=== PATIENT | male | born 1985 | race African-American/Black ===

== ENCOUNTER 2016-12-23 13:58 | Inpatient (IN) | payer MEDICAID, OTHER ==
[~2016-12-23] VITALS: Ht 177.8 cm; Wt 72.6 kg
[2016-12-23 14:52] LABS: ALANINE AMINOTRANSFERASE 28 U/L (3-41); ALBUMIN/GLOBULIN RATIO 0.9 (1.0-2.7); ALCOHOL < 10 mg/dL; ANION GAP 28 (5-15); ASPARTATE AMINO TRANSFERASE 35 U/L (5-40); CALCIUM 8.4 mg/dL (8.6-10.2); CARBON DIOXIDE 24 mEQ/L (20-30); CHLORIDE 70 mEQ/L (98-107); CREATININE 3.3 mg/dL (0.7-1.2); GLOMERULAR FILTRATION RATE 26.8 mL/min (>60); POTASSIUM 2.9 mEQ/L (3.4-4.9); SODIUM 122 mEQ/L (135-145); TOTAL PROTEIN 7.5 g/dL (6.6-8.7)
[2016-12-23 14:53] LABS: MEAN CORPUSCULAR HEMOGLOBIN 28.1 PG (27.0-31.0); MEAN CORPUSCULAR HGB CONC 32.4 G/DL (32.0-36.0); MEAN CORPUSCULAR VOLUME 87 FL (80-99); MEAN PLATELET VOLUME 6.9 FL (6.5-10.1); PLATELET COUNT 268 K/UL (150-450); RED BLOOD COUNT 4.11 M/UL (4.70-6.10); RED CELL DISTRIBUTION WIDTH 18.1 % (11.6-14.8)
[2016-12-23 14:55] LABS: WHITE BLOOD COUNT 24.3 K/UL (4.8-10.8)
[2016-12-23 15:04] LABS: BILIRUBIN,DIRECT 0.4 mg/dL (0.1-0.3); HEMOLYSIS 41
[2016-12-23 15:30] LABS: AMYLASE 297 U/L (10-110)
[2016-12-23 15:43] LABS: LIPASE 441 U/L (< 60)
--- NOTE | 2016-12-23 16:01 | Diagnostic Imaging Report ---
Indications: Abdominal pain, anuria, leukocytosis Technique: Continuous helical CT imaging of the abdomen and pelvis was performed with automatic exposure control on a Siemens sensation [address] scanner. Axial, coronal, sagittal images reconstructed at 3 mm slice thickness. No IV contrast was administered due to elevated BUN and creatinine levels. Oral contrast was administered per requesting physician's order, despite no contraindications listed. CTDI volume(s): 9 mGy Total DLP: 477 mGy-cm Findings: Comparison: None Lack of oral and IV contrast limits evaluation. Mild gaseous distention of colon from cecum through the splenic flexure. Remainder of tract nondilated throughout. No obvious mural thickening, adjacent stranding, associated extraluminal gas or fluid collections identified. Pancreas is enlarged with surrounding stranding and haziness. No obvious associated loculated fluid or gas collection. Liver parenchyma diffusely decreased attenuation. Multiple small calcified stones layer dependently in the gallbladder lumen. Bilateral kidneys normal in size. Bilateral renal collecting systems and ureters nondilated. Urinary bladder distended without obvious mural thickening. Remainder visualized abdominopelvic anatomy demonstrates no other obvious acute abnormality. Hazy opacity dependent portion right lung base. Left lung base clear. No focal skeletal abnormality identified. IMPRESSION: Pancreatic findings suggest acute pancreatitis. Further characterization not possible due to lack of IV contrast. Moderate gaseous distention of right and transverse colon, duct obstruction, may represent reactive colonic ileus Urinary bladder distention, nonspecific. No hydronephrosis. Hepatic steatosis Cholelithiasis Nonspecific hazy opacity right lung base, may be atelectatic or inflammatory
[2016-12-23] MEDS ORDERED: Ampicillin/Sulbactam Sod 3 GM in NS 110 ML IVPB ONE (16:15)
[2016-12-23 16:20] LABS: ANISOCYTOSIS 1+; BAND NEUTROPHILS % (MANUAL) 2 % (0-8); LYMPHOCYTES % (MANUAL) 6 % (20-45); NEUTROPHILS % (MANUAL) 87 % (45-75); TOTAL CELLS COUNTED 100
[2016-12-23 16:21] LABS: HYPOCHROMASIA 2+
[2016-12-23 16:22] LABS: BASOPHILS % (MANUAL) 0 % (0-2); EOSINOPHILS % (MANUAL) 0 % (0-3); PLATELET ESTIMATE ADEQUATE; PLATELET MORPHOLOGY NORMAL
[2016-12-23] MEDS ORDERED: Unasyn 3gm Inj ONE (16:22)
[2016-12-23] MEDS ORDERED: Metoclopramide 10mg/2ml Inj IVP ONE (16:30)
[2016-12-23] MEDS ORDERED: Morphine Sulfate 4mg/ml Inj IVP ONE (16:30)
[2016-12-23 16:51] VITALS: BP 101/66
[2016-12-23] MEDS ORDERED: NKM (16:51)
[2016-12-23 17:20] LABS: APPEARANCE,URINE CLEAR; KETONES,URINE 2+ (NEGATIVE); LEUKOCYTE ESTERASE ,URINE 1+ (NEGATIVE); NITRITE,URINE NEGATIVE (NEGATIVE); PH,URINE 5 (4.5-8.0); PROTEIN,URINE 3+ (NEGATIVE); UROBILINOGEN,URINE 1 MG/DL (0.0-1.0)
[2016-12-23 17:28] LABS: AMORPHOUS SEDIMENT,UR MODERATE /LPF; BACTERIA,URINE FEW /HPF; ICTOTEST NEGATIVE
[2016-12-23 18:47] VITALS: BP 102/60
[2016-12-23] MEDS ORDERED: Morphine Sulfate 2mg/ml Inj IVP PRN (19:00)
[2016-12-23] MEDS ORDERED: LORazepam Inj 2mg/ml 1ml IV PRN (19:00)
--- NOTE | 2016-12-23 19:04 | Consultation ---
Consult Note Consult Note presents with ALOC Has high lipase . Assessment/Plan Renal failure , Acute vs Chronic h/o Sz Acute Encephalopathy Low K Low Na Elevated Lipase , acute pancreatitis Plan; npo excepts meds- NS Monitor lytes- monitor renal parameters Neuro eval check dilantin level VELASQUEZ DASILVA Dec 23, 2016 19:04
[2016-12-23] MEDS ORDERED: LORazepam 1mg tab ORAL PRN (19:45)
[2016-12-23 20:00] VITALS: BP 97/50
--- NOTE | 2016-12-23 22:23 | Emergency Room Report ---
History of Present Illness General Chief Complaint: Alcohol Intoxication Source: EMS Present Illness HPI The patient is a 31-year-old male with a history of seizure disorder brought in by ambulance presumably for intoxication. The patient does admit to drinking a 40 ounce of beer today but denies using any drugs recently. He states that he does not know which medications he used to take for seizure but has not been taking any medications at all. He denies any pain. He does admit to nausea and feeling drowsy. He also admits to abdominal pain described as a 10 out of 10 dull ache to the mid upper abdomen. No known provoking relieving factors. He denies other symptoms including fever, chills, shortness of breath, chest pain, cough, headache, rash, diarrhea, constipation Allergies: Coded Allergies: ACETAMINOPHEN (Verified Allergy, Unknown, 06/11/15) IBUPROFEN (Verified Allergy, Unknown, 06/11/15) Patient History Past Medical History: see triage record Pertinent Family History: none Social History: Reports: alcohol use Reviewed Nursing Documentation: PMH: Agreed, PSxH: Agreed Nursing Documentation-PMH Past Medical History: No History, Except For Hx Cardiac Problems: No Hx Cancer: No Hx Gastrointestinal Problems: Yes - ETOH ABUSE Hx Seizures: Yes Review of Systems All Other Systems: negative except mentioned in HPI Physical Exam Vital Signs Date Time Temp Pulse Resp B/P Pulse Ox O2 Delivery O2 Flow Rate FiO2 12/23/16 13:55 116 20 96/63 99 Room Air 12/23/16 16:51 98.1 Sp02 EP Interpretation: reviewed, normal General Appearance: no apparent distress, GCS 15, non-toxic, lethargic Head: normocephalic, atraumatic Eyes: bilateral eye PERRL, bilateral eye normal inspection ENT: hearing grossly normal, normal pharynx, no angioedema, normal voice Respiratory: chest non-tender, lungs clear, normal breath sounds, no accessory muscle use, speaking full sentences Cardiovascular #1: no edema, no murmur, no rub Gastrointestinal: normal bowel sounds, soft, non-distended, no guarding, no rebound, tenderness - diffuse, primarily epigastric Genitourinary: normal inspection, no CVA tenderness Musculoskeletal: back normal, gait/station normal, normal range of motion, non- tender Neurologic: alert, responsive, sensory intact Psychiatric: no suicidal/homicidal ideation, depressed affect Skin: normal color, no rash, warm/dry, well hydrated Lymphatic: no adenopathy Medical Decision Making PA Attestation Dr. Zheng is my supervising physician. Patient management was discussed with my supervising physician Diagnostic Impression: Primary Impression: Pancreatitis Qualified Codes: K85.90 - Acute pancreatitis without necrosis or infection, unspecified Additional Impression: Altered mental status Qualified Codes: R41.82 - Altered mental status, unspecified ER Course The patient is a 31-year-old male in by ambulance for altered mental status presumably due to alcohol Differential diagnoses considered but not limited to: Alcohol intoxication, drug abuse, dehydration, hyperglycemia, hypoglycemia, pancreatitis, among others Physical exam: Afebrile. Patient is tachycardic. No apparent distress. He appears lethargic and is slow to respond. HEENT exam unremarkable. Tachycardia. No MRG. Lungs are CTAB There is diffuse abdominal tenderness with the greatest tenderness noted over the epigastric region. Skin is warm and dry. No rash CBC significant for leukocytosis which is markedly elevated. Left shift is noted. CMP has multiple abnormalities including hypokalemia, hyponatremia, elevated BUN and creatinine, hyperglycemia, and elevated bilirubin. Lipase and amylase elevated Urinalysis has 3+ occult blood. Negative nitrites. There are granular casts seen CT shows signs of acute pancreatitis as well as cholelithiasis The patient is given IV fluids, morphine, and Zofran. He feels better The patient will be admitted in serious but stable condition. The case is discussed with admitting doctor and Dr. Zheng. The patient agrees with this plan Laboratory Tests Test 12/23/16 14:20 12/23/16 16:25 White Blood Count 24.3 K/UL (4.8-10.8) *H Red Blood Count 4.11 M/UL (4.70-6.10) L Hemoglobin 11.6 G/DL (14.2-18.0) L Hematocrit 35.7 % (42.0-52.0) L Mean Corpuscular Volume 87 FL (80-99) Mean Corpuscular Hemoglobin 28.1 PG (27.0-31.0) Mean Corpuscular Hemoglobin Concent 32.4 G/DL (32.0-36.0) Red Cell Distribution Width 18.1 % (11.6-14.8) H Platelet Count 268 K/UL (150-450) Mean Platelet Volume 6.9 FL (6.5-10.1) Neutrophils (%) (Auto) % (45.0-75.0) Lymphocytes (%) (Auto) % (20.0-45.0) Monocytes (%) (Auto) % (1.0-10.0) Eosinophils (%) (Auto) % (0.0-3.0) Basophils (%) (Auto) % (0.0-2.0) Differential Total Cells Counted 100 Neutrophils % (Manual) 87 % (45-75) H Lymphocytes % (Manual) 6 % (20-45) L Monocytes % (Manual) 5 % (1-10) Eosinophils % (Manual) 0 % (0-3) Basophils % (Manual) 0 % (0-2) Band Neutrophils 2 % (0-8) Platelet Estimate Adequate Platelet Morphology Normal Hypochromasia 2+ Anisocytosis 1+ Sodium Level 122 mEQ/L (135-145) L Potassium Level 2.9 mEQ/L (3.4-4.9) L Chloride Level 70 mEQ/L (98-107) L Carbon Dioxide Level 24 mEQ/L (20-30) Anion Gap 28 (5-15) H Blood Urea Nitrogen 33 mg/dL (7-23) H Creatinine 3.3 mg/dL (0.7-1.2) H Estimate Glomerular Filtration Rate 26.8 mL/min (>60) Glucose Level 245 mg/dL (74-106) H Plasma/Serum Osmolality Pending Calcium Level 8.4 mg/dL (8.6-10.2) L Total Bilirubin 1.4 mg/dL (0.0-1.2) H Direct Bilirubin 0.4 mg/dL (0.1-0.3) H Aspartate Amino Transferase (AST) 35 U/L (5-40) Alanine Aminotransferase (ALT) 28 U/L (3-41) Alkaline Phosphatase 102 U/L (40-129) Total Protein 7.5 g/dL (6.6-8.7) Albumin 3.6 g/dL (3.5-5.2) Globulin 3.9 g/dL Albumin/Globulin Ratio 0.9 (1.0-2.7) L Amylase Level 297 U/L (10-110) H Lipase 441 U/L (< 60) H Serum Alcohol < 10 mg/dL Urine Color Brown Urine Appearance Clear Urine pH 5 (4.5-8.0) Urine Specific [place] 1.025 (1.005-1.035) Urine Protein 3+ (NEGATIVE) H Urine Glucose (UA) 3+ (NEGATIVE) H Urine Ketones 2+ (NEGATIVE) H Urine Occult Blood 3+ (NEGATIVE) H Urine Nitrite Negative (NEGATIVE) Urine Bilirubin 2+ (NEGATIVE) H Urine Ictotest Negative Urine Urobilinogen 1 MG/DL (0.0-1.0) H Urine Leukocyte Esterase 1+ (NEGATIVE) H Urine RBC 5-10 /HPF (0 - 0) H Urine WBC 2-4 /HPF (0 - 0) Urine Squamous Epithelial Cells None /LPF (NONE/OCC) Urine Amorphous Sediment Moderate /LPF (NONE) H Urine Bacteria Few /HPF (NONE) Urine Fine Granular Casts 2-4 /LPF (NONE) H Urine Opiates Screen Negative (NEGATIVE) Urine Barbiturates Screen Negative (NEGATIVE) Phencyclidine (PCP) Screen Negative (NEGATIVE) Urine Amphetamines Screen Negative (NEGATIVE) Urine Benzodiazepines Screen Negative (NEGATIVE) Urine Cocaine Screen Negative (NEGATIVE) Urine Marijuana (THC) Screen Negative (NEGATIVE) Lab Results Impression CBC significant for leukocytosis which is markedly elevated. Left shift is noted. CMP has multiple abnormalities including hypokalemia, hyponatremia, elevated BUN and creatinine, hyperglycemia, and elevated bilirubin. Lipase and amylase elevated Urinalysis has 3+ occult blood. Negative nitrites. There are granular casts seen Urine drug screen and serum alcohol are both essentially negative CT/MRI/US Diagnostic Results CT/MRI/US Diagnostic Results : Imaging Test Ordered: CT abd pelvis Impression There findings consistent with acute pancreatitis and cholelithiasis Last Vital Signs Date Time Temp Pulse Resp B/P Pulse Ox O2 Delivery O2 Flow Rate FiO2 12/23/16 20:00 100.6 116 20 97/50 100 Room Air Status: improved Disposition: ADMITTED INPATIENT Condition: Serious Referrals: NOT CHOSEN ALEX/,REFERRING (PCP) DARCI ESQUIVEL Dec 23, 2016 22:23
[2016-12-24] VITALS: BP 95/38
[2016-12-24 04:14] VITALS: BP 96/50
[2016-12-24 07:37] LABS: MEAN CORPUSCULAR HEMOGLOBIN 28.9 PG (27.0-31.0); MEAN CORPUSCULAR HGB CONC 32.2 G/DL (32.0-36.0); MEAN CORPUSCULAR VOLUME 90 FL (80-99); MEAN PLATELET VOLUME 7.3 FL (6.5-10.1); PLATELET COUNT 203 K/UL (150-450); RED BLOOD COUNT 3.23 M/UL (4.70-6.10); RED CELL DISTRIBUTION WIDTH 18.8 % (11.6-14.8); WHITE BLOOD COUNT 16.2 K/UL (4.8-10.8)
[2016-12-24 07:46] LABS: AMMONIA 40 umol/L (16-60)
--- NOTE | 2016-12-24 08:11 | Infectious Diseases Prog Note ---
Assessment/Plan Problems: (1) Sepsis Assessment & Plan: with leukocytosis, will send blood culture and start unasyn empirically (2) Acute alcoholic intoxication Assessment & Plan: continue neuro check and benzodiazepine , watch for alcohol withdrawal , recommend alcohol rehab and counseling (3) Pancreatitis Assessment & Plan: due to [place] drink of alcohol , continue hydration with supportive care, monitor lipase, consult GI (4) Altered mental status Assessment & Plan: due to the above, improving, recommend neurology consult Subjective Allergies: Coded Allergies: ACETAMINOPHEN (Verified Allergy, Unknown, 06/11/15) IBUPROFEN (Verified Allergy, Unknown, 06/11/15) Objective Vital Signs Last 24 Hour Vital Signs Date Time Temp Pulse Resp B/P Pulse Ox O2 Delivery O2 Flow Rate FiO2 12/24/16 04:14 99.5 106 19 96/50 100 Room Air 12/24/16 00:00 99.8 117 18 95/38 97 Room Air 12/23/16 20:00 100.6 116 20 97/50 100 Room Air 12/23/16 18:47 98.4 113 19 102/60 100 Room Air 12/23/16 18:25 98.1 118 20 101/66 99 Room Air 12/23/16 18:16 98.1 12/23/16 16:51 98.1 118 20 101/66 99 Room Air 12/23/16 13:55 116 20 96/63 99 Room Air Height (Feet): 5 Height (Inches): 10.00 Weight (Pounds): 160 Laboratory Tests Test 12/23/16 14:20 12/23/16 16:25 12/24/16 06:00 White Blood Count 24.3 K/UL (4.8-10.8) *H 16.2 K/UL (4.8-10.8) H Red Blood Count 4.11 M/UL (4.70-6.10) L 3.23 M/UL (4.70-6.10) L Hemoglobin 11.6 G/DL (14.2-18.0) L 9.3 G/DL (14.2-18.0) L Hematocrit 35.7 % (42.0-52.0) L 29.0 % (42.0-52.0) L Mean Corpuscular Volume 87 FL (80-99) 90 FL (80-99) Mean Corpuscular Hemoglobin 28.1 PG (27.0-31.0) 28.9 PG (27.0-31.0) Mean Corpuscular Hemoglobin Concent 32.4 G/DL (32.0-36.0) 32.2 G/DL (32.0-36.0) Red Cell Distribution Width 18.1 % (11.6-14.8) H 18.8 % (11.6-14.8) H Platelet Count 268 K/UL (150-450) 203 K/UL (150-450) Mean Platelet Volume 6.9 FL (6.5-10.1) 7.3 FL (6.5-10.1) Neutrophils (%) (Auto) % (45.0-75.0) % (45.0-75.0) Lymphocytes (%) (Auto) % (20.0-45.0) % (20.0-45.0) Monocytes (%) (Auto) % (1.0-10.0) % (1.0-10.0) Eosinophils (%) (Auto) % (0.0-3.0) % (0.0-3.0) Basophils (%) (Auto) % (0.0-2.0) % (0.0-2.0) Differential Total Cells Counted 100 Neutrophils % (Manual) 87 % (45-75) H Pending Lymphocytes % (Manual) 6 % (20-45) L Pending Monocytes % (Manual) 5 % (1-10) Eosinophils % (Manual) 0 % (0-3) Basophils % (Manual) 0 % (0-2) Band Neutrophils 2 % (0-8) Platelet Estimate Adequate Pending Platelet Morphology Normal Pending Hypochromasia 2+ Anisocytosis 1+ Sodium Level 122 mEQ/L (135-145) L Pending Potassium Level 2.9 mEQ/L (3.4-4.9) L Pending Chloride Level 70 mEQ/L (98-107) L Pending Carbon Dioxide Level 24 mEQ/L (20-30) Pending Anion Gap 28 (5-15) H Blood Urea Nitrogen 33 mg/dL (7-23) H Pending Creatinine 3.3 mg/dL (0.7-1.2) H Pending Estimat Glomerular Filtration Rate 26.8 mL/min (>60) Pending Glucose Level 245 mg/dL (74-106) H Pending Plasma/Serum Osmolality Pending Calcium Level 8.4 mg/dL (8.6-10.2) L Pending Total Bilirubin 1.4 mg/dL (0.0-1.2) H Pending Direct Bilirubin 0.4 mg/dL (0.1-0.3) H Aspartate Amino Transf (AST/SGOT) 35 U/L (5-40) Pending Alanine Aminotransferase (ALT/SGPT) 28 U/L (3-41) Pending Alkaline Phosphatase 102 U/L (40-129) Pending Total Protein 7.5 g/dL (6.6-8.7) Pending Albumin 3.6 g/dL (3.5-5.2) Pending Globulin 3.9 g/dL Pending Albumin/Globulin Ratio 0.9 (1.0-2.7) L Amylase Level 297 U/L (10-110) H Lipase 441 U/L (< 60) H Pending Serum Alcohol < 10 mg/dL Urine Color Brown Urine Appearance Clear Urine pH 5 (4.5-8.0) Urine Specific [place] 1.025 (1.005-1.035) Urine Protein 3+ (NEGATIVE) H Urine Glucose (UA) 3+ (NEGATIVE) H Urine Ketones 2+ (NEGATIVE) H Urine Occult Blood 3+ (NEGATIVE) H Urine Nitrite Negative (NEGATIVE) Urine Bilirubin 2+ (NEGATIVE) H Urine Ictotest Negative Urine Urobilinogen 1 MG/DL (0.0-1.0) H Urine Leukocyte Esterase 1+ (NEGATIVE) H Urine RBC 5-10 /HPF (0 - 0) H Urine WBC 2-4 /HPF (0 - 0) Urine Squamous Epithelial Cells None /LPF (NONE/OCC) Urine Amorphous Sediment Moderate /LPF (NONE) H Urine Bacteria Few /HPF (NONE) Urine Fine Granular Casts 2-4 /LPF (NONE) H Urine Opiates Screen Negative (NEGATIVE) Urine Barbiturates Screen Negative (NEGATIVE) Phencyclidine (PCP) Screen Negative (NEGATIVE) Urine Amphetamines Screen Negative (NEGATIVE) Urine Benzodiazepines Screen Negative (NEGATIVE) Urine Cocaine Screen Negative (NEGATIVE) Urine Marijuana (THC) Screen Negative (NEGATIVE) Urine Eosinophils Pending Urine Random Sodium Pending Hemoglobin A1c Pending Uric Acid Pending Phosphorus Level Pending Magnesium Level Pending Iron Level Pending Unsaturated Iron Binding Pending Ferritin Pending Gamma Glutamyl Transpeptidase Pending Ammonia 40 umol/L (16-60) Total Creatine Kinase Pending C-Reactive Protein, Quantitative Pending Pro-B-Type Natriuretic Peptide Pending Triglycerides Level Pending Cholesterol Level Pending LDL Cholesterol Pending HDL Cholesterol Pending Cholesterol/HDL Ratio Pending Vitamin B12 Level Pending Folate Pending Thyroid Stimulating Hormone (TSH) Pending Phenytoin (Dilantin) Level Pending Current Medications Medications (Trade) Dose Ordered Sig/Juliana Route PRN Reason Start Time Stop Time Status Last Admin Dose Admin Lorazepam (Ativan 2mg/ml 1ml) 0.5 mg Q4H PRN IV SEIZURE OR WITHDRAWAL 12/23/16 19:00 12/30/16 18:59 Lorazepam (Ativan) 1 mg Q6H PRN ORAL For Anxiety 12/23/16 19:45 12/30/16 19:44 Morphine Sulfate (Morphine Sulfate) 2 mg Q4H PRN IVP Severe Pain (Pain Scale 7-10) 12/23/16 19:00 12/30/16 18:59 Ondansetron HCl (Zofran) 4 mg Q6H PRN IVP Nausea & Vomiting 12/23/16 19:45 01/22/17 19:44 Pantoprazole (Protonix) 40 mg EVERY 12 HOURS ORAL 12/23/16 21:00 01/22/17 20:59 12/23/16 20:37 Sodium Chloride (Sodium Chloride 1000ml bag) 1,000 ml @ 100 mls/hr Q10H IV 12/23/16 19:45 01/22/17 19:44 12/24/16 05:22 Imelda Chen M.D. Dec 24, 2016 08:11
[2016-12-24 08:15] VITALS: BP 89/47
[2016-12-24 08:16] LABS: ALANINE AMINOTRANSFERASE 20 U/L (3-41); ALBUMIN/GLOBULIN RATIO 0.8 (1.0-2.7); ANION GAP 21 (5-15); ASPARTATE AMINO TRANSFERASE 29 U/L (5-40); CALCIUM 7.7 mg/dL (8.6-10.2); CARBON DIOXIDE 27 mEQ/L (20-30); CHLORIDE 84 mEQ/L (98-107); CHOLESTEROL 60 mg/dL (< 200); CHOLESTEROL/HDL RATIO 4.6 (3.3-4.4); CREATININE 1.9 mg/dL (0.7-1.2); CRP QUANT 15.6 mg/dL (< 0.5); GLOMERULAR FILTRATION RATE 50.7 mL/min (>60); LDL CHOLESTEROL (CALC.) 30 mg/dL (60-99); LIPASE 154 U/L (< 60); MAGNESIUM 2.2 mg/dL (1.7-2.5); PHOSPHORUS 3.3 mg/dL (2.5-4.8); POTASSIUM 2.8 mEQ/L (3.4-4.9); SODIUM 132 mEQ/L (135-145); TOTAL PROTEIN 6.7 g/dL (6.6-8.7); URIC ACID 12.4 mg/dL (3.0-7.5)
[2016-12-24 08:18] LABS: FERRITIN 1159 ng/mL (10-230)
[2016-12-24 08:26] LABS: HEMOLYSIS 82; IRON 88 ug/dL (59-158); TOTAL IRON BINDING CAPACITY 249 ug/dL (250-400)
[2016-12-24 08:33] LABS: HEMOGLOBIN A1C 6.3 % (< 6.0)
[2016-12-24 08:40] LABS: BILIRUBIN,DIRECT 0.4 mg/dL (0.1-0.3)
--- NOTE | 2016-12-24 08:42 | Consultation ---
History of Present Illness General Date patient seen: Dec 24, 2016 Time patient seen: 07:00 - am Chief Complaint: Alcohol Intoxication Referring physician: veena Reason for Consultation: Pain management Present Illness HPI The patient is a 31-year-old male with a history of seizure disorder admitted for intoxication. The patient does admit to drinking a 40 ounce of beer and is c/o abdominal pain nausea and feeling drowsy. Given Morphine which has allowed him to tolerate his pain. Allergies: Coded Allergies: ACETAMINOPHEN (Verified Allergy, Unknown, 06/11/15) IBUPROFEN (Verified Allergy, Unknown, 06/11/15) Medication History Scheduled No Known Medications* (NKM - No Known Medications*), 0 ., (Reported) Patient History Healthcare decision maker N Resuscitation status Full Code Advanced Directive on File Past Medical/Surgical History Past Medical/Surgical History: (1) Seizure (2) Status epilepticus (3) Acute alcoholic intoxication (4) Altered mental status (5) Pancreatitis (6) Sepsis (7) Anemia Review of Systems Constitutional: Reports: weakness Eye: Reports: no symptoms ENT: Reports: no symptoms Respiratory: Reports: no symptoms Cardiovascular: Reports: no symptoms Gastrointestinal: Reports: abdominal pain, nausea Genitourinary: Reports: no symptoms Musculoskeletal: Reports: no symptoms Skin: Reports: no symptoms Psychiatric: Reports: anxiety, depressed feelings Neurological: Reports: numbness Endocrine: Reports: no symptoms Hematologic/Lymphatic: Reports: anemia Physical Exam General Appearance: no apparent distress, alert HEENT: PERRL Neck: non-tender, supple Respiratory/Chest: lungs clear, normal breath sounds Cardiovascular/Chest: normal rate, regular rhythm Abdomen: tender Extremities: non-tender Skin Exam: warm/dry Neurologic: alert, oriented x 3 Last 24 Hour Vital Signs Date Time Temp Pulse Resp B/P Pulse Ox O2 Delivery O2 Flow Rate FiO2 12/24/16 08:15 99.1 101 20 89/47 99 Room Air 12/24/16 04:14 99.5 106 19 96/50 100 Room Air 12/24/16 00:00 99.8 117 18 95/38 97 Room Air 12/23/16 20:00 100.6 116 20 97/50 100 Room Air 12/23/16 18:47 98.4 113 19 102/60 100 Room Air 12/23/16 18:25 98.1 118 20 101/66 99 Room Air 12/23/16 18:16 98.1 12/23/16 16:51 98.1 118 20 101/66 99 Room Air 12/23/16 13:55 116 20 96/63 99 Room Air Intake and Output 12/23/16 12/24/16 19:00 07:00 Intake Total 900 ml Output Total 250 ml Balance 650 ml Intake IV Total 900 ml Output Urine Total 250 ml # Voids 1 1 Laboratory Tests Test 12/23/16 14:20 12/23/16 16:25 12/24/16 06:00 White Blood Count 24.3 K/UL (4.8-10.8) *H 16.2 K/UL (4.8-10.8) H Red Blood Count 4.11 M/UL (4.70-6.10) L 3.23 M/UL (4.70-6.10) L Hemoglobin 11.6 G/DL (14.2-18.0) L 9.3 G/DL (14.2-18.0) L Hematocrit 35.7 % (42.0-52.0) L 29.0 % (42.0-52.0) L Mean Corpuscular Volume 87 FL (80-99) 90 FL (80-99) Mean Corpuscular Hemoglobin 28.1 PG (27.0-31.0) 28.9 PG (27.0-31.0) Mean Corpuscular Hemoglobin Concent 32.4 G/DL (32.0-36.0) 32.2 G/DL (32.0-36.0) Red Cell Distribution Width 18.1 % (11.6-14.8) H 18.8 % (11.6-14.8) H Platelet Count 268 K/UL (150-450) 203 K/UL (150-450) Mean Platelet Volume 6.9 FL (6.5-10.1) 7.3 FL (6.5-10.1) Neutrophils (%) (Auto) % (45.0-75.0) % (45.0-75.0) Lymphocytes (%) (Auto) % (20.0-45.0) % (20.0-45.0) Monocytes (%) (Auto) % (1.0-10.0) % (1.0-10.0) Eosinophils (%) (Auto) % (0.0-3.0) % (0.0-3.0) Basophils (%) (Auto) % (0.0-2.0) % (0.0-2.0) Differential Total Cells Counted 100 Neutrophils % (Manual) 87 % (45-75) H Pending Lymphocytes % (Manual) 6 % (20-45) L Pending Monocytes % (Manual) 5 % (1-10) Eosinophils % (Manual) 0 % (0-3) Basophils % (Manual) 0 % (0-2) Band Neutrophils 2 % (0-8) Platelet Estimate Adequate Pending Platelet Morphology Normal Pending Hypochromasia 2+ Anisocytosis 1+ Sodium Level 122 mEQ/L (135-145) L 132 mEQ/L (135-145) #L Potassium Level 2.9 mEQ/L (3.4-4.9) L 2.8 mEQ/L (3.4-4.9) L Chloride Level 70 mEQ/L (98-107) L 84 mEQ/L (98-107) L Carbon Dioxide Level 24 mEQ/L (20-30) 27 mEQ/L (20-30) Anion Gap 28 (5-15) H 21 (5-15) H Blood Urea Nitrogen 33 mg/dL (7-23) H 44 mg/dL (7-23) H Creatinine 3.3 mg/dL (0.7-1.2) H 1.9 mg/dL (0.7-1.2) H Estimat Glomerular Filtration Rate 26.8 mL/min (>60) 50.7 mL/min (>60) Glucose Level 245 mg/dL (74-106) H 144 mg/dL (74-106) #H Plasma/Serum Osmolality Pending Calcium Level 8.4 mg/dL (8.6-10.2) L 7.7 mg/dL (8.6-10.2) L Total Bilirubin 1.4 mg/dL (0.0-1.2) H 1.2 mg/dL (0.0-1.2) Direct Bilirubin 0.4 mg/dL (0.1-0.3) H 0.4 mg/dL (0.1-0.3) H Aspartate Amino Transf (AST/SGOT) 35 U/L (5-40) 29 U/L (5-40) Alanine Aminotransferase (ALT/SGPT) 28 U/L (3-41) 20 U/L (3-41) Alkaline Phosphatase 102 U/L (40-129) 87 U/L (40-129) Total Protein 7.5 g/dL (6.6-8.7) 6.7 g/dL (6.6-8.7) Albumin 3.6 g/dL (3.5-5.2) 3.1 g/dL (3.5-5.2) L Globulin 3.9 g/dL 3.6 g/dL Albumin/Globulin Ratio 0.9 (1.0-2.7) L 0.8 (1.0-2.7) L Amylase Level 297 U/L (10-110) H Lipase 441 U/L (< 60) H 154 U/L (< 60) H Serum Alcohol < 10 mg/dL Urine Color Brown Urine Appearance Clear Urine pH 5 (4.5-8.0) Urine Specific [place] 1.025 (1.005-1.035) Urine Protein 3+ (NEGATIVE) H Urine Glucose (UA) 3+ (NEGATIVE) H Urine Ketones 2+ (NEGATIVE) H Urine Occult Blood 3+ (NEGATIVE) H Urine Nitrite Negative (NEGATIVE) Urine Bilirubin 2+ (NEGATIVE) H Urine Ictotest Negative Urine Urobilinogen 1 MG/DL (0.0-1.0) H Urine Leukocyte Esterase 1+ (NEGATIVE) H Urine RBC 5-10 /HPF (0 - 0) H Urine WBC 2-4 /HPF (0 - 0) Urine Squamous Epithelial Cells None /LPF (NONE/OCC) Urine Amorphous Sediment Moderate /LPF (NONE) H Urine Bacteria Few /HPF (NONE) Urine Fine Granular Casts 2-4 /LPF (NONE) H Urine Opiates Screen Negative (NEGATIVE) Urine Barbiturates Screen Negative (NEGATIVE) Phencyclidine (PCP) Screen Negative (NEGATIVE) Urine Amphetamines Screen Negative (NEGATIVE) Urine Benzodiazepines Screen Negative (NEGATIVE) Urine Cocaine Screen Negative (NEGATIVE) Urine Marijuana (THC) Screen Negative (NEGATIVE) Urine Eosinophils Pending Urine Random Sodium < 10 mmol/L Hemoglobin A1c 6.3 % (< 6.0) H Uric Acid 12.4 mg/dL (3.0-7.5) H Phosphorus Level 3.3 mg/dL (2.5-4.8) Magnesium Level 2.2 mg/dL (1.7-2.5) Iron Level 88 ug/dL (59-158) Total Iron Binding Capacity 249 ug/dL (250-400) L Percent Iron Saturation 35 % (15-50) Unsaturated Iron Binding 161 ug/dL (112-346) Ferritin 1159 ng/mL (10-230) H Gamma Glutamyl Transpeptidase 84 U/L (8-61) H Ammonia 40 umol/L (16-60) Total Creatine Kinase 89 U/L (38-174) C-Reactive Protein, Quantitative 15.6 mg/dL (< 0.5) H Pro-B-Type Natriuretic Peptide 184 pg/mL (0-125) H Triglycerides Level 84 mg/dL (< 150) Cholesterol Level 60 mg/dL (< 200) LDL Cholesterol 30 mg/dL (60-99) L HDL Cholesterol 13 mg/dL (> 60) Cholesterol/HDL Ratio 4.6 (3.3-4.4) H Vitamin B12 Level 285 pg/mL (211-946) Folate Pending Thyroid Stimulating Hormone (TSH) 2.200 uIU/mL (0.300-4.500) Phenytoin (Dilantin) Level Pending Height (Feet): 5 Height (Inches): 10.00 Weight (Pounds): 160 Medications Current Medications Medications (Trade) Dose Ordered Sig/Juliana Route PRN Reason Start Time Stop Time Status Last Admin Dose Admin Ampicillin Sodium/ Sulbactam Sodium/ Sodium Chloride (Unasyn/Sodium Chloride) 110 ml @ 220 mls/hr Q6HR IVPB 12/24/16 10:00 12/31/16 09:59 Lorazepam (Ativan 2mg/ml 1ml) 0.5 mg Q4H PRN IV SEIZURE OR WITHDRAWAL 12/23/16 19:00 12/30/16 18:59 Lorazepam (Ativan) 1 mg Q6H PRN ORAL For Anxiety 12/23/16 19:45 12/30/16 19:44 Morphine Sulfate 2 mg 2 mg Q4H PRN IVP Severe Pain (Pain Scale 7-10) 12/23/16 19:00 12/30/16 18:59 Ondansetron HCl (Zofran) 4 mg Q6H PRN IVP Nausea & Vomiting 12/23/16 19:45 01/22/17 19:44 Pantoprazole (Protonix) 40 mg EVERY 12 HOURS ORAL 12/23/16 21:00 01/22/17 20:59 12/23/16 20:37 Sodium Chloride (Sodium Chloride 1000ml bag) 1,000 ml @ 100 mls/hr Q10H IV 12/23/16 19:45 01/22/17 19:44 12/24/16 05:22 Assessment/Plan Assessment/Plan (1) Alerted mental status (2) Alcohol abuse (3) Intractable abdominal pain (4) Pancreatitis Pt will be continued on Morphine 2mg IV Q4H PRN pain Pt was d/w Dr. Vasquez and he concurred. Thank you for the courtesy of this consultation. SADIQ HERNANDEZ Dec 24, 2016 08:42
[2016-12-24 09:39] LABS: ANISOCYTOSIS 1+; BAND NEUTROPHILS % (MANUAL) 0 % (0-8); BASOPHILS % (MANUAL) 0 % (0-2); EOSINOPHILS % (MANUAL) 0 % (0-3); HYPOCHROMASIA 1+; LYMPHOCYTES % (MANUAL) 10 % (20-45); NEUTROPHILS % (MANUAL) 88 % (45-75); PLATELET ESTIMATE ADEQUATE; PLATELET MORPHOLOGY NORMAL; TOTAL CELLS COUNTED 100
[2016-12-24] MEDS: Vitamin B12 1000mcg/ml Inj IM SCH (09:40)
[2016-12-24] MEDS ORDERED: Vitamin D 50,000 units cap ORAL SCH (10:00)
[2016-12-24] MEDS: Ampicillin/Sulbactam Sod 3 GM in NS 110 ML IVPB SCH ×2 (10:13→20:48)
--- NOTE | 2016-12-24 11:09 | Diagnostic Imaging Report ---
Indication: Acute renal failure Technique: Grayscale and duplex images of the kidneys, retroperitoneum, and bladder were obtained. Comparison:None Findings: Right kidney measures 10.8 cm in length. Left kidney measures 11 cm in length. Both kidneys demonstrate normal echogenicity. No hydronephrosis. No focal abnormality. Normal inferior vena cava. Bladder is somewhat distended, volume 297 mL. Impression: Full bladder, also described on CT scan of earlier the same day Otherwise negative. No evidence of hydronephrosis.
--- NOTE | 2016-12-24 11:29 | General Progress Note ---
Assessment/Plan Status: stable Status Narrative electrolyte imbalance improved Assessment/Plan status: Renal failure , Acute vs Chronic improving h/o Sz Acute Encephalopathy Low K Low Na Elevated Lipase , acute pancreatitis Plan; npo excepts meds- ST PT OT eval NS Monitor lytes- monitor renal parameters Neuro eval check dilantin level EEG Subjective ROS Limited/Unobtainable: No Allergies: Coded Allergies: ACETAMINOPHEN (Verified Allergy, Unknown, 06/11/15) IBUPROFEN (Verified Allergy, Unknown, 06/11/15) Objective Last 24 Hour Vital Signs Date Time Temp Pulse Resp B/P Pulse Ox O2 Delivery O2 Flow Rate FiO2 12/24/16 08:15 99.1 101 20 89/47 99 Room Air 12/24/16 04:14 99.5 106 19 96/50 100 Room Air 12/24/16 00:00 99.8 117 18 95/38 97 Room Air 12/23/16 20:00 100.6 116 20 97/50 100 Room Air 12/23/16 18:47 98.4 113 19 102/60 100 Room Air 12/23/16 18:25 98.1 118 20 101/66 99 Room Air 12/23/16 18:16 98.1 12/23/16 16:51 98.1 118 20 101/66 99 Room Air 12/23/16 13:55 116 20 96/63 99 Room Air Intake and Output 12/23/16 12/24/16 19:00 07:00 Intake Total 900 ml Output Total 250 ml Balance 650 ml Intake IV Total 900 ml Output Urine Total 250 ml # Voids 1 1 Laboratory Tests 12/23/16 14:20: White Blood Count 24.3*H, Red Blood Count 4.11L, Hemoglobin 11.6L, Hematocrit 35.7L, Mean Corpuscular Volume 87, Mean Corpuscular Hemoglobin 28.1, Mean Corpuscular Hemoglobin Concent 32.4, Red Cell Distribution Width 18.1H, Platelet Count 268, Mean Platelet Volume 6.9, Neutrophils (%) (Auto) , Lymphocytes (%) (Auto) , Monocytes (%) (Auto) , Eosinophils (%) (Auto) , Basophils (%) (Auto) , Differential Total Cells Counted 100, Neutrophils % ( Manual) 87H, Lymphocytes % (Manual) 6L, Monocytes % (Manual) 5, Eosinophils % ( Manual) 0, Basophils % (Manual) 0, Band Neutrophils 2, Platelet Estimate Adequate, Platelet Morphology Normal, Hypochromasia 2+, Anisocytosis 1+, Sodium Level 122L, Potassium Level 2.9L, Chloride Level 70L, Carbon Dioxide Level 24, Anion Gap 28H, Blood Urea Nitrogen 33H, Creatinine 3.3H, Estimat Glomerular Filtration Rate 26.8, Glucose Level 245H, Plasma/Serum Osmolality [Pending], Calcium Level 8.4L, Total Bilirubin 1.4H, Direct Bilirubin 0.4H, Aspartate Amino Transf (AST/SGOT) 35, Alanine Aminotransferase (ALT/SGPT) 28, Alkaline Phosphatase 102, Total Protein 7.5, Albumin 3.6, Globulin 3.9, Albumin/Globulin Ratio 0.9L, Amylase Level 297H, Lipase 441H, Serum Alcohol < 10 12/23/16 16:25: Urine Color Brown, Urine Appearance Clear, Urine pH 5, Urine Specific [place] 1.025, Urine Protein 3+H, Urine Glucose (UA) 3+H, Urine Ketones 2+H, Urine Occult Blood 3+H, Urine Nitrite Negative, Urine Bilirubin 2+H, Urine Ictotest Negative, Urine Urobilinogen 1H, Urine Leukocyte Esterase 1+H, Urine RBC 5-10H, Urine WBC 2-4, Urine Squamous Epithelial Cells None, Urine Amorphous Sediment ModerateH, Urine Bacteria Few, Urine Fine Granular Casts 2-4H, Urine Opiates Screen Negative, Urine Barbiturates Screen Negative, Phencyclidine (PCP) Screen Negative, Urine Amphetamines Screen Negative, Urine Benzodiazepines Screen Negative, Urine Cocaine Screen Negative, Urine Marijuana (THC) Screen Negative 12/24/16 06:00: White Blood Count 16.2H, Red Blood Count 3.23L, Hemoglobin 9.3L, Hematocrit 29.0L, Mean Corpuscular Volume 90, Mean Corpuscular Hemoglobin 28.9, Mean Corpuscular Hemoglobin Concent 32.2, Red Cell Distribution Width 18.8H, Platelet Count 203, Mean Platelet Volume 7.3, Neutrophils (%) (Auto) , Lymphocytes (%) (Auto) , Monocytes (%) (Auto) , Eosinophils (%) (Auto) , Basophils (%) (Auto) , Differential Total Cells Counted 100, Neutrophils % ( Manual) 88H, Lymphocytes % (Manual) 10L, Monocytes % (Manual) 2, Eosinophils % ( Manual) 0, Basophils % (Manual) 0, Band Neutrophils 0, Platelet Estimate Adequate, Platelet Morphology Normal, Hypochromasia 1+, Anisocytosis 1+, Sodium Level 132#L, Potassium Level 2.8L, Chloride Level 84L, Carbon Dioxide Level 27, Anion Gap 21H, Blood Urea Nitrogen 44H, Creatinine 1.9H, Estimat Glomerular Filtration Rate 50.7, Glucose Level 144#H, Calcium Level 7.7L, Total Bilirubin 1.2, Direct Bilirubin 0.4H, Aspartate Amino Transf (AST/SGOT) 29, Alanine Aminotransferase (ALT/SGPT) 20, Alkaline Phosphatase 87, Total Protein 6.7, Albumin 3.1L, Globulin 3.6, Albumin/Globulin Ratio 0.8L, Lipase 154H, Urine Eosinophils None seen, Urine Random Sodium < 10, Hemoglobin A1c 6.3H, Uric Acid 12.4H, Phosphorus Level 3.3, Magnesium Level 2.2, Iron Level 88, Total Iron Binding Capacity 249L, Percent Iron Saturation 35, Unsaturated Iron Binding 161 , Ferritin 1159H, Gamma Glutamyl Transpeptidase 84H, Ammonia 40, Total Creatine Kinase 89, C-Reactive Protein, Quantitative 15.6H, Pro-B-Type Natriuretic Peptide 184H, Triglycerides Level 84, Cholesterol Level 60, LDL Cholesterol 30L , HDL Cholesterol 13, Cholesterol/HDL Ratio 4.6H, Vitamin B12 Level 285, Folate [Pending], Thyroid Stimulating Hormone (TSH) 2.200, Phenytoin (Dilantin) Level < 0.8L Height (Feet): 5 Height (Inches): 10.00 Weight (Pounds): 160 General Appearance: no apparent distress, confused Objective other PE not changed VELASQUEZ DASILVA Dec 24, 2016 11:29
[2016-12-24 11:52] VITALS: BP 96/50
--- NOTE | 2016-12-24 13:53 | GI Initial Consult Note ---
History of Present Illness General Date patient seen: Dec 24, 2016 Time patient seen: 13:50 Reason for Hospitalization: Alcohol Intoxication Referring physician: LUIGI RODRIGUEZ Reason for Consultation: PANCREATITITS Present Illness HPI The patient is a 31-year-old male with a history of seizure disorder brought in by ambulance presumably for intoxication. The patient does admit to drinking a 40 ounce of beer today but denies using any drugs recently. He states that he does not know which medications he used to take for seizure but has not been taking any medications at all. He denies any pain. He does admit to nausea and feeling drowsy. He also admits to abdominal pain described as a 10 out of 10 dull ache to the mid upper abdomen. No known provoking relieving factors. He denies other symptoms including fever, chills, shortness of breath, chest pain, cough, headache, rash, diarrhea, constipation GI Consult. HPI as noted above. GI consulted for pancreatitis. Pt seen on floor, awake A&O NAD slow to respond with slurred speech, but coherent. C/o of abdominal pain tender to touch in all quadrants. Presents today with pancreatitis, leukocytosis, and anemia. No history of endoscopic procedures. Home Meds Reported Medications No Known Medications* (NKM - No Known Medications*) ., 0 ., 0 Refills 12/23/16 Med list reviewed/reconciled: Yes Allergies: Coded Allergies: ACETAMINOPHEN (Verified Allergy, Unknown, 06/11/15) IBUPROFEN (Verified Allergy, Unknown, 06/11/15) Patient History Limited by: medical condition History Provided By: Patient, Medical Record PM Narrative Past Medical History: No History, Except For Hx Cardiac Problems: No Hx Cancer: No Hx Gastrointestinal Problems: Yes - ETOH ABUSE Hx Seizures: Yes Social History: Reports: alcohol use, smoking Review of Systems All Other Systems: negative except mentioned in HPI Physical Exam Vital Signs Date Time Temp Pulse Resp B/P Pulse Ox O2 Delivery O2 Flow Rate FiO2 12/23/16 13:55 116 20 96/63 99 Room Air 12/23/16 16:51 98.1 Sp02 EP Interpretation: reviewed Labs Laboratory Tests Test 12/23/16 14:20 12/23/16 16:25 12/24/16 06:00 White Blood Count 24.3 K/UL (4.8-10.8) *H 16.2 K/UL (4.8-10.8) H Red Blood Count 4.11 M/UL (4.70-6.10) L 3.23 M/UL (4.70-6.10) L Hemoglobin 11.6 G/DL (14.2-18.0) L 9.3 G/DL (14.2-18.0) L Hematocrit 35.7 % (42.0-52.0) L 29.0 % (42.0-52.0) L Mean Corpuscular Volume 87 FL (80-99) 90 FL (80-99) Mean Corpuscular Hemoglobin 28.1 PG (27.0-31.0) 28.9 PG (27.0-31.0) Mean Corpuscular Hemoglobin Concent 32.4 G/DL (32.0-36.0) 32.2 G/DL (32.0-36.0) Red Cell Distribution Width 18.1 % (11.6-14.8) H 18.8 % (11.6-14.8) H Platelet Count 268 K/UL (150-450) 203 K/UL (150-450) Mean Platelet Volume 6.9 FL (6.5-10.1) 7.3 FL (6.5-10.1) Neutrophils (%) (Auto) % (45.0-75.0) % (45.0-75.0) Lymphocytes (%) (Auto) % (20.0-45.0) % (20.0-45.0) Monocytes (%) (Auto) % (1.0-10.0) % (1.0-10.0) Eosinophils (%) (Auto) % (0.0-3.0) % (0.0-3.0) Basophils (%) (Auto) % (0.0-2.0) % (0.0-2.0) Differential Total Cells Counted 100 100 Neutrophils % (Manual) 87 % (45-75) H 88 % (45-75) H Lymphocytes % (Manual) 6 % (20-45) L 10 % (20-45) L Monocytes % (Manual) 5 % (1-10) 2 % (1-10) Eosinophils % (Manual) 0 % (0-3) 0 % (0-3) Basophils % (Manual) 0 % (0-2) 0 % (0-2) Band Neutrophils 2 % (0-8) 0 % (0-8) Platelet Estimate Adequate Adequate Platelet Morphology Normal Normal Hypochromasia 2+ 1+ Anisocytosis 1+ 1+ Sodium Level 122 mEQ/L (135-145) L 132 mEQ/L (135-145) #L Potassium Level 2.9 mEQ/L (3.4-4.9) L 2.8 mEQ/L (3.4-4.9) L Chloride Level 70 mEQ/L (98-107) L 84 mEQ/L (98-107) L Carbon Dioxide Level 24 mEQ/L (20-30) 27 mEQ/L (20-30) Anion Gap 28 (5-15) H 21 (5-15) H Blood Urea Nitrogen 33 mg/dL (7-23) H 44 mg/dL (7-23) H Creatinine 3.3 mg/dL (0.7-1.2) H 1.9 mg/dL (0.7-1.2) H Estimat Glomerular Filtration Rate 26.8 mL/min (>60) 50.7 mL/min (>60) Glucose Level 245 mg/dL (74-106) H 144 mg/dL (74-106) #H Plasma/Serum Osmolality Pending Calcium Level 8.4 mg/dL (8.6-10.2) L 7.7 mg/dL (8.6-10.2) L Total Bilirubin 1.4 mg/dL (0.0-1.2) H 1.2 mg/dL (0.0-1.2) Direct Bilirubin 0.4 mg/dL (0.1-0.3) H 0.4 mg/dL (0.1-0.3) H Aspartate Amino Transf (AST/SGOT) 35 U/L (5-40) 29 U/L (5-40) Alanine Aminotransferase (ALT/SGPT) 28 U/L (3-41) 20 U/L (3-41) Alkaline Phosphatase 102 U/L (40-129) 87 U/L (40-129) Total Protein 7.5 g/dL (6.6-8.7) 6.7 g/dL (6.6-8.7) Albumin 3.6 g/dL (3.5-5.2) 3.1 g/dL (3.5-5.2) L Globulin 3.9 g/dL 3.6 g/dL Albumin/Globulin Ratio 0.9 (1.0-2.7) L 0.8 (1.0-2.7) L Amylase Level 297 U/L (10-110) H Lipase 441 U/L (< 60) H 154 U/L (< 60) H Serum Alcohol < 10 mg/dL Urine Color Brown Urine Appearance Clear Urine pH 5 (4.5-8.0) Urine Specific [place] 1.025 (1.005-1.035) Urine Protein 3+ (NEGATIVE) H Urine Glucose (UA) 3+ (NEGATIVE) H Urine Ketones 2+ (NEGATIVE) H Urine Occult Blood 3+ (NEGATIVE) H Urine Nitrite Negative (NEGATIVE) Urine Bilirubin 2+ (NEGATIVE) H Urine Ictotest Negative Urine Urobilinogen 1 MG/DL (0.0-1.0) H Urine Leukocyte Esterase 1+ (NEGATIVE) H Urine RBC 5-10 /HPF (0 - 0) H Urine WBC 2-4 /HPF (0 - 0) Urine Squamous Epithelial Cells None /LPF (NONE/OCC) Urine Amorphous Sediment Moderate /LPF (NONE) H Urine Bacteria Few /HPF (NONE) Urine Fine Granular Casts 2-4 /LPF (NONE) H Urine Opiates Screen Negative (NEGATIVE) Urine Barbiturates Screen Negative (NEGATIVE) Phencyclidine (PCP) Screen Negative (NEGATIVE) Urine Amphetamines Screen Negative (NEGATIVE) Urine Benzodiazepines Screen Negative (NEGATIVE) Urine Cocaine Screen Negative (NEGATIVE) Urine Marijuana (THC) Screen Negative (NEGATIVE) Urine Eosinophils None seen Urine Random Sodium < 10 mmol/L Hemoglobin A1c 6.3 % (< 6.0) H Uric Acid 12.4 mg/dL (3.0-7.5) H Phosphorus Level 3.3 mg/dL (2.5-4.8) Magnesium Level 2.2 mg/dL (1.7-2.5) Iron Level 88 ug/dL (59-158) Total Iron Binding Capacity 249 ug/dL (250-400) L Percent Iron Saturation 35 % (15-50) Unsaturated Iron Binding 161 ug/dL (112-346) Ferritin 1159 ng/mL (10-230) H Gamma Glutamyl Transpeptidase 84 U/L (8-61) H Ammonia 40 umol/L (16-60) Total Creatine Kinase 89 U/L (38-174) C-Reactive Protein, Quantitative 15.6 mg/dL (< 0.5) H Pro-B-Type Natriuretic Peptide 184 pg/mL (0-125) H Triglycerides Level 84 mg/dL (< 150) Cholesterol Level 60 mg/dL (< 200) LDL Cholesterol 30 mg/dL (60-99) L HDL Cholesterol 13 mg/dL (> 60) Cholesterol/HDL Ratio 4.6 (3.3-4.4) H Vitamin B12 Level 285 pg/mL (211-946) Folate Pending Thyroid Stimulating Hormone (TSH) 2.200 uIU/mL (0.300-4.500) Phenytoin (Dilantin) Level < 0.8 ug/mL (10-20) L General Appearance: no apparent distress, alert Head: normocephalic EENT: PERRL/EOMI, normal ENT inspection Neck: supple Respiratory: normal breath sounds, no respiratory distress Cardiovascular: normal rate Gastrointestinal: normal inspection, normal bowel sounds Rectal: deferred Musculoskeletal: back normal Neurologic: alert, oriented x3, responsive Psychiatric: normal inspection, judgement/insight normal, memory normal Skin: normal inspection, normal color, no rash, warm/dry, palpation normal Lymphatic: normal inspection, no adenopathy Current Medications Current Medications Medications (Trade) Dose Ordered Sig/Juliana Route PRN Reason Start Time Stop Time Status Last Admin Dose Admin Acetaminophen (Tylenol) 325 mg Q6H PRN ORAL Mild Pain/Temp > 100.5 12/24/16 12:15 01/23/17 12:14 UNV Albumin Human (Albuminar-5) 250 ml ONCE ONCE IV 12/24/16 14:30 12/24/16 14:31 Ampicillin Sodium/ Sulbactam Sodium/ Sodium Chloride (Unasyn/Sodium Chloride) 110 ml @ 220 mls/hr Q6HR IVPB 12/24/16 10:00 12/31/16 09:59 12/24/16 10:13 Cyanocobalamin (Vitamin B12) 1,000 mcg DAILY IM 12/24/16 10:00 12/26/16 09:01 12/24/16 09:40 Diazepam (Valium) 10 mg EVERY 4 HOURS PRN ORAL anxiety 12/24/16 13:00 12/31/16 12:59 Ergocalciferol (Drisdol) 50,000 intlu We@0900 ORAL 12/24/16 10:00 01/23/17 09:59 12/24/16 11:19 Folic Acid (Folate) 2 mg DAILY ORAL 12/24/16 10:00 01/23/17 09:59 12/24/16 10:00 Morphine Sulfate 2 mg 2 mg Q4H PRN IVP Severe Pain (Pain Scale 7-10) 12/23/16 19:00 12/30/16 18:59 Ondansetron HCl (Zofran) 4 mg Q6H PRN IVP Nausea & Vomiting 12/23/16 19:45 01/22/17 19:44 Pantoprazole (Protonix) 40 mg EVERY 12 HOURS ORAL 12/23/16 21:00 01/22/17 20:59 12/24/16 09:32 Potassium Chloride (K-Dur) 40 meq Q4H ORAL 12/24/16 10:00 12/24/16 14:01 12/24/16 10:00 Sodium Chloride (Sodium Chloride 1000ml bag) 1,000 ml @ 100 mls/hr Q10H IV 12/23/16 19:45 01/22/17 19:44 12/24/16 05:22 Thiamine HCl (Vitamin B1) 100 mg DAILY ORAL 12/24/16 14:30 01/23/17 14:29 GI: Plan Problems: (1) Anemia (2) Pancreatitis (3) Altered mental status (4) Acute alcoholic intoxication Plan APCT reviewed >> Pancreatic findings suggest acute pancreatitis. Right/ transverse colonic ileus. Hepatic steatosis. Cholelithiasis. CLD, adv as tolerated pain mgmt IV hydration + electrolyte replacement anemia work up OB stool r/o GI bleed H2B abx monitor lipase fu labs Discussed with Dr. Friend. Thank you for referring this patient, we will follow. Rosa Mancia N.P. Dec 24, 2016 13:53
--- NOTE | 2016-12-24 14:06 | Cardiology Report ---
APPROVED REPORT EXAM: Two-dimensional and M-mode echocardiogram with Doppler and color Doppler. INDICATION Congestive Heart Failure M-Mode DIMENSIONS IVSd0.7 (0.7-1.1cm)Left Atrium (MM)3.5 (1.6-4.0cm) LVDd3.2 (3.5-5.6cm)Aortic Root3.4 (2.0-3.7cm) PWd1.1 (0.7-1.1cm)Aortic Cusp Exc.2.0 (1.5-2.0cm) LVDs2.0 (2.5-4.0cm) PWs1.8 cm Normal left ventricular chamber size, systolic function and wall motion. Left ventricular ejection fraction estimated to be 55 %. No evidence of left ventricular hypertrophy. No evidence of pericardial effusion. All other cardiac chamber sizes are within normal limits. Normal appearing aortic, mitral, puImonic and tricuspid valves. Mild mitral annulus and aortic root calcification. IVC at normal size with physiologic collapse. A color flow and spectral Doppler study was performed and revealed: Trace mitral regurgitation. Mitral inflow indicates normal left ventricular diastolic function. Trace tricuspid regurgitation. Tricuspid systolic velocities suggests peak right ventricular systolic pressure of 25 mmHg. Trace pulmonic regurgitation present.
[2016-12-24] MEDS ORDERED: Albumin Human 5% 250ml IV ONE (14:30)
[2016-12-24 15:48] VITALS: BP 97/69
[2016-12-24] MEDS: Thiamine 100mg tab ORAL SCH (15:54)
--- NOTE | 2016-12-24 16:26 | Consultation ---
Consult Note Consult Note NEUROLOGY CONSULTATION: Full note dictated #[id number] 31 y/o, RH, BM with PH of possible psychiatric illness, questionable seizures and homelessness, who was brought to the [facility] ER on 12/23/16 with an AMS. ON EXAM: Poorly cooperative and not very verbal. Oriented to self only. Responding to internal stimuli. No definite focal findings Globally diminished reflexes. IMPRESSION: AMS due to multiple toxic/metabolic insults. ? seizure disorder REC: Try to obtain more data. CT of brain EEG Keppra 750 mg q 12 hours Psychiatric eval and Rx. Raul Ricks M.D., M.S.P.[place]. RAUL RICKS Dec 24, 2016 16:26
--- NOTE | 2016-12-24 17:15 | Consultation ---
DATE OF CONSULTATION: INFECTIOUS DISEASE CONSULTATION CONSULTING PHYSICIAN: Imelda Chen M.D. REQUESTING PHYSICIAN: Robbi Vega M.D. REASON FOR CONSULTATION: Sepsis, leukocytosis, and fever with acute pancreatitis. Recommendation for antibiotics treatment. HISTORY OF PRESENT ILLNESS: The patient is a 31-year-old male with seizure disorder and alcohol abuse, who was brought in to [facility] emergency room for alcohol intoxication via ambulance. The patient on average drinks 40 ounce of beer per day. He stopped taking his seizure medication completely and he was found to be intoxicated and drowsy. The patient was complaining of severe abdominal pain, 10/10, localized in the mid-upper abdomen. Upon evaluation in the emergency room, his temperature was 98.1 degrees, but later he spiked fever. His white count was elevated at 24,000. The patient received intravenous antibiotics in the emergency room and I was consulted by the primary provider for antibiotics treatment for possible sepsis and fever. As of note, the patient is a poor historian and cannot provide any history. History was mainly obtained from the medical record. PAST MEDICAL HISTORY: Significant for alcohol abuse and seizure disorder. PAST SURGICAL HISTORY: Negative. MEDICATIONS: The patient received Unasyn in the emergency room. For the rest of his medications, please refer to [facility]. ALLERGIES: He is allergic to acetaminophen and ibuprofen. SOCIAL HISTORY: Unclear where he lives or with whom he lives, but he drinks alcohol on a daily basis. FAMILY HISTORY: Unknown. REVIEW OF SYSTEMS: Unable to obtain at this point. The patient is a poor historian and withdrawing from alcohol. PHYSICAL EXAMINATION: VITAL SIGNS: Temperature 100.4 degrees, pulse 105, respirations 22, blood pressure 96/50, and pulse oximetry 96% on room air. GENERAL: A young male, lying in bed, awake, alert, comfortable, and not in distress. HEENT: Normocephalic and atraumatic. Pupils reactive to light. Pale sclera. No jaundice. Dry oral mucosa. No exudate. NECK: Supple. No lymphadenopathy. CARDIOVASCULAR: Regular rate and rhythm. No murmur or gallop. LUNGS: Clear bilaterally. Diminished breathing sounds at the bases. ABDOMEN: Soft, mildly distended, and tender in the epigastric area. No rebound. No organomegaly. EXTREMITIES: No edema or cyanosis. SKIN: No rash or hives. LABORATORY DATA: Labs showed white count of 24.3, hemoglobin of 11.6, hematocrit of 35.7, and platelet count of 268,000. BUN of 44 and creatinine of 1.9. AST of 29 and ALT of 20. C-reactive protein of 15.6. Lipase of 441. Urinalysis showed +1 leukocyte esterase, 2 to 4 WBC, and few bacteria in the urine. IMAGING: CT scan of the abdomen and pelvis showed pancreatic findings suggesting acute pancreatitis, moderate gaseous distention of the right and transverse colon, but obstruction may present reactive colonic ileus. Renal ultrasound showed full bladder, otherwise negative. ASSESSMENT AND RECOMMENDATIONS: 1. Sepsis with leukocytosis. We will send blood culture and start Unasyn empiric treatment for now pending culture results. 2. Acute pancreatitis due to alcohol use. Continue supportive care with hydration, pain management, and lipase level monitor. Consult Gastrointestinal. 3. Acute alcohol intoxication. Continue benzo and supportive care with vitamins. Watch for alcohol withdrawal. 4. Altered mental status due to the above, improved. Continue neuro check. Consult Neurology if needed. 5. Acute renal failure due to dehydration and poor oral intake. Continue intravenous fluid for hydration. Consult Renal. Imelda Chen M.D. DR: DANNY JOB#: [id number] CC:
--- NOTE | 2016-12-24 17:45 | Consultation ---
DATE OF CONSULTATION: HISTORY OF PRESENT ILLNESS: This is a 31-year-old male, with a history of alcohol dependence as well as crystal meth use. He has been admitted to the hospital with a chief complaint of alcohol intoxication. The patient also has a history of seizure. Currently, being covered with thiamine, folate, as well as Ativan for alcohol withdrawal. During the evaluation, he was a poor historian. He has impairment in cognition. He is unable to provide a history. He has been using crystal meth over the course of past three months. He has injected it, as well as snorting it, and smoking it. The patient currently is now withdrawing from alcohol. He does not have any symptoms that are consistent with withdrawal. He is not endorsing any psychotic symptoms or it was not elicited during my evaluation, however, he has impairment of memory, concentration, attention, and he is tangential. PAST PSYCHIATRIC HISTORY: Unknown. I was unable to gather any information in regards to his medical or psychiatric history. ALLERGIES: Includes acetaminophen and ibuprofen. SUBSTANCE USE HISTORY: Please see history of present illness. MENTAL STATUS EXAMINATION: The patient was alert and oriented times self and place. Mood was neutral. Affect was constricted. Congruent with mood. Thought process, tangential. Thought content, no suicidal or homicidal ideation. Cognition is impaired. ASSESSMENT: [place] I Alcohol dependence and crystal meth dependence. [place] II Deferred. [place] III As above. [place] IV Unknown. [place] V Global assessment of functioning is 20. PLAN: 1. The patient will be started on Valium 10 mg every 4 hours p.r.n. for anxiety, agitation, and alcohol withdrawal. 2. Continue one-to-one. 3. Discontinue the Ativan. Mary Beth Ramos M.D. DR: DENILSON JOB#: [id number] CC:
[2016-12-24 20:00] VITALS: BP 99/71
--- NOTE | 2016-12-24 20:29 | Cardiac Electrophysiology PN ---
Subjective Subjective [id number] Objective Last 24 Hour Vital Signs Date Time Temp Pulse Resp B/P Pulse Ox O2 Delivery O2 Flow Rate FiO2 12/24/16 20:00 97.7 69 18 99/71 98 Room Air 12/24/16 15:48 100.7 78 21 97/69 95 Room Air 12/24/16 11:52 100.4 105 22 96/50 96 Room Air 12/24/16 08:15 99.1 101 20 89/47 99 Room Air 12/24/16 04:14 99.5 106 19 96/50 100 Room Air 12/24/16 00:00 99.8 117 18 95/38 97 Room Air Intake and Output 12/23/16 12/24/16 19:00 07:00 Intake Total 900 ml Output Total 250 ml Balance 650 ml IV Total 900 ml Output Urine Total 250 ml # Voids 1 1 Laboratory Tests Test 12/24/16 06:00 White Blood Count 16.2 K/UL (4.8-10.8) H Red Blood Count 3.23 M/UL (4.70-6.10) L Hemoglobin 9.3 G/DL (14.2-18.0) L Hematocrit 29.0 % (42.0-52.0) L Mean Corpuscular Volume 90 FL (80-99) Mean Corpuscular Hemoglobin 28.9 PG (27.0-31.0) Mean Corpuscular Hemoglobin Concent 32.2 G/DL (32.0-36.0) Red Cell Distribution Width 18.8 % (11.6-14.8) H Platelet Count 203 K/UL (150-450) Mean Platelet Volume 7.3 FL (6.5-10.1) Neutrophils (%) (Auto) % (45.0-75.0) Lymphocytes (%) (Auto) % (20.0-45.0) Monocytes (%) (Auto) % (1.0-10.0) Eosinophils (%) (Auto) % (0.0-3.0) Basophils (%) (Auto) % (0.0-2.0) Differential Total Cells Counted 100 Neutrophils % (Manual) 88 % (45-75) H Lymphocytes % (Manual) 10 % (20-45) L Monocytes % (Manual) 2 % (1-10) Eosinophils % (Manual) 0 % (0-3) Basophils % (Manual) 0 % (0-2) Band Neutrophils 0 % (0-8) Platelet Estimate Adequate Platelet Morphology Normal Hypochromasia 1+ Anisocytosis 1+ Urine Eosinophils None seen Urine Random Sodium < 10 mmol/L Sodium Level 132 mEQ/L (135-145) #L Potassium Level 2.8 mEQ/L (3.4-4.9) L Chloride Level 84 mEQ/L (98-107) L Carbon Dioxide Level 27 mEQ/L (20-30) Anion Gap 21 (5-15) H Blood Urea Nitrogen 44 mg/dL (7-23) H Creatinine 1.9 mg/dL (0.7-1.2) H Estimat Glomerular Filtration Rate 50.7 mL/min (>60) Glucose Level 144 mg/dL (74-106) #H Hemoglobin A1c 6.3 % (< 6.0) H Uric Acid 12.4 mg/dL (3.0-7.5) H Calcium Level 7.7 mg/dL (8.6-10.2) L Phosphorus Level 3.3 mg/dL (2.5-4.8) Magnesium Level 2.2 mg/dL (1.7-2.5) Iron Level 88 ug/dL (59-158) Total Iron Binding Capacity 249 ug/dL (250-400) L Percent Iron Saturation 35 % (15-50) Unsaturated Iron Binding 161 ug/dL (112-346) Ferritin 1159 ng/mL (10-230) H Total Bilirubin 1.2 mg/dL (0.0-1.2) Direct Bilirubin 0.4 mg/dL (0.1-0.3) H Gamma Glutamyl Transpeptidase 84 U/L (8-61) H Aspartate Amino Transf (AST/SGOT) 29 U/L (5-40) Alanine Aminotransferase (ALT/SGPT) 20 U/L (3-41) Alkaline Phosphatase 87 U/L (40-129) Ammonia 40 umol/L (16-60) Total Creatine Kinase 89 U/L (38-174) C-Reactive Protein, Quantitative 15.6 mg/dL (< 0.5) H Pro-B-Type Natriuretic Peptide 184 pg/mL (0-125) H Total Protein 6.7 g/dL (6.6-8.7) Albumin 3.1 g/dL (3.5-5.2) L Globulin 3.6 g/dL Albumin/Globulin Ratio 0.8 (1.0-2.7) L Triglycerides Level 84 mg/dL (< 150) Cholesterol Level 60 mg/dL (< 200) LDL Cholesterol 30 mg/dL (60-99) L HDL Cholesterol 13 mg/dL (> 60) Cholesterol/HDL Ratio 4.6 (3.3-4.4) H Lipase 154 U/L (< 60) H Vitamin B12 Level 285 pg/mL (211-946) Folate Pending Thyroid Stimulating Hormone (TSH) 2.200 uIU/mL (0.300-4.500) Phenytoin (Dilantin) Level < 0.8 ug/mL (10-20) L ROGERS DEAN Dec 24, 2016 20:29
--- NOTE | 2016-12-24 21:15 | Consultation ---
DATE OF CONSULTATION: 12/24/2016 NEUROLOGY CONSULTATION CONSULTING PHYSICIAN: Samuel Ricks M.D. REQUESTING PHYSICIAN: Robbi Vega M.D. HISTORY: Mr. Jam Jain is a 31-year-old, right-handed, black gentleman, who most probably has an underlying psychiatric illness, questionable seizures, and has been homeless. He was brought into the [facility] [place] on 12/23/2016 with an altered mental state. He was evaluated in the emergency room and a diagnosis of altered mental state and pancreatitis was made. He has since been admitted to the hospital. This consultation was requested to evaluate the patient from a neurological point of view for his altered mental state. The patient himself was unable to give me any history. He denied any prior history of seizures and he was not very forthright with his history and from time to time would respond to internal stimuli making history taking quite unreliable. PAST MEDICAL HISTORY: Significant for questionable psychiatric illness, questionable seizures, and homelessness. FAMILY HISTORY: Unavailable. PERSONAL HISTORY: Home: He lives on the streets. Work: He does not work. Habits: He denies use of tobacco or illicit drugs, but there is a history of alcohol use. PRESENT MEDICATIONS: Include thiamine, albumin, diazepam, Tylenol, ampicillin, potassium chloride, vitamin B12 1000 mcg IM daily, Ergocalciferol, folic acid, Protonix, lorazepam p.r.n., Zofran p.r.n., morphine, p.r.n., and Reglan. PHYSICAL EXAMINATION: GENERAL: He is a well-developed, relatively well-nourished, black gentleman, lying in bed, in no acute distress. VITAL SIGNS: Pulse 78 per minute, blood pressure 97/69 mmHg, respirations 21 per minute, and temperature 100.7 degrees Fahrenheit. HEAD: Normocephalic and atraumatic. EENT: Examination benign. NECK: No neck rigidity was observed. NEUROLOGIC EXAMINATION: MENTAL STATUS EXAMINATION: He was awake, but not completely alert. He was not very verbal and not very cooperative. He was oriented to self only. From time to time, he was responding to internal stimuli and would start smiling and laughing. He, however, did not want to share what was happening. He was unable to cooperate for further mental status testing. SPEECH: He said a few words and was demonstrating no dysarthria. LANGUAGE: He was able to comprehend and express himself minimally, but could not cooperate for a formal language examination. CRANIAL NERVE EXAMINATION: II: The visual reilly were intact on confrontation testing. III, IV & : The external ocular movements were full and pupils 3 mm in diameter, equal, round, regular, and reactive to light. V: He had normal facial sensations and the temporales, masseters, and pterygoids functioned normally. VII: He had normal facial expressions and no facial asymmetry. VIII: He was able to hear well bilaterally and had no nystagmus. IX: The palate moved symmetrically on phonation. X: He had no hoarseness of voice. XI: The sternocleidomastoids and trapezii functioned normally. XII: The tongue was in midline without any fasciculations or atrophy. MOTOR SYSTEM: The tone was normal in all four extremities. Examination of muscle mass revealed no focal wasting. Examination of power was exceedingly difficult to perform because of his inability to cooperate, however, he had approximately G 5/5 power in all muscle groups tested. SENSORY EXAMINATION: He responded appropriately to deep pain. He was unable to cooperate for the sensory modalities. REFLEXES: 1+ and bilaterally symmetrical at the biceps, triceps, brachioradialis and knees. Trace+ at both ankles. The plantar responses were flexor bilaterally. STANCE & GAIT: Could not be tested. DIAGNOSTIC IMPRESSION: 1. Mr. Jam Jain is a 31-year-old, right-handed, black gentleman, who does have a past history of a possible psychiatric illness, questionable seizures, and homelessness who was brought to the [facility] [place] emergency room on 12/23/2016 with an altered mental state. He was found to have a pancreatitis. There is also a question as to whether he was withdrawing from alcohol. 2. On neurological examination, at this time, he is poorly cooperative, not very verbal, oriented to self only, and responding to internal stimuli. He, however, does not demonstrate any focal or lateralizing findings. His deep tendon reflexes are globally diminished. 3. Laboratory data on admission revealed that his WBC count was elevated to 24,300. He was anemic with a hemoglobin of 11.6. His chemistry panel revealed a sodium of 122, potassium of 2.9, chloride of 70, BUN elevated 33, with a creatinine of 3.3, glucose elevated 245, low calcium at 8.4. His total bilirubin was at 1.4. His lipase was elevated to 441, his amylase was elevated to 297. His B12 was low at 283. His TSH was normal at 2.2. His urine toxicology screen was benign and his serum alcohol level was less than 10. His urinalysis revealed 1+ leukocyte esterase, 5 to 10 red blood cells, 2 to 4 white blood cells per high-power field, and a few bacteria. 4. The patient's history and neurological examination are most compatible with multiple toxic metabolic insults causing a toxic metabolic encephalopathy of a moderate degree. There is also a question of psychiatric illness with the patient responding to internal stimuli. It is unclear as to what exactly the patient's seizure disorder is and it is also quite unclear if the patient has had a recent seizure or not. RECOMMENDATIONS: 1. Agree with management thus far including giving B12 parenterally. 2. Would try to obtain more data about the patient's past medical history. 3. A CT scan of the brain without contrast will be ordered to evaluate the patient for intracranial pathology. 4. An EEG will be ordered to evaluate the patient for ongoing ictal or interictal phenomena. 5. The patient will be started on Keppra 750 mg q.12 hours. 6. A Psychiatric evaluation should be obtained to determine if the patient does have a psychiatric illness and if he does what treatment is needed. Thank you for entrusting me with the care of Mr. Jain. I shall follow him with you. Samuel Ricks M.D., M.S.P.H. DR: EDGAR JOB#: [id number] JOSR
--- NOTE | 2016-12-24 22:30 | Consultation ---
DATE OF CONSULTATION: 12/24/2016 CONSULTING PHYSICIAN: Justus Garay M.D. REFERRING PHYSICIAN: Robbi Vega M.D. REASON FOR CONSULTATION: Altered mental status and hypotension. HISTORY OF PRESENT ILLNESS: The patient is a 31-year-old gentleman with history of seizure disorder, brought in by ambulance for intoxication as the patient admitted to drinking 40 ounces of beer. The patient denies using any drugs recently. The patient did not know what medication he was taking for his seizures, but has been taking all medications. The patient also with abdominal pain, 04/07. He was also found to have acute pancreatitis. The patient's blood pressure in the ER was 96/63 with a pulse of 116. REVIEW OF SYSTEMS: Cannot be obtained as the patient is very confused. PAST MEDICAL HISTORY: Seizure disorder. SOCIAL HISTORY: Admits to drinking alcohol. ALLERGIES: He is allergic to acetaminophen and ibuprofen. PHYSICAL EXAMINATION: VITAL SIGNS: Blood pressure is 99/71, pulse 69, respirations 18, temperature 97.7, and maximum temperature is 100.7. NECK: No JVD. LUNGS: Clear. CARDIOVASCULAR: Regular S1 and S2 with no gallop or murmur. ABDOMEN: Soft. EXTREMITIES: No pitting edema. LABORATORY DATA: White count of initially 24,000, went down to 16.2; hemoglobin 9.2; hematocrit of 29; and platelet count is 203,000. Sodium 132, initially was 122; BUN of 44; creatinine of 1.9, initial creatinine was 3.3; and glucose of 144. His TSH is 2.2. His serum alcohol level was less than 10. ASSESSMENT AND PLAN: 1. Hypotension. Etiology is not clear at this time. He underwent an echocardiography with ejection fraction 55% to 60%. The patient was evaluated by Dr. Ricks. EEG is pending as well as CT of the brain. 2. The patient with possible psychiatric illness and seizure disorder. 3. Homelessness. 4. Severe hyponatremia and renal failure, improving under management of Dr. Rosario. Thank you very much, Dr. Vega, for allowing me to participate in the care of this patient. Please do not hesitate to contact me for any questions regarding my evaluation. Justus Garay M.D. DR: RUBI JOB#: [id number] CC:
--- NOTE | 2016-12-24 23:15 | History and Physical Report ---
DATE OF ADMISSION: 12/23/2016 HISTORY OF PRESENT ILLNESS: The patient is here for altered mental status, very confused. Apparently, the patient also is a drug abuser as well as alcohol. The patient is alcoholic and was also noted to have pancreatitis and acute renal failure. The patient is extremely confused in his order, cannot obtain any reliable history from the patient. Cannot obtain any history from the patient, very confused. PAST MEDICAL HISTORY: Significant drug and alcohol abuse. MEDICATIONS: Unable to verify. ALLERGIES: Unable to verify. SOCIAL HISTORY: As mentioned, apparently had history of pancreatitis from alcohol abuse in the past. FAMILY HISTORY: Unable to obtain. REVIEW OF SYSTEMS: Unable to obtain. PHYSICAL EXAMINATION: VITAL SIGNS: Temperature is 100.6 degrees, pulse 116, and blood pressure 97/50. HEENT: PERRLA. NECK: Supple. CHEST: Clear to auscultation. CARDIOVASCULAR: Tachycardic. GASTROINTESTINAL: Soft, nontender, and nondistended. No organomegaly. EXTREMITIES: No edema. Reflexes are equal on both sides. Moves all four extremities. NEUROLOGIC: Oriented x0. Hallucinating, very confused when I performed neurological exam. He is ambulatory and confused. LABORATORY DATA: WBC of 24.3, hemoglobin 11.6, and platelets 368,000. Sodium is 122, potassium 3.9, BUN of 33, creatinine 3.3, glucose 245, 1.4. AST of 35 and ALT of 28. ASSESSMENT AND PLAN: 1. Altered mental status. 2. Hyponatremia. 3. Hypokalemia. 4. Acute renal failure. 5. Elevated blood sugar. 6. Severe leukocytosis. 7. Elevated lipase. I have consulted Dr. Ricks, Dr. rFiend, Dr. Chen, Dr. Rosario, Dr. Vasquez. To find out why the patient is confused and is febrile, we will obtain consult with the neurologist as well as Infectious Disease, the final decision will be decided by the Infectious Disease for [facility]. The patient is confused. The patient also had methamphetamine apparently and cocaine apparently in the past. Robbi Vega M.D. DR: MIRACLE/KRYSTAL JOB#: [id number] CC:
[2016-12-25] VITALS: BP_SYST 103; BP_SYST 85; BP_DIAS 69; BP_DIAS 81
[2016-12-25] MEDS: Ampicillin/Sulbactam Sod 3 GM in NS 110 ML IVPB SCH ×4 (00:32→18:00)
[2016-12-25 04:00] VITALS: BP_SYST 136; BP_SYST 144; BP_DIAS 71; BP_DIAS 84
[2016-12-25 08:10] LABS: MEAN CORPUSCULAR HEMOGLOBIN 29.4 PG (27.0-31.0); MEAN CORPUSCULAR HGB CONC 32.2 G/DL (32.0-36.0); MEAN CORPUSCULAR VOLUME 91 FL (80-99); PLATELET COUNT 136 K/UL (150-450); RED BLOOD COUNT 2.65 M/UL (4.70-6.10); RED CELL DISTRIBUTION WIDTH 20.5 % (11.6-14.8); WHITE BLOOD COUNT 11.8 K/UL (4.8-10.8)
[2016-12-25 08:15] VITALS: BP 91/58
[2016-12-25 08:29] LABS: ALANINE AMINOTRANSFERASE 17 U/L (3-41); ALBUMIN/GLOBULIN RATIO 0.8 (1.0-2.7); AMYLASE 136 U/L (10-110); ANION GAP 13 (5-15); ASPARTATE AMINO TRANSFERASE 39 U/L (5-40); CALCIUM 8.2 mg/dL (8.6-10.2); CARBON DIOXIDE 28 mEQ/L (20-30); CHLORIDE 103 mEQ/L (98-107); CHOLESTEROL 58 mg/dL (< 200); CHOLESTEROL/HDL RATIO 3.9 (3.3-4.4); CREATININE 1.1 mg/dL (0.7-1.2); GLOMERULAR FILTRATION RATE > 60 mL/min (>60); HEMOLYSIS 3; LDL CHOLESTEROL (CALC.) 31 mg/dL (60-99); LIPASE 95 U/L (< 60); POTASSIUM 3.7 mEQ/L (3.4-4.9); SODIUM 144 mEQ/L (135-145); TOTAL PROTEIN 6.3 g/dL (6.6-8.7)
[2016-12-25 08:36] LABS: ANISOCYTOSIS 2+; BAND NEUTROPHILS % (MANUAL) 0 % (0-8); BASOPHILS % (MANUAL) 1 % (0-2); EOSINOPHILS % (MANUAL) 0 % (0-3); HYPOCHROMASIA 3+; LYMPHOCYTES % (MANUAL) 15 % (20-45); NEUTROPHILS % (MANUAL) 82 % (45-75); PLATELET ESTIMATE DECREASED; PLATELET MORPHOLOGY NORMAL; TOTAL CELLS COUNTED 100
[2016-12-25 08:41] LABS: CRP QUANT 13.1 mg/dL (< 0.5); MAGNESIUM 2.5 mg/dL (1.7-2.5); URIC ACID 5.9 mg/dL (3.0-7.5)
[2016-12-25] MEDS: Vitamin B12 1000mcg/ml Inj IM SCH (09:10)
[2016-12-25] MEDS: Thiamine 100mg tab ORAL SCH (09:10)
--- NOTE | 2016-12-25 09:44 | General Progress Note ---
Assessment/Plan Status: unchanged Status Narrative blood chemistry and lytes are all improving Assessment/Plan status: Renal failure , Acute vs Chronic improving h/o Sz Acute Encephalopathy Low K Low Na Low B12 and folate Elevated Lipase , acute pancreatitis Plan; high dose PO folate ST PT OT eval NS Monitor lytes- monitor renal parameters Neuro eval check dilantin level EEG Subjective ROS Limited/Unobtainable: No Allergies: Coded Allergies: ACETAMINOPHEN (Verified Allergy, Unknown, 06/11/15) IBUPROFEN (Verified Allergy, Unknown, 06/11/15) Objective Last 24 Hour Vital Signs Date Time Temp Pulse Resp B/P Pulse Ox O2 Delivery O2 Flow Rate FiO2 12/25/16 08:15 98.1 88 18 91/58 99 Room Air 12/25/16 04:00 97.3 90 18 136/71 97 Room Air 12/25/16 00:00 98.0 71 18 103/69 96 Room Air 12/24/16 20:00 97.7 69 18 99/71 98 Room Air 12/24/16 15:48 100.7 78 21 97/69 95 Room Air 12/24/16 11:52 100.4 105 22 96/50 96 Room Air Intake and Output 12/24/16 12/25/16 19:00 07:00 Intake Total 240 ml 1270 ml Balance 240 ml 1270 ml Intake Oral 240 ml 240 ml IV Total 1030 ml # Voids 4 Laboratory Tests 12/25/16 06:40: White Blood Count 11.8H, Red Blood Count 2.65L, Hemoglobin 7.8L, Hematocrit 24.1L, Mean Corpuscular Volume 91, Mean Corpuscular Hemoglobin 29.4, Mean Corpuscular Hemoglobin Concent 32.2, Red Cell Distribution Width 20.5H, Platelet Count 136L, Mean Platelet Volume 8.0, Neutrophils (%) (Auto) , Lymphocytes (%) (Auto) , Monocytes (%) (Auto) , Eosinophils (%) (Auto) , Basophils (%) (Auto) , Differential Total Cells Counted 100, Neutrophils % ( Manual) 82H, Lymphocytes % (Manual) 15L, Monocytes % (Manual) 2, Eosinophils % ( Manual) 0, Basophils % (Manual) 1, Band Neutrophils 0, Platelet Estimate DecreasedL, Platelet Morphology Normal, Hypochromasia 3+, Anisocytosis 2+, Sodium Level 144, Potassium Level 3.7, Chloride Level 103, Carbon Dioxide Level 28, Anion Gap 13, Blood Urea Nitrogen 30H, Creatinine 1.1, Estimat Glomerular Filtration Rate > 60, Glucose Level 101, Uric Acid 5.9, Calcium Level 8.2L, Phosphorus Level 2.0L, Magnesium Level 2.5, Total Bilirubin 0.9, Aspartate Amino Transf (AST/SGOT) 39, Alanine Aminotransferase (ALT/SGPT) 17, Alkaline Phosphatase 92, C-Reactive Protein, Quantitative 13.1H, Pro-B-Type Natriuretic Peptide 1111H, Total Protein 6.3L, Albumin 2.9L, Globulin 3.4, Albumin/Globulin Ratio 0.8L, Triglycerides Level 58, Cholesterol Level 58, LDL Cholesterol 31L, HDL Cholesterol 15, Cholesterol/HDL Ratio 3.9, Amylase Level 136H, Lipase 95H Height (Feet): 5 Height (Inches): 10.00 Weight (Pounds): 160 Objective other PE not changed VELASQUEZ DASILVA Dec 25, 2016 09:44
--- NOTE | 2016-12-25 10:39 | General Progress Note ---
Assessment/Plan Problem List: (1) Altered mental status ICD Codes: R41.82 - Altered mental status, unspecified SNOMED: 052912288 Qualifiers: Qualified Codes: R41.82 - Altered mental status, unspecified (2) Pancreatitis ICD Codes: K85.90 - Acute pancreatitis without necrosis or infection, unspecified SNOMED: 11865123 Qualifiers: Qualified Codes: K85.90 - Acute pancreatitis without necrosis or infection, unspecified (3) Sepsis ICD Codes: A41.9 - Sepsis, unspecified organism SNOMED: 05902548 (4) Anemia ICD Codes: D64.9 - Anemia, unspecified SNOMED: 698871697 Status: progressing Assessment/Plan arf improving hyponatremia is improving etoh and drug abuse afebrile ams is improving needs sitter Subjective ROS Limited/Unobtainable: Yes Allergies: Coded Allergies: ACETAMINOPHEN (Verified Allergy, Unknown, 06/11/15) IBUPROFEN (Verified Allergy, Unknown, 06/11/15) Objective Last 24 Hour Vital Signs Date Time Temp Pulse Resp B/P Pulse Ox O2 Delivery O2 Flow Rate FiO2 12/25/16 08:15 98.1 88 18 91/58 99 Room Air 12/25/16 04:00 97.3 90 18 136/71 97 Room Air 12/25/16 00:00 98.0 71 18 103/69 96 Room Air 12/24/16 20:00 97.7 69 18 99/71 98 Room Air 12/24/16 15:48 100.7 78 21 97/69 95 Room Air 12/24/16 11:52 100.4 105 22 96/50 96 Room Air Intake and Output 12/24/16 12/25/16 19:00 07:00 Intake Total 240 ml 1270 ml Balance 240 ml 1270 ml Intake Oral 240 ml 240 ml IV Total 1030 ml # Voids 4 Laboratory Tests 12/25/16 06:40: White Blood Count 11.8H, Red Blood Count 2.65L, Hemoglobin 7.8L, Hematocrit 24.1L, Mean Corpuscular Volume 91, Mean Corpuscular Hemoglobin 29.4, Mean Corpuscular Hemoglobin Concent 32.2, Red Cell Distribution Width 20.5H, Platelet Count 136L, Mean Platelet Volume 8.0, Neutrophils (%) (Auto) , Lymphocytes (%) (Auto) , Monocytes (%) (Auto) , Eosinophils (%) (Auto) , Basophils (%) (Auto) , Differential Total Cells Counted 100, Neutrophils % ( Manual) 82H, Lymphocytes % (Manual) 15L, Monocytes % (Manual) 2, Eosinophils % ( Manual) 0, Basophils % (Manual) 1, Band Neutrophils 0, Platelet Estimate DecreasedL, Platelet Morphology Normal, Hypochromasia 3+, Anisocytosis 2+, Sodium Level 144, Potassium Level 3.7, Chloride Level 103, Carbon Dioxide Level 28, Anion Gap 13, Blood Urea Nitrogen 30H, Creatinine 1.1, Estimat Glomerular Filtration Rate > 60, Glucose Level 101, Uric Acid 5.9, Calcium Level 8.2L, Phosphorus Level 2.0L, Magnesium Level 2.5, Total Bilirubin 0.9, Aspartate Amino Transf (AST/SGOT) 39, Alanine Aminotransferase (ALT/SGPT) 17, Alkaline Phosphatase 92, C-Reactive Protein, Quantitative 13.1H, Pro-B-Type Natriuretic Peptide 1111H, Total Protein 6.3L, Albumin 2.9L, Globulin 3.4, Albumin/Globulin Ratio 0.8L, Triglycerides Level 58, Cholesterol Level 58, LDL Cholesterol 31L, HDL Cholesterol 15, Cholesterol/HDL Ratio 3.9, Amylase Level 136H, Lipase 95H Height (Feet): 5 Height (Inches): 10.00 Weight (Pounds): 160 General Appearance: confused Neck: supple Cardiovascular: normal rate Respiratory/Chest: lungs clear Abdomen: soft Robbi Vega MD Dec 25, 2016 10:39
--- NOTE | 2016-12-25 11:28 | Diagnostic Imaging Report ---
Indications: Altered mental status Technique: Spiral acquisitions obtained through the brain. Angled axial and coronal 5 x 5 mm slices were reconstructed. Total dose length product 1414 mGycm. CTDI vol(s) 70 mGy. Dose reduction achieved using automated exposure control Comparison: No Findings: There is enlargement of ventricles and extra axial CSF spaces which is out of proportion to patient's age. No acute hemorrhage or edema. No mass effect or midline shift. Normal umana-white differentiation. Visualized orbits and sinuses are unremarkable. The calvarium is intact. The mastoids are clear. Impression: Cerebral volume loss, out of proportion to patient's age. Correlate with clinical history Negative for acute intrarenal bleed or mass effect This agrees with the preliminary interpretation provided overnight by Dr. Urena The CT scanner at [facility] is accredited by the [employer] [place] [employer] and the scans are performed using protocols designed to limit radiation exposure to as low as reasonably achievable to attain images of sufficient resolution adequate for diagnostic evaluation.
[2016-12-25 11:49] VITALS: BP 89/57
[2016-12-25] MEDS ORDERED: Potassium Phosphate 30 MM in NS 275 ML IV ONE (12:00)
[2016-12-25] MEDS: Vitamin D 1000 IU Tab ORAL SCH (12:34)
--- NOTE | 2016-12-25 12:44 | Neurology Progress Note ---
Interim History Interim History Interim History Mr. Jain feels better today. He is more alert and responsive. He is not responding to internal stimuli. He continues to be cognitively impoverished. He denies any new neurologic symptoms. Review of Systems Neuro Review of Systems Benign. Objective Physical Exam Last Vital Signs Date Time Temp Pulse Resp B/P Pulse Ox O2 Delivery O2 Flow Rate FiO2 12/25/16 11:49 98.2 86 18 89/57 98 Room Air Laboratory Tests Test 12/25/16 06:40 White Blood Count 11.8 K/UL (4.8-10.8) H Red Blood Count 2.65 M/UL (4.70-6.10) L Hemoglobin 7.8 G/DL (14.2-18.0) L Hematocrit 24.1 % (42.0-52.0) L Mean Corpuscular Volume 91 FL (80-99) Mean Corpuscular Hemoglobin 29.4 PG (27.0-31.0) Mean Corpuscular Hemoglobin Concent 32.2 G/DL (32.0-36.0) Red Cell Distribution Width 20.5 % (11.6-14.8) H Platelet Count 136 K/UL (150-450) L Mean Platelet Volume 8.0 FL (6.5-10.1) Neutrophils (%) (Auto) % (45.0-75.0) Lymphocytes (%) (Auto) % (20.0-45.0) Monocytes (%) (Auto) % (1.0-10.0) Eosinophils (%) (Auto) % (0.0-3.0) Basophils (%) (Auto) % (0.0-2.0) Differential Total Cells Counted 100 Neutrophils % (Manual) 82 % (45-75) H Lymphocytes % (Manual) 15 % (20-45) L Monocytes % (Manual) 2 % (1-10) Eosinophils % (Manual) 0 % (0-3) Basophils % (Manual) 1 % (0-2) Band Neutrophils 0 % (0-8) Platelet Estimate Decreased L Platelet Morphology Normal Hypochromasia 3+ Anisocytosis 2+ Sodium Level 144 mEQ/L (135-145) Potassium Level 3.7 mEQ/L (3.4-4.9) Chloride Level 103 mEQ/L (98-107) Carbon Dioxide Level 28 mEQ/L (20-30) Anion Gap 13 (5-15) Blood Urea Nitrogen 30 mg/dL (7-23) H Creatinine 1.1 mg/dL (0.7-1.2) Estimat Glomerular Filtration Rate > 60 mL/min (>60) Glucose Level 101 mg/dL (74-106) Uric Acid 5.9 mg/dL (3.0-7.5) Calcium Level 8.2 mg/dL (8.6-10.2) L Phosphorus Level 2.0 mg/dL (2.5-4.8) L Magnesium Level 2.5 mg/dL (1.7-2.5) Total Bilirubin 0.9 mg/dL (0.0-1.2) Aspartate Amino Transf (AST/SGOT) 39 U/L (5-40) Alanine Aminotransferase (ALT/SGPT) 17 U/L (3-41) Alkaline Phosphatase 92 U/L (40-129) C-Reactive Protein, Quantitative 13.1 mg/dL (< 0.5) H Pro-B-Type Natriuretic Peptide 1111 pg/mL (0-125) H Total Protein 6.3 g/dL (6.6-8.7) L Albumin 2.9 g/dL (3.5-5.2) L Globulin 3.4 g/dL Albumin/Globulin Ratio 0.8 (1.0-2.7) L Triglycerides Level 58 mg/dL (< 150) Cholesterol Level 58 mg/dL (< 200) LDL Cholesterol 31 mg/dL (60-99) L HDL Cholesterol 15 mg/dL (> 60) Cholesterol/HDL Ratio 3.9 (3.3-4.4) Amylase Level 136 U/L (10-110) H Lipase 95 U/L (< 60) H Neurologic Exam Objective PHYSICAL EXAMINATION: GENERAL: He is a well-developed, relatively well-nourished, black gentleman, lying in bed, in no acute distress. HEAD: Normocephalic and atraumatic. EENT: Examination benign. NECK: No neck rigidity was observed. NEUROLOGIC EXAMINATION: MENTAL STATUS EXAMINATION: He was awake and more alert. He was oriented to self, hospital and Jen only. He did not know wheo the present and prior presidents were. He was unable to cooperate for further mental status testing. SPEECH: He said a few words and was demonstrating no dysarthria. LANGUAGE: He was able to comprehend and express himself better. CRANIAL NERVE EXAMINATION: II: The visual reilly were intact on confrontation testing. III, IV & : The external ocular movements were full and pupils 3 mm in diameter, equal, round, regular, and reactive to light. V: He had normal facial sensations and the temporales, masseters, and pterygoids functioned normally. VII: He had normal facial expressions and no facial asymmetry. VIII: He was able to hear well bilaterally and had no nystagmus. IX: The palate moved symmetrically on phonation. X: He had no hoarseness of voice. XI: The sternocleidomastoids and trapezii functioned normally. XII: The tongue was in midline without any fasciculations or atrophy. MOTOR SYSTEM: The tone was normal in all four extremities. Examination of muscle mass revealed no focal wasting. Examination of power was inaccurate because of his inability to cooperate fully, however, he had approximately G 5/ 5 power in all muscle groups tested. SENSORY EXAMINATION: He responded appropriately to light touch. REFLEXES: 1+ and bilaterally symmetrical at the biceps, triceps, brachioradialis and knees. Trace+ at both ankles. The plantar responses were flexor bilaterally. STANCE & GAIT: Could not be tested. Impression/Recommendations Diagnostic Impression 1. Mr. Jam Jain is a 31-year-old, right-handed, black gentleman, who does have a past history of a possible psychiatric illness, questionable seizures, and homelessness who was brought to the [facility] emergency room on 12/23/2016 with an altered mental state. He was found to have a pancreatitis. There is also a question as to whether he was withdrawing from alcohol. 2. He feels better today but is still cognitively impoverished and generally weak. 3. On neurological examination, at this time, he is not very verbal. He is oriented to self, hospital and Jen only. He, however, does not demonstrate any focal or lateralizing findings. His deep tendon reflexes are globally diminished. He is scare to get up and try to walk. 4. Laboratory data on admission revealed that his WBC count was elevated to 24, 300. He was anemic with a hemoglobin of 11.6. His chemistry panel revealed a sodium of 122, potassium of 2.9, chloride of 70, BUN elevated 33, with a creatinine of 3.3, glucose elevated 245, low calcium at 8.4. His total bilirubin was at 1.4. His lipase was elevated to 441, his amylase was elevated to 297. His B12 was low at 283. His TSH was normal at 2.2. His urine toxicology screen was benign and his serum alcohol level was less than 10. His urinalysis revealed 1+ leukocyte esterase, 5 to 10 red blood cells, 2 to 4 white blood cells per high-power field, and a few bacteria. 5. Further laboratory tests have revealed a low folate <2.1. 6. The CT of the brain done on 12/24/16 reveals generalized cerebral atrophy. 7. The patient's history and neurological examination are most compatible with multiple toxic metabolic insults causing a toxic metabolic encephalopathy of a moderate degree. There is also a question of psychiatric illness with the patient responding to internal stimuli. It is unclear as to what exactly the patient's seizure disorder is and it is also quite unclear if the patient has had a recent seizure or not. Recommendations 1. Continue present management. 2. Vitamin B12 parenterally and Folic acid supplement. 3. Would try to obtain more data about the patient's past medical history. 4. Await EEG to evaluate the patient for ongoing ictal or interictal phenomena. 5. Continue Keppra 750 mg q.12 hours. 6. A Psychiatric evaluation should be obtained to determine if the patient does have a psychiatric illness and if he does what treatment is needed. Samuel Ricks M.D., M.S.P.SAMUEL ENGLE Dec 25, 2016 12:44
--- NOTE | 2016-12-25 13:44 | Cardiac Electrophysiology PN ---
Assessment/Plan Assessment/Plan 1. Hypotension. Echocardiography showed ejection fraction 55% to 60%. EEG is pending. CT of the brain done on 12/24/16 reveals generalized cerebral atrophy. 2. The patient with possible psychiatric illness and seizure disorder. 3. Homelessness. 4. Severe hyponatremia and renal failure, improving under management of Dr. Rosario. 5.Vit B12 deficiency 6.Toxic metabolic encephalopathy DW RN Subjective Subjective Now off tele. Alert and oriented to time ad person. Sitter at bedside. Objective Last 24 Hour Vital Signs Date Time Temp Pulse Resp B/P Pulse Ox O2 Delivery O2 Flow Rate FiO2 12/25/16 11:49 98.2 86 18 89/57 98 Room Air 12/25/16 08:15 98.1 88 18 91/58 99 Room Air 12/25/16 04:00 97.3 90 18 136/71 97 Room Air 12/25/16 00:00 98.0 71 18 103/69 96 Room Air 12/24/16 20:00 97.7 69 18 99/71 98 Room Air 12/24/16 15:48 100.7 78 21 97/69 95 Room Air Intake and Output 12/24/16 12/25/16 19:00 07:00 Intake Total 240 ml 1270 ml Balance 240 ml 1270 ml Intake Oral 240 ml 240 ml IV Total 1030 ml # Voids 4 Laboratory Tests Test 12/25/16 06:40 White Blood Count 11.8 K/UL (4.8-10.8) H Red Blood Count 2.65 M/UL (4.70-6.10) L Hemoglobin 7.8 G/DL (14.2-18.0) L Hematocrit 24.1 % (42.0-52.0) L Mean Corpuscular Volume 91 FL (80-99) Mean Corpuscular Hemoglobin 29.4 PG (27.0-31.0) Mean Corpuscular Hemoglobin Concent 32.2 G/DL (32.0-36.0) Red Cell Distribution Width 20.5 % (11.6-14.8) H Platelet Count 136 K/UL (150-450) L Mean Platelet Volume 8.0 FL (6.5-10.1) Neutrophils (%) (Auto) % (45.0-75.0) Lymphocytes (%) (Auto) % (20.0-45.0) Monocytes (%) (Auto) % (1.0-10.0) Eosinophils (%) (Auto) % (0.0-3.0) Basophils (%) (Auto) % (0.0-2.0) Differential Total Cells Counted 100 Neutrophils % (Manual) 82 % (45-75) H Lymphocytes % (Manual) 15 % (20-45) L Monocytes % (Manual) 2 % (1-10) Eosinophils % (Manual) 0 % (0-3) Basophils % (Manual) 1 % (0-2) Band Neutrophils 0 % (0-8) Platelet Estimate Decreased L Platelet Morphology Normal Hypochromasia 3+ Anisocytosis 2+ Sodium Level 144 mEQ/L (135-145) Potassium Level 3.7 mEQ/L (3.4-4.9) Chloride Level 103 mEQ/L (98-107) Carbon Dioxide Level 28 mEQ/L (20-30) Anion Gap 13 (5-15) Blood Urea Nitrogen 30 mg/dL (7-23) H Creatinine 1.1 mg/dL (0.7-1.2) Estimat Glomerular Filtration Rate > 60 mL/min (>60) Glucose Level 101 mg/dL (74-106) Uric Acid 5.9 mg/dL (3.0-7.5) Calcium Level 8.2 mg/dL (8.6-10.2) L Phosphorus Level 2.0 mg/dL (2.5-4.8) L Magnesium Level 2.5 mg/dL (1.7-2.5) Total Bilirubin 0.9 mg/dL (0.0-1.2) Aspartate Amino Transf (AST/SGOT) 39 U/L (5-40) Alanine Aminotransferase (ALT/SGPT) 17 U/L (3-41) Alkaline Phosphatase 92 U/L (40-129) C-Reactive Protein, Quantitative 13.1 mg/dL (< 0.5) H Pro-B-Type Natriuretic Peptide 1111 pg/mL (0-125) H Total Protein 6.3 g/dL (6.6-8.7) L Albumin 2.9 g/dL (3.5-5.2) L Globulin 3.4 g/dL Albumin/Globulin Ratio 0.8 (1.0-2.7) L Triglycerides Level 58 mg/dL (< 150) Cholesterol Level 58 mg/dL (< 200) LDL Cholesterol 31 mg/dL (60-99) L HDL Cholesterol 15 mg/dL (> 60) Cholesterol/HDL Ratio 3.9 (3.3-4.4) Amylase Level 136 U/L (10-110) H Lipase 95 U/L (< 60) H Objective NECK: No JVD. LUNGS: Clear. CARDIOVASCULAR: Regular S1 and S2 with no gallop or murmur. ABDOMEN: Soft. EXTREMITIES: No pitting edema. ROGERS DEAN Dec 25, 2016 13:44
[2016-12-25 13:47] LABS: PATH BLOOD SMEAR/OMC SENT TO PATHOLOGIST
--- NOTE | 2016-12-25 13:55 | GI Progress Note ---
Assessment/Plan Problems: (1) Pancreatitis ICD Codes: K85.90 - Acute pancreatitis without necrosis or infection, unspecified SNOMED: 22506304 Qualifiers: Qualified Codes: K85.90 - Acute pancreatitis without necrosis or infection, unspecified (2) Altered mental status ICD Codes: R41.82 - Altered mental status, unspecified SNOMED: 365142977 Qualifiers: Qualified Codes: R41.82 - Altered mental status, unspecified (3) Acute alcoholic intoxication ICD Codes: F10.929 - Alcohol use, unspecified with intoxication, unspecified SNOMED: 35830086 (4) Anemia ICD Codes: D64.9 - Anemia, unspecified SNOMED: 983010080 Status: progressing Status Narrative Discussed with Dr. Keith. Assessment/Plan APCT reviewed >> Pancreatic findings suggest acute pancreatitis. Right/ transverse colonic ileus. Hepatic steatosis. Cholelithiasis. ammonia WNL low fat diet pain mgmt IV hydration + electrolyte replacement OB stool r/o GI bleed H2B abx monitor lipase >> downtrending fu labs Subjective Gastrointestinal/Abdominal: Reports: no symptoms Subjective limited Objective Last 24 Hour Vital Signs Date Time Temp Pulse Resp B/P Pulse Ox O2 Delivery O2 Flow Rate FiO2 12/25/16 11:49 98.2 86 18 89/57 98 Room Air 12/25/16 08:15 98.1 88 18 91/58 99 Room Air 12/25/16 04:00 97.3 90 18 136/71 97 Room Air 12/25/16 00:00 98.0 71 18 103/69 96 Room Air 12/24/16 20:00 97.7 69 18 99/71 98 Room Air 12/24/16 15:48 100.7 78 21 97/69 95 Room Air Intake and Output 12/24/16 12/25/16 19:00 07:00 Intake Total 240 ml 1270 ml Balance 240 ml 1270 ml Intake Oral 240 ml 240 ml IV Total 1030 ml # Voids 4 Laboratory Tests Test 12/25/16 06:40 White Blood Count 11.8 K/UL (4.8-10.8) H Red Blood Count 2.65 M/UL (4.70-6.10) L Hemoglobin 7.8 G/DL (14.2-18.0) L Hematocrit 24.1 % (42.0-52.0) L Mean Corpuscular Volume 91 FL (80-99) Mean Corpuscular Hemoglobin 29.4 PG (27.0-31.0) Mean Corpuscular Hemoglobin Concent 32.2 G/DL (32.0-36.0) Red Cell Distribution Width 20.5 % (11.6-14.8) H Platelet Count 136 K/UL (150-450) L Mean Platelet Volume 8.0 FL (6.5-10.1) Neutrophils (%) (Auto) % (45.0-75.0) Lymphocytes (%) (Auto) % (20.0-45.0) Monocytes (%) (Auto) % (1.0-10.0) Eosinophils (%) (Auto) % (0.0-3.0) Basophils (%) (Auto) % (0.0-2.0) Differential Total Cells Counted 100 Neutrophils % (Manual) 82 % (45-75) H Lymphocytes % (Manual) 15 % (20-45) L Monocytes % (Manual) 2 % (1-10) Eosinophils % (Manual) 0 % (0-3) Basophils % (Manual) 1 % (0-2) Band Neutrophils 0 % (0-8) Platelet Estimate Decreased L Platelet Morphology Normal Hypochromasia 3+ Anisocytosis 2+ Sodium Level 144 mEQ/L (135-145) Potassium Level 3.7 mEQ/L (3.4-4.9) Chloride Level 103 mEQ/L (98-107) Carbon Dioxide Level 28 mEQ/L (20-30) Anion Gap 13 (5-15) Blood Urea Nitrogen 30 mg/dL (7-23) H Creatinine 1.1 mg/dL (0.7-1.2) Estimat Glomerular Filtration Rate > 60 mL/min (>60) Glucose Level 101 mg/dL (74-106) Uric Acid 5.9 mg/dL (3.0-7.5) Calcium Level 8.2 mg/dL (8.6-10.2) L Phosphorus Level 2.0 mg/dL (2.5-4.8) L Magnesium Level 2.5 mg/dL (1.7-2.5) Total Bilirubin 0.9 mg/dL (0.0-1.2) Aspartate Amino Transf (AST/SGOT) 39 U/L (5-40) Alanine Aminotransferase (ALT/SGPT) 17 U/L (3-41) Alkaline Phosphatase 92 U/L (40-129) C-Reactive Protein, Quantitative 13.1 mg/dL (< 0.5) H Pro-B-Type Natriuretic Peptide 1111 pg/mL (0-125) H Total Protein 6.3 g/dL (6.6-8.7) L Albumin 2.9 g/dL (3.5-5.2) L Globulin 3.4 g/dL Albumin/Globulin Ratio 0.8 (1.0-2.7) L Triglycerides Level 58 mg/dL (< 150) Cholesterol Level 58 mg/dL (< 200) LDL Cholesterol 31 mg/dL (60-99) L HDL Cholesterol 15 mg/dL (> 60) Cholesterol/HDL Ratio 3.9 (3.3-4.4) Amylase Level 136 U/L (10-110) H Lipase 95 U/L (< 60) H Height (Feet): 5 Height (Inches): 10.00 Weight (Pounds): 160 General Appearance: no apparent distress, alert Cardiovascular: normal rate Respiratory/Chest: normal breath sounds, no respiratory distress Abdominal Exam: normal bowel sounds, non tender, soft Extremities: normal range of motion Rosa Mancia N.P. Dec 25, 2016 13:55
--- NOTE | 2016-12-25 16:08 | Infectious Diseases Prog Note ---
Assessment/Plan Problems: (1) Sepsis Assessment & Plan: with leukocytosis, improving on unasyn . await blood culture (2) Acute alcoholic intoxication Assessment & Plan: continue neuro check and benzodiazepine , watch for alcohol withdrawal , recommend alcohol rehab and counseling (3) Pancreatitis Assessment & Plan: due to tawanda drink of alcohol , continue hydration with supportive care, monitor lipase, consult GI (4) Altered mental status Assessment & Plan: multifactorial, with folate deficiency , improving, started on folate replacement , neurology is following Subjective Constitutional: Reports: no symptoms HEENT: Reports: no symptoms Respiratory: Reports: no symptoms Cardiovascular: Reports: no symptoms Gastrointestinal/Abdominal: Reports: no symptoms Genitourinary: Reports: no symptoms Neurologic: Reports: confusion Psychiatric: Reports: anxiety Skin: Reports: no symptoms Endocrine: Reports: no symptoms Hematologic: Reports: no symptoms Allergies: Coded Allergies: ACETAMINOPHEN (Verified Allergy, Unknown, 06/11/15) IBUPROFEN (Verified Allergy, Unknown, 06/11/15) Objective Vital Signs Last 24 Hour Vital Signs Date Time Temp Pulse Resp B/P Pulse Ox O2 Delivery O2 Flow Rate FiO2 12/25/16 11:49 98.2 86 18 89/57 98 Room Air 12/25/16 08:15 98.1 88 18 91/58 99 Room Air 12/25/16 04:00 97.3 90 18 136/71 97 Room Air 12/25/16 00:00 98.0 71 18 103/69 96 Room Air 12/24/16 20:00 97.7 69 18 99/71 98 Room Air Height (Feet): 5 Height (Inches): 10.00 Weight (Pounds): 160 General Appearance: WD/WN, no acute distress HEENT: normocephalic, atraumatic, anicteric, pharynx normal, supple, no JVD Respiratory/Chest: chest wall non-tender, lungs clear, normal breath sounds, no respiratory distress, no accessory muscle use Cardiovascular: normal peripheral pulses, normal rate, regular rhythm, no gallop/murmur Abdomen: normal bowel sounds, no organomegaly, non distended, no mass, no scars , tender Extremities: no cyanosis, no clubbing Skin: no rash, no lesions Laboratory Tests Test 12/25/16 06:40 White Blood Count 11.8 K/UL (4.8-10.8) H Red Blood Count 2.65 M/UL (4.70-6.10) L Hemoglobin 7.8 G/DL (14.2-18.0) L Hematocrit 24.1 % (42.0-52.0) L Mean Corpuscular Volume 91 FL (80-99) Mean Corpuscular Hemoglobin 29.4 PG (27.0-31.0) Mean Corpuscular Hemoglobin Concent 32.2 G/DL (32.0-36.0) Red Cell Distribution Width 20.5 % (11.6-14.8) H Platelet Count 136 K/UL (150-450) L Mean Platelet Volume 8.0 FL (6.5-10.1) Neutrophils (%) (Auto) % (45.0-75.0) Lymphocytes (%) (Auto) % (20.0-45.0) Monocytes (%) (Auto) % (1.0-10.0) Eosinophils (%) (Auto) % (0.0-3.0) Basophils (%) (Auto) % (0.0-2.0) Differential Total Cells Counted 100 Neutrophils % (Manual) 82 % (45-75) H Lymphocytes % (Manual) 15 % (20-45) L Monocytes % (Manual) 2 % (1-10) Eosinophils % (Manual) 0 % (0-3) Basophils % (Manual) 1 % (0-2) Band Neutrophils 0 % (0-8) Platelet Estimate Decreased L Platelet Morphology Normal Hypochromasia 3+ Anisocytosis 2+ Sodium Level 144 mEQ/L (135-145) Potassium Level 3.7 mEQ/L (3.4-4.9) Chloride Level 103 mEQ/L (98-107) Carbon Dioxide Level 28 mEQ/L (20-30) Anion Gap 13 (5-15) Blood Urea Nitrogen 30 mg/dL (7-23) H Creatinine 1.1 mg/dL (0.7-1.2) Estimat Glomerular Filtration Rate > 60 mL/min (>60) Glucose Level 101 mg/dL (74-106) Uric Acid 5.9 mg/dL (3.0-7.5) Calcium Level 8.2 mg/dL (8.6-10.2) L Phosphorus Level 2.0 mg/dL (2.5-4.8) L Magnesium Level 2.5 mg/dL (1.7-2.5) Total Bilirubin 0.9 mg/dL (0.0-1.2) Aspartate Amino Transf (AST/SGOT) 39 U/L (5-40) Alanine Aminotransferase (ALT/SGPT) 17 U/L (3-41) Alkaline Phosphatase 92 U/L (40-129) C-Reactive Protein, Quantitative 13.1 mg/dL (< 0.5) H Pro-B-Type Natriuretic Peptide 1111 pg/mL (0-125) H Total Protein 6.3 g/dL (6.6-8.7) L Albumin 2.9 g/dL (3.5-5.2) L Globulin 3.4 g/dL Albumin/Globulin Ratio 0.8 (1.0-2.7) L Triglycerides Level 58 mg/dL (< 150) Cholesterol Level 58 mg/dL (< 200) LDL Cholesterol 31 mg/dL (60-99) L HDL Cholesterol 15 mg/dL (> 60) Cholesterol/HDL Ratio 3.9 (3.3-4.4) Amylase Level 136 U/L (10-110) H Lipase 95 U/L (< 60) H Current Medications Medications (Trade) Dose Ordered Sig/Juliana Route PRN Reason Start Time Stop Time Status Last Admin Dose Admin Acetaminophen (Tylenol) 650 mg Q4H PRN ORAL Mild Pain/Temp > 100.5 12/25/16 10:30 01/24/17 10:29 Ampicillin Sodium/ Sulbactam Sodium/ Sodium Chloride (Unasyn/Sodium Chloride) 110 ml @ 220 mls/hr Q6HR IVPB 12/24/16 10:00 12/31/16 09:59 12/25/16 12:39 Cyanocobalamin (Vitamin B12) 1,000 mcg DAILY IM 12/24/16 10:00 12/26/16 09:01 12/25/16 09:10 Diazepam (Valium) 10 mg EVERY 4 HOURS PRN ORAL anxiety 12/24/16 13:00 12/31/16 12:59 Folic Acid 10 mg 10 mg DAILY ORAL 12/26/16 09:00 01/25/17 08:59 Levetiracetam 750 mg 750 mg Q12HR@0500,1700 ORAL 12/24/16 17:00 01/23/17 16:59 12/25/16 05:33 Ondansetron HCl 4 mg 4 mg Q6H PRN IVP Nausea & Vomiting 12/23/16 19:45 01/22/17 19:44 12/25/16 02:27 Pantoprazole (Protonix) 40 mg EVERY 12 HOURS ORAL 12/23/16 21:00 01/22/17 20:59 12/25/16 09:10 Potassium Phosphate/Sodium Chloride (Potassium Phosphate/Sodium Chloride) 285 ml @ 47.5 mls/hr ONCE ONCE IV 12/25/16 12:00 12/25/16 17:59 12/25/16 12:40 Sodium Chloride (Sodium Chloride 1000ml bag) 1,000 ml @ 50 mls/hr Q20H IV 12/25/16 11:00 01/24/17 10:59 12/25/16 11:07 Thiamine HCl (Vitamin B1) 100 mg DAILY ORAL 12/24/16 14:30 01/23/17 14:29 12/25/16 09:10 Vitamin D (Vitamin D) 2,000 intlu DAILY ORAL 12/25/16 10:30 01/24/17 10:29 12/25/16 12:34 Imelda Chen M.D. Dec 25, 2016 16:08
[2016-12-25 16:11] VITALS: BP 84/53
[2016-12-25 20:00] VITALS: BP 81/49
[2016-12-26] VITALS: BP 85/51
--- NOTE | 2016-12-26 00:14 | General Progress Note ---
Assessment/Plan Status: stable Assessment/Plan Substance abuse cont current meds Subjective Date patient seen: Dec 25, 2016 Allergies: Coded Allergies: ACETAMINOPHEN (Verified Allergy, Unknown, 06/11/15) IBUPROFEN (Verified Allergy, Unknown, 06/11/15) Subjective patient was alert and oriented times self and place. Mood was neutral. Affect was constricted. Congruent with mood. Thought process, tangential. Thought content, no suicidal or homicidal ideation. Cognition is impaired. He was eating during the eval. Objective Last 24 Hour Vital Signs Date Time Temp Pulse Resp B/P Pulse Ox O2 Delivery O2 Flow Rate FiO2 12/25/16 20:00 99.1 95 18 81/49 99 Room Air 12/25/16 16:11 98.0 100 18 84/53 97 Room Air 12/25/16 11:49 98.2 86 18 89/57 98 Room Air 12/25/16 08:15 98.1 88 18 91/58 99 Room Air 12/25/16 04:00 97.3 90 18 136/71 97 Room Air Intake and Output 12/25/16 12/26/16 19:00 07:00 Intake Total 480 ml Balance 480 ml Intake Oral 480 ml # Voids 2 # Bowel Movements 1 Laboratory Tests 12/25/16 06:40: White Blood Count 11.8H, Red Blood Count 2.65L, Hemoglobin 7.8L, Hematocrit 24.1L, Mean Corpuscular Volume 91, Mean Corpuscular Hemoglobin 29.4, Mean Corpuscular Hemoglobin Concent 32.2, Red Cell Distribution Width 20.5H, Platelet Count 136L, Mean Platelet Volume 8.0, Neutrophils (%) (Auto) , Lymphocytes (%) (Auto) , Monocytes (%) (Auto) , Eosinophils (%) (Auto) , Basophils (%) (Auto) , Differential Total Cells Counted 100, Neutrophils % ( Manual) 82H, Lymphocytes % (Manual) 15L, Monocytes % (Manual) 2, Eosinophils % ( Manual) 0, Basophils % (Manual) 1, Band Neutrophils 0, Platelet Estimate DecreasedL, Platelet Morphology Normal, Hypochromasia 3+, Anisocytosis 2+, Sodium Level 144, Potassium Level 3.7, Chloride Level 103, Carbon Dioxide Level 28, Anion Gap 13, Blood Urea Nitrogen 30H, Creatinine 1.1, Estimat Glomerular Filtration Rate > 60, Glucose Level 101, Uric Acid 5.9, Calcium Level 8.2L, Phosphorus Level 2.0L, Magnesium Level 2.5, Total Bilirubin 0.9, Aspartate Amino Transf (AST/SGOT) 39, Alanine Aminotransferase (ALT/SGPT) 17, Alkaline Phosphatase 92, C-Reactive Protein, Quantitative 13.1H, Pro-B-Type Natriuretic Peptide 1111H, Total Protein 6.3L, Albumin 2.9L, Globulin 3.4, Albumin/Globulin Ratio 0.8L, Triglycerides Level 58, Cholesterol Level 58, LDL Cholesterol 31L, HDL Cholesterol 15, Cholesterol/HDL Ratio 3.9, Amylase Level 136H, Lipase 95H Height (Feet): 5 Height (Inches): 10.00 Weight (Pounds): 160 General Appearance: no apparent distress, alert, thin Neurologic: alert, oriented x 3, responsive, depressed affect Mary Beth Ramos M.D. Dec 26, 2016 00:14
[2016-12-26] MEDS: Ampicillin/Sulbactam Sod 3 GM in NS 110 ML IVPB SCH ×2 (00:18→05:27)
--- NOTE | 2016-12-26 02:46 | Consultation ---
DATE OF CONSULTATION: 12/25/2016 NOTE: "POOR AUDIO QUALITY" HEMATOLOGY/ONCOLOGY CONSULTATION CONSULTING PHYSICIAN: Kapil Haney M.D. REQUESTING PHYSICIAN: Robbi Vega M.D. REASON FOR CONSULTATION: Evaluation of anemia as well as thrombocytopenia. IDENTIFICATION DATA: Dear Dr. Robbi Vega, The patient is a pleasant 31-year-old male with a past medical history, which is significant for questionable seizures, homelessness, psychiatric illness, and history of altered mental status, brought in by ambulance, had been drinking cans of 40 ounce of beer. Denies any other recent drug use, however, noted to be hypotensive, was given fluids. Currently, blood pressure improved. Hematology service was consulted given worsening thrombocytopenia and anemia. PAST MEDICAL HISTORY: Seizure disorder, admits drinking alcohol. MEDICATIONS: Reviewed. ALLERGIES: Unable to verify. SOCIAL HISTORY: Alcohol abuse, history of pancreatitis in the past. FAMILY HISTORY: Difficult to obtain. REVIEW OF SYSTEMS: Unable to obtain. PHYSICAL EXAMINATION: GENERAL: No acute distress. VITAL SIGNS: Temperature 100.6 degrees Fahrenheit, pulse of 116, and blood pressure 97/50. PULMONARY: Decreased breath sounds. CARDIOVASCULAR: Regular rate. No S3 or S4. ABDOMEN: Soft, nontender, and nondistended. NEUROLOGIC: Alert and oriented x0, hallucinating, very confused. LABORATORY DATA: WBC 24,000, hemoglobin initially 11.6, currently in the 7 range, and platelet count of 136,000, decreased from 270,000. ASSESSMENT AND PLAN: 1. Leukocytosis secondary to underlying inflammatory reaction versus infection. 2. Lactic acidosis with decreased blood pressure. 3. Anemia secondary to severe folic acid deficiency, currently less than 2.1. I have ordered for oral folic acid getting 10 mg daily. This was ordered by Dr. Rosairo. 4. Anemia secondary to hemodilution. 5. Anemia of chronic disease. 6. Thrombocytopenia, likely secondary to hemodilution versus infection. 7. Hypokalemia. 8. . 9. Anemia secondary to B12 deficiency, which is at 283. Recommend B12 intramuscular subcutaneous injection. 10. . 11. History of seizures, on Dilantin. . 12. History of alcohol intoxication pancreatitis. 13. Altered mental status. He will be seen by Neurology again. 14. . 15. . Thank you, Dr. Robbi Vega, for this kind referral. Please do not hesitate to contact me with any further questions. Kapil Haney M.D. DR: LAMBERTO JOB#: [id number] CC:
[2016-12-26 04:00] VITALS: BP 91/56
[2016-12-26 08:13] VITALS: BP 99/61
--- NOTE | 2016-12-26 09:57 | General Progress Note ---
Assessment/Plan Status: stable Assessment/Plan status: Renal failure , Acute vs Chronic improving h/o Sz Acute Encephalopathy Low K Low Na Low B12 and folate Elevated Lipase , acute pancreatitis Plan; DC Unasyn start PO Levaquin high dose PO folate ST PT OT eval DC NS Monitor lytes- monitor renal parameters Neuro eval check dilantin level EEG Subjective ROS Limited/Unobtainable: No Constitutional: Reports: malaise Allergies: Coded Allergies: ACETAMINOPHEN (Verified Allergy, Unknown, 06/11/15) IBUPROFEN (Verified Allergy, Unknown, 06/11/15) Objective Last 24 Hour Vital Signs Date Time Temp Pulse Resp B/P Pulse Ox O2 Delivery O2 Flow Rate FiO2 12/26/16 08:13 98.2 102 20 99/61 98 Room Air 12/26/16 04:00 98.6 95 20 91/56 96 Room Air 12/26/16 00:30 98.2 12/26/16 00:00 101.7 95 18 85/51 97 Room Air 12/25/16 20:00 99.1 95 18 81/49 99 Room Air 12/25/16 16:11 98.0 100 18 84/53 97 Room Air 12/25/16 11:49 98.2 86 18 89/57 98 Room Air Intake and Output 12/25/16 12/26/16 19:00 07:00 Intake Total 480 ml 930 ml Balance 480 ml 930 ml Intake Oral 480 ml 360 ml IV Total 570 ml # Voids 2 3 # Bowel Movements 1 Laboratory Tests 12/26/16 05:00: Urine Eosinophils None seen 12/26/16 06:15: Lipase 133H Height (Feet): 5 Height (Inches): 10.00 Weight (Pounds): 160 General Appearance: no apparent distress Cardiovascular: normal rate Respiratory/Chest: lungs clear Abdomen: soft Objective other PE not changed VELASQUEZ DASILVA Dec 26, 2016 09:57
[2016-12-26] MEDS ORDERED: Vitamin B12 1000mcg/ml Inj IM ONE (10:00)
--- NOTE | 2016-12-26 10:17 | General Progress Note ---
Assessment/Plan Problem List: (1) Altered mental status ICD Codes: R41.82 - Altered mental status, unspecified SNOMED: 107909936 Qualifiers: Qualified Codes: R41.82 - Altered mental status, unspecified (2) Pancreatitis ICD Codes: K85.90 - Acute pancreatitis without necrosis or infection, unspecified SNOMED: 02594591 Qualifiers: Qualified Codes: K85.90 - Acute pancreatitis without necrosis or infection, unspecified (3) Sepsis ICD Codes: A41.9 - Sepsis, unspecified organism SNOMED: 07243891 (4) Anemia ICD Codes: D64.9 - Anemia, unspecified SNOMED: 851405098 Status: progressing Assessment/Plan arf improving hyponatremia is improving etoh and drug abuse afebrile ams is improving await cx results hd stable clinically improving Subjective ROS Limited/Unobtainable: Yes Constitutional: Reports: no symptoms Allergies: Coded Allergies: ACETAMINOPHEN (Verified Allergy, Unknown, 06/11/15) IBUPROFEN (Verified Allergy, Unknown, 06/11/15) Objective Last 24 Hour Vital Signs Date Time Temp Pulse Resp B/P Pulse Ox O2 Delivery O2 Flow Rate FiO2 12/26/16 08:13 98.2 102 20 99/61 98 Room Air 12/26/16 04:00 98.6 95 20 91/56 96 Room Air 12/26/16 00:30 98.2 12/26/16 00:00 101.7 95 18 85/51 97 Room Air 12/25/16 20:00 99.1 95 18 81/49 99 Room Air 12/25/16 16:11 98.0 100 18 84/53 97 Room Air 12/25/16 11:49 98.2 86 18 89/57 98 Room Air Intake and Output 12/25/16 12/26/16 19:00 07:00 Intake Total 480 ml 930 ml Balance 480 ml 930 ml Intake Oral 480 ml 360 ml IV Total 570 ml # Voids 2 3 # Bowel Movements 1 Laboratory Tests 12/26/16 05:00: Urine Eosinophils None seen 12/26/16 06:15: Lipase 133H Height (Feet): 5 Height (Inches): 10.00 Weight (Pounds): 160 General Appearance: confused Neck: supple Cardiovascular: normal rate Respiratory/Chest: lungs clear Robbi Vega MD Dec 26, 2016 10:17
[2016-12-26] MEDS: Thiamine 100mg tab ORAL SCH (10:58)
[2016-12-26] MEDS: Vitamin D 1000 IU Tab ORAL SCH (10:58)
[2016-12-26] MEDS: Vitamin B12 1000mcg/ml Inj IM SCH (10:58)
[2016-12-26 11:48] VITALS: BP 106/67
--- NOTE | 2016-12-26 12:46 | Diagnostic Imaging Report ---
APPROVED REPORT CPT Code: 35900 Present Symptoms Lower Extremity Pain: BILATERAL: Imaging reveals a patent deep venous system bilaterally. There is no evidence of thrombus within the femoral, popliteal or tibial segments. The greater saphenous veins are also within normal limits. Doppler indicates normal spontaneous flow within these segments.
--- NOTE | 2016-12-26 13:33 | General Progress Note ---
Assessment/Plan Assessment/Plan # Leukocytosis secondary to underlying inflammatory reaction versus infection-- > better # Lactic acidosis with decreased blood pressure. # Anemia secondary to severe folic acid deficiency, currently less than 2, have ordered for oral folic acid getting 10 mg daily. # Anemia secondary to hemodilution. # Anemia of chronic disease. # Thrombocytopenia, likely secondary to hemodilution versus infection. # Hypokalemia. # Anemia secondary to B12 deficiency, which is at 283. Recommend B12 intramuscular injection. # History of seizures, on Dilantin. # History of alcohol intoxication leading to pancreatitis. # Altered mental status. He will be seen by Neurology again. Subjective Constitutional: Reports: no symptoms HEENT: Reports: no symptoms Cardiovascular: Reports: no symptoms Respiratory: Reports: no symptoms Gastrointestinal/Abdominal: Reports: no symptoms Genitourinary: Reports: no symptoms Neurologic/Psychiatric: Reports: no symptoms Endocrine: Reports: no symptoms Hematologic/Lymphatic: Reports: anemia Allergies: Coded Allergies: ACETAMINOPHEN (Verified Allergy, Unknown, 06/11/15) IBUPROFEN (Verified Allergy, Unknown, 06/11/15) Subjective NAD, able to eat Objective Last 24 Hour Vital Signs Date Time Temp Pulse Resp B/P Pulse Ox O2 Delivery O2 Flow Rate FiO2 12/26/16 11:48 99.1 88 21 106/67 99 Room Air 12/26/16 08:13 98.2 102 20 99/61 98 Room Air 12/26/16 04:00 98.6 95 20 91/56 96 Room Air 12/26/16 00:30 98.2 12/26/16 00:00 101.7 95 18 85/51 97 Room Air 12/25/16 20:00 99.1 95 18 81/49 99 Room Air 12/25/16 16:11 98.0 100 18 84/53 97 Room Air Intake and Output 12/25/16 12/26/16 19:00 07:00 Intake Total 480 ml 930 ml Balance 480 ml 930 ml Intake Oral 480 ml 360 ml IV Total 570 ml # Voids 2 3 # Bowel Movements 1 Laboratory Tests 12/26/16 05:00: Urine Eosinophils None seen 12/26/16 06:15: Lipase 133H Height (Feet): 5 Height (Inches): 10.00 Weight (Pounds): 160 General Appearance: WD/WN EENT: PERRL/EOMI Neck: non-tender Cardiovascular: normal rate Respiratory/Chest: chest wall non-tender Abdomen: normal bowel sounds, non tender Extremities: normal range of motion Edema: no edema noted Pedal (L), no edema noted Pedal (R) 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
--- NOTE | 2016-12-26 13:46 | GI Progress Note ---
Assessment/Plan Problems: (1) Pancreatitis ICD Codes: K85.90 - Acute pancreatitis without necrosis or infection, unspecified SNOMED: 90563708 Qualifiers: Qualified Codes: K85.90 - Acute pancreatitis without necrosis or infection, unspecified (2) Altered mental status ICD Codes: R41.82 - Altered mental status, unspecified SNOMED: 322373695 Qualifiers: Qualified Codes: R41.82 - Altered mental status, unspecified (3) Acute alcoholic intoxication ICD Codes: F10.929 - Alcohol use, unspecified with intoxication, unspecified SNOMED: 33413279 (4) Anemia ICD Codes: D64.9 - Anemia, unspecified SNOMED: 353320156 Status: stable Status Narrative Discussed with Dr. Friend. Assessment/Plan APCT reviewed >> Pancreatic findings suggest acute pancreatitis. Right/ transverse colonic ileus. Hepatic steatosis. Cholelithiasis. ammonia WNL low fat diet pain mgmt IV hydration + electrolyte replacement OB stool r/o GI bleed H2B abx monitor lipase >> downtrending fu labs Subjective Subjective limited Objective Last 24 Hour Vital Signs Date Time Temp Pulse Resp B/P Pulse Ox O2 Delivery O2 Flow Rate FiO2 12/26/16 11:48 99.1 88 21 106/67 99 Room Air 12/26/16 08:13 98.2 102 20 99/61 98 Room Air 12/26/16 04:00 98.6 95 20 91/56 96 Room Air 12/26/16 00:30 98.2 12/26/16 00:00 101.7 95 18 85/51 97 Room Air 12/25/16 20:00 99.1 95 18 81/49 99 Room Air 12/25/16 16:11 98.0 100 18 84/53 97 Room Air Intake and Output 12/25/16 12/26/16 19:00 07:00 Intake Total 480 ml 930 ml Balance 480 ml 930 ml Intake Oral 480 ml 360 ml IV Total 570 ml # Voids 2 3 # Bowel Movements 1 Laboratory Tests Test 12/26/16 05:00 12/26/16 06:15 Urine Eosinophils None seen Lipase 133 U/L (< 60) H Height (Feet): 5 Height (Inches): 10.00 Weight (Pounds): 160 General Appearance: no apparent distress, alert Cardiovascular: normal rate Respiratory/Chest: normal breath sounds, no respiratory distress Abdominal Exam: normal bowel sounds, non tender, soft Extremities: normal range of motion Rosa Mancia N.P. Dec 26, 2016 13:46
--- NOTE | 2016-12-26 13:54 | Infectious Diseases Prog Note ---
Assessment/Plan Problems: (1) Sepsis Assessment & Plan: with leukocytosis, improving, unclear whether due to pancreatitis or not . blood culture was not collected on addmision . was switched to levaquin by vinyl hanger , but still spiking fever and had nausea with vomiting (2) Acute alcoholic intoxication Assessment & Plan: continue neuro check and benzodiazepine , watch for alcohol withdrawal , recommend alcohol rehab and counseling (3) Pancreatitis Assessment & Plan: due to [place] drink of alcohol , continue hydration with supportive care, monitor lipase, consult GI (4) Altered mental status Assessment & Plan: multifactorial, with folate deficiency , improving, started on folate replacement , neurology is following (5) Nausea & vomiting Assessment & Plan: due to pancreatitis, continue supportive care , hold food Subjective Constitutional: Reports: no symptoms HEENT: Reports: no symptoms Respiratory: Reports: no symptoms Cardiovascular: Reports: no symptoms Gastrointestinal/Abdominal: Reports: nausea, vomiting Genitourinary: Reports: no symptoms Neurologic: Reports: no symptoms Psychiatric: Reports: no symptoms Skin: Reports: no symptoms Endocrine: Reports: no symptoms Hematologic: Reports: no symptoms Musculoskeletal: Reports: no symptoms Allergies: Coded Allergies: ACETAMINOPHEN (Verified Allergy, Unknown, 06/11/15) IBUPROFEN (Verified Allergy, Unknown, 06/11/15) Objective Vital Signs Last 24 Hour Vital Signs Date Time Temp Pulse Resp B/P Pulse Ox O2 Delivery O2 Flow Rate FiO2 12/26/16 11:48 99.1 88 21 106/67 99 Room Air 12/26/16 08:13 98.2 102 20 99/61 98 Room Air 12/26/16 04:00 98.6 95 20 91/56 96 Room Air 12/26/16 00:30 98.2 12/26/16 00:00 101.7 95 18 85/51 97 Room Air 12/25/16 20:00 99.1 95 18 81/49 99 Room Air 12/25/16 16:11 98.0 100 18 84/53 97 Room Air Height (Feet): 5 Height (Inches): 10.00 Weight (Pounds): 160 General Appearance: WD/WN, no acute distress HEENT: normocephalic, atraumatic, anicteric, mucous membranes moist Respiratory/Chest: chest wall non-tender, lungs clear, normal breath sounds, no respiratory distress, no accessory muscle use Cardiovascular: normal peripheral pulses, normal rate, regular rhythm, no gallop/murmur, no JVD Abdomen: normal bowel sounds, soft, non tender, no organomegaly, non distended , no mass Extremities: no cyanosis, no clubbing Skin: no rash, no lesions Lymphatic: no neck adenopathy, no groin adenopathy Laboratory Tests Test 12/26/16 05:00 12/26/16 06:15 Urine Eosinophils None seen Lipase 133 U/L (< 60) H Current Medications Medications (Trade) Dose Ordered Sig/Juliana Route PRN Reason Start Time Stop Time Status Last Admin Dose Admin Acetaminophen (Tylenol) 650 mg Q4H PRN ORAL Mild Pain/Temp > 100.5 12/25/16 10:30 01/24/17 10:29 Diazepam (Valium) 10 mg EVERY 4 HOURS PRN ORAL anxiety 12/24/16 13:00 12/31/16 12:59 Folic Acid (Folate) 10 mg DAILY ORAL 12/26/16 09:00 01/25/17 08:59 12/26/16 11:00 Levetiracetam (Keppra) 750 mg Q12HR@0500,1700 ORAL 12/24/16 17:00 01/23/17 16:59 12/26/16 05:27 Levofloxacin (Levaquin) 250 mg DAILY ORAL 12/26/16 10:00 01/02/17 09:59 12/26/16 11:05 Ondansetron HCl (Zofran) 4 mg Q6H PRN IVP Nausea & Vomiting 12/23/16 19:45 01/22/17 19:44 12/26/16 11:04 Pantoprazole (Protonix) 40 mg EVERY 12 HOURS ORAL 12/23/16 21:00 01/22/17 20:59 12/26/16 10:59 Thiamine HCl (Vitamin B1) 100 mg DAILY ORAL 12/24/16 14:30 01/23/17 14:29 12/26/16 10:58 Vitamin D (Vitamin D) 2,000 intlu DAILY ORAL 12/25/16 10:30 01/24/17 10:29 12/26/16 10:58 Imelda Chen M.D. Dec 26, 2016 13:54
--- NOTE | 2016-12-26 15:49 | Neurology Progress Note ---
Interim History Interim History Interim History Mr. Jain feels much better today. He is more alert and responsive. His cognitive function has improved markedly. 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 He denies any new neurologic symptoms. Review of Systems Neuro Review of Systems Benign. Objective Physical Exam Last Vital Signs Date Time Temp Pulse Resp B/P Pulse Ox O2 Delivery O2 Flow Rate FiO2 12/26/16 11:48 99.1 88 21 106/67 99 Room Air Laboratory Tests Test 12/26/16 05:00 12/26/16 06:15 Urine Eosinophils None seen Lipase 133 U/L (< 60) H Neurologic Exam Objective PHYSICAL EXAMINATION: GENERAL: He is a well-developed, relatively well-nourished, black gentleman, lying in bed, in no acute distress. HEAD: Normocephalic and atraumatic. EENT: Examination benign. NECK: No neck rigidity was observed. NEUROLOGIC EXAMINATION: MENTAL STATUS EXAMINATION: He was awake and alert. He was oriented to self, Xfluential and December 26, 2016. He was able to remember 3/3 words immediately and could remember them in 1 and 3 minutes. He was able to remember presidents Trump and Obama only. SPEECH: He had no dysarthria. LANGUAGE: He was able to comprehend and express himself well. CRANIAL NERVE EXAMINATION: II: The visual reilly were intact on confrontation testing. III, IV & : The external ocular movements were full and pupils 3 mm in diameter, equal, round, regular, and reactive to light. V: He had normal facial sensations and the temporales, masseters, and pterygoids functioned normally. VII: He had normal facial expressions and no facial asymmetry. VIII: He was able to hear well bilaterally and had no nystagmus. IX: The palate moved symmetrically on phonation. X: He had no hoarseness of voice. XI: The sternocleidomastoids and trapezii functioned normally. XII: The tongue was in midline without any fasciculations or atrophy. MOTOR SYSTEM: The tone was normal in all four extremities. Examination of muscle mass revealed no focal wasting. Examination of power was inaccurate because of his inability to cooperate fully, however, he had approximately G 5/ 5 power in all muscle groups tested. SENSORY EXAMINATION: He responded appropriately to light touch. REFLEXES: 1+ and bilaterally symmetrical at the biceps, triceps, brachioradialis and knees. Trace+ at both ankles. The plantar responses were flexor bilaterally. STANCE: He stood up with support. GAIT: He walked well with contact guard. Impression/Recommendations Diagnostic Impression 1. Mr. Jam Jain is a 31-year-old, right-handed, black gentleman, who does have a past history of a possible psychiatric illness, questionable seizures, and homelessness who was brought to the [facility] emergency room on 12/23/2016 with an altered mental state. He was found to have a pancreatitis. There is also a question as to whether he was withdrawing from alcohol. 2. He feels better today but is still cognitively impoverished and generally weak. 3. On neurological examination, at this time, he is fully oriented. His memory has improved significantly. He does not demonstrate any focal or lateralizing findings. His deep tendon reflexes are globally diminished. He is able to get up and walk. 4. Laboratory data on admission revealed that his WBC count was elevated to 24, 300. He was anemic with a hemoglobin of 11.6. His chemistry panel revealed a sodium of 122, potassium of 2.9, chloride of 70, BUN elevated 33, with a creatinine of 3.3, glucose elevated 245, low calcium at 8.4. His total bilirubin was at 1.4. His lipase was elevated to 441, his amylase was elevated to 297. His B12 was low at 283. His TSH was normal at 2.2. His urine toxicology screen was benign and his serum alcohol level was less than 10. His urinalysis revealed 1+ leukocyte esterase, 5 to 10 red blood cells, 2 to 4 white blood cells per high-power field, and a few bacteria. 5. Further laboratory tests have revealed a low folate <2.1. 6. The CT of the brain done on 12/24/16 reveals generalized cerebral atrophy. 7. The patient's history and neurological examination are most compatible with multiple toxic metabolic insults causing a toxic metabolic encephalopathy. His encephalopathy has improved significantly. 8. It is unclear as to what exactly the patient's seizure disorder is and it is also quite unclear if the patient has had a recent seizure or not. Recommendations 1. Continue present management. 2. Vitamin B12 parenterally and Folic acid supplement. 3. Would try to obtain more data about the patient's past medical history. 4. Await EEG to evaluate the patient for ongoing ictal or interictal phenomena. 5. Continue Keppra 750 mg q.12 hours. Raul Ricks M.D., MDericSMichi. RAUL RICKS Dec 26, 2016 15:49
[2016-12-26 16:00] VITALS: BP 109/68
--- NOTE | 2016-12-26 16:31 | Progress Note ---
DATE: 12/26/2016 SUBJECTIVE: The patient is doing well, was in bed, resting, interactive, and is able to answer minimal questions. There is no behavior issues. The patient is more alert and engaged. MENTAL STATUS EXAMINATION: The patient is alert and oriented to self, place, and situation he is in. His mood is neutral. Affect is full range. Congruent with mood. Thought process is concrete. Thought content, no suicidal or homicidal ideations. Cognition is impaired. ASSESSMENT: 1. Delirium is improving. 2. Acute pancreatitis. 3. Alcohol dependence. 4. Crystal meth use. PLAN: 1. The patient will be continued on thiamine. 2. Folic acid. 3. He is on diazepam 10 mg 4 hours p.r.n., which he is not taking currently as anxiety is managed. 4. We will start the patient on fluoxetine 20 mg in the morning. Mary Beth Ramos M.D. DR: DENILSON JOB#: [id number] CC:
[2016-12-26 20:00] VITALS: BP 105/66
[2016-12-27] VITALS: BP 101/68
[2016-12-27 04:00] VITALS: BP 114/55
[2016-12-27 07:59] VITALS: BP 103/66
[2016-12-27] MEDS: Thiamine 100mg tab ORAL SCH ×2 (09:20→09:22)
[2016-12-27] MEDS: Vitamin D 1000 IU Tab ORAL SCH (09:22)
[2016-12-27 10:01] LABS: MEAN CORPUSCULAR HEMOGLOBIN 29.1 PG (27.0-31.0); MEAN CORPUSCULAR HGB CONC 31.6 G/DL (32.0-36.0); MEAN CORPUSCULAR VOLUME 92 FL (80-99); MEAN PLATELET VOLUME 9.8 FL (6.5-10.1); PLATELET COUNT 95 K/UL (150-450); RED BLOOD COUNT 2.64 M/UL (4.70-6.10); RED CELL DISTRIBUTION WIDTH 20.5 % (11.6-14.8); WHITE BLOOD COUNT 10.3 K/UL (4.8-10.8)
[2016-12-27 10:19] LABS: ALANINE AMINOTRANSFERASE 31 U/L (3-41); ALBUMIN/GLOBULIN RATIO 0.8 (1.0-2.7); ANION GAP 10 (5-15); ASPARTATE AMINO TRANSFERASE 79 U/L (5-40); CALCIUM 8.1 mg/dL (8.6-10.2); CARBON DIOXIDE 31 mEQ/L (20-30); CHLORIDE 103 mEQ/L (98-107); CREATININE 0.8 mg/dL (0.7-1.2); GLOMERULAR FILTRATION RATE > 60 mL/min (>60); HEMOLYSIS 1; LIPASE 134 U/L (< 60); POTASSIUM 3.1 mEQ/L (3.4-4.9); SODIUM 144 mEQ/L (135-145); TOTAL PROTEIN 6.1 g/dL (6.6-8.7)
[2016-12-27 10:24] LABS: CRP QUANT 4.3 mg/dL (< 0.5); MAGNESIUM 1.4 mg/dL (1.7-2.5); PHOSPHORUS 2.8 mg/dL (2.5-4.8); URIC ACID 2.4 mg/dL (3.0-7.5)
[2016-12-27 10:54] LABS: ANISOCYTOSIS 1+; BAND NEUTROPHILS % (MANUAL) 3 % (0-8); BASOPHILS % (MANUAL) 0 % (0-2); EOSINOPHILS % (MANUAL) 0 % (0-3); HYPOCHROMASIA 1+; LYMPHOCYTES % (MANUAL) 16 % (20-45); NEUTROPHILS % (MANUAL) 80 % (45-75); PLATELET ESTIMATE DECREASED; PLATELET MORPHOLOGY NORMAL; POIKILOCYTOSIS 1+; TOTAL CELLS COUNTED 100
--- NOTE | 2016-12-27 11:06 | General Progress Note ---
Assessment/Plan Status: stable Assessment/Plan status: Renal failure , Acute vs Chronic improving h/o Sz Acute Encephalopathy Low K Low Na Low B12 and folate Elevated Lipase , acute pancreatitis Plan; K and Phos supplement DC Unasyn start PO Levaquin high dose PO folate ST PT OT eval DC NS Monitor lytes- monitor renal parameters Neuro eval check dilantin level EEG Subjective ROS Limited/Unobtainable: No Constitutional: Reports: malaise Allergies: Coded Allergies: ACETAMINOPHEN (Verified Allergy, Unknown, 06/11/15) IBUPROFEN (Verified Allergy, Unknown, 06/11/15) Objective Last 24 Hour Vital Signs Date Time Temp Pulse Resp B/P Pulse Ox O2 Delivery O2 Flow Rate FiO2 12/27/16 07:59 99.3 98 20 103/66 97 Room Air 12/27/16 04:00 99.7 85 20 114/55 97 Room Air 12/27/16 00:00 99.9 94 20 101/68 96 Room Air 12/26/16 20:00 98.0 86 20 105/66 97 Room Air 12/26/16 16:00 98.7 96 22 109/68 95 Room Air 12/26/16 11:48 99.1 88 21 106/67 99 Room Air Intake and Output 12/26/16 12/27/16 19:00 07:00 Intake Total 480 ml Balance 480 ml Intake Oral 480 ml # Voids 2 2 # Bowel Movements 1 Laboratory Tests 12/27/16 04:50: Urine Eosinophils None seen 12/27/16 09:15: White Blood Count 10.3, Red Blood Count 2.64L, Hemoglobin 7.7L, Hematocrit 24.3L , Mean Corpuscular Volume 92, Mean Corpuscular Hemoglobin 29.1, Mean Corpuscular Hemoglobin Concent 31.6L, Red Cell Distribution Width 20.5H, Platelet Count 95L, Mean Platelet Volume 9.8, Neutrophils (%) (Auto) , Lymphocytes (%) (Auto) , Monocytes (%) (Auto) , Eosinophils (%) (Auto) , Basophils (%) (Auto) , Differential Total Cells Counted 100, Neutrophils % ( Manual) 80H, Lymphocytes % (Manual) 16L, Monocytes % (Manual) 1, Eosinophils % ( Manual) 0, Basophils % (Manual) 0, Band Neutrophils 3, Platelet Estimate DecreasedL, Platelet Morphology Normal, Red Blood Cell Morphology , Hypochromasia 1+, Poikilocytosis 1+, Anisocytosis 1+, Sodium Level 144, Potassium Level 3.1L, Chloride Level 103, Carbon Dioxide Level 31H, Anion Gap 10 , Blood Urea Nitrogen 9, Creatinine 0.8, Estimat Glomerular Filtration Rate > 60 , Glucose Level 167H, Uric Acid 2.4L, Calcium Level 8.1L, Phosphorus Level 2.8, Magnesium Level 1.4L, Total Bilirubin 0.6, Aspartate Amino Transf (AST/SGOT) 79H , Alanine Aminotransferase (ALT/SGPT) 31, Alkaline Phosphatase 95, C-Reactive Protein, Quantitative 4.3H, Total Protein 6.1L, Albumin 2.8L, Globulin 3.3, Albumin/Globulin Ratio 0.8L, Lipase 134H Height (Feet): 5 Height (Inches): 10.00 Weight (Pounds): 160 General Appearance: no apparent distress Objective other PE not changed VELASQUEZ DASILVA Dec 27, 2016 11:06
[2016-12-27 11:27] VITALS: BP 106/67
[2016-12-27] MEDS ORDERED: NS 275ml ONE (11:35)
[2016-12-27] MEDS: Magnesium Oxide 400mg tab ORAL SCH ×2 (13:00→18:04)
--- NOTE | 2016-12-27 13:44 | Neurology Progress Note ---
Interim History Interim History ROS Limited/Unobtainable: No Interim History Mr. Jain feels much better today. He is more alert and responsive. His cognitive function has improved markedly. He denies any new neurologic symptoms. He has been very nauseous and has been vomiting frequently. Review of Systems Neuro Review of Systems Benign. Objective Physical Exam Last Vital Signs Date Time Temp Pulse Resp B/P Pulse Ox O2 Delivery O2 Flow Rate FiO2 12/27/16 11:27 99.0 87 20 106/67 96 Room Air Laboratory Tests Test 12/27/16 04:50 12/27/16 09:15 Urine Eosinophils None seen White Blood Count 10.3 K/UL (4.8-10.8) Red Blood Count 2.64 M/UL (4.70-6.10) L Hemoglobin 7.7 G/DL (14.2-18.0) L Hematocrit 24.3 % (42.0-52.0) L Mean Corpuscular Volume 92 FL (80-99) Mean Corpuscular Hemoglobin 29.1 PG (27.0-31.0) Mean Corpuscular Hemoglobin Concent 31.6 G/DL (32.0-36.0) L Red Cell Distribution Width 20.5 % (11.6-14.8) H Platelet Count 95 K/UL (150-450) L Mean Platelet Volume 9.8 FL (6.5-10.1) Neutrophils (%) (Auto) % (45.0-75.0) Lymphocytes (%) (Auto) % (20.0-45.0) Monocytes (%) (Auto) % (1.0-10.0) Eosinophils (%) (Auto) % (0.0-3.0) Basophils (%) (Auto) % (0.0-2.0) Differential Total Cells Counted 100 Neutrophils % (Manual) 80 % (45-75) H Lymphocytes % (Manual) 16 % (20-45) L Monocytes % (Manual) 1 % (1-10) Eosinophils % (Manual) 0 % (0-3) Basophils % (Manual) 0 % (0-2) Band Neutrophils 3 % (0-8) Platelet Estimate Decreased L Platelet Morphology Normal Red Blood Cell Morphology Hypochromasia 1+ Poikilocytosis 1+ Anisocytosis 1+ Sodium Level 144 mEQ/L (135-145) Potassium Level 3.1 mEQ/L (3.4-4.9) L Chloride Level 103 mEQ/L (98-107) Carbon Dioxide Level 31 mEQ/L (20-30) H Anion Gap 10 (5-15) Blood Urea Nitrogen 9 mg/dL (7-23) Creatinine 0.8 mg/dL (0.7-1.2) Estimat Glomerular Filtration Rate > 60 mL/min (>60) Glucose Level 167 mg/dL (74-106) H Uric Acid 2.4 mg/dL (3.0-7.5) L Calcium Level 8.1 mg/dL (8.6-10.2) L Phosphorus Level 2.8 mg/dL (2.5-4.8) Magnesium Level 1.4 mg/dL (1.7-2.5) L Total Bilirubin 0.6 mg/dL (0.0-1.2) Aspartate Amino Transf (AST/SGOT) 79 U/L (5-40) H Alanine Aminotransferase (ALT/SGPT) 31 U/L (3-41) Alkaline Phosphatase 95 U/L (40-129) C-Reactive Protein, Quantitative 4.3 mg/dL (< 0.5) H Total Protein 6.1 g/dL (6.6-8.7) L Albumin 2.8 g/dL (3.5-5.2) L Globulin 3.3 g/dL Albumin/Globulin Ratio 0.8 (1.0-2.7) L Lipase 134 U/L (< 60) H Neurologic Exam Objective PHYSICAL EXAMINATION: GENERAL: He is a well-developed, relatively well-nourished, black gentleman, lying in bed, in no acute distress. HEAD: Normocephalic and atraumatic. EENT: Examination benign. NECK: No neck rigidity was observed. NEUROLOGIC EXAMINATION: MENTAL STATUS EXAMINATION: He was awake and alert. He was oriented to person, place and time. He was able to remember 3/3 words immediately and could remember them in 1 and 3 minutes. He was able to remember presidents Trump and Obama only. SPEECH: He had no dysarthria. LANGUAGE: He was able to comprehend and express himself well. CRANIAL NERVE EXAMINATION: II: The visual reilly were intact on confrontation testing. III, IV & : The external ocular movements were full and pupils 3 mm in diameter, equal, round, regular, and reactive to light. V: He had normal facial sensations and the temporales, masseters, and pterygoids functioned normally. VII: He had normal facial expressions and no facial asymmetry. VIII: He was able to hear well bilaterally and had no nystagmus. IX: The palate moved symmetrically on phonation. X: He had no hoarseness of voice. XI: The sternocleidomastoids and trapezii functioned normally. XII: The tongue was in midline without any fasciculations or atrophy. MOTOR SYSTEM: The tone was normal in all four extremities. Examination of muscle mass revealed no focal wasting. Examination of power was inaccurate because of his inability to cooperate fully, however, he had approximately G 5/ 5 power in all muscle groups tested. SENSORY EXAMINATION: He responded appropriately to light touch. REFLEXES: 1+ and bilaterally symmetrical at the biceps, triceps, brachioradialis and knees. Trace+ at both ankles. The plantar responses were flexor bilaterally. STANCE: He stood up with support. GAIT: He walked well with contact guard. Impression/Recommendations Diagnostic Impression 1. Mr. Jam Jain is a 31-year-old, right-handed, black gentleman, who does have a past history of a possible psychiatric illness, questionable seizures, and homelessness who was brought to the [facility] emergency room on 12/23/2016 with an altered mental state. He was found to have a pancreatitis. There is also a question as to whether he was withdrawing from alcohol. 2. He feels better generally but still has a lot of nausea and vomiting. He is also still cognitively impaired and generally weak. 3. On neurological examination, at this time, he is fully oriented. His memory has improved significantly. He does not demonstrate any focal or lateralizing findings. His deep tendon reflexes are globally diminished. He is able to get up and walk. 4. Laboratory data on admission revealed that his WBC count was elevated to 24, 300. He was anemic with a hemoglobin of 11.6. His chemistry panel revealed a sodium of 122, potassium of 2.9, chloride of 70, BUN elevated 33, with a creatinine of 3.3, glucose elevated 245, low calcium at 8.4. His total bilirubin was at 1.4. His lipase was elevated to 441, his amylase was elevated to 297. His B12 was low at 283. His TSH was normal at 2.2. His urine toxicology screen was benign and his serum alcohol level was less than 10. His urinalysis revealed 1+ leukocyte esterase, 5 to 10 red blood cells, 2 to 4 white blood cells per high-power field, and a few bacteria. 5. Further laboratory tests have revealed a low folate <2.1. 6. The CT of the brain done on 12/24/16 reveals generalized cerebral atrophy. 7. The patient's history and neurological examination are most compatible with multiple toxic metabolic insults causing a toxic metabolic encephalopathy. His encephalopathy has improved significantly. 8. It is unclear as to what exactly the patient's seizure disorder is and it is also quite unclear if the patient has had a recent seizure or not. Recommendations 1. Continue present management. 2. Vitamin B12 parenterally and Folic acid supplement. 3. Would try to obtain more data about the patient's past medical history. 4. Await EEG to evaluate the patient for ongoing ictal or interictal phenomena. 5. Continue Keppra 750 mg q.12 hours. Raul Ricks M.D., M.S.P.[place]. RAUL RICKS Dec 27, 2016 13:44
--- NOTE | 2016-12-27 14:33 | Infectious Diseases Prog Note ---
Assessment/Plan Problems: (1) Sepsis Assessment & Plan: and leukocytosis, improving, suspect due to pancreatitis . blood culture was not collected on addmision . was switched to Levaquin by director script , will stop antibiotics and monitor clinically (2) Acute alcoholic intoxication Assessment & Plan: improved, continue neuro check , watch for alcohol withdrawal , recommend alcohol rehab and counseling , neurology is following (3) Pancreatitis Assessment & Plan: due to tawanda drink of alcohol , continue hydration with supportive care, had recurrent vomiting today nonbloody , recommend npo and monitor lipase level , GI is following (4) Altered mental status Assessment & Plan: multifactorial, with folate deficiency , improving, started on folate replacement , neurology is following (5) Nausea & vomiting Assessment & Plan: due to pancreatitis, continue supportive care , hold food Subjective Constitutional: Reports: no symptoms HEENT: Reports: no symptoms Respiratory: Reports: no symptoms Breasts: Reports: no symptoms Cardiovascular: Reports: no symptoms Gastrointestinal/Abdominal: Reports: bloating, nausea, vomiting Genitourinary: Reports: no symptoms Neurologic: Reports: no symptoms, weakness Psychiatric: Reports: depression Skin: Reports: no symptoms Endocrine: Reports: no symptoms Hematologic: Reports: no symptoms Allergies: Coded Allergies: ACETAMINOPHEN (Verified Allergy, Unknown, 06/11/15) IBUPROFEN (Verified Allergy, Unknown, 06/11/15) Objective Vital Signs Last 24 Hour Vital Signs Date Time Temp Pulse Resp B/P Pulse Ox O2 Delivery O2 Flow Rate FiO2 12/27/16 11:27 99.0 87 20 106/67 96 Room Air 12/27/16 07:59 99.3 98 20 103/66 97 Room Air 12/27/16 04:00 99.7 85 20 114/55 97 Room Air 12/27/16 00:00 99.9 94 20 101/68 96 Room Air 12/26/16 20:00 98.0 86 20 105/66 97 Room Air 12/26/16 16:00 98.7 96 22 109/68 95 Room Air Height (Feet): 5 Height (Inches): 10.00 Weight (Pounds): 160 General Appearance: WD/WN, no acute distress HEENT: normocephalic, atraumatic, anicteric, mucous membranes moist, PERRL, EOMI, pharynx normal Respiratory/Chest: chest wall non-tender, lungs clear, normal breath sounds, no respiratory distress, no accessory muscle use Cardiovascular: normal peripheral pulses, normal rate, regular rhythm, no gallop/murmur, no JVD Abdomen: normal bowel sounds, no organomegaly, non distended, no mass, no scars , hypoactive bowel sounds, tender Extremities: no cyanosis, no clubbing Skin: no rash, no lesions Neurologic/Psychiatric: alert, responsive Lymphatic: no neck adenopathy, no groin adenopathy Laboratory Tests Test 12/27/16 04:50 12/27/16 09:15 Urine Eosinophils None seen White Blood Count 10.3 K/UL (4.8-10.8) Red Blood Count 2.64 M/UL (4.70-6.10) L Hemoglobin 7.7 G/DL (14.2-18.0) L Hematocrit 24.3 % (42.0-52.0) L Mean Corpuscular Volume 92 FL (80-99) Mean Corpuscular Hemoglobin 29.1 PG (27.0-31.0) Mean Corpuscular Hemoglobin Concent 31.6 G/DL (32.0-36.0) L Red Cell Distribution Width 20.5 % (11.6-14.8) H Platelet Count 95 K/UL (150-450) L Mean Platelet Volume 9.8 FL (6.5-10.1) Neutrophils (%) (Auto) % (45.0-75.0) Lymphocytes (%) (Auto) % (20.0-45.0) Monocytes (%) (Auto) % (1.0-10.0) Eosinophils (%) (Auto) % (0.0-3.0) Basophils (%) (Auto) % (0.0-2.0) Differential Total Cells Counted 100 Neutrophils % (Manual) 80 % (45-75) H Lymphocytes % (Manual) 16 % (20-45) L Monocytes % (Manual) 1 % (1-10) Eosinophils % (Manual) 0 % (0-3) Basophils % (Manual) 0 % (0-2) Band Neutrophils 3 % (0-8) Platelet Estimate Decreased L Platelet Morphology Normal Red Blood Cell Morphology Hypochromasia 1+ Poikilocytosis 1+ Anisocytosis 1+ Sodium Level 144 mEQ/L (135-145) Potassium Level 3.1 mEQ/L (3.4-4.9) L Chloride Level 103 mEQ/L (98-107) Carbon Dioxide Level 31 mEQ/L (20-30) H Anion Gap 10 (5-15) Blood Urea Nitrogen 9 mg/dL (7-23) Creatinine 0.8 mg/dL (0.7-1.2) Estimat Glomerular Filtration Rate > 60 mL/min (>60) Glucose Level 167 mg/dL (74-106) H Uric Acid 2.4 mg/dL (3.0-7.5) L Calcium Level 8.1 mg/dL (8.6-10.2) L Phosphorus Level 2.8 mg/dL (2.5-4.8) Magnesium Level 1.4 mg/dL (1.7-2.5) L Total Bilirubin 0.6 mg/dL (0.0-1.2) Aspartate Amino Transf (AST/SGOT) 79 U/L (5-40) H Alanine Aminotransferase (ALT/SGPT) 31 U/L (3-41) Alkaline Phosphatase 95 U/L (40-129) C-Reactive Protein, Quantitative 4.3 mg/dL (< 0.5) H Total Protein 6.1 g/dL (6.6-8.7) L Albumin 2.8 g/dL (3.5-5.2) L Globulin 3.3 g/dL Albumin/Globulin Ratio 0.8 (1.0-2.7) L Lipase 134 U/L (< 60) H Current Medications Medications (Trade) Dose Ordered Sig/Juliana Route PRN Reason Start Time Stop Time Status Last Admin Dose Admin Acetaminophen (Tylenol) 650 mg Q4H PRN ORAL Mild Pain/Temp > 100.5 12/25/16 10:30 01/24/17 10:29 Diazepam (Valium) 10 mg EVERY 4 HOURS PRN ORAL anxiety 12/24/16 13:00 12/31/16 12:59 Fluoxetine HCl (PROzac) 20 mg DAILY ORAL 12/27/16 09:00 01/26/17 08:59 12/27/16 09:30 Folic Acid (Folate) 10 mg DAILY ORAL 12/26/16 09:00 01/25/17 08:59 12/26/16 11:00 Levetiracetam (Keppra) 750 mg Q12HR@0500,1700 ORAL 12/24/16 17:00 01/23/17 16:59 12/27/16 05:14 Levofloxacin (Levaquin) 250 mg DAILY ORAL 12/26/16 10:00 01/02/17 09:59 12/27/16 09:22 Magnesium Oxide (Mag-Ox 400mg) 400 mg THREE TIMES A DAY ORAL 12/27/16 13:00 01/26/17 12:59 Ondansetron HCl (Zofran) 4 mg Q6H PRN IVP Nausea & Vomiting 12/23/16 19:45 01/22/17 19:44 12/26/16 17:44 Pantoprazole (Protonix) 40 mg EVERY 12 HOURS ORAL 12/23/16 21:00 01/22/17 20:59 12/27/16 09:22 Potassium Chloride (K-Dur) 40 meq TWICE A DAY ORAL 12/27/16 11:30 01/26/17 11:29 Thiamine HCl (Vitamin B1) 100 mg DAILY ORAL 12/24/16 14:30 01/23/17 14:29 12/27/16 09:22 Vitamin D (Vitamin D) 2,000 intlu DAILY ORAL 12/25/16 10:30 01/24/17 10:29 12/27/16 09:22 Imelda Chen M.D. Dec 27, 2016 14:33
[2016-12-27 16:00] VITALS: BP 106/70
[2016-12-27 20:00] VITALS: BP 107/70
--- NOTE | 2016-12-27 20:57 | General Progress Note ---
Assessment/Plan Problem List: (1) Altered mental status ICD Codes: R41.82 - Altered mental status, unspecified SNOMED: 273903527 Qualifiers: Qualified Codes: R41.82 - Altered mental status, unspecified (2) Pancreatitis ICD Codes: K85.90 - Acute pancreatitis without necrosis or infection, unspecified SNOMED: 08079507 Qualifiers: Qualified Codes: K85.90 - Acute pancreatitis without necrosis or infection, unspecified (3) Sepsis ICD Codes: A41.9 - Sepsis, unspecified organism SNOMED: 26822477 (4) Anemia ICD Codes: D64.9 - Anemia, unspecified SNOMED: 318229303 Status: progressing Assessment/Plan arf improving hyponatremia is improving etoh and drug abuse less confused reviewed chart and labs r/o sepsis abx per id Subjective ROS Limited/Unobtainable: Yes Allergies: Coded Allergies: ACETAMINOPHEN (Verified Allergy, Unknown, 06/11/15) IBUPROFEN (Verified Allergy, Unknown, 06/11/15) Objective Last 24 Hour Vital Signs Date Time Temp Pulse Resp B/P Pulse Ox O2 Delivery O2 Flow Rate FiO2 12/27/16 20:00 99.5 82 18 107/70 99 Room Air 12/27/16 16:00 99.2 84 19 106/70 97 Room Air 12/27/16 11:27 99.0 87 20 106/67 96 Room Air 12/27/16 07:59 99.3 98 20 103/66 97 Room Air 12/27/16 04:00 99.7 85 20 114/55 97 Room Air 12/27/16 00:00 99.9 94 20 101/68 96 Room Air Intake and Output 12/26/16 12/27/16 19:00 07:00 Intake Total 480 ml Balance 480 ml Intake Oral 480 ml # Voids 2 2 # Bowel Movements 1 Laboratory Tests 12/27/16 04:50: Urine Eosinophils None seen 12/27/16 09:15: White Blood Count 10.3, Red Blood Count 2.64L, Hemoglobin 7.7L, Hematocrit 24.3L , Mean Corpuscular Volume 92, Mean Corpuscular Hemoglobin 29.1, Mean Corpuscular Hemoglobin Concent 31.6L, Red Cell Distribution Width 20.5H, Platelet Count 95L, Mean Platelet Volume 9.8, Neutrophils (%) (Auto) , Lymphocytes (%) (Auto) , Monocytes (%) (Auto) , Eosinophils (%) (Auto) , Basophils (%) (Auto) , Differential Total Cells Counted 100, Neutrophils % ( Manual) 80H, Lymphocytes % (Manual) 16L, Monocytes % (Manual) 1, Eosinophils % ( Manual) 0, Basophils % (Manual) 0, Band Neutrophils 3, Platelet Estimate DecreasedL, Platelet Morphology Normal, Red Blood Cell Morphology , Hypochromasia 1+, Poikilocytosis 1+, Anisocytosis 1+, Sodium Level 144, Potassium Level 3.1L, Chloride Level 103, Carbon Dioxide Level 31H, Anion Gap 10 , Blood Urea Nitrogen 9, Creatinine 0.8, Estimat Glomerular Filtration Rate > 60 , Glucose Level 167H, Uric Acid 2.4L, Calcium Level 8.1L, Phosphorus Level 2.8, Magnesium Level 1.4L, Total Bilirubin 0.6, Aspartate Amino Transf (AST/SGOT) 79H , Alanine Aminotransferase (ALT/SGPT) 31, Alkaline Phosphatase 95, C-Reactive Protein, Quantitative 4.3H, Total Protein 6.1L, Albumin 2.8L, Globulin 3.3, Albumin/Globulin Ratio 0.8L, Lipase 134H Height (Feet): 5 Height (Inches): 10.00 Weight (Pounds): 160 General Appearance: confused Cardiovascular: normal rate Respiratory/Chest: lungs clear Abdomen: non tender Robbi Vega MD Dec 27, 2016 20:57
--- NOTE | 2016-12-27 22:05 | General Progress Note ---
Assessment/Plan Assessment/Plan # Leukocytosis secondary to underlying inflammatory reaction versus infection-- > better # Pancreatitis # Lactic acidosis with decreased blood pressure. # Anemia secondary to severe folic acid deficiency, currently less than 2, have ordered for oral folic acid getting 10 mg daily. # Anemia secondary to hemodilution. # Anemia of chronic disease. ---> hgb goal >7 # Thrombocytopenia, likely secondary to hemodilution versus infection. # Hypokalemia. # Anemia secondary to B12 deficiency, which is at 283. Recommend B12 intramuscular injection. # History of seizures, on Dilantin. # History of alcohol intoxication leading to pancreatitis. # Altered mental status. He will be seen by Neurology again. Subjective Constitutional: Reports: no symptoms HEENT: Reports: no symptoms Cardiovascular: Reports: no symptoms Respiratory: Reports: no symptoms Gastrointestinal/Abdominal: Reports: no symptoms Genitourinary: Reports: no symptoms Neurologic/Psychiatric: Reports: no symptoms Endocrine: Reports: no symptoms Hematologic/Lymphatic: Reports: no symptoms Allergies: Coded Allergies: ACETAMINOPHEN (Verified Allergy, Unknown, 06/11/15) IBUPROFEN (Verified Allergy, Unknown, 06/11/15) Subjective nauseated today, no fevers Objective Last 24 Hour Vital Signs Date Time Temp Pulse Resp B/P Pulse Ox O2 Delivery O2 Flow Rate FiO2 12/27/16 20:00 99.5 82 18 107/70 99 Room Air 12/27/16 16:00 99.2 84 19 106/70 97 Room Air 12/27/16 11:27 99.0 87 20 106/67 96 Room Air 12/27/16 07:59 99.3 98 20 103/66 97 Room Air 12/27/16 04:00 99.7 85 20 114/55 97 Room Air 12/27/16 00:00 99.9 94 20 101/68 96 Room Air Intake and Output 12/26/16 12/27/16 19:00 07:00 Intake Total 480 ml Balance 480 ml Intake Oral 480 ml # Voids 2 2 # Bowel Movements 1 Laboratory Tests 12/27/16 04:50: Urine Eosinophils None seen 12/27/16 09:15: White Blood Count 10.3, Red Blood Count 2.64L, Hemoglobin 7.7L, Hematocrit 24.3L , Mean Corpuscular Volume 92, Mean Corpuscular Hemoglobin 29.1, Mean Corpuscular Hemoglobin Concent 31.6L, Red Cell Distribution Width 20.5H, Platelet Count 95L, Mean Platelet Volume 9.8, Neutrophils (%) (Auto) , Lymphocytes (%) (Auto) , Monocytes (%) (Auto) , Eosinophils (%) (Auto) , Basophils (%) (Auto) , Differential Total Cells Counted 100, Neutrophils % ( Manual) 80H, Lymphocytes % (Manual) 16L, Monocytes % (Manual) 1, Eosinophils % ( Manual) 0, Basophils % (Manual) 0, Band Neutrophils 3, Platelet Estimate DecreasedL, Platelet Morphology Normal, Red Blood Cell Morphology , Hypochromasia 1+, Poikilocytosis 1+, Anisocytosis 1+, Sodium Level 144, Potassium Level 3.1L, Chloride Level 103, Carbon Dioxide Level 31H, Anion Gap 10 , Blood Urea Nitrogen 9, Creatinine 0.8, Estimat Glomerular Filtration Rate > 60 , Glucose Level 167H, Uric Acid 2.4L, Calcium Level 8.1L, Phosphorus Level 2.8, Magnesium Level 1.4L, Total Bilirubin 0.6, Aspartate Amino Transf (AST/SGOT) 79H , Alanine Aminotransferase (ALT/SGPT) 31, Alkaline Phosphatase 95, C-Reactive Protein, Quantitative 4.3H, Total Protein 6.1L, Albumin 2.8L, Globulin 3.3, Albumin/Globulin Ratio 0.8L, Lipase 134H Height (Feet): 5 Height (Inches): 10.00 Weight (Pounds): 160 General Appearance: no apparent distress EENT: PERRL/EOMI Neck: non-tender Cardiovascular: normal peripheral pulses Respiratory/Chest: chest wall non-tender Extremities: non-tender Edema: no edema noted Pedal (L), no edema noted Pedal (R) Edema: trace edema Neurologic: busher helper II-XII grossly normal Skin: warm/dry Kapil Haney Dec 27, 2016 22:05
[2016-12-28] VITALS: BP 101/66
[2016-12-28 04:00] VITALS: BP 98/64
[2016-12-28 08:00] VITALS: BP 98/67
[2016-12-28] MEDS: Vitamin D 1000 IU Tab ORAL SCH (09:00)
[2016-12-28] MEDS: Magnesium Oxide 400mg tab ORAL SCH ×3 (10:04→17:16)
[2016-12-28] MEDS: Thiamine 100mg tab ORAL SCH (10:05)
--- NOTE | 2016-12-28 10:07 | General Progress Note ---
Assessment/Plan Problem List: (1) Altered mental status ICD Codes: R41.82 - Altered mental status, unspecified SNOMED: 695557852 Qualifiers: Qualified Codes: R41.82 - Altered mental status, unspecified (2) Pancreatitis ICD Codes: K85.90 - Acute pancreatitis without necrosis or infection, unspecified SNOMED: 19113257 Qualifiers: Qualified Codes: K85.90 - Acute pancreatitis without necrosis or infection, unspecified (3) Sepsis ICD Codes: A41.9 - Sepsis, unspecified organism SNOMED: 85012576 (4) Anemia ICD Codes: D64.9 - Anemia, unspecified SNOMED: 008820834 Status: progressing Assessment/Plan arf improving hyponatremia is improving etoh and drug abuse reviewed chart check bmp and cbc clinically improving Subjective Constitutional: Reports: no symptoms Allergies: Coded Allergies: ACETAMINOPHEN (Verified Allergy, Unknown, 06/11/15) IBUPROFEN (Verified Allergy, Unknown, 06/11/15) Objective Last 24 Hour Vital Signs Date Time Temp Pulse Resp B/P Pulse Ox O2 Delivery O2 Flow Rate FiO2 12/28/16 04:00 100.0 69 18 98/64 98 Room Air 12/28/16 00:00 99.9 78 18 101/66 99 Room Air 12/27/16 20:00 99.5 82 18 107/70 99 Room Air 12/27/16 16:00 99.2 84 19 106/70 97 Room Air 12/27/16 11:27 99.0 87 20 106/67 96 Room Air Intake and Output 12/27/16 12/28/16 19:00 07:00 Intake Total 620 ml Output Total 670 ml 250 ml Balance -50 ml -250 ml Intake Oral 620 ml Output Urine Total 320 ml 250 ml Emesis 350 ml # Bowel Movements 1 Height (Feet): 5 Height (Inches): 10.00 Weight (Pounds): 160 General Appearance: confused Cardiovascular: normal rate Respiratory/Chest: lungs clear Robbi Vega MD Dec 28, 2016 10:06
--- NOTE | 2016-12-28 10:44 | General Progress Note ---
Assessment/Plan Status: stable Status Narrative refusing labs- refusing to take his pills Assessment/Plan status: Renal failure , Acute vs Chronic improving h/o Sz Acute Encephalopathy Low K Low Na Low B12 and folate Elevated Lipase , acute pancreatitis Plan; K and Phos supplement high dose PO folate ST PT OT eval Monitor lytes- monitor renal parameters Neuro eval needs psych eval Subjective ROS Limited/Unobtainable: No Constitutional: Reports: malaise Allergies: Coded Allergies: ACETAMINOPHEN (Verified Allergy, Unknown, 06/11/15) IBUPROFEN (Verified Allergy, Unknown, 06/11/15) Objective Last 24 Hour Vital Signs Date Time Temp Pulse Resp B/P Pulse Ox O2 Delivery O2 Flow Rate FiO2 12/28/16 04:00 100.0 69 18 98/64 98 Room Air 12/28/16 00:00 99.9 78 18 101/66 99 Room Air 12/27/16 20:00 99.5 82 18 107/70 99 Room Air 12/27/16 16:00 99.2 84 19 106/70 97 Room Air 12/27/16 11:27 99.0 87 20 106/67 96 Room Air Intake and Output 12/27/16 12/28/16 19:00 07:00 Intake Total 620 ml Output Total 670 ml 250 ml Balance -50 ml -250 ml Intake Oral 620 ml Output Urine Total 320 ml 250 ml Emesis 350 ml # Bowel Movements 1 Height (Feet): 5 Height (Inches): 10.00 Weight (Pounds): 160 General Appearance: no apparent distress Objective other PE not changed VELASQUEZ DASILVA Dec 28, 2016 10:44
[2016-12-28] MEDS ORDERED: metroNIDAZOLE 500mg tab ORAL SCH (11:30)
--- NOTE | 2016-12-28 11:48 | Diagnostic Imaging Report ---
Indication: Dyspnea Comparison: None A single view chest radiograph was obtained. Findings: Lungs are low. There is a parenchymal disease obscuring the diaphragm bilaterally. Heart is borderline enlarged. Bones are unremarkable. Impression: Basilar atelectasis. Pneumonia not excluded. Please correlate clinically
[2016-12-28 12:00] VITALS: BP 97/64
[2016-12-28] MEDS ORDERED: cefTRIAXone 2 GM in D5W 110 ML IVPB SCH (12:00)
--- NOTE | 2016-12-28 13:46 | General Progress Note ---
Assessment/Plan Status: stable Assessment/Plan # Leukocytosis secondary to underlying inflammatory reaction versus infection-- > better # Pancreatitis # Lactic acidosis with decreased blood pressure. # Anemia secondary to severe folic acid deficiency, currently less than 2, have ordered for oral folic acid getting 10 mg daily. # Anemia secondary to hemodilution. # Anemia of chronic disease. ---> hgb goal >7 # Thrombocytopenia, likely secondary to hemodilution versus infection. # Hypokalemia. # Anemia secondary to B12 deficiency, has been given B12 injections. # History of seizures, on Dilantin. # History of alcohol intoxication leading to pancreatitis. # Altered mental status. He will be seen by Neurology again. Subjective Constitutional: Reports: no symptoms HEENT: Reports: no symptoms Cardiovascular: Reports: no symptoms Respiratory: Reports: no symptoms Gastrointestinal/Abdominal: Reports: no symptoms Genitourinary: Reports: no symptoms Neurologic/Psychiatric: Reports: emotional problems Endocrine: Reports: no symptoms Hematologic/Lymphatic: Reports: anemia Allergies: Coded Allergies: ACETAMINOPHEN (Verified Allergy, Unknown, 06/11/15) IBUPROFEN (Verified Allergy, Unknown, 06/11/15) Subjective pt is refusing labs and cooling measures for high temp Objective Last 24 Hour Vital Signs Date Time Temp Pulse Resp B/P Pulse Ox O2 Delivery O2 Flow Rate FiO2 12/28/16 12:00 97.2 100 20 97/64 98 Room Air 12/28/16 08:00 97.2 99 20 98/67 98 Room Air 12/28/16 04:00 100.0 69 18 98/64 98 Room Air 12/28/16 00:00 99.9 78 18 101/66 99 Room Air 12/27/16 20:00 99.5 82 18 107/70 99 Room Air 12/27/16 16:00 99.2 84 19 106/70 97 Room Air Intake and Output 12/27/16 12/28/16 19:00 07:00 Intake Total 620 ml Output Total 670 ml 250 ml Balance -50 ml -250 ml Intake Oral 620 ml Output Urine Total 320 ml 250 ml Emesis 350 ml # Bowel Movements 1 Height (Feet): 5 Height (Inches): 10.00 Weight (Pounds): 160 General Appearance: no apparent distress EENT: PERRL/EOMI Neck: normal alignment Cardiovascular: normal peripheral pulses Respiratory/Chest: lungs clear Abdomen: non tender Edema: no edema noted Pedal (L), no edema noted Pedal (R) 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
--- NOTE | 2016-12-28 15:13 | Neurology Progress Note ---
Interim History Interim History Interim History Mr. Jain continues to feel much better. The nausea and vomiting are better. He is much more alert and responsive. His cognitive function has improved markedly. He denies any new neurologic symptoms. He was up in the chair a few times and walked a little. Review of Systems Neuro Review of Systems Benign. Objective Physical Exam Last Vital Signs Date Time Temp Pulse Resp B/P Pulse Ox O2 Delivery O2 Flow Rate FiO2 12/28/16 12:00 97.2 100 20 97/64 98 Room Air Neurologic Exam Objective PHYSICAL EXAMINATION: GENERAL: He is a well-developed, relatively well-nourished, black gentleman, lying in bed, in no acute distress. HEAD: Normocephalic and atraumatic. EENT: Examination benign. NECK: No neck rigidity was observed. NEUROLOGIC EXAMINATION: MENTAL STATUS EXAMINATION: He was awake and alert. He was oriented to person, place and time except for the name of the hospital. He was able to remember 3/3 words immediately and could remember them in 1 and 3 minutes. He was able to remember presidents Trump and Obama only. His mathematical skills were impaired and so was his visuospatial function. SPEECH: He had no dysarthria. LANGUAGE: He was able to comprehend and express himself well. CRANIAL NERVE EXAMINATION: II: The visual reilly were intact on confrontation testing. III, IV & : The external ocular movements were full and pupils 3 mm in diameter, equal, round, regular, and reactive to light. V: He had normal facial sensations and the temporales, masseters, and pterygoids functioned normally. VII: He had normal facial expressions and no facial asymmetry. VIII: He was able to hear well bilaterally and had no nystagmus. IX: The palate moved symmetrically on phonation. X: He had no hoarseness of voice. XI: The sternocleidomastoids and trapezii functioned normally. XII: The tongue was in midline without any fasciculations or atrophy. MOTOR SYSTEM: The tone was normal in all four extremities. Examination of muscle mass revealed no focal wasting. Examination of power was inaccurate because of his inability to cooperate fully, however, he had approximately G 5/ 5 power in all muscle groups tested. SENSORY EXAMINATION: He responded appropriately to light touch. REFLEXES: 1+ and bilaterally symmetrical at the biceps, triceps, brachioradialis and knees. Trace+ at both ankles. The plantar responses were flexor bilaterally. STANCE: He stood up with support. GAIT: He walked well with contact guard. Impression/Recommendations Diagnostic Impression 1. Mr. Jam Jain is a 31-year-old, right-handed, black gentleman, who does have a past history of a possible psychiatric illness, questionable seizures, and homelessness who was brought to the [facility] emergency room on 12/23/2016 with an altered mental state. He was found to have a pancreatitis. There is also a question as to whether he was withdrawing from alcohol. 2. He feels better generally and the nausea and vomiting has improved. He is also still cognitively impaired and generally weak. 3. On neurological examination, at this time, he is disoriented to the name of the hospital. His memory has improved significantly. He does not demonstrate any focal or lateralizing findings. His deep tendon reflexes are globally diminished. He is able to get up and walk. 4. Laboratory data on admission revealed that his WBC count was elevated to 24, 300. He was anemic with a hemoglobin of 11.6. His chemistry panel revealed a sodium of 122, potassium of 2.9, chloride of 70, BUN elevated 33, with a creatinine of 3.3, glucose elevated 245, low calcium at 8.4. His total bilirubin was at 1.4. His lipase was elevated to 441, his amylase was elevated to 297. His B12 was low at 283. His TSH was normal at 2.2. His urine toxicology screen was benign and his serum alcohol level was less than 10. His urinalysis revealed 1+ leukocyte esterase, 5 to 10 red blood cells, 2 to 4 white blood cells per high-power field, and a few bacteria. 5. Further laboratory tests have revealed a low folate <2.1. 6. The CT of the brain done on 12/24/16 reveals generalized cerebral atrophy. 7. The patient's history and neurological examination are most compatible with multiple toxic metabolic insults causing a toxic metabolic encephalopathy. His encephalopathy has improved significantly. 8. It is unclear as to what exactly the patient's seizure disorder is and it is also quite unclear if the patient has had a recent seizure or not. Recommendations 1. Continue present management. 2. Vitamin B12 parenterally and Folic acid supplement. 3. Would try to obtain more data about the patient's past medical history. 4. Await EEG to evaluate the patient for ongoing ictal or interictal phenomena. 5. Continue Keppra 750 mg q.12 hours. Raul Ricks M.D., MDericS.Mary. RAUL RICKS Dec 28, 2016 15:13
[2016-12-28 16:00] VITALS: BP 99/63
[2016-12-28 18:44] LABS: BASOPHILS % (AUTO) 1.6 % (0.0-2.0); EOSINOPHILS % (AUTO) 0.9 % (0.0-3.0); MEAN CORPUSCULAR HEMOGLOBIN 29.4 PG (27.0-31.0); MEAN CORPUSCULAR HGB CONC 32.3 G/DL (32.0-36.0); MEAN CORPUSCULAR VOLUME 91 FL (80-99); MEAN PLATELET VOLUME 10.5 FL (6.5-10.1); MONOCYTES % (AUTO) 15.4 % (1.0-10.0); PLATELET COUNT 122 K/UL (150-450); RED BLOOD COUNT 2.55 M/UL (4.70-6.10); RED CELL DISTRIBUTION WIDTH 21.1 % (11.6-14.8)
[2016-12-28 18:48] LABS: ALANINE AMINOTRANSFERASE 27 U/L (3-41); ALBUMIN/GLOBULIN RATIO 0.6 (1.0-2.7); ANION GAP 14 (5-15); ASPARTATE AMINO TRANSFERASE 51 U/L (5-40); CALCIUM 8.2 mg/dL (8.6-10.2); CARBON DIOXIDE 27 mEQ/L (20-30); CHLORIDE 101 mEQ/L (98-107); CREATININE 0.7 mg/dL (0.7-1.2); GLOMERULAR FILTRATION RATE > 60 mL/min (>60); HEMOLYSIS 1; LIPASE 83 U/L (< 60); POTASSIUM 3.9 mEQ/L (3.4-4.9); SODIUM 142 mEQ/L (135-145); TOTAL PROTEIN 6.6 g/dL (6.6-8.7)
[2016-12-28 20:00] VITALS: BP 103/62
[2016-12-28] MEDS: Piperacillin/Tazobactam 3.375 GM in D5W 110 ML IVPB SCH (20:38)
[2016-12-29] VITALS: BP 104/67
[2016-12-29 04:00] VITALS: BP 109/69
[2016-12-29] MEDS: Piperacillin/Tazobactam 3.375 GM in D5W 110 ML IVPB SCH ×2 (05:44→16:24)
[2016-12-29 08:00] VITALS: BP 95/57
[2016-12-29] MEDS: Magnesium Oxide 400mg tab ORAL SCH ×3 (08:13→17:30)
[2016-12-29] MEDS: Vitamin D 1000 IU Tab ORAL SCH (08:13)
[2016-12-29 11:07] LABS: MEAN CORPUSCULAR HEMOGLOBIN 29.6 PG (27.0-31.0); MEAN CORPUSCULAR VOLUME 93 FL (80-99); MEAN PLATELET VOLUME 9.5 FL (6.5-10.1); PLATELET COUNT 171 K/UL (150-450); RED BLOOD COUNT 2.67 M/UL (4.70-6.10); RED CELL DISTRIBUTION WIDTH 20.4 % (11.6-14.8); WHITE BLOOD COUNT 14.6 K/UL (4.8-10.8)
--- NOTE | 2016-12-29 11:10 | Neurology Progress Note ---
Interim History Interim History Interim History Mr. Jain feels much better. The nausea and vomiting are better. He is much more alert and responsive. His cognitive function has improved markedly. He denies any new neurologic symptoms. He was up in the chair a few times and walked a little. He has had no seizures or seizure-like phenomena. Review of Systems Neuro Review of Systems Benign. Objective Physical Exam Last Vital Signs Date Time Temp Pulse Resp B/P Pulse Ox O2 Delivery O2 Flow Rate FiO2 12/29/16 09:13 99.5 12/29/16 08:00 95 18 95/57 Room Air 12/29/16 04:00 99 Laboratory Tests Test 12/28/16 18:10 12/29/16 10:45 White Blood Count 13.0 K/UL (4.8-10.8) H Pending Red Blood Count 2.55 M/UL (4.70-6.10) L Pending Hemoglobin 7.5 G/DL (14.2-18.0) L Pending Hematocrit 23.2 % (42.0-52.0) L Pending Mean Corpuscular Volume 91 FL (80-99) Pending Mean Corpuscular Hemoglobin 29.4 PG (27.0-31.0) Pending Mean Corpuscular Hemoglobin Concent 32.3 G/DL (32.0-36.0) Pending Red Cell Distribution Width 21.1 % (11.6-14.8) H Pending Platelet Count 122 K/UL (150-450) L Pending Mean Platelet Volume 10.5 FL (6.5-10.1) H Pending Neutrophils (%) (Auto) 68.0 % (45.0-75.0) Pending Lymphocytes (%) (Auto) 14.0 % (20.0-45.0) L Pending Monocytes (%) (Auto) 15.4 % (1.0-10.0) H Pending Eosinophils (%) (Auto) 0.9 % (0.0-3.0) Pending Basophils (%) (Auto) 1.6 % (0.0-2.0) Pending Sodium Level 142 mEQ/L (135-145) Pending Potassium Level 3.9 mEQ/L (3.4-4.9) Pending Chloride Level 101 mEQ/L (98-107) Pending Carbon Dioxide Level 27 mEQ/L (20-30) Pending Anion Gap 14 (5-15) Blood Urea Nitrogen 7 mg/dL (7-23) Pending Creatinine 0.7 mg/dL (0.7-1.2) Pending Estimat Glomerular Filtration Rate > 60 mL/min (>60) Pending Glucose Level 156 mg/dL (74-106) H Pending Calcium Level 8.2 mg/dL (8.6-10.2) L Pending Total Bilirubin 0.5 mg/dL (0.0-1.2) Aspartate Amino Transf (AST/SGOT) 51 U/L (5-40) H Alanine Aminotransferase (ALT/SGPT) 27 U/L (3-41) Alkaline Phosphatase 98 U/L (40-129) Total Protein 6.6 g/dL (6.6-8.7) Albumin 2.5 g/dL (3.5-5.2) L Globulin 4.1 g/dL Albumin/Globulin Ratio 0.6 (1.0-2.7) L Lipase 83 U/L (< 60) H Pending Magnesium Level Pending Neurologic Exam Objective PHYSICAL EXAMINATION: GENERAL: He is a well-developed, relatively well-nourished, black gentleman, lying in bed, in no acute distress. HEAD: Normocephalic and atraumatic. EENT: Examination benign. NECK: No neck rigidity was observed. NEUROLOGIC EXAMINATION: MENTAL STATUS EXAMINATION: He was awake and alert. He was oriented to person, place and time except for the name of the hospital. He was able to remember 3/3 words immediately and could remember them in 1 and 3 minutes. He was able to remember presidents Trump and Obama only. His mathematical skills were impaired and so was his visuospatial function. SPEECH: He had no dysarthria. LANGUAGE: He was able to comprehend and express himself well. CRANIAL NERVE EXAMINATION: II: The visual reilly were intact on confrontation testing. III, IV & : The external ocular movements were full and pupils 3 mm in diameter, equal, round, regular, and reactive to light. V: He had normal facial sensations and the temporales, masseters, and pterygoids functioned normally. VII: He had normal facial expressions and no facial asymmetry. VIII: He was able to hear well bilaterally and had no nystagmus. IX: The palate moved symmetrically on phonation. X: He had no hoarseness of voice. XI: The sternocleidomastoids and trapezii functioned normally. XII: The tongue was in midline without any fasciculations or atrophy. MOTOR SYSTEM: The tone was normal in all four extremities. Examination of muscle mass revealed no focal wasting. Examination of power was inaccurate because of his inability to cooperate fully, however, he had approximately G 5/ 5 power in all muscle groups tested. SENSORY EXAMINATION: He responded appropriately to light touch. REFLEXES: 1+ and bilaterally symmetrical at the biceps, triceps, brachioradialis and knees. Trace+ at both ankles. The plantar responses were flexor bilaterally. STANCE: He stood up with support. GAIT: He walked well with contact guard. Impression/Recommendations Diagnostic Impression 1. Mr. Jam Jain is a 31-year-old, right-handed, black gentleman, who does have a past history of a possible psychiatric illness, questionable seizures, and homelessness who was brought to the [facility] emergency room on 12/23/2016 with an altered mental state. He was found to have a pancreatitis. There is also a question as to whether he was withdrawing from alcohol. 2. He feels better generally and the nausea and vomiting has improved. He is also still cognitively impaired and generally weak. 3. On neurological examination, at this time, he is disoriented to the name of the hospital. His memory has improved significantly. He does not demonstrate any focal or lateralizing findings. His deep tendon reflexes are globally diminished. He is able to get up and walk. 4. Laboratory data on admission revealed that his WBC count was elevated to 24, 300. He was anemic with a hemoglobin of 11.6. His chemistry panel revealed a sodium of 122, potassium of 2.9, chloride of 70, BUN elevated 33, with a creatinine of 3.3, glucose elevated 245, low calcium at 8.4. His total bilirubin was at 1.4. His lipase was elevated to 441, his amylase was elevated to 297. His B12 was low at 283. His TSH was normal at 2.2. His urine toxicology screen was benign and his serum alcohol level was less than 10. His urinalysis revealed 1+ leukocyte esterase, 5 to 10 red blood cells, 2 to 4 white blood cells per high-power field, and a few bacteria. 5. Further laboratory tests have revealed a low folate <2.1. 6. The CT of the brain done on 12/24/16 reveals generalized cerebral atrophy. 7. The patient's history and neurological examination are most compatible with multiple toxic metabolic insults causing a toxic metabolic encephalopathy. His encephalopathy has improved significantly. 8. It is unclear as to what exactly the patient's seizure disorder is and it is also quite unclear if the patient has had a recent seizure or not. Recommendations 1. Continue present management. 2. Vitamin B12 parenterally and Folic acid supplement. 3. Would try to obtain more data about the patient's past medical history. 4. Await EEG to evaluate the patient for ongoing ictal or interictal phenomena. 5. Continue Keppra 750 mg q.12 hours. Raul Ricks M.D., M.S.P.H. RAUL RICKS Dec 29, 2016 11:10
[2016-12-29 11:31] LABS: ANION GAP 11 (5-15); CALCIUM 8.3 mg/dL (8.6-10.2); CARBON DIOXIDE 25 mEQ/L (20-30); CHLORIDE 102 mEQ/L (98-107); CREATININE 0.7 mg/dL (0.7-1.2); GLOMERULAR FILTRATION RATE > 60 mL/min (>60); HEMOLYSIS 5; LIPASE 58 U/L (< 60); MAGNESIUM 1.4 mg/dL (1.7-2.5); POTASSIUM 3.8 mEQ/L (3.4-4.9); SODIUM 138 mEQ/L (135-145)
--- NOTE | 2016-12-29 11:35 | General Progress Note ---
Assessment/Plan Status: unchanged Assessment/Plan status: Renal failure , Acute vs Chronic improving h/o Sz Acute Encephalopathy Low K Low Na Low B12 and folate Elevated Lipase , acute pancreatitis Plan; K and Phos supplement as needed- Back on Zosyn- high dose PO folate ST PT OT eval Monitor lytes- monitor renal parameters Neuro eval needs psych fu Subjective ROS Limited/Unobtainable: No Constitutional: Reports: malaise, weakness Allergies: Coded Allergies: ACETAMINOPHEN (Verified Allergy, Unknown, 06/11/15) IBUPROFEN (Verified Allergy, Unknown, 06/11/15) Objective Last 24 Hour Vital Signs Date Time Temp Pulse Resp B/P Pulse Ox O2 Delivery O2 Flow Rate FiO2 12/29/16 09:13 99.5 12/29/16 08:00 99.9 95 18 95/57 Room Air 12/29/16 04:00 99.9 83 22 109/69 99 Room Air 12/29/16 00:00 98.8 78 20 104/67 98 Room Air 12/28/16 20:00 100.6 86 22 103/62 98 Room Air 12/28/16 18:30 100.4 12/28/16 16:00 102.2 102 20 99/63 100 Room Air 12/28/16 12:00 97.2 100 20 97/64 98 Room Air Intake and Output 12/28/16 12/29/16 19:00 07:00 Intake Total 420 ml 137.5 ml Output Total 200 ml Balance 220 ml 137.5 ml Intake Oral 420 ml IV Total 137.5 ml Emesis 200 ml # Voids 4 1 Laboratory Tests 12/28/16 18:10: White Blood Count 13.0H, Red Blood Count 2.55L, Hemoglobin 7.5L, Hematocrit 23.2L, Mean Corpuscular Volume 91, Mean Corpuscular Hemoglobin 29.4, Mean Corpuscular Hemoglobin Concent 32.3, Red Cell Distribution Width 21.1H, Platelet Count 122L, Mean Platelet Volume 10.5H, Neutrophils (%) (Auto) 68.0, Lymphocytes (%) (Auto) 14.0L, Monocytes (%) (Auto) 15.4H, Eosinophils (%) (Auto ) 0.9, Basophils (%) (Auto) 1.6, Sodium Level 142, Potassium Level 3.9, Chloride Level 101, Carbon Dioxide Level 27, Anion Gap 14, Blood Urea Nitrogen 7 , Creatinine 0.7, Estimat Glomerular Filtration Rate > 60, Glucose Level 156H, Calcium Level 8.2L, Total Bilirubin 0.5, Aspartate Amino Transf (AST/SGOT) 51H, Alanine Aminotransferase (ALT/SGPT) 27, Alkaline Phosphatase 98, Total Protein 6.6, Albumin 2.5L, Globulin 4.1, Albumin/Globulin Ratio 0.6L, Lipase 83H 12/29/16 10:45: White Blood Count 14.6H, Red Blood Count 2.67L, Hemoglobin 7.9L, Hematocrit 24.7L, Mean Corpuscular Volume 93, Mean Corpuscular Hemoglobin 29.6, Mean Corpuscular Hemoglobin Concent 32.0, Red Cell Distribution Width 20.4H, Platelet Count 171, Mean Platelet Volume 9.5, Neutrophils (%) (Auto) , Lymphocytes (%) (Auto) , Monocytes (%) (Auto) , Eosinophils (%) (Auto) , Basophils (%) (Auto) , Sodium Level 138, Potassium Level 3.8, Chloride Level 102 , Carbon Dioxide Level 25, Anion Gap 11, Blood Urea Nitrogen 7, Creatinine 0.7, Estimat Glomerular Filtration Rate > 60, Glucose Level 101, Calcium Level 8.3L, Lipase 58, Neutrophils % (Manual) [Pending], Lymphocytes % (Manual) [Pending], Platelet Estimate [Pending], Platelet Morphology [Pending], Magnesium Level 1.4L Height (Feet): 5 Height (Inches): 10.00 Weight (Pounds): 160 General Appearance: no apparent distress Objective other PE not changed VELASQUEZ DASILVA Dec 29, 2016 11:35
[2016-12-29 12:00] VITALS: BP 92/61
[2016-12-29] MEDS ORDERED: Vancomycin 1.5 GM in D5W 325 ML IVPB ONE (12:00)
[2016-12-29 12:43] LABS: ANISOCYTOSIS 2+; BAND NEUTROPHILS % (MANUAL) 0 % (0-8); BASOPHILS % (MANUAL) 0 % (0-2); EOSINOPHILS % (MANUAL) 0 % (0-3); HYPOCHROMASIA 1+; LYMPHOCYTES % (MANUAL) 15 % (20-45); NEUTROPHILS % (MANUAL) 72 % (45-75); PLATELET ESTIMATE ADEQUATE; PLATELET MORPHOLOGY NORMAL; TOTAL CELLS COUNTED 100
--- NOTE | 2016-12-29 14:10 | GI Progress Note ---
Assessment/Plan Problems: (1) Pancreatitis ICD Codes: K85.90 - Acute pancreatitis without necrosis or infection, unspecified SNOMED: 34636834 Qualifiers: Qualified Codes: K85.90 - Acute pancreatitis without necrosis or infection, unspecified (2) Altered mental status ICD Codes: R41.82 - Altered mental status, unspecified SNOMED: 251396100 Qualifiers: Qualified Codes: R41.82 - Altered mental status, unspecified (3) Acute alcoholic intoxication ICD Codes: F10.929 - Alcohol use, unspecified with intoxication, unspecified SNOMED: 51715095 (4) Anemia ICD Codes: D64.9 - Anemia, unspecified SNOMED: 073866193 Status: stable, progressing Status Narrative Discussed with Dr. Friend. Assessment/Plan APCT reviewed >> Pancreatic findings suggest acute pancreatitis. Right/ transverse colonic ileus. Hepatic steatosis. Cholelithiasis. ammonia WNL low fat diet pain mgmt IV hydration + electrolyte replacement OB stool r/o GI bleed H2B abx monitor lipase >> downtrending fu labs Subjective Subjective doing well no general complaints Objective Last 24 Hour Vital Signs Date Time Temp Pulse Resp B/P Pulse Ox O2 Delivery O2 Flow Rate FiO2 12/29/16 12:00 98.2 89 18 92/61 99 Room Air 12/29/16 09:13 99.5 12/29/16 08:00 99.9 95 18 95/57 Room Air 12/29/16 04:00 99.9 83 22 109/69 99 Room Air 12/29/16 00:00 98.8 78 20 104/67 98 Room Air 12/28/16 20:00 100.6 86 22 103/62 98 Room Air 12/28/16 18:30 100.4 12/28/16 16:00 102.2 102 20 99/63 100 Room Air Intake and Output 12/28/16 12/29/16 19:00 07:00 Intake Total 420 ml 137.5 ml Output Total 200 ml Balance 220 ml 137.5 ml Intake Oral 420 ml IV Total 137.5 ml Emesis 200 ml # Voids 4 1 Laboratory Tests Test 12/28/16 18:10 12/29/16 10:45 White Blood Count 13.0 K/UL (4.8-10.8) H 14.6 K/UL (4.8-10.8) H Red Blood Count 2.55 M/UL (4.70-6.10) L 2.67 M/UL (4.70-6.10) L Hemoglobin 7.5 G/DL (14.2-18.0) L 7.9 G/DL (14.2-18.0) L Hematocrit 23.2 % (42.0-52.0) L 24.7 % (42.0-52.0) L Mean Corpuscular Volume 91 FL (80-99) 93 FL (80-99) Mean Corpuscular Hemoglobin 29.4 PG (27.0-31.0) 29.6 PG (27.0-31.0) Mean Corpuscular Hemoglobin Concent 32.3 G/DL (32.0-36.0) 32.0 G/DL (32.0-36.0) Red Cell Distribution Width 21.1 % (11.6-14.8) H 20.4 % (11.6-14.8) H Platelet Count 122 K/UL (150-450) L 171 K/UL (150-450) Mean Platelet Volume 10.5 FL (6.5-10.1) H 9.5 FL (6.5-10.1) Neutrophils (%) (Auto) 68.0 % (45.0-75.0) % (45.0-75.0) Lymphocytes (%) (Auto) 14.0 % (20.0-45.0) L % (20.0-45.0) Monocytes (%) (Auto) 15.4 % (1.0-10.0) H % (1.0-10.0) Eosinophils (%) (Auto) 0.9 % (0.0-3.0) % (0.0-3.0) Basophils (%) (Auto) 1.6 % (0.0-2.0) % (0.0-2.0) Sodium Level 142 mEQ/L (135-145) 138 mEQ/L (135-145) Potassium Level 3.9 mEQ/L (3.4-4.9) 3.8 mEQ/L (3.4-4.9) Chloride Level 101 mEQ/L (98-107) 102 mEQ/L (98-107) Carbon Dioxide Level 27 mEQ/L (20-30) 25 mEQ/L (20-30) Anion Gap 14 (5-15) 11 (5-15) Blood Urea Nitrogen 7 mg/dL (7-23) 7 mg/dL (7-23) Creatinine 0.7 mg/dL (0.7-1.2) 0.7 mg/dL (0.7-1.2) Estimat Glomerular Filtration Rate > 60 mL/min (>60) > 60 mL/min (>60) Glucose Level 156 mg/dL (74-106) H 101 mg/dL (74-106) Calcium Level 8.2 mg/dL (8.6-10.2) L 8.3 mg/dL (8.6-10.2) L Total Bilirubin 0.5 mg/dL (0.0-1.2) Aspartate Amino Transf (AST/SGOT) 51 U/L (5-40) H Alanine Aminotransferase (ALT/SGPT) 27 U/L (3-41) Alkaline Phosphatase 98 U/L (40-129) Total Protein 6.6 g/dL (6.6-8.7) Albumin 2.5 g/dL (3.5-5.2) L Globulin 4.1 g/dL Albumin/Globulin Ratio 0.6 (1.0-2.7) L Lipase 83 U/L (< 60) H 58 U/L (< 60) Differential Total Cells Counted 100 Neutrophils % (Manual) 72 % (45-75) Lymphocytes % (Manual) 15 % (20-45) L Monocytes % (Manual) 13 % (1-10) H Eosinophils % (Manual) 0 % (0-3) Basophils % (Manual) 0 % (0-2) Band Neutrophils 0 % (0-8) Platelet Estimate Adequate Platelet Morphology Normal Hypochromasia 1+ Anisocytosis 2+ Phosphorus Level 1.8 mg/dL (2.5-4.8) L Magnesium Level 1.4 mg/dL (1.7-2.5) L Height (Feet): 5 Height (Inches): 10.00 Weight (Pounds): 160 General Appearance: no apparent distress, alert Cardiovascular: normal rate Respiratory/Chest: normal breath sounds, no respiratory distress Abdominal Exam: normal bowel sounds, non tender, soft Extremities: normal range of motion Mancia,Rosa Salazar N.P. Dec 29, 2016 14:10
--- NOTE | 2016-12-29 15:00 | Infectious Diseases Prog Note ---
Assessment/Plan Problems: (1) Aspiration pneumonia Assessment & Plan: will start zosyn and vancomycin empirically and send sputum culture, recommend video swallow eval to rule out silent aspiration (2) Sepsis Assessment & Plan: due to the above with leukocytosis, will send blood culture , and monitor CBC (3) Acute alcoholic intoxication Assessment & Plan: improved, watch for alcohol withdrawal , recommend alcohol rehab and counseling , neurology is following (4) Pancreatitis Assessment & Plan: due to tawanda drink of alcohol , continue hydration with supportive care, monitor lipase level , GI is following (5) Altered mental status Assessment & Plan: multifactorial, with folate deficiency , improving, started on folate replacement , neurology is following (6) Nausea & vomiting Assessment & Plan: improved, suspect due to pancreatitis, continue supportive care , hold food Subjective Constitutional: Reports: fatigue, fever HEENT: Reports: no symptoms Respiratory: Reports: dry cough Breasts: Reports: no symptoms Cardiovascular: Reports: no symptoms Gastrointestinal/Abdominal: Reports: no symptoms Genitourinary: Reports: no symptoms Neurologic: Reports: no symptoms Psychiatric: Reports: depression Skin: Reports: no symptoms Endocrine: Reports: no symptoms Hematologic: Reports: no symptoms Musculoskeletal: Reports: no symptoms Allergies: Coded Allergies: ACETAMINOPHEN (Verified Allergy, Unknown, 06/11/15) IBUPROFEN (Verified Allergy, Unknown, 06/11/15) Objective Vital Signs Last 24 Hour Vital Signs Date Time Temp Pulse Resp B/P Pulse Ox O2 Delivery O2 Flow Rate FiO2 12/29/16 12:00 98.2 89 18 92/61 99 Room Air 12/29/16 09:13 99.5 12/29/16 08:00 99.9 95 18 95/57 Room Air 12/29/16 04:00 99.9 83 22 109/69 99 Room Air 12/29/16 00:00 98.8 78 20 104/67 98 Room Air 12/28/16 20:00 100.6 86 22 103/62 98 Room Air 12/28/16 18:30 100.4 12/28/16 16:00 102.2 102 20 99/63 100 Room Air Height (Feet): 5 Height (Inches): 10.00 Weight (Pounds): 160 General Appearance: WD/WN, no acute distress HEENT: normocephalic, atraumatic, anicteric, mucous membranes moist Respiratory/Chest: chest wall non-tender, normal breath sounds, no respiratory distress, no accessory muscle use, decreased breath sounds, crackles/rales Cardiovascular: normal peripheral pulses, normal rate, regular rhythm, no gallop/murmur, no JVD Abdomen: normal bowel sounds, soft, non tender, no organomegaly, non distended , no mass Extremities: no cyanosis, no clubbing Skin: no rash, no lesions, no ulcers Microbiology Date/Time Source Procedure Growth Status 12/27/16 09:30 Blood Blood Culture - Preliminary NO GROWTH AFTER 24 HOURS Resulted 12/27/16 09:30 Blood Blood Culture - Preliminary NO GROWTH AFTER 24 HOURS Resulted Laboratory Tests Test 12/28/16 18:10 12/29/16 10:45 White Blood Count 13.0 K/UL (4.8-10.8) H 14.6 K/UL (4.8-10.8) H Red Blood Count 2.55 M/UL (4.70-6.10) L 2.67 M/UL (4.70-6.10) L Hemoglobin 7.5 G/DL (14.2-18.0) L 7.9 G/DL (14.2-18.0) L Hematocrit 23.2 % (42.0-52.0) L 24.7 % (42.0-52.0) L Mean Corpuscular Volume 91 FL (80-99) 93 FL (80-99) Mean Corpuscular Hemoglobin 29.4 PG (27.0-31.0) 29.6 PG (27.0-31.0) Mean Corpuscular Hemoglobin Concent 32.3 G/DL (32.0-36.0) 32.0 G/DL (32.0-36.0) Red Cell Distribution Width 21.1 % (11.6-14.8) H 20.4 % (11.6-14.8) H Platelet Count 122 K/UL (150-450) L 171 K/UL (150-450) Mean Platelet Volume 10.5 FL (6.5-10.1) H 9.5 FL (6.5-10.1) Neutrophils (%) (Auto) 68.0 % (45.0-75.0) % (45.0-75.0) Lymphocytes (%) (Auto) 14.0 % (20.0-45.0) L % (20.0-45.0) Monocytes (%) (Auto) 15.4 % (1.0-10.0) H % (1.0-10.0) Eosinophils (%) (Auto) 0.9 % (0.0-3.0) % (0.0-3.0) Basophils (%) (Auto) 1.6 % (0.0-2.0) % (0.0-2.0) Sodium Level 142 mEQ/L (135-145) 138 mEQ/L (135-145) Potassium Level 3.9 mEQ/L (3.4-4.9) 3.8 mEQ/L (3.4-4.9) Chloride Level 101 mEQ/L (98-107) 102 mEQ/L (98-107) Carbon Dioxide Level 27 mEQ/L (20-30) 25 mEQ/L (20-30) Anion Gap 14 (5-15) 11 (5-15) Blood Urea Nitrogen 7 mg/dL (7-23) 7 mg/dL (7-23) Creatinine 0.7 mg/dL (0.7-1.2) 0.7 mg/dL (0.7-1.2) Estimat Glomerular Filtration Rate > 60 mL/min (>60) > 60 mL/min (>60) Glucose Level 156 mg/dL (74-106) H 101 mg/dL (74-106) Calcium Level 8.2 mg/dL (8.6-10.2) L 8.3 mg/dL (8.6-10.2) L Total Bilirubin 0.5 mg/dL (0.0-1.2) Aspartate Amino Transf (AST/SGOT) 51 U/L (5-40) H Alanine Aminotransferase (ALT/SGPT) 27 U/L (3-41) Alkaline Phosphatase 98 U/L (40-129) Total Protein 6.6 g/dL (6.6-8.7) Albumin 2.5 g/dL (3.5-5.2) L Globulin 4.1 g/dL Albumin/Globulin Ratio 0.6 (1.0-2.7) L Lipase 83 U/L (< 60) H 58 U/L (< 60) Differential Total Cells Counted 100 Neutrophils % (Manual) 72 % (45-75) Lymphocytes % (Manual) 15 % (20-45) L Monocytes % (Manual) 13 % (1-10) H Eosinophils % (Manual) 0 % (0-3) Basophils % (Manual) 0 % (0-2) Band Neutrophils 0 % (0-8) Platelet Estimate Adequate Platelet Morphology Normal Hypochromasia 1+ Anisocytosis 2+ Phosphorus Level 1.8 mg/dL (2.5-4.8) L Magnesium Level 1.4 mg/dL (1.7-2.5) L Current Medications Medications (Trade) Dose Ordered Sig/Juliana Route PRN Reason Start Time Stop Time Status Last Admin Dose Admin Acetaminophen (Tylenol) 650 mg Q4H PRN ORAL Mild Pain/Temp > 100.5 12/25/16 10:30 01/24/17 10:29 12/29/16 08:14 Diazepam (Valium) 10 mg EVERY 4 HOURS PRN ORAL anxiety 12/24/16 13:00 12/31/16 12:59 Fluoxetine HCl (PROzac) 20 mg DAILY ORAL 12/27/16 09:00 01/26/17 08:59 12/29/16 08:14 Folic Acid (Folate) 10 mg DAILY ORAL 12/26/16 09:00 01/25/17 08:59 12/29/16 08:12 Levetiracetam (Keppra) 750 mg Q12HR@0500,1700 ORAL 12/24/16 17:00 01/23/17 16:59 12/29/16 05:10 Magnesium Oxide 400 mg 400 mg THREE TIMES A DAY ORAL 12/27/16 13:00 01/26/17 12:59 12/29/16 13:06 Magnesium Sulfate 100 ml @ 100 mls/hr Q1H IVPB 12/29/16 15:00 12/29/16 16:59 12/29/16 14:49 Ondansetron HCl (Zofran) 4 mg Q6H PRN IVP Nausea & Vomiting 12/23/16 19:45 01/22/17 19:44 12/29/16 13:47 Pantoprazole (Protonix) 40 mg EVERY 12 HOURS ORAL 12/23/16 21:00 01/22/17 20:59 12/29/16 08:11 Piperacillin Sod/ Tazobactam Sod/ Dextrose (Zosyn/D5W) 110 ml @ 27.5 mls/hr Q8HR IVPB 12/28/16 20:00 01/04/17 19:59 12/29/16 05:44 Potassium Chloride (K-Dur) 40 meq TWICE A DAY ORAL 12/27/16 11:30 01/26/17 11:29 12/29/16 08:13 Sodium Phosphate/ Sodium Chloride (NaPO4/Sodium Chloride) 285 ml @ 47.5 mls/hr ONCE ONCE IVPB 12/29/16 17:00 12/29/16 22:59 Thiamine HCl (Vitamin B1) 100 mg DAILY ORAL 12/24/16 14:30 01/23/17 14:29 12/28/16 10:05 Vancomycin HCl 1.25 gm/Dextrose 275 ml @ 183.333 mls/hr Q8HR@0400,1200,2000 IVPB 12/29/16 20:00 01/03/17 19:59 Vancomycin HCl 1 ea 1 ea DAILY PRN MISC Per rx protocol 12/29/16 07:00 01/28/17 06:59 Vitamin D (Vitamin D) 2,000 intlu DAILY ORAL 12/25/16 10:30 01/24/17 10:29 12/29/16 08:13 Imelda Chen M.D. Dec 29, 2016 15:00
--- NOTE | 2016-12-29 15:00 | Electroencephalogram ---
DATE OF PROCEDURE: 12/27/2016 REQUESTING PHYSICIAN: Robbi Vega M.D. READING PHYSICIAN: Samuel Ricks M.D. PROCEDURE PERFORMED: Electroencephalogram. HISTORY: This EEG was performed on 31-year-old gentleman with history of altered mental state associated with nutritional problems and questionable seizures and questionable psychiatric illness. The purpose of this EEG was to evaluate the patient for the degree and type of cerebral dysfunction and to exclude ongoing ictal or interictal phenomena. TECHNICAL NOTE: This EEG was performed on a [employer] with electrodes placed on the scalp according to the International 10-20 system. [id number] and [id number] montages were used. The EEG was technically satisfactory and was performed in the awake and drowsy states, with brief periods of stage II sleep. OBSERVATION: During the reportedly awake state, the background activity consisted of 8-8.5 Hz alpha activity with some intermixed theta frequencies. Drowsiness was characterized by slowing of the background in the 6-7 hertz theta range. Brief periods of stage II sleep were characterized by a background in the delta and theta range, the presence of vertex waves and fragmentary 14-16 Hz sleep spindles. No definite focal abnormalities or epileptiform discharges were seen. IMPRESSION: This is an abnormal EEG characterized by an unusually large amount of intermixed theta activity seen during the reportedly awake state. COMMENT: This study is consistent with an encephalopathy of a mild degree. Please note that no interictal discharges were seen during this EEG. Samuel Ricks M.D., M.S.P.H. DR: LITO JOB#: [id number] MTDD
[2016-12-29 16:00] VITALS: BP 99/69
[2016-12-29] MEDS ORDERED: Sodium Phosphate 30 MM in NS 275 ML IVPB ONE (17:00)
--- NOTE | 2016-12-29 17:19 | General Progress Note ---
Assessment/Plan Assessment/Plan # Leukocytosis secondary to underlying inflammatory reaction versus infection # Pancreatitis ---> being followed by gi and id # Lactic acidosis with decreased blood pressure. # Anemia secondary to severe folic acid deficiency, currently less than 2, have ordered for oral folic acid getting 10 mg daily. # Anemia secondary to hemodilution. # Anemia of chronic disease. ---> hgb goal >7 # Thrombocytopenia, likely secondary to hemodilution versus infection. # Hypokalemia. # Anemia secondary to B12 deficiency, has been given B12 injections. # History of seizures, on Dilantin. # History of alcohol intoxication leading to pancreatitis. # Altered mental status. He will be seen by Neurology again. Subjective Constitutional: Reports: no symptoms HEENT: Reports: no symptoms Cardiovascular: Reports: no symptoms Respiratory: Reports: no symptoms Gastrointestinal/Abdominal: Reports: no symptoms Genitourinary: Reports: no symptoms Neurologic/Psychiatric: Reports: no symptoms Endocrine: Reports: no symptoms Hematologic/Lymphatic: Reports: anemia Allergies: Coded Allergies: ACETAMINOPHEN (Verified Allergy, Unknown, 06/11/15) IBUPROFEN (Verified Allergy, Unknown, 06/11/15) Subjective pt is febrile, mild pain, n/v Objective Last 24 Hour Vital Signs Date Time Temp Pulse Resp B/P Pulse Ox O2 Delivery O2 Flow Rate FiO2 12/29/16 16:00 98.2 95 18 99/69 100 Room Air 12/29/16 12:00 98.2 89 18 92/61 99 Room Air 12/29/16 09:13 99.5 12/29/16 08:00 99.9 95 18 95/57 Room Air 12/29/16 04:00 99.9 83 22 109/69 99 Room Air 12/29/16 00:00 98.8 78 20 104/67 98 Room Air 12/28/16 20:00 100.6 86 22 103/62 98 Room Air 12/28/16 18:30 100.4 Intake and Output 12/28/16 12/29/16 19:00 07:00 Intake Total 420 ml 137.5 ml Output Total 200 ml Balance 220 ml 137.5 ml Intake Oral 420 ml IV Total 137.5 ml Emesis 200 ml # Voids 4 1 Laboratory Tests 12/28/16 18:10: White Blood Count 13.0H, Red Blood Count 2.55L, Hemoglobin 7.5L, Hematocrit 23.2L, Mean Corpuscular Volume 91, Mean Corpuscular Hemoglobin 29.4, Mean Corpuscular Hemoglobin Concent 32.3, Red Cell Distribution Width 21.1H, Platelet Count 122L, Mean Platelet Volume 10.5H, Neutrophils (%) (Auto) 68.0, Lymphocytes (%) (Auto) 14.0L, Monocytes (%) (Auto) 15.4H, Eosinophils (%) (Auto ) 0.9, Basophils (%) (Auto) 1.6, Sodium Level 142, Potassium Level 3.9, Chloride Level 101, Carbon Dioxide Level 27, Anion Gap 14, Blood Urea Nitrogen 7 , Creatinine 0.7, Estimat Glomerular Filtration Rate > 60, Glucose Level 156H, Calcium Level 8.2L, Total Bilirubin 0.5, Aspartate Amino Transf (AST/SGOT) 51H, Alanine Aminotransferase (ALT/SGPT) 27, Alkaline Phosphatase 98, Total Protein 6.6, Albumin 2.5L, Globulin 4.1, Albumin/Globulin Ratio 0.6L, Lipase 83H 12/29/16 10:45: White Blood Count 14.6H, Red Blood Count 2.67L, Hemoglobin 7.9L, Hematocrit 24.7L, Mean Corpuscular Volume 93, Mean Corpuscular Hemoglobin 29.6, Mean Corpuscular Hemoglobin Concent 32.0, Red Cell Distribution Width 20.4H, Platelet Count 171, Mean Platelet Volume 9.5, Neutrophils (%) (Auto) , Lymphocytes (%) (Auto) , Monocytes (%) (Auto) , Eosinophils (%) (Auto) , Basophils (%) (Auto) , Sodium Level 138, Potassium Level 3.8, Chloride Level 102 , Carbon Dioxide Level 25, Anion Gap 11, Blood Urea Nitrogen 7, Creatinine 0.7, Estimat Glomerular Filtration Rate > 60, Glucose Level 101, Calcium Level 8.3L, Lipase 58, Differential Total Cells Counted 100, Neutrophils % (Manual) 72, Lymphocytes % (Manual) 15L, Monocytes % (Manual) 13H, Eosinophils % (Manual) 0, Basophils % (Manual) 0, Band Neutrophils 0, Platelet Estimate Adequate, Platelet Morphology Normal, Hypochromasia 1+, Anisocytosis 2+, Phosphorus Level 1.8L, Magnesium Level 1.4L Height (Feet): 5 Height (Inches): 10.00 Weight (Pounds): 160 General Appearance: no apparent distress EENT: normal ENT inspection Neck: normal alignment Cardiovascular: normal peripheral pulses Respiratory/Chest: chest wall non-tender Abdomen: normal bowel sounds Extremities: non-tender Edema: no edema noted Pedal (L), no edema noted Pedal (R) Skin: warm/dry Kapil Haney Dec 29, 2016 17:19
[2016-12-29 20:00] VITALS: BP 101/72
--- NOTE | 2016-12-29 21:36 | General Progress Note ---
Assessment/Plan Problem List: (1) Altered mental status ICD Codes: R41.82 - Altered mental status, unspecified SNOMED: 661213361 Qualifiers: Qualified Codes: R41.82 - Altered mental status, unspecified (2) Pancreatitis ICD Codes: K85.90 - Acute pancreatitis without necrosis or infection, unspecified SNOMED: 85249737 Qualifiers: Qualified Codes: K85.90 - Acute pancreatitis without necrosis or infection, unspecified (3) Sepsis ICD Codes: A41.9 - Sepsis, unspecified organism SNOMED: 49233025 (4) Anemia ICD Codes: D64.9 - Anemia, unspecified SNOMED: 059571795 Status: progressing Assessment/Plan arf hypnoatremia improving ams more alert substance abuse afebrile no acute events Subjective ROS Limited/Unobtainable: Yes Allergies: Coded Allergies: ACETAMINOPHEN (Verified Allergy, Unknown, 06/11/15) IBUPROFEN (Verified Allergy, Unknown, 06/11/15) Objective Last 24 Hour Vital Signs Date Time Temp Pulse Resp B/P Pulse Ox O2 Delivery O2 Flow Rate FiO2 12/29/16 20:00 99.4 98 20 101/72 98 Room Air 12/29/16 16:00 98.2 95 18 99/69 100 Room Air 12/29/16 12:00 98.2 89 18 92/61 99 Room Air 12/29/16 09:13 99.5 12/29/16 08:00 99.9 95 18 95/57 Room Air 12/29/16 04:00 99.9 83 22 109/69 99 Room Air 12/29/16 00:00 98.8 78 20 104/67 98 Room Air Intake and Output 12/28/16 12/29/16 19:00 07:00 Intake Total 420 ml 137.5 ml Output Total 200 ml Balance 220 ml 137.5 ml Intake Oral 420 ml IV Total 137.5 ml Emesis 200 ml # Voids 4 1 Laboratory Tests 12/29/16 10:45: White Blood Count 14.6H, Red Blood Count 2.67L, Hemoglobin 7.9L, Hematocrit 24.7L, Mean Corpuscular Volume 93, Mean Corpuscular Hemoglobin 29.6, Mean Corpuscular Hemoglobin Concent 32.0, Red Cell Distribution Width 20.4H, Platelet Count 171, Mean Platelet Volume 9.5, Neutrophils (%) (Auto) , Lymphocytes (%) (Auto) , Monocytes (%) (Auto) , Eosinophils (%) (Auto) , Basophils (%) (Auto) , Differential Total Cells Counted 100, Neutrophils % ( Manual) 72, Lymphocytes % (Manual) 15L, Monocytes % (Manual) 13H, Eosinophils % (Manual) 0, Basophils % (Manual) 0, Band Neutrophils 0, Platelet Estimate Adequate, Platelet Morphology Normal, Hypochromasia 1+, Anisocytosis 2+, Sodium Level 138, Potassium Level 3.8, Chloride Level 102, Carbon Dioxide Level 25, Anion Gap 11, Blood Urea Nitrogen 7, Creatinine 0.7, Estimat Glomerular Filtration Rate > 60, Glucose Level 101, Calcium Level 8.3L, Phosphorus Level 1.8L, Magnesium Level 1.4L, Lipase 58 Height (Feet): 5 Height (Inches): 10.00 Weight (Pounds): 160 General Appearance: confused Cardiovascular: normal rate Robbi Vega MD Dec 29, 2016 21:36
[2016-12-29] MEDS: Vancomycin 1250mg/D5W 275ml IVPB SCH ×2 (21:54)
[2016-12-30] VITALS: BP 111/73
[2016-12-30] MEDS: Piperacillin/Tazobactam 3.375 GM in D5W 110 ML IVPB SCH ×4 (00:10→21:21)
[2016-12-30 04:00] VITALS: BP 103/68
[2016-12-30] MEDS: Vancomycin 1250mg/D5W 275ml IVPB SCH ×2 (04:29)
--- NOTE | 2016-12-30 05:24 | General Progress Note ---
Assessment/Plan Problem List: (1) Pancreatitis ICD Codes: K85.90 - Acute pancreatitis without necrosis or infection, unspecified SNOMED: 17757452 Qualifiers: Qualified Codes: K85.90 - Acute pancreatitis without necrosis or infection, unspecified (2) Anemia ICD Codes: D64.9 - Anemia, unspecified SNOMED: 039528481 (3) Seizure ICD Codes: R56.9 - Unspecified convulsions SNOMED: 12431062 (4) Acute alcoholic intoxication ICD Codes: F10.929 - Alcohol use, unspecified with intoxication, unspecified SNOMED: 19100566 (5) Nausea & vomiting ICD Codes: R11.2 - Nausea with vomiting, unspecified SNOMED: 22920587 Assessment/Plan on low fat diet fu labs zofran prn bowel regimen Subjective ROS Limited/Unobtainable: Yes Allergies: Coded Allergies: ACETAMINOPHEN (Verified Allergy, Unknown, 06/11/15) IBUPROFEN (Verified Allergy, Unknown, 06/11/15) Subjective c/o nausea Objective Last 24 Hour Vital Signs Date Time Temp Pulse Resp B/P Pulse Ox O2 Delivery O2 Flow Rate FiO2 12/30/16 00:00 98.2 95 20 111/73 97 Room Air 12/29/16 20:00 99.4 98 20 101/72 98 Room Air 12/29/16 16:00 98.2 95 18 99/69 100 Room Air 12/29/16 12:00 98.2 89 18 92/61 99 Room Air 12/29/16 09:13 99.5 12/29/16 08:00 99.9 95 18 95/57 Room Air Intake and Output 12/29/16 12/30/16 19:00 07:00 Intake Total 722.5 ml 385.000 ml Balance 722.5 ml 385.000 ml Intake Oral 640 ml IV Total 82.5 ml 385.000 ml # Voids 4 Laboratory Tests 12/29/16 10:45: White Blood Count 14.6H, Red Blood Count 2.67L, Hemoglobin 7.9L, Hematocrit 24.7L, Mean Corpuscular Volume 93, Mean Corpuscular Hemoglobin 29.6, Mean Corpuscular Hemoglobin Concent 32.0, Red Cell Distribution Width 20.4H, Platelet Count 171, Mean Platelet Volume 9.5, Neutrophils (%) (Auto) , Lymphocytes (%) (Auto) , Monocytes (%) (Auto) , Eosinophils (%) (Auto) , Basophils (%) (Auto) , Differential Total Cells Counted 100, Neutrophils % ( Manual) 72, Lymphocytes % (Manual) 15L, Monocytes % (Manual) 13H, Eosinophils % (Manual) 0, Basophils % (Manual) 0, Band Neutrophils 0, Platelet Estimate Adequate, Platelet Morphology Normal, Hypochromasia 1+, Anisocytosis 2+, Sodium Level 138, Potassium Level 3.8, Chloride Level 102, Carbon Dioxide Level 25, Anion Gap 11, Blood Urea Nitrogen 7, Creatinine 0.7, Estimat Glomerular Filtration Rate > 60, Glucose Level 101, Calcium Level 8.3L, Phosphorus Level 1.8L, Magnesium Level 1.4L, Lipase 58 Height (Feet): 5 Height (Inches): 10.00 Weight (Pounds): 160 General Appearance: no apparent distress EENT: normal ENT inspection Neck: supple Cardiovascular: normal rate Respiratory/Chest: decreased breath sounds Abdomen: normal bowel sounds, non tender, soft Extremities: non-tender PHILIPPE WILLIAM Dec 30, 2016 05:24
[2016-12-30 06:30] LABS: MEAN CORPUSCULAR HEMOGLOBIN 29.5 PG (27.0-31.0); MEAN CORPUSCULAR HGB CONC 32.2 G/DL (32.0-36.0); MEAN CORPUSCULAR VOLUME 92 FL (80-99); MEAN PLATELET VOLUME 9.9 FL (6.5-10.1); PLATELET COUNT 212 K/UL (150-450); RED CELL DISTRIBUTION WIDTH 19.8 % (11.6-14.8); WHITE BLOOD COUNT 15.9 K/UL (4.8-10.8)
[2016-12-30 06:59] LABS: ANION GAP 11 (5-15); CALCIUM 7.9 mg/dL (8.6-10.2); CARBON DIOXIDE 25 mEQ/L (20-30); CHLORIDE 100 mEQ/L (98-107); GLOMERULAR FILTRATION RATE > 60 mL/min (>60); HEMOLYSIS 1; MAGNESIUM 1.6 mg/dL (1.7-2.5); PHOSPHORUS 4.5 mg/dL (2.5-4.8); POTASSIUM 3.8 mEQ/L (3.4-4.9); SODIUM 136 mEQ/L (135-145)
[2016-12-30 08:00] VITALS: BP 100/71
[2016-12-30] MEDS: Thiamine 100mg tab ORAL SCH (08:18)
[2016-12-30] MEDS: Vitamin D 1000 IU Tab ORAL SCH (08:18)
[2016-12-30] MEDS: Magnesium Oxide 400mg tab ORAL SCH ×3 (08:19→17:21)
[2016-12-30] MEDS: Lactulose 10gm/15ml UDC ORAL SCH ×3 (08:19→21:21)
[2016-12-30] MEDS: Docusate 100mg cap ORAL SCH ×2 (08:19→17:13)
[2016-12-30 12:00] VITALS: BP 91/67
--- NOTE | 2016-12-30 12:51 | General Progress Note ---
Assessment/Plan Status: stable Assessment/Plan status: Renal failure , Acute vs Chronic improving h/o Sz Acute Encephalopathy Low K Low Na Low B12 and folate Elevated Lipase , acute pancreatitis Plan; K and Phos supplement as needed- Back on Zosyn- high dose PO folate ST PT OT eval Monitor lytes- monitor renal parameters Neuro eval needs psych fu Subjective ROS Limited/Unobtainable: No Constitutional: Reports: malaise Allergies: Coded Allergies: ACETAMINOPHEN (Verified Allergy, Unknown, 06/11/15) IBUPROFEN (Verified Allergy, Unknown, 06/11/15) Objective Last 24 Hour Vital Signs Date Time Temp Pulse Resp B/P Pulse Ox O2 Delivery O2 Flow Rate FiO2 12/30/16 12:00 97.7 110 16 91/67 99 Room Air 12/30/16 08:00 98.4 104 18 100/71 99 Room Air 12/30/16 04:00 99.1 80 20 103/68 98 Room Air 12/30/16 00:00 98.2 95 20 111/73 97 Room Air 12/29/16 20:00 99.4 98 20 101/72 98 Room Air 12/29/16 16:00 98.2 95 18 99/69 100 Room Air Intake and Output 12/29/16 12/30/16 19:00 07:00 Intake Total 722.5 ml 385.000 ml Output Total 950 ml Balance 722.5 ml -565.000 ml Intake Oral 640 ml IV Total 82.5 ml 385.000 ml Output Urine Total 950 ml # Voids 4 # Bowel Movements 2 Laboratory Tests 12/30/16 05:50: White Blood Count 15.9H, Red Blood Count 2.60L, Hemoglobin 7.7L, Hematocrit 23.8L, Mean Corpuscular Volume 92, Mean Corpuscular Hemoglobin 29.5, Mean Corpuscular Hemoglobin Concent 32.2, Red Cell Distribution Width 19.8H, Platelet Count 212, Mean Platelet Volume 9.9, Neutrophils (%) (Auto) , Lymphocytes (%) (Auto) , Monocytes (%) (Auto) , Eosinophils (%) (Auto) , Basophils (%) (Auto) , Sodium Level 136, Potassium Level 3.8, Chloride Level 100 , Carbon Dioxide Level 25, Anion Gap 11, Blood Urea Nitrogen 4L, Creatinine 1.0 , Estimat Glomerular Filtration Rate > 60, Glucose Level 124H, Calcium Level 7.9L, Phosphorus Level 4.5, Magnesium Level 1.6L 12/30/16 11:00: Vancomycin Level Trough 34.6H Height (Feet): 5 Height (Inches): 10.00 Weight (Pounds): 160 General Appearance: no apparent distress Objective other PE not changed VELASQUEZ DASILVA Dec 30, 2016 12:51
[2016-12-30] MEDS: Metoclopramide 10mg/2ml Inj IVP PRN (13:24)
--- NOTE | 2016-12-30 14:11 | Neurology Progress Note ---
Interim History Interim History Interim History Mr. Jain continues to feel much better. The nausea and vomiting are better. He was able to keep all his food down today. He is much more alert and responsive. His cognitive function has improved markedly. He denies any new neurologic symptoms. He has not been out of bed or walked today. He has had no seizures or seizure-like phenomena. He also denies having ever had a seizure. Review of Systems Neuro Review of Systems Benign. Objective Physical Exam Last Vital Signs Date Time Temp Pulse Resp B/P Pulse Ox O2 Delivery O2 Flow Rate FiO2 12/30/16 12:00 97.7 110 16 91/67 99 Room Air Laboratory Tests Test 12/30/16 05:50 12/30/16 11:00 12/30/16 12:15 White Blood Count 15.9 K/UL (4.8-10.8) H Red Blood Count 2.60 M/UL (4.70-6.10) L Hemoglobin 7.7 G/DL (14.2-18.0) L Hematocrit 23.8 % (42.0-52.0) L Mean Corpuscular Volume 92 FL (80-99) Mean Corpuscular Hemoglobin 29.5 PG (27.0-31.0) Mean Corpuscular Hemoglobin Concent 32.2 G/DL (32.0-36.0) Red Cell Distribution Width 19.8 % (11.6-14.8) H Platelet Count 212 K/UL (150-450) Mean Platelet Volume 9.9 FL (6.5-10.1) Neutrophils (%) (Auto) % (45.0-75.0) Lymphocytes (%) (Auto) % (20.0-45.0) Monocytes (%) (Auto) % (1.0-10.0) Eosinophils (%) (Auto) % (0.0-3.0) Basophils (%) (Auto) % (0.0-2.0) Sodium Level 136 mEQ/L (135-145) Potassium Level 3.8 mEQ/L (3.4-4.9) Chloride Level 100 mEQ/L (98-107) Carbon Dioxide Level 25 mEQ/L (20-30) Anion Gap 11 (5-15) Blood Urea Nitrogen 4 mg/dL (7-23) L Creatinine 1.0 mg/dL (0.7-1.2) Estimat Glomerular Filtration Rate > 60 mL/min (>60) Glucose Level 124 mg/dL (74-106) H Calcium Level 7.9 mg/dL (8.6-10.2) L Phosphorus Level 4.5 mg/dL (2.5-4.8) Magnesium Level 1.6 mg/dL (1.7-2.5) L Vancomycin Level Trough 34.6 ug/mL (5.0-12.0) H Stool Occult Blood Pending Neurologic Exam Objective PHYSICAL EXAMINATION: GENERAL: He is a well-developed, relatively well-nourished, black gentleman, lying in bed, in no acute distress. HEAD: Normocephalic and atraumatic. EENT: Examination benign. NECK: No neck rigidity was observed. NEUROLOGIC EXAMINATION: MENTAL STATUS EXAMINATION: He was awake and alert. He was oriented to person, place and time. He was able to remember 3/3 words immediately and could remember them in 1 and 3 minutes. He was able to remember presidents Trump through Andrew. His mathematical skills were impaired and so was his visuospatial function. SPEECH: He had no dysarthria. LANGUAGE: He was able to comprehend and express himself well. CRANIAL NERVE EXAMINATION: II: The visual reilly were intact on confrontation testing. III, IV & : The external ocular movements were full and pupils 3 mm in diameter, equal, round, regular, and reactive to light. V: He had normal facial sensations and the temporales, masseters, and pterygoids functioned normally. VII: He had normal facial expressions and no facial asymmetry. VIII: He was able to hear well bilaterally and had no nystagmus. IX: The palate moved symmetrically on phonation. X: He had no hoarseness of voice. XI: The sternocleidomastoids and trapezii functioned normally. XII: The tongue was in midline without any fasciculations or atrophy. MOTOR SYSTEM: The tone was normal in all four extremities. Examination of muscle mass revealed no focal wasting. Examination of power was inaccurate because of his inability to cooperate fully, however, he had approximately G 5/ 5 power in all muscle groups tested. SENSORY EXAMINATION: He responded appropriately to light touch. REFLEXES: 1+ and bilaterally symmetrical at the biceps, triceps, brachioradialis and knees. Trace+ at both ankles. The plantar responses were flexor bilaterally. STANCE: He stood up with support. GAIT: He walked well with contact guard. Impression/Recommendations Diagnostic Impression 1. Mr. Jam Jain is a 31-year-old, right-handed, black gentleman, who does have a past history of a possible psychiatric illness, questionable seizures, and homelessness who was brought to the [facility] emergency room on 12/23/2016 with an altered mental state. He was found to have a pancreatitis. There is also a question as to whether he was withdrawing from alcohol. 2. He feels better generally and the nausea and vomiting has improved. He is also still cognitively impaired and generally weak - though better. 3. On neurological examination, at this time, he is fully oriented. His memory has also improved significantly. He does not demonstrate any focal or lateralizing findings. His deep tendon reflexes are globally diminished. He is able to get up and walk. 4. Laboratory data on admission revealed that his WBC count was elevated to 24, 300. He was anemic with a hemoglobin of 11.6. His chemistry panel revealed a sodium of 122, potassium of 2.9, chloride of 70, BUN elevated 33, with a creatinine of 3.3, glucose elevated 245, low calcium at 8.4. His total bilirubin was at 1.4. His lipase was elevated to 441, his amylase was elevated to 297. His B12 was low at 283. His TSH was normal at 2.2. His urine toxicology screen was benign and his serum alcohol level was less than 10. His urinalysis revealed 1+ leukocyte esterase, 5 to 10 red blood cells, 2 to 4 white blood cells per high-power field, and a few bacteria. 5. Further laboratory tests have revealed a low folate <2.1. 6. The CT of the brain done on 12/24/16 reveals generalized cerebral atrophy. 7. The EEG done on 12/27/16 revealed a mild encephalopathy but no inter-ictal phenomena. 8. The patient's history and neurological examination are most compatible with multiple toxic metabolic insults causing a toxic metabolic encephalopathy. His encephalopathy has improved significantly. 9. It is unclear as to what exactly the patient's seizure disorder is and it is also quite unclear if the patient has had a seizure or not. He denies ever having had a seizure. Recommendations 1. Continue present management. 2. Vitamin B12 parenterally and Folic acid supplement. 3. Would try to obtain more data about the patient's past medical history. 4. Continue Keppra 750 mg q.12 hours for now. If seizure-free for > 6 months can stop. Samuel Ricks M.D., M.S.P.H. SAMUEL RICKS Dec 30, 2016 14:11
--- NOTE | 2016-12-30 14:24 | Infectious Diseases Prog Note ---
Assessment/Plan Problems: (1) Aspiration pneumonia Assessment & Plan: on zosyn and vancomycin empirically , will send sputum culture if he produces any , recommend video swallow eval to rule out silent aspiration (2) Sepsis Assessment & Plan: due to the above with leukocytosis, will send blood culture , and monitor CBC (3) Acute alcoholic intoxication Assessment & Plan: improved, watch for alcohol withdrawal , recommend alcohol rehab and counseling , neurology is following (4) Pancreatitis Assessment & Plan: due to tawanda drink of alcohol , continue hydration with supportive care, monitor lipase level , GI is following (5) Altered mental status Assessment & Plan: multifactorial, with folate deficiency , improving, started on folate replacement , neurology is following (6) Nausea & vomiting Assessment & Plan: recurrent , etiology ? may need EGD , continue supportive care , GI id following Subjective Constitutional: Reports: no symptoms HEENT: Reports: no symptoms Respiratory: Reports: dry cough Breasts: Reports: no symptoms Cardiovascular: Reports: no symptoms Gastrointestinal/Abdominal: Reports: no symptoms Genitourinary: Reports: no symptoms Neurologic: Reports: no symptoms Psychiatric: Reports: no symptoms Skin: Reports: no symptoms Endocrine: Reports: no symptoms Allergies: Coded Allergies: ACETAMINOPHEN (Verified Allergy, Unknown, 06/11/15) IBUPROFEN (Verified Allergy, Unknown, 06/11/15) Objective Vital Signs Last 24 Hour Vital Signs Date Time Temp Pulse Resp B/P Pulse Ox O2 Delivery O2 Flow Rate FiO2 12/30/16 12:00 97.7 110 16 91/67 99 Room Air 12/30/16 08:00 98.4 104 18 100/71 99 Room Air 12/30/16 04:00 99.1 80 20 103/68 98 Room Air 12/30/16 00:00 98.2 95 20 111/73 97 Room Air 12/29/16 20:00 99.4 98 20 101/72 98 Room Air 12/29/16 16:00 98.2 95 18 99/69 100 Room Air Height (Feet): 5 Height (Inches): 10.00 Weight (Pounds): 160 General Appearance: WD/WN, no acute distress HEENT: normocephalic, atraumatic, anicteric, EOMI, supple, no JVD Respiratory/Chest: chest wall non-tender, lungs clear, no respiratory distress , no accessory muscle use, decreased breath sounds Cardiovascular: normal peripheral pulses, normal rate, regular rhythm, regularly irregular, no JVD Abdomen: normal bowel sounds, soft, non tender, no organomegaly, non distended , no mass, no scars Extremities: no cyanosis, no clubbing Skin: no rash, no lesions, no ulcers 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, alert, oriented x 3 Microbiology Date/Time Source Procedure Growth Status 12/28/16 18:20 Blood Blood Culture - Preliminary NO GROWTH AFTER 24 HOURS Resulted 12/28/16 18:10 Blood Blood Culture - Preliminary NO GROWTH AFTER 24 HOURS Resulted Laboratory Tests Test 12/30/16 05:50 12/30/16 11:00 12/30/16 12:15 White Blood Count 15.9 K/UL (4.8-10.8) H Red Blood Count 2.60 M/UL (4.70-6.10) L Hemoglobin 7.7 G/DL (14.2-18.0) L Hematocrit 23.8 % (42.0-52.0) L Mean Corpuscular Volume 92 FL (80-99) Mean Corpuscular Hemoglobin 29.5 PG (27.0-31.0) Mean Corpuscular Hemoglobin Concent 32.2 G/DL (32.0-36.0) Red Cell Distribution Width 19.8 % (11.6-14.8) H Platelet Count 212 K/UL (150-450) Mean Platelet Volume 9.9 FL (6.5-10.1) Neutrophils (%) (Auto) % (45.0-75.0) Lymphocytes (%) (Auto) % (20.0-45.0) Monocytes (%) (Auto) % (1.0-10.0) Eosinophils (%) (Auto) % (0.0-3.0) Basophils (%) (Auto) % (0.0-2.0) Sodium Level 136 mEQ/L (135-145) Potassium Level 3.8 mEQ/L (3.4-4.9) Chloride Level 100 mEQ/L (98-107) Carbon Dioxide Level 25 mEQ/L (20-30) Anion Gap 11 (5-15) Blood Urea Nitrogen 4 mg/dL (7-23) L Creatinine 1.0 mg/dL (0.7-1.2) Estimat Glomerular Filtration Rate > 60 mL/min (>60) Glucose Level 124 mg/dL (74-106) H Calcium Level 7.9 mg/dL (8.6-10.2) L Phosphorus Level 4.5 mg/dL (2.5-4.8) Magnesium Level 1.6 mg/dL (1.7-2.5) L Vancomycin Level Trough 34.6 ug/mL (5.0-12.0) H Stool Occult Blood Pending Current Medications Medications (Trade) Dose Ordered Sig/Juliana Route PRN Reason Start Time Stop Time Status Last Admin Dose Admin Acetaminophen (Tylenol) 650 mg Q4H PRN ORAL Mild Pain/Temp > 100.5 12/25/16 10:30 01/24/17 10:29 12/29/16 08:14 Diazepam (Valium) 10 mg EVERY 4 HOURS PRN ORAL anxiety 12/24/16 13:00 12/31/16 12:59 Docusate Sodium (Colace) 100 mg TWICE A DAY ORAL 12/30/16 09:00 01/29/17 08:59 12/30/16 08:19 Fluoxetine HCl (PROzac) 20 mg DAILY ORAL 12/27/16 09:00 01/26/17 08:59 12/30/16 08:18 Folic Acid (Folate) 10 mg DAILY ORAL 12/26/16 09:00 01/25/17 08:59 12/30/16 08:19 Lactulose (Cephulac) 10 gm TID@0900,1500,2100 ORAL 12/30/16 09:00 01/29/17 08:59 12/30/16 08:19 Levetiracetam (Keppra) 750 mg Q12HR ORAL 12/30/16 21:00 01/29/17 20:59 Magnesium Oxide 400 mg 400 mg THREE TIMES A DAY ORAL 12/27/16 13:00 01/26/17 12:59 12/30/16 13:24 Metoclopramide HCl 10 mg 10 mg Q6H PRN IVP Nausea & Vomiting 12/30/16 12:30 01/29/17 12:29 12/30/16 13:24 Ondansetron HCl (Zofran) 4 mg Q6H PRN IVP Nausea & Vomiting 12/23/16 19:45 01/22/17 19:44 12/30/16 08:16 Pantoprazole (Protonix) 40 mg EVERY 12 HOURS ORAL 12/23/16 21:00 01/22/17 20:59 12/30/16 08:18 Piperacillin Sod/ Tazobactam Sod/ Dextrose (Zosyn/D5W) 110 ml @ 27.5 mls/hr Q8HR IVPB 12/28/16 20:00 01/04/17 19:59 12/30/16 05:46 Polyethylene Glycol (Miralax) 17 gm BEDTIME ORAL 12/30/16 21:00 01/29/17 20:59 Potassium Chloride (K-Dur) 40 meq TWICE A DAY ORAL 12/27/16 11:30 01/26/17 11:29 12/30/16 08:19 Sodium Chloride (Sodium Chloride 1000ml bag) 1,000 ml @ 70 mls/hr [id number] IV 12/30/16 14:15 01/29/17 14:14 Thiamine HCl (Vitamin B1) 100 mg DAILY ORAL 12/24/16 14:30 01/23/17 14:29 12/30/16 08:18 Vancomycin HCl (Vanco rx to dose) 1 ea DAILY PRN MISC Per rx protocol 12/29/16 07:00 01/28/17 06:59 Vitamin D (Vitamin D) 2,000 intlu DAILY ORAL 12/25/16 10:30 01/24/17 10:29 12/30/16 08:18 Imelda Chen M.D. Dec 30, 2016 14:24
[2016-12-30 15:55] VITALS: BP 102/66
[2016-12-30 20:00] VITALS: BP 108/71
--- NOTE | 2016-12-30 20:33 | General Progress Note ---
Assessment/Plan Assessment/Plan # Leukocytosis secondary to underlying inflammatory reaction versus infection # Pancreatitis ---> being followed by gi and id ---> continues to have n/v # Lactic acidosis with decreased blood pressure. # Anemia secondary to severe folic acid deficiency, currently less than 2, have ordered for oral folic acid getting 10 mg daily. # Anemia secondary to hemodilution. # Anemia of chronic disease. ---> hgb goal >7 # Thrombocytopenia, likely secondary to hemodilution versus infection. # Hypokalemia. # Anemia secondary to B12 deficiency, has been given B12 injections. # History of seizures, on Dilantin. # History of alcohol intoxication leading to pancreatitis. # Altered mental status. He will be seen by Neurology again. Subjective Constitutional: Reports: no symptoms HEENT: Reports: no symptoms Cardiovascular: Reports: no symptoms Respiratory: Reports: no symptoms Gastrointestinal/Abdominal: Reports: no symptoms Genitourinary: Reports: no symptoms Neurologic/Psychiatric: Reports: no symptoms Endocrine: Reports: no symptoms Hematologic/Lymphatic: Reports: anemia Allergies: Coded Allergies: ACETAMINOPHEN (Verified Allergy, Unknown, 06/11/15) IBUPROFEN (Verified Allergy, Unknown, 06/11/15) Subjective having n/v, tachy Objective Last 24 Hour Vital Signs Date Time Temp Pulse Resp B/P Pulse Ox O2 Delivery O2 Flow Rate FiO2 12/30/16 15:55 99.7 99 18 102/66 100 Room Air 12/30/16 12:00 97.7 110 16 91/67 99 Room Air 12/30/16 08:00 98.4 104 18 100/71 99 Room Air 12/30/16 04:00 99.1 80 20 103/68 98 Room Air 12/30/16 00:00 98.2 95 20 111/73 97 Room Air Intake and Output 12/29/16 12/30/16 19:00 07:00 Intake Total 722.5 ml 385.000 ml Output Total 950 ml Balance 722.5 ml -565.000 ml Intake Oral 640 ml IV Total 82.5 ml 385.000 ml Output Urine Total 950 ml # Voids 4 # Bowel Movements 2 Laboratory Tests 12/30/16 05:50: White Blood Count 15.9H, Red Blood Count 2.60L, Hemoglobin 7.7L, Hematocrit 23.8L, Mean Corpuscular Volume 92, Mean Corpuscular Hemoglobin 29.5, Mean Corpuscular Hemoglobin Concent 32.2, Red Cell Distribution Width 19.8H, Platelet Count 212, Mean Platelet Volume 9.9, Neutrophils (%) (Auto) , Lymphocytes (%) (Auto) , Monocytes (%) (Auto) , Eosinophils (%) (Auto) , Basophils (%) (Auto) , Sodium Level 136, Potassium Level 3.8, Chloride Level 100 , Carbon Dioxide Level 25, Anion Gap 11, Blood Urea Nitrogen 4L, Creatinine 1.0 , Estimat Glomerular Filtration Rate > 60, Glucose Level 124H, Calcium Level 7.9L, Phosphorus Level 4.5, Magnesium Level 1.6L 12/30/16 11:00: Vancomycin Level Trough 34.6H 12/30/16 12:15: Stool Occult Blood [Pending] Height (Feet): 5 Height (Inches): 10.00 Weight (Pounds): 160 General Appearance: mild distress EENT: PERRL/EOMI Neck: supple Cardiovascular: tachycardia Respiratory/Chest: chest wall non-tender Abdomen: non tender Edema: no edema noted Pedal (L), no edema noted Pedal (R) 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
[2016-12-30] MEDS: Miralax 17gm pkt ORAL SCH (21:21)
--- NOTE | 2016-12-30 23:54 | General Progress Note ---
Assessment/Plan Problem List: (1) Altered mental status ICD Codes: R41.82 - Altered mental status, unspecified SNOMED: 581072352 Qualifiers: Qualified Codes: R41.82 - Altered mental status, unspecified (2) Pancreatitis ICD Codes: K85.90 - Acute pancreatitis without necrosis or infection, unspecified SNOMED: 73211647 Qualifiers: Qualified Codes: K85.90 - Acute pancreatitis without necrosis or infection, unspecified (3) Sepsis ICD Codes: A41.9 - Sepsis, unspecified organism SNOMED: 26918684 (4) Anemia ICD Codes: D64.9 - Anemia, unspecified SNOMED: 430556405 Status: progressing Assessment/Plan hyponatremia is improving ams improving afebrile reviewed chart and labs substance abuse still confused r/o sepsis Subjective ROS Limited/Unobtainable: Yes Allergies: Coded Allergies: ACETAMINOPHEN (Verified Allergy, Unknown, 06/11/15) IBUPROFEN (Verified Allergy, Unknown, 06/11/15) Objective Last 24 Hour Vital Signs Date Time Temp Pulse Resp B/P Pulse Ox O2 Delivery O2 Flow Rate FiO2 12/30/16 20:00 100.4 97 18 108/71 99 Room Air 12/30/16 15:55 99.7 99 18 102/66 100 Room Air 12/30/16 12:00 97.7 110 16 91/67 99 Room Air 12/30/16 08:00 98.4 104 18 100/71 99 Room Air 12/30/16 04:00 99.1 80 20 103/68 98 Room Air 12/30/16 00:00 98.2 95 20 111/73 97 Room Air Intake and Output 12/29/16 12/30/16 19:00 07:00 Intake Total 722.5 ml 385.000 ml Output Total 950 ml Balance 722.5 ml -565.000 ml Intake Oral 640 ml IV Total 82.5 ml 385.000 ml Output Urine Total 950 ml # Voids 4 # Bowel Movements 2 Laboratory Tests 12/30/16 05:50: White Blood Count 15.9H, Red Blood Count 2.60L, Hemoglobin 7.7L, Hematocrit 23.8L, Mean Corpuscular Volume 92, Mean Corpuscular Hemoglobin 29.5, Mean Corpuscular Hemoglobin Concent 32.2, Red Cell Distribution Width 19.8H, Platelet Count 212, Mean Platelet Volume 9.9, Neutrophils (%) (Auto) , Lymphocytes (%) (Auto) , Monocytes (%) (Auto) , Eosinophils (%) (Auto) , Basophils (%) (Auto) , Sodium Level 136, Potassium Level 3.8, Chloride Level 100 , Carbon Dioxide Level 25, Anion Gap 11, Blood Urea Nitrogen 4L, Creatinine 1.0 , Estimat Glomerular Filtration Rate > 60, Glucose Level 124H, Calcium Level 7.9L, Phosphorus Level 4.5, Magnesium Level 1.6L 12/30/16 11:00: Vancomycin Level Trough 34.6H 12/30/16 12:15: Stool Occult Blood [Pending] 12/30/16 22:50: Random Vancomycin Level 50.9 Height (Feet): 5 Height (Inches): 10.00 Weight (Pounds): 160 General Appearance: confused Cardiovascular: normal rate Respiratory/Chest: lungs clear Robbi Vega MD Dec 30, 2016 23:54
[2016-12-31] VITALS: BP 105/70
[2016-12-31 04:00] VITALS: BP 106/68
[2016-12-31] MEDS: Piperacillin/Tazobactam 3.375 GM in D5W 110 ML IVPB SCH (06:21)
[2016-12-31 07:24] LABS: MEAN CORPUSCULAR HEMOGLOBIN 28.8 PG (27.0-31.0); MEAN CORPUSCULAR HGB CONC 30.7 G/DL (32.0-36.0); MEAN CORPUSCULAR VOLUME 94 FL (80-99); MEAN PLATELET VOLUME 9.3 FL (6.5-10.1); PLATELET COUNT 272 K/UL (150-450); RED BLOOD COUNT 2.85 M/UL (4.70-6.10); RED CELL DISTRIBUTION WIDTH 21.3 % (11.6-14.8); WHITE BLOOD COUNT 18.2 K/UL (4.8-10.8)
[2016-12-31 08:00] VITALS: BP 113/74
[2016-12-31] MEDS: Lactulose 10gm/15ml UDC ORAL SCH ×3 (08:38→21:52)
[2016-12-31] MEDS: Docusate 100mg cap ORAL SCH ×2 (08:38→17:14)
[2016-12-31] MEDS: Magnesium Oxide 400mg tab ORAL SCH (08:39)
[2016-12-31] MEDS: Vitamin D 1000 IU Tab ORAL SCH (08:39)
[2016-12-31] MEDS: Thiamine 100mg tab ORAL SCH (08:39)
[2016-12-31 08:40] LABS: PHOSPHORUS 3.9 mg/dL (2.5-4.8); URIC ACID 3.1 mg/dL (3.0-7.5)
[2016-12-31 08:53] LABS: BASOPHILS % (MANUAL) 1 % (0-2); EOSINOPHILS % (MANUAL) 1 % (0-3); LYMPHOCYTES % (MANUAL) 13 % (20-45); NEUTROPHILS % (MANUAL) 72 % (45-75); TOTAL CELLS COUNTED 100
[2016-12-31 08:55] LABS: BAND NEUTROPHILS % (MANUAL) 0 % (0-8); PLATELET ESTIMATE ADEQUATE; PLATELET MORPHOLOGY NORMAL
[2016-12-31 08:56] LABS: ANISOCYTOSIS 3+; HYPOCHROMASIA 3+
[2016-12-31] MEDS: Metoclopramide 10mg/2ml Inj IVP PRN (08:59)
[2016-12-31 09:07] LABS: ALBUMIN/GLOBULIN RATIO 0.8 (1.0-2.7); CALCIUM 7.9 mg/dL (8.6-10.2); CREATININE 2.3 mg/dL (0.7-1.2); GLOMERULAR FILTRATION RATE 40.7 mL/min (>60); POTASSIUM 4.9 mEQ/L (3.4-4.9)
[2016-12-31 09:18] LABS: THYROID STIMULATING HORMONE 3.93 uIU/mL (0.300-4.500)
--- NOTE | 2016-12-31 10:46 | General Progress Note ---
Assessment/Plan Status: deteriorating - renal function Assessment/Plan status: Today : Cr 2.3 Acute renal failure due to Vanco??? On Admission: Renal failure , Acute vs Chronic improving h/o Sz Acute Encephalopathy Low K Low Na Low B12 and folate Elevated Lipase , acute pancreatitis Plan; Hydrate- Stop KCL Stop Vanco Monitor levels Back on Zosyn- high dose PO folate ST PT OT eval Monitor lytes- monitor renal parameters Neuro eval needs psych fu Subjective ROS Limited/Unobtainable: No Constitutional: Reports: malaise, weakness Allergies: Coded Allergies: ACETAMINOPHEN (Verified Allergy, Unknown, 06/11/15) IBUPROFEN (Verified Allergy, Unknown, 06/11/15) Objective Last 24 Hour Vital Signs Date Time Temp Pulse Resp B/P Pulse Ox O2 Delivery O2 Flow Rate FiO2 12/31/16 08:00 98.8 96 20 113/74 100 Room Air 12/31/16 04:00 98.2 77 18 106/68 98 Room Air 12/31/16 00:00 98.6 92 18 105/70 98 Room Air 12/30/16 20:00 100.4 97 18 108/71 99 Room Air 12/30/16 15:55 99.7 99 18 102/66 100 Room Air 12/30/16 12:00 97.7 110 16 91/67 99 Room Air Intake and Output 12/30/16 12/31/16 19:00 07:00 Intake Total 1602.5 ml 925.0 ml Output Total 350 ml 3 ml Balance 1252.5 ml 922.0 ml Intake Oral 1200 ml 675 ml IV Total 402.5 ml 250.0 ml Output Urine Total 3 ml Emesis 350 ml # Voids 5 # Bowel Movements 1 3 Laboratory Tests 12/30/16 11:00: Vancomycin Level Trough 34.6H 12/30/16 12:15: Stool Occult Blood [Pending] 12/30/16 22:50: Random Vancomycin Level 50.9 12/31/16 06:00: White Blood Count 18.2H, Red Blood Count 2.85L, Hemoglobin 8.2L, Hematocrit 26.7L, Mean Corpuscular Volume 94, Mean Corpuscular Hemoglobin 28.8, Mean Corpuscular Hemoglobin Concent 30.7L, Red Cell Distribution Width 21.3H, Platelet Count 272, Mean Platelet Volume 9.3, Neutrophils (%) (Auto) , Lymphocytes (%) (Auto) , Monocytes (%) (Auto) , Eosinophils (%) (Auto) , Basophils (%) (Auto) , Differential Total Cells Counted 100, Neutrophils % ( Manual) 72, Lymphocytes % (Manual) 13L, Monocytes % (Manual) 13H, Eosinophils % (Manual) 1, Basophils % (Manual) 1, Band Neutrophils 0, Platelet Estimate Adequate, Platelet Morphology Normal, Hypochromasia 3+, Anisocytosis 3+, Folate [Pending] 12/31/16 06:05: Sodium Level 139, Potassium Level 4.9, Chloride Level 104, Carbon Dioxide Level 23, Anion Gap 12, Blood Urea Nitrogen 10, Creatinine 2.3#H, Estimat Glomerular Filtration Rate 40.7, Glucose Level 92, Uric Acid 3.1, Calcium Level 7.9L, Phosphorus Level 3.9, Magnesium Level 2.0, Iron Level 22L, Total Iron Binding Capacity 180L, Percent Iron Saturation 12L, Unsaturated Iron Binding 158, Ferritin 894H, Total Bilirubin 0.4, Aspartate Amino Transf (AST/SGOT) 29, Alanine Aminotransferase (ALT/SGPT) 19, Alkaline Phosphatase 88, Pro-B-Type Natriuretic Peptide 809H, Total Protein 6.0L, Albumin 2.8L, Globulin 3.2, Albumin/Globulin Ratio 0.8L, Amylase Level 102, Lipase 79H, Vitamin B12 Level 1029H, Thyroid Stimulating Hormone (TSH) 3.930 Height (Feet): 5 Height (Inches): 10.00 Weight (Pounds): 160 General Appearance: no apparent distress Respiratory/Chest: decreased breath sounds Objective other PE not changed VELASQUEZ DASILVA Dec 31, 2016 10:46
[2016-12-31 12:00] VITALS: BP 109/77
--- NOTE | 2016-12-31 13:02 | Consultation ---
History of Present Illness General Chief Complaint: Alcohol Intoxication Referring physician: veena Reason for Consultation: Pain management Present Illness HPI 31-year-old gentleman with history of seizure disorder, brought in by ambulance for intoxication as the patient admitted to drinking 40 ounces of beer. Allergies: Coded Allergies: ACETAMINOPHEN (Verified Allergy, Unknown, 06/11/15) IBUPROFEN (Verified Allergy, Unknown, 06/11/15) Medication History Scheduled No Known Medications* (NKM - No Known Medications*), 0 ., (Reported) Patient History Healthcare decision maker N Resuscitation status Full Code Advanced Directive on File Physical Exam Last 24 Hour Vital Signs Date Time Temp Pulse Resp B/P Pulse Ox O2 Delivery O2 Flow Rate FiO2 12/31/16 12:00 97.3 81 20 109/77 100 Room Air 12/31/16 08:00 98.8 96 20 113/74 100 Room Air 12/31/16 04:00 98.2 77 18 106/68 98 Room Air 12/31/16 00:00 98.6 92 18 105/70 98 Room Air 12/30/16 20:00 100.4 97 18 108/71 99 Room Air 12/30/16 15:55 99.7 99 18 102/66 100 Room Air Intake and Output 12/30/16 12/31/16 19:00 07:00 Intake Total 1602.5 ml 925.0 ml Output Total 350 ml 3 ml Balance 1252.5 ml 922.0 ml Intake Oral 1200 ml 675 ml IV Total 402.5 ml 250.0 ml Output Urine Total 3 ml Emesis 350 ml # Voids 5 # Bowel Movements 1 3 Laboratory Tests Test 12/30/16 22:50 12/31/16 06:00 12/31/16 06:05 Random Vancomycin Level 50.9 ug/mL 14.3 ug/mL White Blood Count 18.2 K/UL (4.8-10.8) H Red Blood Count 2.85 M/UL (4.70-6.10) L Hemoglobin 8.2 G/DL (14.2-18.0) L Hematocrit 26.7 % (42.0-52.0) L Mean Corpuscular Volume 94 FL (80-99) Mean Corpuscular Hemoglobin 28.8 PG (27.0-31.0) Mean Corpuscular Hemoglobin Concent 30.7 G/DL (32.0-36.0) L Red Cell Distribution Width 21.3 % (11.6-14.8) H Platelet Count 272 K/UL (150-450) Mean Platelet Volume 9.3 FL (6.5-10.1) Neutrophils (%) (Auto) % (45.0-75.0) Lymphocytes (%) (Auto) % (20.0-45.0) Monocytes (%) (Auto) % (1.0-10.0) Eosinophils (%) (Auto) % (0.0-3.0) Basophils (%) (Auto) % (0.0-2.0) Differential Total Cells Counted 100 Neutrophils % (Manual) 72 % (45-75) Lymphocytes % (Manual) 13 % (20-45) L Monocytes % (Manual) 13 % (1-10) H Eosinophils % (Manual) 1 % (0-3) Basophils % (Manual) 1 % (0-2) Band Neutrophils 0 % (0-8) Platelet Estimate Adequate Platelet Morphology Normal Hypochromasia 3+ Anisocytosis 3+ Folate Pending Sodium Level 139 mEQ/L (135-145) Potassium Level 4.9 mEQ/L (3.4-4.9) Chloride Level 104 mEQ/L (98-107) Carbon Dioxide Level 23 mEQ/L (20-30) Anion Gap 12 (5-15) Blood Urea Nitrogen 10 mg/dL (7-23) Creatinine 2.3 mg/dL (0.7-1.2) #H Estimat Glomerular Filtration Rate 40.7 mL/min (>60) Glucose Level 92 mg/dL (74-106) Uric Acid 3.1 mg/dL (3.0-7.5) Calcium Level 7.9 mg/dL (8.6-10.2) L Phosphorus Level 3.9 mg/dL (2.5-4.8) Magnesium Level 2.0 mg/dL (1.7-2.5) Iron Level 22 ug/dL (59-158) L Total Iron Binding Capacity 180 ug/dL (250-400) L Percent Iron Saturation 12 % (15-50) L Unsaturated Iron Binding 158 ug/dL (112-346) Ferritin 894 ng/mL (10-230) H Total Bilirubin 0.4 mg/dL (0.0-1.2) Aspartate Amino Transf (AST/SGOT) 29 U/L (5-40) Alanine Aminotransferase (ALT/SGPT) 19 U/L (3-41) Alkaline Phosphatase 88 U/L (40-129) Pro-B-Type Natriuretic Peptide 809 pg/mL (0-125) H Total Protein 6.0 g/dL (6.6-8.7) L Albumin 2.8 g/dL (3.5-5.2) L Globulin 3.2 g/dL Albumin/Globulin Ratio 0.8 (1.0-2.7) L Amylase Level 102 U/L (10-110) Lipase 79 U/L (< 60) H Vitamin B12 Level 1029 pg/mL (211-946) H Thyroid Stimulating Hormone (TSH) 3.930 uIU/mL (0.300-4.500) Height (Feet): 5 Height (Inches): 10.00 Weight (Pounds): 160 Medications Current Medications Medications (Trade) Dose Ordered Sig/Juliana Route PRN Reason Start Time Stop Time Status Last Admin Dose Admin Acetaminophen (Tylenol) 650 mg Q4H PRN ORAL Mild Pain/Temp > 100.5 12/25/16 10:30 01/24/17 10:29 12/29/16 08:14 Docusate Sodium (Colace) 100 mg TWICE A DAY ORAL 12/30/16 09:00 01/29/17 08:59 12/30/16 08:19 Epoetin Alex (Procrit (for non ESRD use)) 10,000 units THU-THU-THU SUBQ 12/31/16 21:00 01/30/17 20:59 Famotidine (Pepcid I.v.) 20 mg QHS IVP 12/31/16 21:00 01/30/17 20:59 Fluoxetine HCl (PROzac) 20 mg DAILY ORAL 12/27/16 09:00 01/26/17 08:59 12/31/16 08:44 Folic Acid (Folate) 10 mg DAILY ORAL 12/26/16 09:00 01/25/17 08:59 12/31/16 08:40 Lactulose (Cephulac) 10 gm TID@0900,1500,2100 ORAL 12/30/16 09:00 01/29/17 08:59 12/30/16 21:21 Levetiracetam (Keppra) 750 mg Q12HR ORAL 12/30/16 21:00 01/29/17 20:59 12/31/16 08:39 Metoclopramide HCl 10 mg 10 mg Q6H PRN IVP Nausea & Vomiting 12/30/16 12:30 01/29/17 12:29 12/31/16 08:59 Ondansetron HCl (Zofran) 4 mg Q6H PRN IVP Nausea & Vomiting 12/23/16 19:45 01/22/17 19:44 12/31/16 12:42 Pantoprazole (Protonix) 40 mg EVERY 12 HOURS ORAL 12/23/16 21:00 01/22/17 20:59 12/31/16 08:39 Piperacillin Sod/ Tazobactam Sod 3.375 gm/Dextrose 110 ml @ 27.5 mls/hr Q8HR IVPB 12/31/16 14:00 01/07/17 13:59 Polyethylene Glycol (Miralax) 17 gm BEDTIME ORAL 12/30/16 21:00 01/29/17 20:59 12/30/16 21:21 Sodium Chloride (Sodium Chloride 1000ml bag) 1,000 ml @ 100 mls/hr Q10H IV 12/31/16 11:45 01/30/17 11:44 12/31/16 12:42 Thiamine HCl (Vitamin B1) 100 mg DAILY ORAL 12/24/16 14:30 01/23/17 14:29 12/31/16 08:39 Vitamin D (Vitamin D) 2,000 intlu DAILY ORAL 12/25/16 10:30 01/24/17 10:29 12/31/16 08:39 Mary Beth Ramos M.D. Dec 31, 2016 13:02
[2016-12-31] MEDS ORDERED: Piperacillin/Tazobactam 3.375 GM in D5W 110 ML IVPB SCH (14:00)
--- NOTE | 2016-12-31 15:04 | GI Progress Note ---
Assessment/Plan Problems: (1) Pancreatitis ICD Codes: K85.90 - Acute pancreatitis without necrosis or infection, unspecified SNOMED: 43005523 Qualifiers: Qualified Codes: K85.90 - Acute pancreatitis without necrosis or infection, unspecified (2) Altered mental status ICD Codes: R41.82 - Altered mental status, unspecified SNOMED: 871053751 Qualifiers: Qualified Codes: R41.82 - Altered mental status, unspecified (3) Acute alcoholic intoxication ICD Codes: F10.929 - Alcohol use, unspecified with intoxication, unspecified SNOMED: 67523097 (4) Anemia ICD Codes: D64.9 - Anemia, unspecified SNOMED: 513678622 Status: stable, progressing Status Narrative Discussed with Dr. Friend. Assessment/Plan APCT reviewed >> Acute pancreatitis. Right/transverse colonic ileus. Hepatic steatosis. Cholelithiasis. ammonia WNL low fat diet pain mgmt OB stool r/o GI bleed >> negative H2B abx monitor lipase >> downtrending encourage ambulation fu labs Subjective Subjective emesis x 1 Objective Last 24 Hour Vital Signs Date Time Temp Pulse Resp B/P Pulse Ox O2 Delivery O2 Flow Rate FiO2 12/31/16 12:00 97.3 81 20 109/77 100 Room Air 12/31/16 08:00 98.8 96 20 113/74 100 Room Air 12/31/16 04:00 98.2 77 18 106/68 98 Room Air 12/31/16 00:00 98.6 92 18 105/70 98 Room Air 12/30/16 20:00 100.4 97 18 108/71 99 Room Air 12/30/16 15:55 99.7 99 18 102/66 100 Room Air Intake and Output 12/30/16 12/31/16 19:00 07:00 Intake Total 1602.5 ml 925.0 ml Output Total 350 ml 3 ml Balance 1252.5 ml 922.0 ml Intake Oral 1200 ml 675 ml IV Total 402.5 ml 250.0 ml Output Urine Total 3 ml Emesis 350 ml # Voids 5 # Bowel Movements 1 3 Laboratory Tests Test 12/30/16 22:50 12/31/16 06:00 12/31/16 06:05 Random Vancomycin Level 50.9 ug/mL 14.3 ug/mL White Blood Count 18.2 K/UL (4.8-10.8) H Red Blood Count 2.85 M/UL (4.70-6.10) L Hemoglobin 8.2 G/DL (14.2-18.0) L Hematocrit 26.7 % (42.0-52.0) L Mean Corpuscular Volume 94 FL (80-99) Mean Corpuscular Hemoglobin 28.8 PG (27.0-31.0) Mean Corpuscular Hemoglobin Concent 30.7 G/DL (32.0-36.0) L Red Cell Distribution Width 21.3 % (11.6-14.8) H Platelet Count 272 K/UL (150-450) Mean Platelet Volume 9.3 FL (6.5-10.1) Neutrophils (%) (Auto) % (45.0-75.0) Lymphocytes (%) (Auto) % (20.0-45.0) Monocytes (%) (Auto) % (1.0-10.0) Eosinophils (%) (Auto) % (0.0-3.0) Basophils (%) (Auto) % (0.0-2.0) Differential Total Cells Counted 100 Neutrophils % (Manual) 72 % (45-75) Lymphocytes % (Manual) 13 % (20-45) L Monocytes % (Manual) 13 % (1-10) H Eosinophils % (Manual) 1 % (0-3) Basophils % (Manual) 1 % (0-2) Band Neutrophils 0 % (0-8) Platelet Estimate Adequate Platelet Morphology Normal Hypochromasia 3+ Anisocytosis 3+ Folate Pending Sodium Level 139 mEQ/L (135-145) Potassium Level 4.9 mEQ/L (3.4-4.9) Chloride Level 104 mEQ/L (98-107) Carbon Dioxide Level 23 mEQ/L (20-30) Anion Gap 12 (5-15) Blood Urea Nitrogen 10 mg/dL (7-23) Creatinine 2.3 mg/dL (0.7-1.2) #H Estimat Glomerular Filtration Rate 40.7 mL/min (>60) Glucose Level 92 mg/dL (74-106) Uric Acid 3.1 mg/dL (3.0-7.5) Calcium Level 7.9 mg/dL (8.6-10.2) L Phosphorus Level 3.9 mg/dL (2.5-4.8) Magnesium Level 2.0 mg/dL (1.7-2.5) Iron Level 22 ug/dL (59-158) L Total Iron Binding Capacity 180 ug/dL (250-400) L Percent Iron Saturation 12 % (15-50) L Unsaturated Iron Binding 158 ug/dL (112-346) Ferritin 894 ng/mL (10-230) H Total Bilirubin 0.4 mg/dL (0.0-1.2) Aspartate Amino Transf (AST/SGOT) 29 U/L (5-40) Alanine Aminotransferase (ALT/SGPT) 19 U/L (3-41) Alkaline Phosphatase 88 U/L (40-129) Pro-B-Type Natriuretic Peptide 809 pg/mL (0-125) H Total Protein 6.0 g/dL (6.6-8.7) L Albumin 2.8 g/dL (3.5-5.2) L Globulin 3.2 g/dL Albumin/Globulin Ratio 0.8 (1.0-2.7) L Amylase Level 102 U/L (10-110) Lipase 79 U/L (< 60) H Vitamin B12 Level 1029 pg/mL (211-946) H Thyroid Stimulating Hormone (TSH) 3.930 uIU/mL (0.300-4.500) Height (Feet): 5 Height (Inches): 10.00 Weight (Pounds): 160 General Appearance: no apparent distress, alert Cardiovascular: normal rate Respiratory/Chest: normal breath sounds, no respiratory distress Abdominal Exam: normal bowel sounds, non tender, soft Extremities: normal range of motion Rosa Mancia N.P. Dec 31, 2016 15:04
[2016-12-31 16:00] VITALS: BP 104/68
--- NOTE | 2016-12-31 16:30 | Infectious Diseases Prog Note ---
Assessment/Plan Problems: (1) Aspiration pneumonia Assessment & Plan: improved on zosyn and vancomycin empirically , video swallow eval ruled out silent aspiration, but has reflux which is concerning for esophageal motility problem, achalasia? recommend EGD for further evaluation , will switch his antibiotics to augmantin. (2) Sepsis Assessment & Plan: due to the above with leukocytosis, blood culture is negative will D/C vancomycin and zosyn , and monitor CBC (3) Acute alcoholic intoxication Assessment & Plan: improved, watch for alcohol withdrawal , recommend alcohol rehab and counseling , neurology is following (4) Pancreatitis Assessment & Plan: due to tawanda drink of alcohol , continue hydration with supportive care, monitor lipase level , GI is following (5) Altered mental status Assessment & Plan: multifactorial, with folate deficiency , improving, started on folate replacement , neurology is following (6) Nausea & vomiting Assessment & Plan: recurrent , etiology , achalasia ? may need EGD , continue supportive care , GI id following (7) DWAYNE (acute kidney injury) Assessment & Plan: multifactorials, dehydration due to recurrent vomiting, VS meds side effects, will D/C vancomycin and zosyn, and continue IVF for hydration , monitor renal function test Subjective Constitutional: Reports: no symptoms HEENT: Reports: no symptoms Respiratory: Reports: dry cough Cardiovascular: Reports: no symptoms Gastrointestinal/Abdominal: Reports: nausea Genitourinary: Reports: no symptoms Neurologic: Reports: no symptoms Psychiatric: Reports: no symptoms Skin: Reports: no symptoms Endocrine: Reports: no symptoms Hematologic: Reports: no symptoms Musculoskeletal: Reports: no symptoms Allergies: Coded Allergies: ACETAMINOPHEN (Verified Allergy, Unknown, 06/11/15) IBUPROFEN (Verified Allergy, Unknown, 06/11/15) Objective Vital Signs Last 24 Hour Vital Signs Date Time Temp Pulse Resp B/P Pulse Ox O2 Delivery O2 Flow Rate FiO2 12/31/16 12:00 97.3 81 20 109/77 100 Room Air 12/31/16 08:00 98.8 96 20 113/74 100 Room Air 12/31/16 04:00 98.2 77 18 106/68 98 Room Air 12/31/16 00:00 98.6 92 18 105/70 98 Room Air 12/30/16 20:00 100.4 97 18 108/71 99 Room Air Height (Feet): 5 Height (Inches): 10.00 Weight (Pounds): 160 General Appearance: WD/WN, no acute distress HEENT: normocephalic, atraumatic, anicteric, mucous membranes moist, pharynx normal, supple Respiratory/Chest: chest wall non-tender, lungs clear, normal breath sounds, no respiratory distress, no accessory muscle use Cardiovascular: normal peripheral pulses, normal rate, regular rhythm, no gallop/murmur, no JVD Abdomen: normal bowel sounds, soft, non tender, no organomegaly, non distended , no mass, no scars Extremities: no cyanosis, no clubbing Skin: no rash, no lesions, no ulcers Lymphatic: no neck adenopathy, no groin adenopathy Musculoskeletal: normal muscle bulk, no effusion Microbiology Date/Time Source Procedure Growth Status 12/28/16 18:20 Blood Blood Culture - Preliminary NO GROWTH AFTER 48 HOURS Resulted 12/28/16 18:10 Blood Blood Culture - Preliminary NO GROWTH AFTER 48 HOURS Resulted Laboratory Tests Test 12/30/16 22:50 12/31/16 06:00 12/31/16 06:05 Random Vancomycin Level 50.9 ug/mL 14.3 ug/mL White Blood Count 18.2 K/UL (4.8-10.8) H Red Blood Count 2.85 M/UL (4.70-6.10) L Hemoglobin 8.2 G/DL (14.2-18.0) L Hematocrit 26.7 % (42.0-52.0) L Mean Corpuscular Volume 94 FL (80-99) Mean Corpuscular Hemoglobin 28.8 PG (27.0-31.0) Mean Corpuscular Hemoglobin Concent 30.7 G/DL (32.0-36.0) L Red Cell Distribution Width 21.3 % (11.6-14.8) H Platelet Count 272 K/UL (150-450) Mean Platelet Volume 9.3 FL (6.5-10.1) Neutrophils (%) (Auto) % (45.0-75.0) Lymphocytes (%) (Auto) % (20.0-45.0) Monocytes (%) (Auto) % (1.0-10.0) Eosinophils (%) (Auto) % (0.0-3.0) Basophils (%) (Auto) % (0.0-2.0) Differential Total Cells Counted 100 Neutrophils % (Manual) 72 % (45-75) Lymphocytes % (Manual) 13 % (20-45) L Monocytes % (Manual) 13 % (1-10) H Eosinophils % (Manual) 1 % (0-3) Basophils % (Manual) 1 % (0-2) Band Neutrophils 0 % (0-8) Other Cell Type Platelet Estimate Adequate Platelet Morphology Normal Hypochromasia 3+ Anisocytosis 3+ Folate Pending Sodium Level 139 mEQ/L (135-145) Potassium Level 4.9 mEQ/L (3.4-4.9) Chloride Level 104 mEQ/L (98-107) Carbon Dioxide Level 23 mEQ/L (20-30) Anion Gap 12 (5-15) Blood Urea Nitrogen 10 mg/dL (7-23) Creatinine 2.3 mg/dL (0.7-1.2) #H Estimat Glomerular Filtration Rate 40.7 mL/min (>60) Glucose Level 92 mg/dL (74-106) Uric Acid 3.1 mg/dL (3.0-7.5) Calcium Level 7.9 mg/dL (8.6-10.2) L Phosphorus Level 3.9 mg/dL (2.5-4.8) Magnesium Level 2.0 mg/dL (1.7-2.5) Iron Level 22 ug/dL (59-158) L Total Iron Binding Capacity 180 ug/dL (250-400) L Percent Iron Saturation 12 % (15-50) L Unsaturated Iron Binding 158 ug/dL (112-346) Ferritin 894 ng/mL (10-230) H Total Bilirubin 0.4 mg/dL (0.0-1.2) Aspartate Amino Transf (AST/SGOT) 29 U/L (5-40) Alanine Aminotransferase (ALT/SGPT) 19 U/L (3-41) Alkaline Phosphatase 88 U/L (40-129) Pro-B-Type Natriuretic Peptide 809 pg/mL (0-125) H Total Protein 6.0 g/dL (6.6-8.7) L Albumin 2.8 g/dL (3.5-5.2) L Globulin 3.2 g/dL Albumin/Globulin Ratio 0.8 (1.0-2.7) L Amylase Level 102 U/L (10-110) Lipase 79 U/L (< 60) H Vitamin B12 Level 1029 pg/mL (211-946) H Thyroid Stimulating Hormone (TSH) 3.930 uIU/mL (0.300-4.500) Current Medications Medications (Trade) Dose Ordered Sig/Juliana Route PRN Reason Start Time Stop Time Status Last Admin Dose Admin Acetaminophen (Tylenol) 650 mg Q4H PRN ORAL Mild Pain/Temp > 100.5 12/25/16 10:30 01/24/17 10:29 12/29/16 08:14 Amoxicillin/ Clavulanate Potassium (Augmentin) 875 mg EVERY 12 HOURS ORAL 12/31/16 21:00 01/07/17 20:59 Docusate Sodium (Colace) 100 mg TWICE A DAY ORAL 12/30/16 09:00 01/29/17 08:59 12/30/16 08:19 Epoetin Alex (Procrit (for non ESRD use)) 10,000 units THU-THU-THU SUBQ 12/31/16 21:00 01/30/17 20:59 Famotidine (Pepcid I.v.) 20 mg QHS IVP 12/31/16 21:00 01/30/17 20:59 Fluoxetine HCl (PROzac) 20 mg DAILY ORAL 12/27/16 09:00 01/26/17 08:59 12/31/16 08:44 Folic Acid (Folate) 10 mg DAILY ORAL 12/26/16 09:00 01/25/17 08:59 12/31/16 08:40 Lactulose (Cephulac) 10 gm TID@0900,1500,2100 ORAL 12/30/16 09:00 01/29/17 08:59 12/30/16 21:21 Levetiracetam (Keppra) 750 mg Q12HR ORAL 12/30/16 21:00 01/29/17 20:59 12/31/16 08:39 Metoclopramide HCl 10 mg 10 mg Q6H PRN IVP Nausea & Vomiting 12/30/16 12:30 01/29/17 12:29 12/31/16 08:59 Ondansetron HCl (Zofran) 4 mg Q6H PRN IVP Nausea & Vomiting 12/23/16 19:45 01/22/17 19:44 12/31/16 12:42 Pantoprazole (Protonix) 40 mg EVERY 12 HOURS ORAL 12/23/16 21:00 01/22/17 20:59 12/31/16 08:39 Polyethylene Glycol (Miralax) 17 gm BEDTIME ORAL 12/30/16 21:00 01/29/17 20:59 12/30/16 21:21 Sodium Chloride (Sodium Chloride 1000ml bag) 1,000 ml @ 100 mls/hr Q10H IV 12/31/16 11:45 01/30/17 11:44 12/31/16 12:42 Thiamine HCl (Vitamin B1) 100 mg DAILY ORAL 12/24/16 14:30 01/23/17 14:29 12/31/16 08:39 Vitamin D (Vitamin D) 2,000 intlu DAILY ORAL 12/25/16 10:30 01/24/17 10:29 12/31/16 08:39 Imelda Chen M.D. Dec 31, 2016 16:29
[2016-12-31 20:00] VITALS: BP 104/71
--- NOTE | 2016-12-31 21:02 | General Progress Note ---
Assessment/Plan Problem List: (1) Altered mental status ICD Codes: R41.82 - Altered mental status, unspecified SNOMED: 570667647 Qualifiers: Qualified Codes: R41.82 - Altered mental status, unspecified (2) Pancreatitis ICD Codes: K85.90 - Acute pancreatitis without necrosis or infection, unspecified SNOMED: 31772927 Qualifiers: Qualified Codes: K85.90 - Acute pancreatitis without necrosis or infection, unspecified (3) Sepsis ICD Codes: A41.9 - Sepsis, unspecified organism SNOMED: 92231924 (4) Anemia ICD Codes: D64.9 - Anemia, unspecified SNOMED: 511743845 Status: progressing Assessment/Plan hyponatremia is improving ams improving azotemia is getting worse asked id dr to cosider narrowing abx coverage given worsening azotemia and improving clinical condition Subjective ROS Limited/Unobtainable: Yes Constitutional: Reports: no symptoms Allergies: Coded Allergies: ACETAMINOPHEN (Verified Allergy, Unknown, 06/11/15) IBUPROFEN (Verified Allergy, Unknown, 06/11/15) Objective Last 24 Hour Vital Signs Date Time Temp Pulse Resp B/P Pulse Ox O2 Delivery O2 Flow Rate FiO2 12/31/16 16:00 97.7 86 20 104/68 100 Room Air 12/31/16 12:00 97.3 81 20 109/77 100 Room Air 12/31/16 08:00 98.8 96 20 113/74 100 Room Air 12/31/16 04:00 98.2 77 18 106/68 98 Room Air 12/31/16 00:00 98.6 92 18 105/70 98 Room Air Intake and Output 12/30/16 12/31/16 19:00 07:00 Intake Total 1602.5 ml 925.0 ml Output Total 350 ml 3 ml Balance 1252.5 ml 922.0 ml Intake Oral 1200 ml 675 ml IV Total 402.5 ml 250.0 ml Output Urine Total 3 ml Emesis 350 ml # Voids 5 # Bowel Movements 1 3 Laboratory Tests 12/30/16 22:50: Random Vancomycin Level 50.9 12/31/16 06:00: White Blood Count 18.2H, Red Blood Count 2.85L, Hemoglobin 8.2L, Hematocrit 26.7L, Mean Corpuscular Volume 94, Mean Corpuscular Hemoglobin 28.8, Mean Corpuscular Hemoglobin Concent 30.7L, Red Cell Distribution Width 21.3H, Platelet Count 272, Mean Platelet Volume 9.3, Neutrophils (%) (Auto) , Lymphocytes (%) (Auto) , Monocytes (%) (Auto) , Eosinophils (%) (Auto) , Basophils (%) (Auto) , Differential Total Cells Counted 100, Neutrophils % ( Manual) 72, Lymphocytes % (Manual) 13L, Monocytes % (Manual) 13H, Eosinophils % (Manual) 1, Basophils % (Manual) 1, Band Neutrophils 0, Other Cell Type , Platelet Estimate Adequate, Platelet Morphology Normal, Hypochromasia 3+, Anisocytosis 3+, Folate [Pending] 12/31/16 06:05: Random Vancomycin Level 14.3, Sodium Level 139, Potassium Level 4.9, Chloride Level 104, Carbon Dioxide Level 23, Anion Gap 12, Blood Urea Nitrogen 10, Creatinine 2.3#H, Estimat Glomerular Filtration Rate 40.7, Glucose Level 92, Uric Acid 3.1, Calcium Level 7.9L, Phosphorus Level 3.9, Magnesium Level 2.0, Iron Level 22L, Total Iron Binding Capacity 180L, Percent Iron Saturation 12L, Unsaturated Iron Binding 158, Ferritin 894H, Total Bilirubin 0.4, Aspartate Amino Transf (AST/SGOT) 29, Alanine Aminotransferase (ALT/SGPT) 19, Alkaline Phosphatase 88, Pro-B-Type Natriuretic Peptide 809H, Total Protein 6.0L, Albumin 2.8L, Globulin 3.2, Albumin/Globulin Ratio 0.8L, Amylase Level 102, Lipase 79H, Vitamin B12 Level 1029H, Thyroid Stimulating Hormone (TSH) 3.930 Height (Feet): 5 Height (Inches): 10.00 Weight (Pounds): 160 General Appearance: confused Cardiovascular: regular rhythm Robbi Vega MD Dec 31, 2016 21:02
--- NOTE | 2016-12-31 21:29 | General Progress Note ---
Assessment/Plan Assessment/Plan # Leukocytosis secondary to underlying inflammatory reaction versus infection # Pancreatitis ---> being followed by gi and id ---> continues to have n/v, continue zofran and pepsid # Lactic acidosis with decreased blood pressure. # Anemia secondary to severe folic acid deficiency, currently less than 2, have ordered for oral folic acid getting 10 mg daily. # Anemia secondary to hemodilution. # Anemia of chronic disease. ---> hgb goal >7 # Thrombocytopenia, likely secondary to hemodilution versus infection. # Hypokalemia. # Anemia secondary to B12 deficiency, has been given B12 injections. # History of seizures, on Dilantin. # History of alcohol intoxication leading to pancreatitis. # Altered mental status. He will be seen by Neurology again. Subjective Constitutional: Reports: no symptoms HEENT: Reports: no symptoms Cardiovascular: Reports: no symptoms Respiratory: Reports: no symptoms Gastrointestinal/Abdominal: Reports: no symptoms Genitourinary: Reports: no symptoms Neurologic/Psychiatric: Reports: no symptoms Endocrine: Reports: no symptoms Hematologic/Lymphatic: Reports: anemia Allergies: Coded Allergies: ACETAMINOPHEN (Verified Allergy, Unknown, 06/11/15) IBUPROFEN (Verified Allergy, Unknown, 06/11/15) Subjective on abx, having emesis Objective Last 24 Hour Vital Signs Date Time Temp Pulse Resp B/P Pulse Ox O2 Delivery O2 Flow Rate FiO2 12/31/16 16:00 97.7 86 20 104/68 100 Room Air 12/31/16 12:00 97.3 81 20 109/77 100 Room Air 12/31/16 08:00 98.8 96 20 113/74 100 Room Air 12/31/16 04:00 98.2 77 18 106/68 98 Room Air 12/31/16 00:00 98.6 92 18 105/70 98 Room Air Intake and Output 12/30/16 12/31/16 19:00 07:00 Intake Total 1602.5 ml 925.0 ml Output Total 350 ml 3 ml Balance 1252.5 ml 922.0 ml Intake Oral 1200 ml 675 ml IV Total 402.5 ml 250.0 ml Output Urine Total 3 ml Emesis 350 ml # Voids 5 # Bowel Movements 1 3 Laboratory Tests 12/30/16 22:50: Random Vancomycin Level 50.9 12/31/16 06:00: White Blood Count 18.2H, Red Blood Count 2.85L, Hemoglobin 8.2L, Hematocrit 26.7L, Mean Corpuscular Volume 94, Mean Corpuscular Hemoglobin 28.8, Mean Corpuscular Hemoglobin Concent 30.7L, Red Cell Distribution Width 21.3H, Platelet Count 272, Mean Platelet Volume 9.3, Neutrophils (%) (Auto) , Lymphocytes (%) (Auto) , Monocytes (%) (Auto) , Eosinophils (%) (Auto) , Basophils (%) (Auto) , Differential Total Cells Counted 100, Neutrophils % ( Manual) 72, Lymphocytes % (Manual) 13L, Monocytes % (Manual) 13H, Eosinophils % (Manual) 1, Basophils % (Manual) 1, Band Neutrophils 0, Other Cell Type , Platelet Estimate Adequate, Platelet Morphology Normal, Hypochromasia 3+, Anisocytosis 3+, Folate [Pending] 12/31/16 06:05: Random Vancomycin Level 14.3, Sodium Level 139, Potassium Level 4.9, Chloride Level 104, Carbon Dioxide Level 23, Anion Gap 12, Blood Urea Nitrogen 10, Creatinine 2.3#H, Estimat Glomerular Filtration Rate 40.7, Glucose Level 92, Uric Acid 3.1, Calcium Level 7.9L, Phosphorus Level 3.9, Magnesium Level 2.0, Iron Level 22L, Total Iron Binding Capacity 180L, Percent Iron Saturation 12L, Unsaturated Iron Binding 158, Ferritin 894H, Total Bilirubin 0.4, Aspartate Amino Transf (AST/SGOT) 29, Alanine Aminotransferase (ALT/SGPT) 19, Alkaline Phosphatase 88, Pro-B-Type Natriuretic Peptide 809H, Total Protein 6.0L, Albumin 2.8L, Globulin 3.2, Albumin/Globulin Ratio 0.8L, Amylase Level 102, Lipase 79H, Vitamin B12 Level 1029H, Thyroid Stimulating Hormone (TSH) 3.930 Height (Feet): 5 Height (Inches): 10.00 Weight (Pounds): 160 General Appearance: mild distress EENT: PERRL/EOMI Neck: normal alignment Cardiovascular: normal rate Respiratory/Chest: chest wall non-tender Abdomen: normal bowel sounds Extremities: non-tender Edema: no edema noted Pedal (L), no edema noted Pedal (R) Edema: mild edema 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
[2016-12-31] MEDS: Miralax 17gm pkt ORAL SCH (21:49)
[2016-12-31] MEDS: Epogen (for non ESRD use) SUBQ SCH (21:50)
[2016-12-31] MEDS: Augmentin 875mg Tab ORAL SCH (21:51)
[2016-12-31] MEDS: Famotidine 20 MG/ 2ML VIAL IVP SCH (21:51)
[2017-01-01] VITALS: BP 109/63
[2017-01-01 04:00] VITALS: BP 108/69
[2017-01-01 08:04] VITALS: BP 104/56
[2017-01-01] MEDS: Docusate 100mg cap ORAL SCH ×2 (09:00→18:00)
[2017-01-01] MEDS: Lactulose 10gm/15ml UDC ORAL SCH ×3 (09:00→20:33)
[2017-01-01] MEDS: Vitamin D 1000 IU Tab ORAL SCH (09:23)
[2017-01-01] MEDS: Augmentin 875mg Tab ORAL SCH (09:23)
[2017-01-01] MEDS: Thiamine 100mg tab ORAL SCH (09:24)
--- NOTE | 2017-01-01 09:29 | General Progress Note ---
Assessment/Plan Status: unchanged Assessment/Plan status: Today : Cr 2.3 Acute renal failure due to Vanco??? On Admission: Renal failure , Acute vs Chronic improving h/o Sz Acute Encephalopathy Low K Low Na Low B12 and folate Elevated Lipase , acute pancreatitis Plan; Today's labs pending Hydrate- Stop KCL Stop Vanco Monitor levels Back on Zosyn- high dose PO folate ST PT OT eval Monitor lytes- monitor renal parameters Neuro eval needs psych fu Subjective ROS Limited/Unobtainable: No Constitutional: Reports: malaise Allergies: Coded Allergies: ACETAMINOPHEN (Verified Allergy, Unknown, 06/11/15) IBUPROFEN (Verified Allergy, Unknown, 06/11/15) Objective Last 24 Hour Vital Signs Date Time Temp Pulse Resp B/P Pulse Ox O2 Delivery O2 Flow Rate FiO2 01/01/17 08:04 97.1 114 21 104/56 97 Room Air 01/01/17 04:00 98.4 78 18 108/69 99 Room Air 01/01/17 00:00 99.1 97 18 109/63 100 Room Air 12/31/16 20:00 98.2 88 18 104/71 99 Room Air 12/31/16 16:00 97.7 86 20 104/68 100 Room Air 12/31/16 12:00 97.3 81 20 109/77 100 Room Air Intake and Output 12/31/16 01/01/17 19:00 07:00 Intake Total 420 ml 1340 ml Output Total 1100 ml Balance 420 ml 240 ml Intake Oral 320 ml 240 ml IV Total 100 ml 1100 ml Output Urine Total 1100 ml # Voids 5 2 # Bowel Movements 1 Height (Feet): 5 Height (Inches): 10.00 Weight (Pounds): 160 General Appearance: no apparent distress Cardiovascular: tachycardia Respiratory/Chest: decreased breath sounds Abdomen: soft, distended Objective other PE not changed VELASQUEZ DASILVA Jan 01, 2017 09:29
[2017-01-01] MEDS ORDERED: Tubing IV Secondary IV ONE (10:32)
[2017-01-01] MEDS ORDERED: NS 275ml ONE (10:32)
[2017-01-01 11:44] VITALS: BP 101/58
--- NOTE | 2017-01-01 12:13 | GI Progress Note ---
Assessment/Plan Problems: (1) Pancreatitis ICD Codes: K85.90 - Acute pancreatitis without necrosis or infection, unspecified SNOMED: 20923329 Qualifiers: Qualified Codes: K85.90 - Acute pancreatitis without necrosis or infection, unspecified (2) Altered mental status ICD Codes: R41.82 - Altered mental status, unspecified SNOMED: 296615788 Qualifiers: Qualified Codes: R41.82 - Altered mental status, unspecified (3) Acute alcoholic intoxication ICD Codes: F10.929 - Alcohol use, unspecified with intoxication, unspecified SNOMED: 89385668 (4) Anemia ICD Codes: D64.9 - Anemia, unspecified SNOMED: 188063405 Status: stable Status Narrative Discussed with Dr. Friend. Assessment/Plan APCT reviewed >> Acute pancreatitis. Right/transverse colonic ileus. Hepatic steatosis. Cholelithiasis. ammonia WNL OB stool r/o GI bleed >> negative low fat diet pain mgmt H2B abx monitor lipase encourage ambulation fu labs Subjective Subjective emesis refused amlabs Objective Last 24 Hour Vital Signs Date Time Temp Pulse Resp B/P Pulse Ox O2 Delivery O2 Flow Rate FiO2 01/01/17 11:44 97.7 92 21 101/58 98 Room Air 01/01/17 08:04 97.1 114 21 104/56 97 Room Air 01/01/17 04:00 98.4 78 18 108/69 99 Room Air 01/01/17 00:00 99.1 97 18 109/63 100 Room Air 12/31/16 20:00 98.2 88 18 104/71 99 Room Air 12/31/16 16:00 97.7 86 20 104/68 100 Room Air Intake and Output 12/31/16 01/01/17 19:00 07:00 Intake Total 420 ml 1340 ml Output Total 1100 ml Balance 420 ml 240 ml Intake Oral 320 ml 240 ml IV Total 100 ml 1100 ml Output Urine Total 1100 ml # Voids 5 2 # Bowel Movements 1 Height (Feet): 5 Height (Inches): 10.00 Weight (Pounds): 160 General Appearance: no apparent distress, alert, thin Cardiovascular: normal rate Respiratory/Chest: normal breath sounds, no respiratory distress Abdominal Exam: normal bowel sounds, non tender, soft Extremities: normal range of motion Rosa Mancia N.PDeric Jan 01, 2017 12:12
[2017-01-01 14:49] LABS: MEAN CORPUSCULAR HEMOGLOBIN 27.5 PG (27.0-31.0); MEAN CORPUSCULAR HGB CONC 29.7 G/DL (32.0-36.0); MEAN CORPUSCULAR VOLUME 93 FL (80-99); MEAN PLATELET VOLUME 8.6 FL (6.5-10.1); PLATELET COUNT 401 K/UL (150-450); RED CELL DISTRIBUTION WIDTH 21.8 % (11.6-14.8)
[2017-01-01 15:09] LABS: ALBUMIN/GLOBULIN RATIO 0.7 (1.0-2.7); CALCIUM 8.3 mg/dL (8.6-10.2); CREATININE 2.5 mg/dL (0.7-1.2); CRP QUANT 3.8 mg/dL (< 0.5); MAGNESIUM 1.8 mg/dL (1.7-2.5); PHOSPHORUS 3.4 mg/dL (2.5-4.8); TOTAL PROTEIN 6.7 g/dL (6.6-8.7); URIC ACID 4.1 mg/dL (3.0-7.5)
[2017-01-01 16:17] VITALS: BP 110/74
[2017-01-01 16:41] LABS: BAND NEUTROPHILS % (MANUAL) 1 % (0-8); BASOPHILS % (MANUAL) 1 % (0-2); EOSINOPHILS % (MANUAL) 2 % (0-3); LYMPHOCYTES % (MANUAL) 8 % (20-45); NEUTROPHILS % (MANUAL) 83 % (45-75); TOTAL CELLS COUNTED 100
[2017-01-01 16:42] LABS: ANISOCYTOSIS 3+; HYPOCHROMASIA 2+; PLATELET ESTIMATE ADEQUATE; PLATELET MORPHOLOGY NORMAL; POLYCHROMASIA 1+
--- NOTE | 2017-01-01 17:56 | Infectious Diseases Prog Note ---
Assessment/Plan Problems: (1) Aspiration pneumonia Assessment & Plan: improved on zosyn and vancomycin empirically , but relapsed when they were stopped due to worsening renal failure , with increase in his WBC , source pneumonia VS panceriatitis , so will switch his regimen to cefepime and doxycycline for now , and stop oral augmantin, monitor WBC (2) Sepsis Assessment & Plan: due to the above with leukocytosis, blood culture is negative , monitor CBC (3) Acute alcoholic intoxication Assessment & Plan: improved, watch for alcohol withdrawal , recommend alcohol rehab and counseling , neurology is following (4) Pancreatitis Assessment & Plan: due to tawanda drink of alcohol , continue hydration with supportive care, monitor lipase level , GI is following (5) Altered mental status Assessment & Plan: multifactorial, with folate deficiency , improving, started on folate replacement , neurology is following (6) Nausea & vomiting Assessment & Plan: recurrent , etiology , achalasia ? may need EGD , continue supportive care , GI id following (7) DWAYNE (acute kidney injury) Assessment & Plan: multifactorials, dehydration due to recurrent vomiting, VS meds side effects, will D/C vancomycin and zosyn, and continue IVF for hydration , monitor renal function test Subjective Constitutional: Reports: no symptoms HEENT: Reports: no symptoms Respiratory: Reports: dry cough Breasts: Reports: no symptoms Cardiovascular: Reports: no symptoms Gastrointestinal/Abdominal: Reports: no symptoms Genitourinary: Reports: no symptoms Neurologic: Reports: no symptoms Psychiatric: Reports: depression Skin: Reports: no symptoms Endocrine: Reports: no symptoms Musculoskeletal: Reports: no symptoms Allergies: Coded Allergies: ACETAMINOPHEN (Verified Allergy, Unknown, 06/11/15) IBUPROFEN (Verified Allergy, Unknown, 06/11/15) Objective Vital Signs Last 24 Hour Vital Signs Date Time Temp Pulse Resp B/P Pulse Ox O2 Delivery O2 Flow Rate FiO2 01/01/17 16:17 97.6 95 21 110/74 99 Room Air 01/01/17 11:44 97.7 92 21 101/58 98 Room Air 01/01/17 08:04 97.1 114 21 104/56 97 Room Air 01/01/17 04:00 98.4 78 18 108/69 99 Room Air 01/01/17 00:00 99.1 97 18 109/63 100 Room Air 12/31/16 20:00 98.2 88 18 104/71 99 Room Air Height (Feet): 5 Height (Inches): 10.00 Weight (Pounds): 160 General Appearance: WD/WN, no acute distress HEENT: normocephalic, atraumatic, anicteric, mucous membranes moist, PERRL Respiratory/Chest: chest wall non-tender, normal breath sounds, no respiratory distress, no accessory muscle use, decreased breath sounds, crackles/rales Cardiovascular: normal peripheral pulses, normal rate, regular rhythm, no gallop/murmur, no JVD Abdomen: normal bowel sounds, soft, non tender, no organomegaly, non distended , no mass, no scars Extremities: no cyanosis, no clubbing Skin: no rash, no lesions, no ulcers Neurologic/Psychiatric: alert, oriented x 3 Laboratory Tests Test 01/01/17 14:25 White Blood Count 21.0 K/UL (4.8-10.8) H Red Blood Count 2.60 M/UL (4.70-6.10) L Hemoglobin 7.1 G/DL (14.2-18.0) L Hematocrit 24.1 % (42.0-52.0) L Mean Corpuscular Volume 93 FL (80-99) Mean Corpuscular Hemoglobin 27.5 PG (27.0-31.0) Mean Corpuscular Hemoglobin Concent 29.7 G/DL (32.0-36.0) L Red Cell Distribution Width 21.8 % (11.6-14.8) H Platelet Count 401 K/UL (150-450) Mean Platelet Volume 8.6 FL (6.5-10.1) Neutrophils (%) (Auto) % (45.0-75.0) Lymphocytes (%) (Auto) % (20.0-45.0) Monocytes (%) (Auto) % (1.0-10.0) Eosinophils (%) (Auto) % (0.0-3.0) Basophils (%) (Auto) % (0.0-2.0) Differential Total Cells Counted 100 Neutrophils % (Manual) 83 % (45-75) H Lymphocytes % (Manual) 8 % (20-45) L Monocytes % (Manual) 5 % (1-10) Eosinophils % (Manual) 2 % (0-3) Basophils % (Manual) 1 % (0-2) Band Neutrophils 1 % (0-8) Platelet Estimate Adequate Platelet Morphology Normal Polychromasia 1+ Hypochromasia 2+ Anisocytosis 3+ Sodium Level 138 mEQ/L (135-145) Potassium Level 5.0 mEQ/L (3.4-4.9) H Chloride Level 106 mEQ/L (98-107) Carbon Dioxide Level 23 mEQ/L (20-30) Anion Gap 9 (5-15) Blood Urea Nitrogen 9 mg/dL (7-23) Creatinine 2.5 mg/dL (0.7-1.2) H Estimat Glomerular Filtration Rate 37.0 mL/min (>60) Glucose Level 142 mg/dL (74-106) H Uric Acid 4.1 mg/dL (3.0-7.5) Calcium Level 8.3 mg/dL (8.6-10.2) L Phosphorus Level 3.4 mg/dL (2.5-4.8) Magnesium Level 1.8 mg/dL (1.7-2.5) Total Bilirubin 0.4 mg/dL (0.0-1.2) Aspartate Amino Transf (AST/SGOT) 24 U/L (5-40) Alanine Aminotransferase (ALT/SGPT) 15 U/L (3-41) Alkaline Phosphatase 93 U/L (40-129) C-Reactive Protein, Quantitative 3.8 mg/dL (< 0.5) H Pro-B-Type Natriuretic Peptide 1526 pg/mL (0-125) H Total Protein 6.7 g/dL (6.6-8.7) Albumin 2.8 g/dL (3.5-5.2) L Globulin 3.9 g/dL Albumin/Globulin Ratio 0.7 (1.0-2.7) L Random Vancomycin Level 11.2 ug/mL Current Medications Medications (Trade) Dose Ordered Sig/Juliana Route PRN Reason Start Time Stop Time Status Last Admin Dose Admin Acetaminophen (Tylenol) 650 mg Q4H PRN ORAL Mild Pain/Temp > 100.5 12/25/16 10:30 01/24/17 10:29 12/29/16 08:14 Amoxicillin/ Clavulanate Potassium (Augmentin) 875 mg EVERY 12 HOURS ORAL 12/31/16 21:00 01/07/17 20:59 01/01/17 09:23 Docusate Sodium (Colace) 100 mg TWICE A DAY ORAL 12/30/16 09:00 01/29/17 08:59 12/30/16 08:19 Epoetin Alex (Procrit (for non ESRD use)) 10,000 units THU-THU-THU SUBQ 12/31/16 21:00 01/30/17 20:59 12/31/16 21:50 Famotidine (Pepcid I.v.) 20 mg QHS IVP 12/31/16 21:00 01/30/17 20:59 12/31/16 21:51 Fluoxetine HCl (PROzac) 20 mg DAILY ORAL 12/27/16 09:00 01/26/17 08:59 01/01/17 09:24 Folic Acid (Folate) 10 mg DAILY ORAL 12/26/16 09:00 01/25/17 08:59 01/01/17 09:24 Lactulose (Cephulac) 10 gm TID@0900,1500,2100 ORAL 12/30/16 09:00 01/29/17 08:59 01/01/17 14:18 Levetiracetam (Keppra) 750 mg Q12HR ORAL 12/30/16 21:00 01/29/17 20:59 01/01/17 09:23 Metoclopramide HCl 10 mg 10 mg Q6H PRN IVP Nausea & Vomiting 12/30/16 12:30 01/29/17 12:29 12/31/16 08:59 Ondansetron HCl (Zofran) 4 mg Q6H PRN IVP Nausea & Vomiting 12/23/16 19:45 01/22/17 19:44 01/01/17 15:52 Pantoprazole (Protonix) 40 mg EVERY 12 HOURS ORAL 12/23/16 21:00 01/22/17 20:59 01/01/17 09:23 Polyethylene Glycol (Miralax) 17 gm BEDTIME ORAL 12/30/16 21:00 01/29/17 20:59 12/31/16 21:49 Sodium Chloride (Sodium Chloride 1000ml bag) 1,000 ml @ 100 mls/hr Q10H IV 12/31/16 11:45 01/30/17 11:44 01/01/17 09:22 Thiamine HCl (Vitamin B1) 100 mg DAILY ORAL 12/24/16 14:30 01/23/17 14:29 01/01/17 09:24 Vitamin D (Vitamin D) 2,000 intlu DAILY ORAL 12/25/16 10:30 01/24/17 10:29 01/01/17 09:23 Imelda Chen M.D. Jan 01, 2017 17:56
[2017-01-01 20:00] VITALS: BP 110/69
--- NOTE | 2017-01-01 20:07 | General Progress Note ---
Assessment/Plan Problem List: (1) Altered mental status ICD Codes: R41.82 - Altered mental status, unspecified SNOMED: 739994450 Qualifiers: Qualified Codes: R41.82 - Altered mental status, unspecified (2) Pancreatitis ICD Codes: K85.90 - Acute pancreatitis without necrosis or infection, unspecified SNOMED: 94606252 Qualifiers: Qualified Codes: K85.90 - Acute pancreatitis without necrosis or infection, unspecified (3) Sepsis ICD Codes: A41.9 - Sepsis, unspecified organism SNOMED: 77933704 (4) Anemia ICD Codes: D64.9 - Anemia, unspecified SNOMED: 840503316 Status: progressing Assessment/Plan hyponatremia is improving ams improving azotemia i narrow down the abx dc planning Subjective ROS Limited/Unobtainable: Yes Constitutional: Reports: no symptoms Allergies: Coded Allergies: ACETAMINOPHEN (Verified Allergy, Unknown, 06/11/15) IBUPROFEN (Verified Allergy, Unknown, 06/11/15) Objective Last 24 Hour Vital Signs Date Time Temp Pulse Resp B/P Pulse Ox O2 Delivery O2 Flow Rate FiO2 01/01/17 16:17 97.6 95 21 110/74 99 Room Air 01/01/17 11:44 97.7 92 21 101/58 98 Room Air 01/01/17 08:04 97.1 114 21 104/56 97 Room Air 01/01/17 04:00 98.4 78 18 108/69 99 Room Air 01/01/17 00:00 99.1 97 18 109/63 100 Room Air Intake and Output 12/31/16 01/01/17 19:00 07:00 Intake Total 420 ml 1340 ml Output Total 1100 ml Balance 420 ml 240 ml Intake Oral 320 ml 240 ml IV Total 100 ml 1100 ml Output Urine Total 1100 ml # Voids 5 2 # Bowel Movements 1 Laboratory Tests 01/01/17 14:25: White Blood Count 21.0H, Red Blood Count 2.60L, Hemoglobin 7.1L, Hematocrit 24.1L, Mean Corpuscular Volume 93, Mean Corpuscular Hemoglobin 27.5, Mean Corpuscular Hemoglobin Concent 29.7L, Red Cell Distribution Width 21.8H, Platelet Count 401, Mean Platelet Volume 8.6, Neutrophils (%) (Auto) , Lymphocytes (%) (Auto) , Monocytes (%) (Auto) , Eosinophils (%) (Auto) , Basophils (%) (Auto) , Differential Total Cells Counted 100, Neutrophils % ( Manual) 83H, Lymphocytes % (Manual) 8L, Monocytes % (Manual) 5, Eosinophils % ( Manual) 2, Basophils % (Manual) 1, Band Neutrophils 1, Platelet Estimate Adequate, Platelet Morphology Normal, Polychromasia 1+, Hypochromasia 2+, Anisocytosis 3+, Sodium Level 138, Potassium Level 5.0H, Chloride Level 106, Carbon Dioxide Level 23, Anion Gap 9, Blood Urea Nitrogen 9, Creatinine 2.5H, Estimat Glomerular Filtration Rate 37.0, Glucose Level 142H, Uric Acid 4.1, Calcium Level 8.3L, Phosphorus Level 3.4, Magnesium Level 1.8, Total Bilirubin 0.4, Aspartate Amino Transf (AST/SGOT) 24, Alanine Aminotransferase (ALT/SGPT) 15, Alkaline Phosphatase 93, C-Reactive Protein, Quantitative 3.8H, Pro-B-Type Natriuretic Peptide 1526H, Total Protein 6.7, Albumin 2.8L, Globulin 3.9, Albumin/Globulin Ratio 0.7L, Random Vancomycin Level 11.2 Height (Feet): 5 Height (Inches): 10.00 Weight (Pounds): 160 EENT: PERRL/EOMI Respiratory/Chest: lungs clear Robbi Vega MD Jan 01, 2017 20:07
[2017-01-01] MEDS: Famotidine 20 MG/ 2ML VIAL IVP SCH (20:30)
[2017-01-01] MEDS: Doxycycline Hyclate 100 MG in D5W 110 ML IV SCH (20:31)
[2017-01-01] MEDS: Miralax 17gm pkt ORAL SCH (20:32)
--- NOTE | 2017-01-01 21:21 | General Progress Note ---
Assessment/Plan Assessment/Plan # Leukocytosis secondary to underlying inflammatory reaction versus infection # Pancreatitis ---> being followed by gi and id ---> continues to have n/v, continue zofran and pepsid as needed # Lactic acidosis with decreased blood pressure. # Anemia secondary to severe folic acid deficiency, currently less than 2, have ordered for oral folic acid getting 10 mg daily. # Anemia secondary to hemodilution. # Anemia of chronic disease. ---> hgb goal >7, monitor # Thrombocytopenia, likely secondary to hemodilution versus infection. # Hypokalemia, resolved. # Anemia secondary to B12 deficiency, has been given B12 injections. # History of seizures, on Dilantin. # History of alcohol intoxication leading to pancreatitis. # Altered mental status. He will be seen by Neurology again. Subjective Constitutional: Reports: no symptoms HEENT: Reports: no symptoms Cardiovascular: Reports: no symptoms Respiratory: Reports: no symptoms Gastrointestinal/Abdominal: Reports: no symptoms Genitourinary: Reports: no symptoms Neurologic/Psychiatric: Reports: no symptoms Endocrine: Reports: no symptoms Hematologic/Lymphatic: Reports: anemia Allergies: Coded Allergies: ACETAMINOPHEN (Verified Allergy, Unknown, 06/11/15) IBUPROFEN (Verified Allergy, Unknown, 06/11/15) Subjective no hematemesis, no hemoptysis, no new complaints Objective Last 24 Hour Vital Signs Date Time Temp Pulse Resp B/P Pulse Ox O2 Delivery O2 Flow Rate FiO2 01/01/17 20:00 99.3 107 20 110/69 99 Room Air 01/01/17 16:17 97.6 95 21 110/74 99 Room Air 01/01/17 11:44 97.7 92 21 101/58 98 Room Air 01/01/17 08:04 97.1 114 21 104/56 97 Room Air 01/01/17 04:00 98.4 78 18 108/69 99 Room Air 01/01/17 00:00 99.1 97 18 109/63 100 Room Air Intake and Output 12/31/16 01/01/17 19:00 07:00 Intake Total 420 ml 1340 ml Output Total 1100 ml Balance 420 ml 240 ml Intake Oral 320 ml 240 ml IV Total 100 ml 1100 ml Output Urine Total 1100 ml # Voids 5 2 # Bowel Movements 1 Laboratory Tests 01/01/17 14:25: White Blood Count 21.0H, Red Blood Count 2.60L, Hemoglobin 7.1L, Hematocrit 24.1L, Mean Corpuscular Volume 93, Mean Corpuscular Hemoglobin 27.5, Mean Corpuscular Hemoglobin Concent 29.7L, Red Cell Distribution Width 21.8H, Platelet Count 401, Mean Platelet Volume 8.6, Neutrophils (%) (Auto) , Lymphocytes (%) (Auto) , Monocytes (%) (Auto) , Eosinophils (%) (Auto) , Basophils (%) (Auto) , Differential Total Cells Counted 100, Neutrophils % ( Manual) 83H, Lymphocytes % (Manual) 8L, Monocytes % (Manual) 5, Eosinophils % ( Manual) 2, Basophils % (Manual) 1, Band Neutrophils 1, Platelet Estimate Adequate, Platelet Morphology Normal, Polychromasia 1+, Hypochromasia 2+, Anisocytosis 3+, Sodium Level 138, Potassium Level 5.0H, Chloride Level 106, Carbon Dioxide Level 23, Anion Gap 9, Blood Urea Nitrogen 9, Creatinine 2.5H, Estimat Glomerular Filtration Rate 37.0, Glucose Level 142H, Uric Acid 4.1, Calcium Level 8.3L, Phosphorus Level 3.4, Magnesium Level 1.8, Total Bilirubin 0.4, Aspartate Amino Transf (AST/SGOT) 24, Alanine Aminotransferase (ALT/SGPT) 15, Alkaline Phosphatase 93, C-Reactive Protein, Quantitative 3.8H, Pro-B-Type Natriuretic Peptide 1526H, Total Protein 6.7, Albumin 2.8L, Globulin 3.9, Albumin/Globulin Ratio 0.7L, Random Vancomycin Level 11.2 Height (Feet): 5 Height (Inches): 10.00 Weight (Pounds): 160 General Appearance: no apparent distress EENT: normal ENT inspection Neck: normal alignment Cardiovascular: normal rate Respiratory/Chest: lungs clear Abdomen: non tender Edema: no edema noted Pedal (L), no edema noted Pedal (R) Neurologic: oriented x 3 Skin: warm/dry Kapil Haney Jan 01, 2017 21:21
[2017-01-01] MEDS: Cefepime HCl 1 GM in D5W 55 ML IVPB SCH (22:01)
--- NOTE | 2017-01-01 23:53 | General Progress Note ---
Assessment/Plan Status: doing well, stable, progressing Assessment/Plan Substance abuse cont current meds Subjective Constitutional: Reports: malaise, weakness Allergies: Coded Allergies: ACETAMINOPHEN (Verified Allergy, Unknown, 06/11/15) IBUPROFEN (Verified Allergy, Unknown, 06/11/15) Subjective patient was alert and oriented times self and place. Mood was neutral. Affect was constricted. Congruent with mood. Thought process, tangential. Thought content, no suicidal or homicidal ideation. Cognition is impaired. He was eating during the eval. Objective Last 24 Hour Vital Signs Date Time Temp Pulse Resp B/P Pulse Ox O2 Delivery O2 Flow Rate FiO2 01/01/17 20:00 99.3 107 20 110/69 99 Room Air 01/01/17 16:17 97.6 95 21 110/74 99 Room Air 01/01/17 11:44 97.7 92 21 101/58 98 Room Air 01/01/17 08:04 97.1 114 21 104/56 97 Room Air 01/01/17 04:00 98.4 78 18 108/69 99 Room Air 01/01/17 00:00 99.1 97 18 109/63 100 Room Air Intake and Output 12/31/16 01/01/17 19:00 07:00 Intake Total 420 ml 1340 ml Output Total 1100 ml Balance 420 ml 240 ml Intake Oral 320 ml 240 ml IV Total 100 ml 1100 ml Output Urine Total 1100 ml # Voids 5 2 # Bowel Movements 1 Laboratory Tests 01/01/17 14:25: White Blood Count 21.0H, Red Blood Count 2.60L, Hemoglobin 7.1L, Hematocrit 24.1L, Mean Corpuscular Volume 93, Mean Corpuscular Hemoglobin 27.5, Mean Corpuscular Hemoglobin Concent 29.7L, Red Cell Distribution Width 21.8H, Platelet Count 401, Mean Platelet Volume 8.6, Neutrophils (%) (Auto) , Lymphocytes (%) (Auto) , Monocytes (%) (Auto) , Eosinophils (%) (Auto) , Basophils (%) (Auto) , Differential Total Cells Counted 100, Neutrophils % ( Manual) 83H, Lymphocytes % (Manual) 8L, Monocytes % (Manual) 5, Eosinophils % ( Manual) 2, Basophils % (Manual) 1, Band Neutrophils 1, Platelet Estimate Adequate, Platelet Morphology Normal, Polychromasia 1+, Hypochromasia 2+, Anisocytosis 3+, Sodium Level 138, Potassium Level 5.0H, Chloride Level 106, Carbon Dioxide Level 23, Anion Gap 9, Blood Urea Nitrogen 9, Creatinine 2.5H, Estimat Glomerular Filtration Rate 37.0, Glucose Level 142H, Uric Acid 4.1, Calcium Level 8.3L, Phosphorus Level 3.4, Magnesium Level 1.8, Total Bilirubin 0.4, Aspartate Amino Transf (AST/SGOT) 24, Alanine Aminotransferase (ALT/SGPT) 15, Alkaline Phosphatase 93, C-Reactive Protein, Quantitative 3.8H, Pro-B-Type Natriuretic Peptide 1526H, Total Protein 6.7, Albumin 2.8L, Globulin 3.9, Albumin/Globulin Ratio 0.7L, Random Vancomycin Level 11.2 Height (Feet): 5 Height (Inches): 10.00 Weight (Pounds): 160 General Appearance: no apparent distress, alert, thin Neurologic: alert, oriented x 3, responsive, depressed affect Mary Beth Ramos M.D. Jan 01, 2017 23:53
[2017-01-02] VITALS: BP 127/84
[2017-01-02 04:00] VITALS: BP 109/62
[2017-01-02 06:35] LABS: CALCIUM 8.4 mg/dL (8.6-10.2); CREATININE 2.6 mg/dL (0.7-1.2); GLOMERULAR FILTRATION RATE 35.3 mL/min (>60); POTASSIUM 5.4 mEQ/L (3.4-4.9)
[2017-01-02 06:37] LABS: MEAN CORPUSCULAR HEMOGLOBIN 28.4 PG (27.0-31.0); MEAN CORPUSCULAR HGB CONC 30.7 G/DL (32.0-36.0); MEAN CORPUSCULAR VOLUME 93 FL (80-99); MEAN PLATELET VOLUME 8.4 FL (6.5-10.1); PLATELET COUNT 478 K/UL (150-450); RED BLOOD COUNT 2.71 M/UL (4.70-6.10); RED CELL DISTRIBUTION WIDTH 20.7 % (11.6-14.8)
[2017-01-02 06:45] LABS: WHITE BLOOD COUNT 24.9 K/UL (4.8-10.8)
[2017-01-02 08:12] LABS: ANISOCYTOSIS 2+; BAND NEUTROPHILS % (MANUAL) 0 % (0-8); BASOPHILS % (MANUAL) 0 % (0-2); EOSINOPHILS % (MANUAL) 1 % (0-3); HYPOCHROMASIA 2+; LYMPHOCYTES % (MANUAL) 9 % (20-45); NEUTROPHILS % (MANUAL) 81 % (45-75); PLATELET ESTIMATE ADEQUATE; PLATELET MORPHOLOGY NORMAL; TARGET CELLS 1+; TOTAL CELLS COUNTED 100
[2017-01-02 08:15] VITALS: BP 102/61
--- NOTE | 2017-01-02 08:37 | General Progress Note ---
Assessment/Plan Status: unchanged Status Narrative Cr up 2.6 WBCs up Assessment/Plan status: Today : Cr 2.3 Acute renal failure due to Vanco??? On Admission: Renal failure , Acute vs Chronic improving h/o Sz Acute Encephalopathy Low K Low Na Low B12 and folate Elevated Lipase , acute pancreatitis Plan; monitor renal parameters Hydrate- Cefepime doxy and po Vanco down on folate dose ST PT OT eval Monitor lytes- monitor renal parameters Neuro eval psych fu Subjective ROS Limited/Unobtainable: No Constitutional: Reports: malaise Allergies: Coded Allergies: ACETAMINOPHEN (Verified Allergy, Unknown, 06/11/15) IBUPROFEN (Verified Allergy, Unknown, 06/11/15) Objective Last 24 Hour Vital Signs Date Time Temp Pulse Resp B/P Pulse Ox O2 Delivery O2 Flow Rate FiO2 01/02/17 04:00 99.5 103 21 109/62 99 Room Air 01/02/17 00:00 99.9 104 25 127/84 99 Room Air 01/01/17 20:00 99.3 107 20 110/69 99 Room Air 01/01/17 16:17 97.6 95 21 110/74 99 Room Air 01/01/17 11:44 97.7 92 21 101/58 98 Room Air Intake and Output 01/01/17 01/02/17 19:00 07:00 Intake Total 2000 ml 1920 ml Output Total 600 ml Balance 2000 ml 1320 ml Intake Oral 1200 ml 900 ml IV Total 800 ml 1020 ml Output Urine Total 600 ml # Voids 1 2 Laboratory Tests 01/01/17 14:25: White Blood Count 21.0H, Red Blood Count 2.60L, Hemoglobin 7.1L, Hematocrit 24.1L, Mean Corpuscular Volume 93, Mean Corpuscular Hemoglobin 27.5, Mean Corpuscular Hemoglobin Concent 29.7L, Red Cell Distribution Width 21.8H, Platelet Count 401, Mean Platelet Volume 8.6, Neutrophils (%) (Auto) , Lymphocytes (%) (Auto) , Monocytes (%) (Auto) , Eosinophils (%) (Auto) , Basophils (%) (Auto) , Differential Total Cells Counted 100, Neutrophils % ( Manual) 83H, Lymphocytes % (Manual) 8L, Monocytes % (Manual) 5, Eosinophils % ( Manual) 2, Basophils % (Manual) 1, Band Neutrophils 1, Platelet Estimate Adequate, Platelet Morphology Normal, Polychromasia 1+, Hypochromasia 2+, Anisocytosis 3+, Sodium Level 138, Potassium Level 5.0H, Chloride Level 106, Carbon Dioxide Level 23, Anion Gap 9, Blood Urea Nitrogen 9, Creatinine 2.5H, Estimat Glomerular Filtration Rate 37.0, Glucose Level 142H, Uric Acid 4.1, Calcium Level 8.3L, Phosphorus Level 3.4, Magnesium Level 1.8, Total Bilirubin 0.4, Aspartate Amino Transf (AST/SGOT) 24, Alanine Aminotransferase (ALT/SGPT) 15, Alkaline Phosphatase 93, C-Reactive Protein, Quantitative 3.8H, Pro-B-Type Natriuretic Peptide 1526H, Total Protein 6.7, Albumin 2.8L, Globulin 3.9, Albumin/Globulin Ratio 0.7L, Random Vancomycin Level 11.2 01/02/17 05:50: White Blood Count 24.9*H, Red Blood Count 2.71L, Hemoglobin 7.7L, Hematocrit 25.0L, Mean Corpuscular Volume 93, Mean Corpuscular Hemoglobin 28.4, Mean Corpuscular Hemoglobin Concent 30.7L, Red Cell Distribution Width 20.7H, Platelet Count 478H, Mean Platelet Volume 8.4, Neutrophils (%) (Auto) , Lymphocytes (%) (Auto) , Monocytes (%) (Auto) , Eosinophils (%) (Auto) , Basophils (%) (Auto) , Differential Total Cells Counted 100, Neutrophils % ( Manual) 81H, Lymphocytes % (Manual) 9L, Monocytes % (Manual) 9, Eosinophils % ( Manual) 1, Basophils % (Manual) 0, Band Neutrophils 0, Platelet Estimate Adequate, Platelet Morphology Normal, Hypochromasia 2+, Anisocytosis 2+, Sodium Level 137, Potassium Level 5.4H, Chloride Level 106, Carbon Dioxide Level 21, Anion Gap 10, Blood Urea Nitrogen 10, Creatinine 2.6H, Estimat Glomerular Filtration Rate 35.3, Glucose Level 89, Calcium Level 8.4L, Target Cells 1+, Lipase 62H Height (Feet): 5 Height (Inches): 10.00 Weight (Pounds): 160 General Appearance: no apparent distress Respiratory/Chest: decreased breath sounds Objective other PE not changed VELASQUEZ DASILVA Jan 02, 2017 08:37
--- NOTE | 2017-01-02 08:56 | General Progress Note ---
Assessment/Plan Assessment/Plan (1) Alerted mental status (2) Alcohol abuse (3) Intractable abdominal pain (4) Pancreatitis Pt will be started on tramadol 50mg PO 1 tab Q4H PRN severe pain and Robaxin 500mg PO 1 tab Q8H PRN muscle spasm D/w Dr. waters and he concurred. Subjective Date patient seen: Jan 02, 2017 Time patient seen: 07:15 - am Allergies: Coded Allergies: ACETAMINOPHEN (Verified Allergy, Unknown, 06/11/15) IBUPROFEN (Verified Allergy, Unknown, 06/11/15) Subjective Constitutional: Reports: weakness Eye: Reports: no symptoms ENT: Reports: no symptoms Respiratory: Reports: no symptoms Cardiovascular: Reports: no symptoms Gastrointestinal: Reports: abdominal pain, nausea Genitourinary: Reports: no symptoms Musculoskeletal: Reports: no symptoms Skin: Reports: no symptoms Psychiatric: Reports: anxiety, depressed feelings Neurological: Reports: numbness Endocrine: Reports: no symptoms Hematologic/Lymphatic: Reports: anemia SUBJECTIVE: Patient continues to have c/o abdominal pain which is ranging from 6/10 ---> 4/ 10. Objective Last 24 Hour Vital Signs Date Time Temp Pulse Resp B/P Pulse Ox O2 Delivery O2 Flow Rate FiO2 01/02/17 08:15 98.6 122 22 102/61 97 Room Air 01/02/17 04:00 99.5 103 21 109/62 99 Room Air 01/02/17 00:00 99.9 104 25 127/84 99 Room Air 01/01/17 20:00 99.3 107 20 110/69 99 Room Air 01/01/17 16:17 97.6 95 21 110/74 99 Room Air 01/01/17 11:44 97.7 92 21 101/58 98 Room Air Intake and Output 01/01/17 01/02/17 19:00 07:00 Intake Total 2000 ml 1920 ml Output Total 600 ml Balance 2000 ml 1320 ml Intake Oral 1200 ml 900 ml IV Total 800 ml 1020 ml Output Urine Total 600 ml # Voids 1 2 Laboratory Tests 01/01/17 14:25: White Blood Count 21.0H, Red Blood Count 2.60L, Hemoglobin 7.1L, Hematocrit 24.1L, Mean Corpuscular Volume 93, Mean Corpuscular Hemoglobin 27.5, Mean Corpuscular Hemoglobin Concent 29.7L, Red Cell Distribution Width 21.8H, Platelet Count 401, Mean Platelet Volume 8.6, Neutrophils (%) (Auto) , Lymphocytes (%) (Auto) , Monocytes (%) (Auto) , Eosinophils (%) (Auto) , Basophils (%) (Auto) , Differential Total Cells Counted 100, Neutrophils % ( Manual) 83H, Lymphocytes % (Manual) 8L, Monocytes % (Manual) 5, Eosinophils % ( Manual) 2, Basophils % (Manual) 1, Band Neutrophils 1, Platelet Estimate Adequate, Platelet Morphology Normal, Polychromasia 1+, Hypochromasia 2+, Anisocytosis 3+, Sodium Level 138, Potassium Level 5.0H, Chloride Level 106, Carbon Dioxide Level 23, Anion Gap 9, Blood Urea Nitrogen 9, Creatinine 2.5H, Estimat Glomerular Filtration Rate 37.0, Glucose Level 142H, Uric Acid 4.1, Calcium Level 8.3L, Phosphorus Level 3.4, Magnesium Level 1.8, Total Bilirubin 0.4, Aspartate Amino Transf (AST/SGOT) 24, Alanine Aminotransferase (ALT/SGPT) 15, Alkaline Phosphatase 93, C-Reactive Protein, Quantitative 3.8H, Pro-B-Type Natriuretic Peptide 1526H, Total Protein 6.7, Albumin 2.8L, Globulin 3.9, Albumin/Globulin Ratio 0.7L, Random Vancomycin Level 11.2 01/02/17 05:50: White Blood Count 24.9*H, Red Blood Count 2.71L, Hemoglobin 7.7L, Hematocrit 25.0L, Mean Corpuscular Volume 93, Mean Corpuscular Hemoglobin 28.4, Mean Corpuscular Hemoglobin Concent 30.7L, Red Cell Distribution Width 20.7H, Platelet Count 478H, Mean Platelet Volume 8.4, Neutrophils (%) (Auto) , Lymphocytes (%) (Auto) , Monocytes (%) (Auto) , Eosinophils (%) (Auto) , Basophils (%) (Auto) , Differential Total Cells Counted 100, Neutrophils % ( Manual) 81H, Lymphocytes % (Manual) 9L, Monocytes % (Manual) 9, Eosinophils % ( Manual) 1, Basophils % (Manual) 0, Band Neutrophils 0, Platelet Estimate Adequate, Platelet Morphology Normal, Hypochromasia 2+, Anisocytosis 2+, Sodium Level 137, Potassium Level 5.4H, Chloride Level 106, Carbon Dioxide Level 21, Anion Gap 10, Blood Urea Nitrogen 10, Creatinine 2.6H, Estimat Glomerular Filtration Rate 35.3, Glucose Level 89, Calcium Level 8.4L, Target Cells 1+, Lipase 62H Height (Feet): 5 Height (Inches): 10.00 Weight (Pounds): 160 Objective General Appearance: no apparent distress, alert HEENT: PERRL Neck: non-tender, supple Respiratory/Chest: lungs clear, normal breath sounds Cardiovascular/Chest: normal rate, regular rhythm Abdomen: tender Extremities: non-tender Skin Exam: warm/dry Neurologic: alert, oriented x 3 SADIQ HERNANDEZ Jan 02, 2017 08:56
[2017-01-02] MEDS: Docusate 100mg cap ORAL SCH ×2 (09:00→18:00)
[2017-01-02] MEDS: Lactulose 10gm/15ml UDC ORAL SCH ×3 (09:00→22:59)
[2017-01-02] MEDS ORDERED: Methocarbamol 500mg tab ORAL PRN (09:00)
[2017-01-02] MEDS: Vitamin D 1000 IU Tab ORAL SCH (09:31)
[2017-01-02] MEDS: Doxycycline Hyclate 100 MG in D5W 110 ML IV SCH ×2 (09:31→22:59)
[2017-01-02] MEDS: Thiamine 100mg tab ORAL SCH (09:31)
[2017-01-02] MEDS: Vancomycin oral 125mg/2.5ml ORAL SCH ×4 (09:36→20:48)
[2017-01-02] MEDS ORDERED: Iron Sucrose 200 MG in NS 110 ML IVPB ONE (10:00)
[2017-01-02] MEDS: traMADol 50mg tab ORAL PRN ×2 (11:03→20:45)
--- NOTE | 2017-01-02 11:28 | GI Progress Note ---
Assessment/Plan Problems: (1) Pancreatitis ICD Codes: K85.90 - Acute pancreatitis without necrosis or infection, unspecified SNOMED: 02902284 Qualifiers: Qualified Codes: K85.90 - Acute pancreatitis without necrosis or infection, unspecified (2) Altered mental status ICD Codes: R41.82 - Altered mental status, unspecified SNOMED: 441729558 Qualifiers: Qualified Codes: R41.82 - Altered mental status, unspecified (3) Acute alcoholic intoxication ICD Codes: F10.929 - Alcohol use, unspecified with intoxication, unspecified SNOMED: 55454625 (4) Anemia ICD Codes: D64.9 - Anemia, unspecified SNOMED: 083076720 Status: unchanged Status Narrative Discussed with Dr. Friend. Assessment/Plan APCT reviewed >> Acute pancreatitis. Right/transverse colonic ileus. Hepatic steatosis. Cholelithiasis. ammonia WNL OB stool r/o GI bleed >> negative low fat diet pain mgmt zofran prn H2B abx monitor lipase encourage ambulation fu labs Subjective Subjective emesis Objective Last 24 Hour Vital Signs Date Time Temp Pulse Resp B/P Pulse Ox O2 Delivery O2 Flow Rate FiO2 01/02/17 08:15 98.6 122 22 102/61 97 Room Air 01/02/17 04:00 99.5 103 21 109/62 99 Room Air 01/02/17 00:00 99.9 104 25 127/84 99 Room Air 01/01/17 20:00 99.3 107 20 110/69 99 Room Air 01/01/17 16:17 97.6 95 21 110/74 99 Room Air 01/01/17 11:44 97.7 92 21 101/58 98 Room Air Intake and Output 01/01/17 01/02/17 19:00 07:00 Intake Total 2000 ml 1920 ml Output Total 600 ml Balance 2000 ml 1320 ml Intake Oral 1200 ml 900 ml IV Total 800 ml 1020 ml Output Urine Total 600 ml # Voids 1 2 Laboratory Tests Test 01/01/17 14:25 01/02/17 05:50 White Blood Count 21.0 K/UL (4.8-10.8) H 24.9 K/UL (4.8-10.8) *H Red Blood Count 2.60 M/UL (4.70-6.10) L 2.71 M/UL (4.70-6.10) L Hemoglobin 7.1 G/DL (14.2-18.0) L 7.7 G/DL (14.2-18.0) L Hematocrit 24.1 % (42.0-52.0) L 25.0 % (42.0-52.0) L Mean Corpuscular Volume 93 FL (80-99) 93 FL (80-99) Mean Corpuscular Hemoglobin 27.5 PG (27.0-31.0) 28.4 PG (27.0-31.0) Mean Corpuscular Hemoglobin Concent 29.7 G/DL (32.0-36.0) L 30.7 G/DL (32.0-36.0) L Red Cell Distribution Width 21.8 % (11.6-14.8) H 20.7 % (11.6-14.8) H Platelet Count 401 K/UL (150-450) 478 K/UL (150-450) H Mean Platelet Volume 8.6 FL (6.5-10.1) 8.4 FL (6.5-10.1) Neutrophils (%) (Auto) % (45.0-75.0) % (45.0-75.0) Lymphocytes (%) (Auto) % (20.0-45.0) % (20.0-45.0) Monocytes (%) (Auto) % (1.0-10.0) % (1.0-10.0) Eosinophils (%) (Auto) % (0.0-3.0) % (0.0-3.0) Basophils (%) (Auto) % (0.0-2.0) % (0.0-2.0) Differential Total Cells Counted 100 100 Neutrophils % (Manual) 83 % (45-75) H 81 % (45-75) H Lymphocytes % (Manual) 8 % (20-45) L 9 % (20-45) L Monocytes % (Manual) 5 % (1-10) 9 % (1-10) Eosinophils % (Manual) 2 % (0-3) 1 % (0-3) Basophils % (Manual) 1 % (0-2) 0 % (0-2) Band Neutrophils 1 % (0-8) 0 % (0-8) Platelet Estimate Adequate Adequate Platelet Morphology Normal Normal Polychromasia 1+ Hypochromasia 2+ 2+ Anisocytosis 3+ 2+ Sodium Level 138 mEQ/L (135-145) 137 mEQ/L (135-145) Potassium Level 5.0 mEQ/L (3.4-4.9) H 5.4 mEQ/L (3.4-4.9) H Chloride Level 106 mEQ/L (98-107) 106 mEQ/L (98-107) Carbon Dioxide Level 23 mEQ/L (20-30) 21 mEQ/L (20-30) Anion Gap 9 (5-15) 10 (5-15) Blood Urea Nitrogen 9 mg/dL (7-23) 10 mg/dL (7-23) Creatinine 2.5 mg/dL (0.7-1.2) H 2.6 mg/dL (0.7-1.2) H Estimat Glomerular Filtration Rate 37.0 mL/min (>60) 35.3 mL/min (>60) Glucose Level 142 mg/dL (74-106) H 89 mg/dL (74-106) Uric Acid 4.1 mg/dL (3.0-7.5) Calcium Level 8.3 mg/dL (8.6-10.2) L 8.4 mg/dL (8.6-10.2) L Phosphorus Level 3.4 mg/dL (2.5-4.8) Magnesium Level 1.8 mg/dL (1.7-2.5) Total Bilirubin 0.4 mg/dL (0.0-1.2) Aspartate Amino Transf (AST/SGOT) 24 U/L (5-40) Alanine Aminotransferase (ALT/SGPT) 15 U/L (3-41) Alkaline Phosphatase 93 U/L (40-129) C-Reactive Protein, Quantitative 3.8 mg/dL (< 0.5) H Pro-B-Type Natriuretic Peptide 1526 pg/mL (0-125) H Total Protein 6.7 g/dL (6.6-8.7) Albumin 2.8 g/dL (3.5-5.2) L Globulin 3.9 g/dL Albumin/Globulin Ratio 0.7 (1.0-2.7) L Random Vancomycin Level 11.2 ug/mL Target Cells 1+ Lipase 62 U/L (< 60) H Height (Feet): 5 Height (Inches): 10.00 Weight (Pounds): 160 General Appearance: no apparent distress, alert Cardiovascular: normal rate Respiratory/Chest: lungs clear, normal breath sounds, no respiratory distress Abdominal Exam: normal bowel sounds, non tender, soft Extremities: normal range of motion Rosa Mancia N.P. Jan 02, 2017 11:28
[2017-01-02] MEDS ORDERED: PPD Tuberculin Skin Test 5TU IDERMAL ONE (12:00)
[2017-01-02 13:33] VITALS: BP 108/69
--- NOTE | 2017-01-02 14:38 | General Progress Note ---
Assessment/Plan Status: doing well, stable, progressing Assessment/Plan Substance abuse, mdd anxiety cont current meds Subjective Constitutional: Reports: malaise, weakness Neurologic/Psychiatric: Reports: anxiety, depressed, emotional problems Allergies: Coded Allergies: ACETAMINOPHEN (Verified Allergy, Unknown, 06/11/15) IBUPROFEN (Verified Allergy, Unknown, 06/11/15) Subjective patient was alert and oriented times self and place. Mood was neutral. Affect was constricted. Congruent with mood. Thought process, tangential. Thought content, no suicidal or homicidal ideation. Cognition is impaired. He was eating during the eval. Objective Last 24 Hour Vital Signs Date Time Temp Pulse Resp B/P Pulse Ox O2 Delivery O2 Flow Rate FiO2 01/02/17 13:33 100.0 114 20 108/69 97 Room Air 01/02/17 08:15 98.6 122 22 102/61 97 Room Air 01/02/17 04:00 99.5 103 21 109/62 99 Room Air 01/02/17 00:00 99.9 104 25 127/84 99 Room Air 01/01/17 20:00 99.3 107 20 110/69 99 Room Air 01/01/17 16:17 97.6 95 21 110/74 99 Room Air Intake and Output 01/01/17 01/02/17 19:00 07:00 Intake Total 2000 ml 1920 ml Output Total 600 ml Balance 2000 ml 1320 ml Intake Oral 1200 ml 900 ml IV Total 800 ml 1020 ml Output Urine Total 600 ml # Voids 1 2 Laboratory Tests 01/02/17 05:50: White Blood Count 24.9*H, Red Blood Count 2.71L, Hemoglobin 7.7L, Hematocrit 25.0L, Mean Corpuscular Volume 93, Mean Corpuscular Hemoglobin 28.4, Mean Corpuscular Hemoglobin Concent 30.7L, Red Cell Distribution Width 20.7H, Platelet Count 478H, Mean Platelet Volume 8.4, Neutrophils (%) (Auto) , Lymphocytes (%) (Auto) , Monocytes (%) (Auto) , Eosinophils (%) (Auto) , Basophils (%) (Auto) , Differential Total Cells Counted 100, Neutrophils % ( Manual) 81H, Lymphocytes % (Manual) 9L, Monocytes % (Manual) 9, Eosinophils % ( Manual) 1, Basophils % (Manual) 0, Band Neutrophils 0, Platelet Estimate Adequate, Platelet Morphology Normal, Hypochromasia 2+, Anisocytosis 2+, Target Cells 1+, Sodium Level 137, Potassium Level 5.4H, Chloride Level 106, Carbon Dioxide Level 21, Anion Gap 10, Blood Urea Nitrogen 10, Creatinine 2.6H, Estimat Glomerular Filtration Rate 35.3, Glucose Level 89, Calcium Level 8.4L, Lipase 62H, HIV (1&2) Antibody Rapid Negative Height (Feet): 5 Height (Inches): 10.00 Weight (Pounds): 160 General Appearance: no apparent distress, alert, thin Neurologic: alert, oriented x 3, responsive, depressed affect Mary Beth Ramos M.D. Jan 02, 2017 14:38
--- NOTE | 2017-01-02 16:56 | General Progress Note ---
Assessment/Plan Assessment/Plan # Leukocytosis secondary to underlying inflammatory reaction versus infection # Pancreatitis ---> being followed by gi and id ---> continues to have n/v, continue zofran and pepsid as needed # Lactic acidosis with decreased blood pressure. # Anemia secondary to severe folic acid deficiency, currently less than 2, have ordered for oral folic acid getting 10 mg daily. # Anemia secondary to hemodilution. # Anemia of chronic disease. ---> hgb goal >7, monitor ---> pt refused blood transfusion today # Thrombocytopenia, likely secondary to hemodilution versus infection. # Hypokalemia, resolved. # Anemia secondary to B12 deficiency, has been given B12 injections. # History of seizures, on Dilantin. # History of alcohol intoxication leading to pancreatitis. # Altered mental status. He will be seen by Neurology again. Subjective Constitutional: Reports: no symptoms HEENT: Reports: no symptoms Cardiovascular: Reports: no symptoms Respiratory: Reports: no symptoms Gastrointestinal/Abdominal: Reports: no symptoms Genitourinary: Reports: no symptoms Neurologic/Psychiatric: Reports: no symptoms Endocrine: Reports: no symptoms Hematologic/Lymphatic: Reports: anemia Allergies: Coded Allergies: ACETAMINOPHEN (Verified Allergy, Unknown, 06/11/15) IBUPROFEN (Verified Allergy, Unknown, 06/11/15) Subjective pt refused blood transfusion Objective Last 24 Hour Vital Signs Date Time Temp Pulse Resp B/P Pulse Ox O2 Delivery O2 Flow Rate FiO2 01/02/17 13:33 100.0 114 20 108/69 97 Room Air 01/02/17 08:15 98.6 122 22 102/61 97 Room Air 01/02/17 04:00 99.5 103 21 109/62 99 Room Air 01/02/17 00:00 99.9 104 25 127/84 99 Room Air 01/01/17 20:00 99.3 107 20 110/69 99 Room Air Intake and Output 01/01/17 01/02/17 19:00 07:00 Intake Total 2000 ml 1920 ml Output Total 600 ml Balance 2000 ml 1320 ml Intake Oral 1200 ml 900 ml IV Total 800 ml 1020 ml Output Urine Total 600 ml # Voids 1 2 Laboratory Tests 01/02/17 05:50: White Blood Count 24.9*H, Red Blood Count 2.71L, Hemoglobin 7.7L, Hematocrit 25.0L, Mean Corpuscular Volume 93, Mean Corpuscular Hemoglobin 28.4, Mean Corpuscular Hemoglobin Concent 30.7L, Red Cell Distribution Width 20.7H, Platelet Count 478H, Mean Platelet Volume 8.4, Neutrophils (%) (Auto) , Lymphocytes (%) (Auto) , Monocytes (%) (Auto) , Eosinophils (%) (Auto) , Basophils (%) (Auto) , Differential Total Cells Counted 100, Neutrophils % ( Manual) 81H, Lymphocytes % (Manual) 9L, Monocytes % (Manual) 9, Eosinophils % ( Manual) 1, Basophils % (Manual) 0, Band Neutrophils 0, Platelet Estimate Adequate, Platelet Morphology Normal, Hypochromasia 2+, Anisocytosis 2+, Target Cells 1+, Sodium Level 137, Potassium Level 5.4H, Chloride Level 106, Carbon Dioxide Level 21, Anion Gap 10, Blood Urea Nitrogen 10, Creatinine 2.6H, Estimat Glomerular Filtration Rate 35.3, Glucose Level 89, Calcium Level 8.4L, Lipase 62H, HIV (1&2) Antibody Rapid Negative Height (Feet): 5 Height (Inches): 10.00 Weight (Pounds): 160 General Appearance: no apparent distress EENT: normal ENT inspection Neck: normal alignment Cardiovascular: normal peripheral pulses Respiratory/Chest: chest wall non-tender Extremities: non-tender Edema: no edema noted Pedal (L), no edema noted Pedal (R) 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
--- NOTE | 2017-01-02 17:08 | Infectious Diseases Prog Note ---
Assessment/Plan Problems: (1) Hemoptysis Assessment & Plan: rule out TB, in high risk patient, will send sputum for AFB X3 , and get PPD test, place in airborn isolation (2) Aspiration pneumonia Assessment & Plan: on cefepime and doxycycline for now , repeat CXR (3) Sepsis Assessment & Plan: due to the above with leukocytosis, blood culture is negative , will send stool for C diff , and start oral vancomycin empirically , repeat blood culture ,monitor CBC (4) Pancreatitis Assessment & Plan: due to tawanda drink of alcohol , continue hydration with supportive care, monitor lipase level , GI is following (5) Altered mental status Assessment & Plan: multifactorial, with folate deficiency , improving, started on folate replacement , neurology is following (6) Nausea & vomiting Assessment & Plan: recurrent , etiology , achalasia ? may need EGD , continue supportive care , GI id following (7) DWAYNE (acute kidney injury) Assessment & Plan: multifactorials, dehydration due to recurrent vomiting, VS meds side effects, will D/C vancomycin and zosyn, and continue IVF for hydration , monitor renal function test (8) Diarrhea Assessment & Plan: rule out C diff , will send stool for C diff toxine and start oral vancomycin Subjective Constitutional: Reports: fatigue HEENT: Reports: no symptoms Respiratory: Reports: other - hemoptysis , productive cough Cardiovascular: Reports: no symptoms Gastrointestinal/Abdominal: Reports: diarrhea, nausea Genitourinary: Reports: no symptoms Neurologic: Reports: no symptoms Psychiatric: Reports: no symptoms Skin: Reports: no symptoms Endocrine: Reports: no symptoms Hematologic: Reports: no symptoms Allergies: Coded Allergies: ACETAMINOPHEN (Verified Allergy, Unknown, 06/11/15) IBUPROFEN (Verified Allergy, Unknown, 06/11/15) Objective Vital Signs Last 24 Hour Vital Signs Date Time Temp Pulse Resp B/P Pulse Ox O2 Delivery O2 Flow Rate FiO2 01/02/17 13:33 100.0 114 20 108/69 97 Room Air 01/02/17 08:15 98.6 122 22 102/61 97 Room Air 01/02/17 04:00 99.5 103 21 109/62 99 Room Air 01/02/17 00:00 99.9 104 25 127/84 99 Room Air 01/01/17 20:00 99.3 107 20 110/69 99 Room Air Height (Feet): 5 Height (Inches): 10.00 Weight (Pounds): 160 General Appearance: WD/WN, no acute distress HEENT: normocephalic, atraumatic, anicteric, mucous membranes moist Respiratory/Chest: chest wall non-tender, lungs clear, normal breath sounds, no respiratory distress, no accessory muscle use Cardiovascular: normal peripheral pulses, normal rate, regular rhythm, no gallop/murmur, no JVD Abdomen: normal bowel sounds, soft, non tender, no organomegaly, non distended , no mass Extremities: no cyanosis, no clubbing Skin: no rash, no lesions Neurologic/Psychiatric: alert Lymphatic: no neck adenopathy, no groin adenopathy Musculoskeletal: normal muscle bulk, no effusion Laboratory Tests Test 01/02/17 05:50 White Blood Count 24.9 K/UL (4.8-10.8) *H Red Blood Count 2.71 M/UL (4.70-6.10) L Hemoglobin 7.7 G/DL (14.2-18.0) L Hematocrit 25.0 % (42.0-52.0) L Mean Corpuscular Volume 93 FL (80-99) Mean Corpuscular Hemoglobin 28.4 PG (27.0-31.0) Mean Corpuscular Hemoglobin Concent 30.7 G/DL (32.0-36.0) L Red Cell Distribution Width 20.7 % (11.6-14.8) H Platelet Count 478 K/UL (150-450) H Mean Platelet Volume 8.4 FL (6.5-10.1) Neutrophils (%) (Auto) % (45.0-75.0) Lymphocytes (%) (Auto) % (20.0-45.0) Monocytes (%) (Auto) % (1.0-10.0) Eosinophils (%) (Auto) % (0.0-3.0) Basophils (%) (Auto) % (0.0-2.0) Differential Total Cells Counted 100 Neutrophils % (Manual) 81 % (45-75) H Lymphocytes % (Manual) 9 % (20-45) L Monocytes % (Manual) 9 % (1-10) Eosinophils % (Manual) 1 % (0-3) Basophils % (Manual) 0 % (0-2) Band Neutrophils 0 % (0-8) Platelet Estimate Adequate Platelet Morphology Normal Hypochromasia 2+ Anisocytosis 2+ Target Cells 1+ Sodium Level 137 mEQ/L (135-145) Potassium Level 5.4 mEQ/L (3.4-4.9) H Chloride Level 106 mEQ/L (98-107) Carbon Dioxide Level 21 mEQ/L (20-30) Anion Gap 10 (5-15) Blood Urea Nitrogen 10 mg/dL (7-23) Creatinine 2.6 mg/dL (0.7-1.2) H Estimat Glomerular Filtration Rate 35.3 mL/min (>60) Glucose Level 89 mg/dL (74-106) Calcium Level 8.4 mg/dL (8.6-10.2) L Lipase 62 U/L (< 60) H HIV (1&2) Antibody Rapid Negative (NEGATIVE) Current Medications Medications (Trade) Dose Ordered Sig/Juliana Route PRN Reason Start Time Stop Time Status Last Admin Dose Admin Acetaminophen (Tylenol) 650 mg Q4H PRN ORAL Mild Pain/Temp > 100.5 12/25/16 10:30 01/24/17 10:29 12/29/16 08:14 Cefepime HCl 1 gm/ Dextrose 55 ml @ 110 mls/hr Q24H IVPB 01/01/17 19:00 01/08/17 18:59 01/01/17 22:01 Docusate Sodium (Colace) 100 mg TWICE A DAY ORAL 12/30/16 09:00 01/29/17 08:59 12/30/16 08:19 Doxycycline Hyclate/Dextrose (Vibramycin/D5W) 110 ml @ 110 mls/hr Q12HR IV 01/01/17 19:00 01/08/17 18:59 01/02/17 09:31 Epoetin Alex 00118 units 10,000 units THU-THU-THU SUBQ 12/31/16 21:00 01/30/17 20:59 12/31/16 21:50 Fluoxetine HCl (PROzac) 20 mg DAILY ORAL 12/27/16 09:00 01/26/17 08:59 01/02/17 09:30 Folic Acid (Folate) 2 mg DAILY ORAL 01/02/17 09:00 02/01/17 08:59 01/02/17 09:31 Lactulose (Cephulac) 10 gm TID@0900,1500,2100 ORAL 12/30/16 09:00 01/29/17 08:59 01/01/17 14:18 Levetiracetam (Keppra) 750 mg Q12HR ORAL 12/30/16 21:00 01/29/17 20:59 01/02/17 09:30 Methocarbamol (Robaxin) 500 mg Q8H PRN ORAL muscle spasm 01/02/17 09:00 02/01/17 08:59 Metoclopramide HCl (Reglan) 10 mg Q6H PRN IVP Nausea & Vomiting 12/30/16 12:30 01/29/17 12:29 12/31/16 08:59 Ondansetron HCl (Zofran) 4 mg Q6H PRN IVP Nausea & Vomiting 12/23/16 19:45 01/22/17 19:44 01/01/17 15:52 Pantoprazole (Protonix) 40 mg DAILY ORAL 01/02/17 09:00 02/01/17 08:59 01/02/17 09:27 Polyethylene Glycol (Miralax) 17 gm BEDTIME ORAL 12/30/16 21:00 01/29/17 20:59 12/31/16 21:49 Sodium Chloride (Sodium Chloride 1000ml bag) 1,000 ml @ 100 mls/hr Q10H IV 01/02/17 07:45 02/01/17 07:44 Thiamine HCl (Vitamin B1) 100 mg DAILY ORAL 12/24/16 14:30 01/23/17 14:29 01/02/17 09:31 Tramadol HCl (Ultram) 50 mg Q4H PRN ORAL severe pain 01/02/17 09:00 01/09/17 08:59 01/02/17 11:03 Vancomycin HCl 125 mg 125 mg FOUR TIMES A DAY ORAL 01/02/17 09:00 01/09/17 08:59 01/02/17 13:39 Vitamin D (Vitamin D) 2,000 intlu DAILY ORAL 12/25/16 10:30 01/24/17 10:29 01/02/17 09:31 Imelda Chen M.D. Jan 02, 2017 17:08
[2017-01-02 18:13] VITALS: BP 112/71
[2017-01-02 20:00] VITALS: BP 120/76
--- NOTE | 2017-01-02 20:37 | General Progress Note ---
Assessment/Plan Problem List: (1) Altered mental status ICD Codes: R41.82 - Altered mental status, unspecified SNOMED: 385417175 Qualifiers: Qualified Codes: R41.82 - Altered mental status, unspecified (2) Pancreatitis ICD Codes: K85.90 - Acute pancreatitis without necrosis or infection, unspecified SNOMED: 54522873 Qualifiers: Qualified Codes: K85.90 - Acute pancreatitis without necrosis or infection, unspecified (3) Sepsis ICD Codes: A41.9 - Sepsis, unspecified organism SNOMED: 87932256 (4) Anemia ICD Codes: D64.9 - Anemia, unspecified SNOMED: 317056177 Status: progressing Assessment/Plan ams hyponatremia afebrile vitals stable no acute events azotmeia still confused hemoptysis .consulted pulmonary Subjective ROS Limited/Unobtainable: Yes Allergies: Coded Allergies: ACETAMINOPHEN (Verified Allergy, Unknown, 06/11/15) IBUPROFEN (Verified Allergy, Unknown, 06/11/15) Objective Last 24 Hour Vital Signs Date Time Temp Pulse Resp B/P Pulse Ox O2 Delivery O2 Flow Rate FiO2 01/02/17 18:13 102.4 124 112/71 96 Room Air 01/02/17 13:33 100.0 114 20 108/69 97 Room Air 01/02/17 08:15 98.6 122 22 102/61 97 Room Air 01/02/17 04:00 99.5 103 21 109/62 99 Room Air 01/02/17 00:00 99.9 104 25 127/84 99 Room Air Intake and Output 01/01/17 01/02/17 19:00 07:00 Intake Total 2000 ml 1920 ml Output Total 600 ml Balance 2000 ml 1320 ml Intake Oral 1200 ml 900 ml IV Total 800 ml 1020 ml Output Urine Total 600 ml # Voids 1 2 Laboratory Tests 01/02/17 05:50: White Blood Count 24.9*H, Red Blood Count 2.71L, Hemoglobin 7.7L, Hematocrit 25.0L, Mean Corpuscular Volume 93, Mean Corpuscular Hemoglobin 28.4, Mean Corpuscular Hemoglobin Concent 30.7L, Red Cell Distribution Width 20.7H, Platelet Count 478H, Mean Platelet Volume 8.4, Neutrophils (%) (Auto) , Lymphocytes (%) (Auto) , Monocytes (%) (Auto) , Eosinophils (%) (Auto) , Basophils (%) (Auto) , Differential Total Cells Counted 100, Neutrophils % ( Manual) 81H, Lymphocytes % (Manual) 9L, Monocytes % (Manual) 9, Eosinophils % ( Manual) 1, Basophils % (Manual) 0, Band Neutrophils 0, Platelet Estimate Adequate, Platelet Morphology Normal, Hypochromasia 2+, Anisocytosis 2+, Target Cells 1+, Sodium Level 137, Potassium Level 5.4H, Chloride Level 106, Carbon Dioxide Level 21, Anion Gap 10, Blood Urea Nitrogen 10, Creatinine 2.6H, Estimat Glomerular Filtration Rate 35.3, Glucose Level 89, Calcium Level 8.4L, Lipase 62H, HIV (1&2) Antibody Rapid Negative Height (Feet): 5 Height (Inches): 10.00 Weight (Pounds): 160 General Appearance: confused Neck: supple Robbi Vega MD Jan 02, 2017 20:37
[2017-01-02] MEDS: Miralax 17gm pkt ORAL SCH (20:45)
[2017-01-02] MEDS: Cefepime HCl 1 GM in D5W 55 ML IVPB SCH (20:46)
[2017-01-02] MEDS: Epogen (for non ESRD use) SUBQ SCH (20:48)
[2017-01-03] VITALS (8 sets, daily range): BP systolic 108–128; BP diastolic 52–78
[2017-01-03 07:44] LABS: MEAN CORPUSCULAR HGB CONC 31.7 G/DL (32.0-36.0); MEAN CORPUSCULAR VOLUME 91 FL (80-99); MEAN PLATELET VOLUME 7.9 FL (6.5-10.1); PLATELET COUNT 497 K/UL (150-450); RED BLOOD COUNT 2.16 M/UL (4.70-6.10); RED CELL DISTRIBUTION WIDTH 21.1 % (11.6-14.8); WHITE BLOOD COUNT 19.7 K/UL (4.8-10.8)
[2017-01-03 07:54] LABS: ALBUMIN/GLOBULIN RATIO 0.6 (1.0-2.7); CALCIUM 8.4 mg/dL (8.6-10.2); CREATININE 2.7 mg/dL (0.7-1.2); CRP QUANT 5.8 mg/dL (< 0.5); GLOMERULAR FILTRATION RATE 33.8 mL/min (>60); PHOSPHORUS 4.7 mg/dL (2.5-4.8); TOTAL PROTEIN 6.1 g/dL (6.6-8.7); URIC ACID 5.2 mg/dL (3.0-7.5)
[2017-01-03] MEDS: Doxycycline Hyclate 100 MG in D5W 110 ML IV SCH ×2 (09:27→21:18)
[2017-01-03] MEDS: Vitamin D 1000 IU Tab ORAL SCH (09:28)
[2017-01-03] MEDS: Thiamine 100mg tab ORAL SCH (09:28)
[2017-01-03] MEDS: Vancomycin oral 125mg/2.5ml ORAL SCH ×4 (09:29→21:19)
[2017-01-03] MEDS: Docusate 100mg cap ORAL SCH ×2 (09:30→17:09)
[2017-01-03] MEDS: Lactulose 10gm/15ml UDC ORAL SCH ×3 (09:30→20:39)
[2017-01-03 10:07] LABS: PROTHROMBIN TIME 10.2 SEC (9.30-11.50)
[2017-01-03 10:13] LABS: BASOPHILS % (MANUAL) 3 % (0-2); EOSINOPHILS % (MANUAL) 1 % (0-3); LYMPHOCYTES % (MANUAL) 21 % (20-45); NEUTROPHILS % (MANUAL) 70 % (45-75); TOTAL CELLS COUNTED 100
[2017-01-03 10:14] LABS: ANISOCYTOSIS 3+; BAND NEUTROPHILS % (MANUAL) 0 % (0-8); HYPOCHROMASIA 4+; PLATELET ESTIMATE ADEQUATE; PLATELET MORPHOLOGY NORMAL
--- NOTE | 2017-01-03 12:03 | General Progress Note ---
Assessment/Plan Problem List: (1) Pancreatitis ICD Codes: K85.90 - Acute pancreatitis without necrosis or infection, unspecified SNOMED: 47317646 Qualifiers: Qualified Codes: K85.90 - Acute pancreatitis without necrosis or infection, unspecified (2) Anemia ICD Codes: D64.9 - Anemia, unspecified SNOMED: 455335934 (3) Seizure ICD Codes: R56.9 - Unspecified convulsions SNOMED: 76288446 (4) Acute alcoholic intoxication ICD Codes: F10.929 - Alcohol use, unspecified with intoxication, unspecified SNOMED: 13265832 (5) Nausea & vomiting ICD Codes: R11.2 - Nausea with vomiting, unspecified SNOMED: 18754053 Assessment/Plan on low fat diet fu labs zofran prn bowel regimen neg stool ob Subjective ROS Limited/Unobtainable: Yes Allergies: Coded Allergies: ACETAMINOPHEN (Verified Allergy, Unknown, 06/11/15) IBUPROFEN (Verified Allergy, Unknown, 06/11/15) Subjective c/o nausea Objective Last 24 Hour Vital Signs Date Time Temp Pulse Resp B/P Pulse Ox O2 Delivery O2 Flow Rate FiO2 01/03/17 08:45 98.8 114 18 109/52 91 Room Air 01/03/17 04:00 98.7 99 18 111/75 100 Room Air 01/03/17 00:00 98.8 104 20 108/71 99 Room Air 01/02/17 21:44 99.1 01/02/17 20:00 99.1 111 20 120/76 97 Room Air 01/02/17 19:50 99.1 01/02/17 18:13 102.4 124 112/71 96 Room Air 01/02/17 18:13 124 01/02/17 18:13 124 01/02/17 13:33 100.0 114 20 108/69 97 Room Air Intake and Output 01/02/17 01/03/17 19:00 07:00 Intake Total 1100 ml 1325 ml Output Total 675 ml 1000 ml Balance 425 ml 325 ml Intake Oral 1000 ml 360 ml IV Total 100 ml 965 ml Output Urine Total 675 ml 1000 ml # Voids 3 # Bowel Movements 1 Laboratory Tests 01/03/17 06:05: White Blood Count 19.7H, Red Blood Count 2.16L, Hemoglobin 6.2*L, Hematocrit 19.7L, Mean Corpuscular Volume 91, Mean Corpuscular Hemoglobin 29.0, Mean Corpuscular Hemoglobin Concent 31.7L, Red Cell Distribution Width 21.1H, Platelet Count 497H, Mean Platelet Volume 7.9, Neutrophils (%) (Auto) , Lymphocytes (%) (Auto) , Monocytes (%) (Auto) , Eosinophils (%) (Auto) , Basophils (%) (Auto) , Differential Total Cells Counted 100, Neutrophils % ( Manual) 70, Lymphocytes % (Manual) 21, Monocytes % (Manual) 5, Eosinophils % ( Manual) 1, Basophils % (Manual) 3H, Band Neutrophils 0, Platelet Estimate Adequate, Platelet Morphology Normal, Hypochromasia 4+, Anisocytosis 3+, Sodium Level 139, Potassium Level 4.0, Chloride Level 106, Carbon Dioxide Level 21, Anion Gap 12, Blood Urea Nitrogen 10, Creatinine 2.7H, Estimat Glomerular Filtration Rate 33.8, Glucose Level 84, Uric Acid 5.2, Calcium Level 8.4L, Phosphorus Level 4.7, Total Bilirubin 0.3, Aspartate Amino Transf (AST/SGOT) 18 , Alanine Aminotransferase (ALT/SGPT) 12, Alkaline Phosphatase 82, C-Reactive Protein, Quantitative 5.8H, Total Protein 6.1L, Albumin 2.5L, Globulin 3.6, Albumin/Globulin Ratio 0.6L 01/03/17 08:40: Prothrombin Time 10.2, Prothromb Time International Ratio 1.0, Activated Partial Thromboplast Time 29 Height (Feet): 5 Height (Inches): 10.00 Weight (Pounds): 160 General Appearance: no apparent distress EENT: normal ENT inspection Neck: supple Cardiovascular: normal rate Respiratory/Chest: decreased breath sounds Abdomen: normal bowel sounds, non tender, soft Extremities: non-tender PHILIPPE WILLIAM Jan 03, 2017 12:03
--- NOTE | 2017-01-03 14:38 | Infectious Diseases Prog Note ---
Assessment/Plan Problems: (1) Hemoptysis Assessment & Plan: rule out TB, in high risk patient, will send sputum for AFB X3 , and get PPD test, and place in airborn isolation , had CT chest which is pending (2) Aspiration pneumonia Assessment & Plan: on cefepime and doxycycline for now , had CT chest which is pending (3) Sepsis Assessment & Plan: due to the above with leukocytosis, will send stool for C diff , and start oral vancomycin empirically , repeated blood culture is negative ,monitor CBC (4) Pancreatitis Assessment & Plan: due to tawanda drink of alcohol , continue hydration with supportive care, monitor lipase level , GI is following (5) Altered mental status Assessment & Plan: multifactorial, with folate deficiency , improving, started on folate replacement , neurology is following (6) Nausea & vomiting Assessment & Plan: recurrent , etiology , achalasia ? may need EGD , continue supportive care , GI id following (7) DWAYNE (acute kidney injury) Assessment & Plan: multifactorials, dehydration due to recurrent vomiting, VS meds side effects, will D/C vancomycin and zosyn, and continue IVF for hydration , monitor renal function test (8) Diarrhea Assessment & Plan: rule out C diff , await stool for C diff toxine and continue oral vancomycin Subjective Constitutional: Reports: anorexia HEENT: Reports: no symptoms Respiratory: Reports: other - hemoptysis, productive cough Breasts: Reports: no symptoms Cardiovascular: Reports: no symptoms Gastrointestinal/Abdominal: Reports: bloating, diarrhea, nausea Genitourinary: Reports: no symptoms Neurologic: Reports: no symptoms Psychiatric: Reports: no symptoms Skin: Reports: no symptoms Endocrine: Reports: no symptoms Hematologic: Reports: no symptoms Musculoskeletal: Reports: no symptoms Allergies: Coded Allergies: ACETAMINOPHEN (Verified Allergy, Unknown, 06/11/15) IBUPROFEN (Verified Allergy, Unknown, 06/11/15) Objective Vital Signs Last 24 Hour Vital Signs Date Time Temp Pulse Resp B/P Pulse Ox O2 Delivery O2 Flow Rate FiO2 01/03/17 12:07 99.1 109 19 128/74 97 Room Air 01/03/17 08:45 98.8 114 18 109/52 91 Room Air 01/03/17 04:00 98.7 99 18 111/75 100 Room Air 01/03/17 00:00 98.8 104 20 108/71 99 Room Air 01/02/17 21:44 99.1 01/02/17 20:00 99.1 111 20 120/76 97 Room Air 01/02/17 19:50 99.1 01/02/17 18:13 102.4 124 112/71 96 Room Air 01/02/17 18:13 124 01/02/17 18:13 124 Height (Feet): 5 Height (Inches): 10.00 Weight (Pounds): 160 General Appearance: WD/WN, no acute distress HEENT: normocephalic, atraumatic, anicteric, mucous membranes moist, PERRL, EOMI, pharynx normal, supple Respiratory/Chest: chest wall non-tender, normal breath sounds, no respiratory distress, no accessory muscle use, decreased breath sounds, crackles/rales Cardiovascular: normal peripheral pulses, normal rate, regular rhythm, no gallop/murmur, no JVD Abdomen: normal bowel sounds, soft, non tender, no organomegaly, non distended , no mass, no scars, hypoactive bowel sounds Extremities: no cyanosis, no clubbing Skin: no rash, no lesions, no ulcers Neurologic/Psychiatric: alert, oriented x 3, responsive Lymphatic: no neck adenopathy, no groin adenopathy Microbiology Date/Time Source Procedure Growth Status 01/02/17 10:30 Sputum Gram Stain - Final Resulted 01/02/17 10:30 Sputum Sputum Culture - Preliminary NO GROWTH Resulted Laboratory Tests Test 01/03/17 06:05 01/03/17 08:40 White Blood Count 19.7 K/UL (4.8-10.8) H Red Blood Count 2.16 M/UL (4.70-6.10) L Hemoglobin 6.2 G/DL (14.2-18.0) *L Hematocrit 19.7 % (42.0-52.0) L Mean Corpuscular Volume 91 FL (80-99) Mean Corpuscular Hemoglobin 29.0 PG (27.0-31.0) Mean Corpuscular Hemoglobin Concent 31.7 G/DL (32.0-36.0) L Red Cell Distribution Width 21.1 % (11.6-14.8) H Platelet Count 497 K/UL (150-450) H Mean Platelet Volume 7.9 FL (6.5-10.1) Neutrophils (%) (Auto) % (45.0-75.0) Lymphocytes (%) (Auto) % (20.0-45.0) Monocytes (%) (Auto) % (1.0-10.0) Eosinophils (%) (Auto) % (0.0-3.0) Basophils (%) (Auto) % (0.0-2.0) Differential Total Cells Counted 100 Neutrophils % (Manual) 70 % (45-75) Lymphocytes % (Manual) 21 % (20-45) Monocytes % (Manual) 5 % (1-10) Eosinophils % (Manual) 1 % (0-3) Basophils % (Manual) 3 % (0-2) H Band Neutrophils 0 % (0-8) Platelet Estimate Adequate Platelet Morphology Normal Hypochromasia 4+ Anisocytosis 3+ Sodium Level 139 mEQ/L (135-145) Potassium Level 4.0 mEQ/L (3.4-4.9) Chloride Level 106 mEQ/L (98-107) Carbon Dioxide Level 21 mEQ/L (20-30) Anion Gap 12 (5-15) Blood Urea Nitrogen 10 mg/dL (7-23) Creatinine 2.7 mg/dL (0.7-1.2) H Estimat Glomerular Filtration Rate 33.8 mL/min (>60) Glucose Level 84 mg/dL (74-106) Uric Acid 5.2 mg/dL (3.0-7.5) Calcium Level 8.4 mg/dL (8.6-10.2) L Phosphorus Level 4.7 mg/dL (2.5-4.8) Total Bilirubin 0.3 mg/dL (0.0-1.2) Aspartate Amino Transf (AST/SGOT) 18 U/L (5-40) Alanine Aminotransferase (ALT/SGPT) 12 U/L (3-41) Alkaline Phosphatase 82 U/L (40-129) C-Reactive Protein, Quantitative 5.8 mg/dL (< 0.5) H Total Protein 6.1 g/dL (6.6-8.7) L Albumin 2.5 g/dL (3.5-5.2) L Globulin 3.6 g/dL Albumin/Globulin Ratio 0.6 (1.0-2.7) L Prothrombin Time 10.2 SEC (9.30-11.50) Prothromb Time International Ratio 1.0 (0.9-1.1) Activated Partial Thromboplast Time 29 SEC (23-33) Current Medications Medications (Trade) Dose Ordered Sig/Juliana Route PRN Reason Start Time Stop Time Status Last Admin Dose Admin Acetaminophen (Tylenol) 650 mg Q4H PRN ORAL Mild Pain/Temp > 100.5 12/25/16 10:30 01/24/17 10:29 01/02/17 18:51 Cefepime HCl 1 gm/ Dextrose 55 ml @ 110 mls/hr Q24H IVPB 01/01/17 19:00 01/08/17 18:59 01/02/17 20:46 Docusate Sodium (Colace) 100 mg TWICE A DAY ORAL 12/30/16 09:00 01/29/17 08:59 01/03/17 09:30 Doxycycline Hyclate/Dextrose (Vibramycin/D5W) 110 ml @ 110 mls/hr Q12HR IV 01/01/17 19:00 01/08/17 18:59 01/03/17 09:27 Epoetin Alex 36424 units 10,000 units SUBQ 12/31/16 21:00 01/30/17 20:59 01/02/17 20:48 Fluoxetine HCl (PROzac) 20 mg DAILY ORAL 12/27/16 09:00 01/26/17 08:59 01/03/17 09:28 Folic Acid (Folate) 2 mg DAILY ORAL 01/02/17 09:00 02/01/17 08:59 01/03/17 09:28 Lactulose (Cephulac) 10 gm TID@0900,1500,2100 ORAL 12/30/16 09:00 01/29/17 08:59 01/03/17 09:30 Levetiracetam (Keppra) 750 mg Q12HR ORAL 12/30/16 21:00 01/29/17 20:59 01/03/17 09:28 Methocarbamol (Robaxin) 500 mg Q8H PRN ORAL muscle spasm 01/02/17 09:00 02/01/17 08:59 Metoclopramide HCl (Reglan) 10 mg Q6H PRN IVP Nausea & Vomiting 12/30/16 12:30 01/29/17 12:29 12/31/16 08:59 Ondansetron HCl (Zofran) 4 mg Q6H PRN IVP Nausea & Vomiting 12/23/16 19:45 01/22/17 19:44 01/01/17 15:52 Pantoprazole (Protonix) 40 mg DAILY ORAL 01/02/17 09:00 02/01/17 08:59 01/03/17 09:33 Polyethylene Glycol (Miralax) 17 gm BEDTIME ORAL 12/30/16 21:00 01/29/17 20:59 01/02/17 20:45 Sodium Chloride (Sodium Chloride 1000ml bag) 1,000 ml @ 100 mls/hr Q10H IV 01/02/17 07:45 02/01/17 07:44 01/03/17 02:48 Thiamine HCl (Vitamin B1) 100 mg DAILY ORAL 12/24/16 14:30 01/23/17 14:29 01/03/17 09:28 Tramadol HCl (Ultram) 50 mg Q4H PRN ORAL severe pain 01/02/17 09:00 01/09/17 08:59 01/02/17 20:45 Vancomycin HCl 125 mg 125 mg FOUR TIMES A DAY ORAL 01/02/17 09:00 01/09/17 08:59 01/03/17 09:29 Vitamin D (Vitamin D) 2,000 intlu DAILY ORAL 12/25/16 10:30 01/24/17 10:29 01/03/17 09:28 Imelda Chen M.D. Jan 03, 2017 14:38
--- NOTE | 2017-01-03 15:19 | Cardiac Electrophysiology PN ---
Assessment/Plan Status Narrative CT Brain Impression: Cerebral volume loss, out of proportion to patient's age. Correlate with clinical history Negative for acute intrarenal bleed or mass effect Assessment/Plan 1. Hypotension.Resolved. Echocardiography showed ejection fraction 55% %. CT of the brain done on 12/24/16 reveals generalized cerebral atrophy. 2. Sinus tcahycardia. 3. Homelessness. 4. Severe hyponatremia and renal failure, improving under management of Dr. Rosario. 5.Vit B12 deficiency 6.Toxic metabolic encephalopathy 7. Psychiatric illness and seizure disorder DW RN Subjective Subjective Alert in NAD. In Isolation to rule out TB Objective Last 24 Hour Vital Signs Date Time Temp Pulse Resp B/P Pulse Ox O2 Delivery O2 Flow Rate FiO2 01/03/17 12:07 99.1 109 19 128/74 97 Room Air 01/03/17 08:45 98.8 114 18 109/52 91 Room Air 01/03/17 04:00 98.7 99 18 111/75 100 Room Air 01/03/17 00:00 98.8 104 20 108/71 99 Room Air 01/02/17 21:44 99.1 01/02/17 20:00 99.1 111 20 120/76 97 Room Air 01/02/17 19:50 99.1 01/02/17 18:13 102.4 124 112/71 96 Room Air 01/02/17 18:13 124 01/02/17 18:13 124 Intake and Output 01/02/17 01/03/17 19:00 07:00 Intake Total 1100 ml 1325 ml Output Total 675 ml 1000 ml Balance 425 ml 325 ml Intake Oral 1000 ml 360 ml IV Total 100 ml 965 ml Output Urine Total 675 ml 1000 ml # Voids 3 # Bowel Movements 1 Laboratory Tests Test 01/03/17 06:05 01/03/17 08:40 White Blood Count 19.7 K/UL (4.8-10.8) H Red Blood Count 2.16 M/UL (4.70-6.10) L Hemoglobin 6.2 G/DL (14.2-18.0) *L Hematocrit 19.7 % (42.0-52.0) L Mean Corpuscular Volume 91 FL (80-99) Mean Corpuscular Hemoglobin 29.0 PG (27.0-31.0) Mean Corpuscular Hemoglobin Concent 31.7 G/DL (32.0-36.0) L Red Cell Distribution Width 21.1 % (11.6-14.8) H Platelet Count 497 K/UL (150-450) H Mean Platelet Volume 7.9 FL (6.5-10.1) Neutrophils (%) (Auto) % (45.0-75.0) Lymphocytes (%) (Auto) % (20.0-45.0) Monocytes (%) (Auto) % (1.0-10.0) Eosinophils (%) (Auto) % (0.0-3.0) Basophils (%) (Auto) % (0.0-2.0) Differential Total Cells Counted 100 Neutrophils % (Manual) 70 % (45-75) Lymphocytes % (Manual) 21 % (20-45) Monocytes % (Manual) 5 % (1-10) Eosinophils % (Manual) 1 % (0-3) Basophils % (Manual) 3 % (0-2) H Band Neutrophils 0 % (0-8) Platelet Estimate Adequate Platelet Morphology Normal Hypochromasia 4+ Anisocytosis 3+ Sodium Level 139 mEQ/L (135-145) Potassium Level 4.0 mEQ/L (3.4-4.9) Chloride Level 106 mEQ/L (98-107) Carbon Dioxide Level 21 mEQ/L (20-30) Anion Gap 12 (5-15) Blood Urea Nitrogen 10 mg/dL (7-23) Creatinine 2.7 mg/dL (0.7-1.2) H Estimat Glomerular Filtration Rate 33.8 mL/min (>60) Glucose Level 84 mg/dL (74-106) Uric Acid 5.2 mg/dL (3.0-7.5) Calcium Level 8.4 mg/dL (8.6-10.2) L Phosphorus Level 4.7 mg/dL (2.5-4.8) Total Bilirubin 0.3 mg/dL (0.0-1.2) Aspartate Amino Transf (AST/SGOT) 18 U/L (5-40) Alanine Aminotransferase (ALT/SGPT) 12 U/L (3-41) Alkaline Phosphatase 82 U/L (40-129) C-Reactive Protein, Quantitative 5.8 mg/dL (< 0.5) H Total Protein 6.1 g/dL (6.6-8.7) L Albumin 2.5 g/dL (3.5-5.2) L Globulin 3.6 g/dL Albumin/Globulin Ratio 0.6 (1.0-2.7) L Prothrombin Time 10.2 SEC (9.30-11.50) Prothromb Time International Ratio 1.0 (0.9-1.1) Activated Partial Thromboplast Time 29 SEC (23-33) Microbiology Date/Time Source Procedure Growth Status 01/02/17 10:30 Sputum Gram Stain - Final Resulted 01/02/17 10:30 Sputum Sputum Culture - Preliminary NO GROWTH Resulted Objective NECK: No JVD. LUNGS: Coarse rhonchi CARDIOVASCULAR: Regular S1 and S2 with no gallop or murmur. ABDOMEN: Soft. EXTREMITIES: No pitting edema. ROGERS DEAN Jan 03, 2017 15:19
--- NOTE | 2017-01-03 15:29 | General Progress Note ---
Assessment/Plan Status: unchanged, deteriorating Status Narrative worsening anemia- Cr stable- had hemoptysis Assessment/Plan status: Today : Cr 2.3 Acute renal failure On Admission: Renal failure , Acute vs Chronic improving h/o Sz Acute Encephalopathy Low K Low Na Low B12 and folate Elevated Lipase , acute pancreatitis sever anemia Plan; monitor renal parameters Hydrate- Cefepime doxy and po Vanco down on folate dose ST PT OT eval Monitor lytes- monitor renal parameters Pulm eval Subjective ROS Limited/Unobtainable: No Constitutional: Reports: malaise, weakness Allergies: Coded Allergies: ACETAMINOPHEN (Verified Allergy, Unknown, 06/11/15) IBUPROFEN (Verified Allergy, Unknown, 06/11/15) Objective Last 24 Hour Vital Signs Date Time Temp Pulse Resp B/P Pulse Ox O2 Delivery O2 Flow Rate FiO2 01/03/17 12:07 99.1 109 19 128/74 97 Room Air 01/03/17 08:45 98.8 114 18 109/52 91 Room Air 01/03/17 04:00 98.7 99 18 111/75 100 Room Air 01/03/17 00:00 98.8 104 20 108/71 99 Room Air 01/02/17 21:44 99.1 01/02/17 20:00 99.1 111 20 120/76 97 Room Air 01/02/17 19:50 99.1 01/02/17 18:13 102.4 124 112/71 96 Room Air 01/02/17 18:13 124 01/02/17 18:13 124 Intake and Output 01/02/17 01/03/17 19:00 07:00 Intake Total 1100 ml 1325 ml Output Total 675 ml 1000 ml Balance 425 ml 325 ml Intake Oral 1000 ml 360 ml IV Total 100 ml 965 ml Output Urine Total 675 ml 1000 ml # Voids 3 # Bowel Movements 1 Laboratory Tests 01/03/17 06:05: White Blood Count 19.7H, Red Blood Count 2.16L, Hemoglobin 6.2*L, Hematocrit 19.7L, Mean Corpuscular Volume 91, Mean Corpuscular Hemoglobin 29.0, Mean Corpuscular Hemoglobin Concent 31.7L, Red Cell Distribution Width 21.1H, Platelet Count 497H, Mean Platelet Volume 7.9, Neutrophils (%) (Auto) , Lymphocytes (%) (Auto) , Monocytes (%) (Auto) , Eosinophils (%) (Auto) , Basophils (%) (Auto) , Differential Total Cells Counted 100, Neutrophils % ( Manual) 70, Lymphocytes % (Manual) 21, Monocytes % (Manual) 5, Eosinophils % ( Manual) 1, Basophils % (Manual) 3H, Band Neutrophils 0, Platelet Estimate Adequate, Platelet Morphology Normal, Hypochromasia 4+, Anisocytosis 3+, Sodium Level 139, Potassium Level 4.0, Chloride Level 106, Carbon Dioxide Level 21, Anion Gap 12, Blood Urea Nitrogen 10, Creatinine 2.7H, Estimat Glomerular Filtration Rate 33.8, Glucose Level 84, Uric Acid 5.2, Calcium Level 8.4L, Phosphorus Level 4.7, Total Bilirubin 0.3, Aspartate Amino Transf (AST/SGOT) 18 , Alanine Aminotransferase (ALT/SGPT) 12, Alkaline Phosphatase 82, C-Reactive Protein, Quantitative 5.8H, Total Protein 6.1L, Albumin 2.5L, Globulin 3.6, Albumin/Globulin Ratio 0.6L 01/03/17 08:40: Prothrombin Time 10.2, Prothromb Time International Ratio 1.0, Activated Partial Thromboplast Time 29 Height (Feet): 5 Height (Inches): 10.00 Weight (Pounds): 160 General Appearance: lethargic Cardiovascular: tachycardia Respiratory/Chest: decreased breath sounds Abdomen: distended Objective other PE not changed VELASQUEZ DASILVA Jan 03, 2017 15:29
[2017-01-03] MEDS: Cefepime HCl 1 GM in D5W 55 ML IVPB SCH (18:34)
--- NOTE | 2017-01-03 19:53 | Pulmonology Progress Note ---
Assessment/Plan Problems: (1) Hemoptysis (2) DWAYNE (acute kidney injury) (3) Seizure (4) Anemia Assessment/Plan ct chest pending antitussives lidocian inhalation INR within normal limit check cultures Subjective ROS Limited/Unobtainable: No Constitutional: Reports: no symptoms HEENT: Repors: no symptoms Respiratory: Reports: no symptoms Allergies: Coded Allergies: ACETAMINOPHEN (Verified Allergy, Unknown, 06/11/15) IBUPROFEN (Verified Allergy, Unknown, 06/11/15) Objective Last 24 Hour Vital Signs Date Time Temp Pulse Resp B/P Pulse Ox O2 Delivery O2 Flow Rate FiO2 01/03/17 17:30 98.4 97 19 118/57 92 Room Air 01/03/17 16:00 99.7 97 18 116/72 96 Room Air 01/03/17 12:07 99.1 109 19 128/74 97 Room Air 01/03/17 08:45 98.8 114 18 109/52 91 Room Air 01/03/17 04:00 98.7 99 18 111/75 100 Room Air 01/03/17 00:00 98.8 104 20 108/71 99 Room Air 01/02/17 21:44 99.1 01/02/17 20:00 99.1 111 20 120/76 97 Room Air Intake and Output 01/02/17 01/03/17 19:00 07:00 Intake Total 1100 ml 1325 ml Output Total 675 ml 1000 ml Balance 425 ml 325 ml Intake Oral 1000 ml 360 ml IV Total 100 ml 965 ml Output Urine Total 675 ml 1000 ml # Voids 3 # Bowel Movements 1 Objective General Appearance: WD/WN HEENT: normocephalic Respiratory/Chest: chest wall non-tender, lungs clear Cardiovascular: normal peripheral pulses, normal rate Abdomen: normal bowel sounds, soft, non tender Extremities: no cyanosis, other - effusion in both knees Skin: no rash Microbiology Date/Time Source Procedure Growth Status 01/02/17 10:30 Sputum Gram Stain - Final Resulted 01/02/17 10:30 Sputum Sputum Culture - Preliminary NO GROWTH Resulted Laboratory Tests 01/03/17 06:05: White Blood Count 19.7H, Red Blood Count 2.16L, Hemoglobin 6.2*L, Hematocrit 19.7L, Mean Corpuscular Volume 91, Mean Corpuscular Hemoglobin 29.0, Mean Corpuscular Hemoglobin Concent 31.7L, Red Cell Distribution Width 21.1H, Platelet Count 497H, Mean Platelet Volume 7.9, Neutrophils (%) (Auto) , Lymphocytes (%) (Auto) , Monocytes (%) (Auto) , Eosinophils (%) (Auto) , Basophils (%) (Auto) , Differential Total Cells Counted 100, Neutrophils % ( Manual) 70, Lymphocytes % (Manual) 21, Monocytes % (Manual) 5, Eosinophils % ( Manual) 1, Basophils % (Manual) 3H, Band Neutrophils 0, Platelet Estimate Adequate, Platelet Morphology Normal, Hypochromasia 4+, Anisocytosis 3+, Sodium Level 139, Potassium Level 4.0, Chloride Level 106, Carbon Dioxide Level 21, Anion Gap 12, Blood Urea Nitrogen 10, Creatinine 2.7H, Estimat Glomerular Filtration Rate 33.8, Glucose Level 84, Uric Acid 5.2, Calcium Level 8.4L, Phosphorus Level 4.7, Total Bilirubin 0.3, Aspartate Amino Transf (AST/SGOT) 18 , Alanine Aminotransferase (ALT/SGPT) 12, Alkaline Phosphatase 82, C-Reactive Protein, Quantitative 5.8H, Total Protein 6.1L, Albumin 2.5L, Globulin 3.6, Albumin/Globulin Ratio 0.6L 01/03/17 08:40: Prothrombin Time 10.2, Prothromb Time International Ratio 1.0, Activated Partial Thromboplast Time 29 Current Medications Medications (Trade) Dose Ordered Sig/Juliana Route PRN Reason Start Time Stop Time Status Last Admin Dose Admin Acetaminophen (Tylenol) 650 mg Q4H PRN ORAL Mild Pain/Temp > 100.5 12/25/16 10:30 01/24/17 10:29 01/02/17 18:51 Cefepime HCl 1 gm/ Dextrose 55 ml @ 110 mls/hr Q24H IVPB 01/01/17 19:00 01/08/17 18:59 01/03/17 18:34 Docusate Sodium (Colace) 100 mg TWICE A DAY ORAL 12/30/16 09:00 01/29/17 08:59 01/03/17 09:30 Doxycycline Hyclate/Dextrose (Vibramycin/D5W) 110 ml @ 110 mls/hr Q12HR IV 01/01/17 19:00 01/08/17 18:59 01/03/17 09:27 Epoetin Alex 27155 units 10,000 units [id number] SUBQ 12/31/16 21:00 01/30/17 20:59 01/02/17 20:48 Fluoxetine HCl (PROzac) 20 mg DAILY ORAL 12/27/16 09:00 01/26/17 08:59 01/03/17 09:28 Folic Acid (Folate) 2 mg DAILY ORAL 01/02/17 09:00 02/01/17 08:59 01/03/17 09:28 Lactulose (Cephulac) 10 gm TID@0900,1500,2100 ORAL 12/30/16 09:00 01/29/17 08:59 01/03/17 14:40 Levetiracetam (Keppra) 750 mg Q12HR ORAL 12/30/16 21:00 01/29/17 20:59 01/03/17 09:28 Methocarbamol (Robaxin) 500 mg Q8H PRN ORAL muscle spasm 01/02/17 09:00 02/01/17 08:59 Metoclopramide HCl (Reglan) 10 mg Q6H PRN IVP Nausea & Vomiting 12/30/16 12:30 01/29/17 12:29 12/31/16 08:59 Ondansetron HCl (Zofran) 4 mg Q6H PRN IVP Nausea & Vomiting 12/23/16 19:45 01/22/17 19:44 01/01/17 15:52 Pantoprazole (Protonix) 40 mg DAILY ORAL 01/02/17 09:00 02/01/17 08:59 01/03/17 09:33 Polyethylene Glycol (Miralax) 17 gm BEDTIME ORAL 12/30/16 21:00 01/29/17 20:59 01/02/17 20:45 Sodium Chloride (Sodium Chloride 1000ml bag) 1,000 ml @ 100 mls/hr Q10H IV 01/02/17 07:45 02/01/17 07:44 01/03/17 02:48 Thiamine HCl (Vitamin B1) 100 mg DAILY ORAL 12/24/16 14:30 01/23/17 14:29 01/03/17 09:28 Tramadol HCl (Ultram) 50 mg Q4H PRN ORAL severe pain 01/02/17 09:00 01/09/17 08:59 01/02/17 20:45 Vancomycin HCl 125 mg 125 mg FOUR TIMES A DAY ORAL 01/02/17 09:00 01/09/17 08:59 01/03/17 18:33 Vitamin D (Vitamin D) 2,000 intlu DAILY ORAL 12/25/16 10:30 01/24/17 10:29 01/03/17 09:28 SILVESTRE PATRICIA Jan 03, 2017 19:53
[2017-01-03] MEDS: Miralax 17gm pkt ORAL SCH (20:40)
--- NOTE | 2017-01-03 22:08 | General Progress Note ---
Assessment/Plan Problem List: (1) Altered mental status ICD Codes: R41.82 - Altered mental status, unspecified SNOMED: 505193476 Qualifiers: Qualified Codes: R41.82 - Altered mental status, unspecified (2) Pancreatitis ICD Codes: K85.90 - Acute pancreatitis without necrosis or infection, unspecified SNOMED: 53981164 Qualifiers: Qualified Codes: K85.90 - Acute pancreatitis without necrosis or infection, unspecified (3) Sepsis ICD Codes: A41.9 - Sepsis, unspecified organism SNOMED: 13900036 (4) Anemia ICD Codes: D64.9 - Anemia, unspecified SNOMED: 469223022 Status: deteriorating Assessment/Plan ams hyponatremia anemia due to hemoptysis? dr porter consulted still confused hemoptysis .consulted pulmonary Subjective ROS Limited/Unobtainable: Yes Allergies: Coded Allergies: ACETAMINOPHEN (Verified Allergy, Unknown, 06/11/15) IBUPROFEN (Verified Allergy, Unknown, 06/11/15) Objective Last 24 Hour Vital Signs Date Time Temp Pulse Resp B/P Pulse Ox O2 Delivery O2 Flow Rate FiO2 01/03/17 21:00 98.8 93 19 122/78 95 Room Air 01/03/17 20:00 98.6 87 20 120/62 95 Room Air 01/03/17 17:30 98.4 97 19 118/57 92 Room Air 01/03/17 16:00 99.7 97 18 116/72 96 Room Air 01/03/17 12:07 99.1 109 19 128/74 97 Room Air 01/03/17 08:45 98.8 114 18 109/52 91 Room Air 01/03/17 04:00 98.7 99 18 111/75 100 Room Air 01/03/17 00:00 98.8 104 20 108/71 99 Room Air Intake and Output 01/02/17 01/03/17 19:00 07:00 Intake Total 1100 ml 1325 ml Output Total 675 ml 1000 ml Balance 425 ml 325 ml Intake Oral 1000 ml 360 ml IV Total 100 ml 965 ml Output Urine Total 675 ml 1000 ml # Voids 3 # Bowel Movements 1 Laboratory Tests 01/03/17 06:05: White Blood Count 19.7H, Red Blood Count 2.16L, Hemoglobin 6.2*L, Hematocrit 19.7L, Mean Corpuscular Volume 91, Mean Corpuscular Hemoglobin 29.0, Mean Corpuscular Hemoglobin Concent 31.7L, Red Cell Distribution Width 21.1H, Platelet Count 497H, Mean Platelet Volume 7.9, Neutrophils (%) (Auto) , Lymphocytes (%) (Auto) , Monocytes (%) (Auto) , Eosinophils (%) (Auto) , Basophils (%) (Auto) , Differential Total Cells Counted 100, Neutrophils % ( Manual) 70, Lymphocytes % (Manual) 21, Monocytes % (Manual) 5, Eosinophils % ( Manual) 1, Basophils % (Manual) 3H, Band Neutrophils 0, Platelet Estimate Adequate, Platelet Morphology Normal, Hypochromasia 4+, Anisocytosis 3+, Sodium Level 139, Potassium Level 4.0, Chloride Level 106, Carbon Dioxide Level 21, Anion Gap 12, Blood Urea Nitrogen 10, Creatinine 2.7H, Estimat Glomerular Filtration Rate 33.8, Glucose Level 84, Uric Acid 5.2, Calcium Level 8.4L, Phosphorus Level 4.7, Total Bilirubin 0.3, Aspartate Amino Transf (AST/SGOT) 18 , Alanine Aminotransferase (ALT/SGPT) 12, Alkaline Phosphatase 82, C-Reactive Protein, Quantitative 5.8H, Total Protein 6.1L, Albumin 2.5L, Globulin 3.6, Albumin/Globulin Ratio 0.6L 01/03/17 08:40: Prothrombin Time 10.2, Prothromb Time International Ratio 1.0, Activated Partial Thromboplast Time 29 Height (Feet): 5 Height (Inches): 10.00 Weight (Pounds): 160 General Appearance: confused Respiratory/Chest: lungs clear Robbi Vega MD Jan 03, 2017 22:08
--- NOTE | 2017-01-04 00:03 | General Progress Note ---
Assessment/Plan Assessment/Plan Substance abuse, mdd anxiety cont current meds Subjective Date patient seen: Jan 03, 2017 Constitutional: Reports: malaise, weakness Allergies: Coded Allergies: ACETAMINOPHEN (Verified Allergy, Unknown, 06/11/15) IBUPROFEN (Verified Allergy, Unknown, 06/11/15) Subjective patient was alert and oriented times self and place. Mood was neutral. Affect was constricted. Congruent with mood. Thought process, tangential. Thought content, no suicidal or homicidal ideation. Cognition is impaired. He was eating during the eval. Objective Last 24 Hour Vital Signs Date Time Temp Pulse Resp B/P Pulse Ox O2 Delivery O2 Flow Rate FiO2 01/03/17 21:00 98.8 93 19 122/78 95 Room Air 01/03/17 20:00 98.6 87 20 120/62 95 Room Air 01/03/17 17:30 98.4 97 19 118/57 92 Room Air 01/03/17 16:00 99.7 97 18 116/72 96 Room Air 01/03/17 12:07 99.1 109 19 128/74 97 Room Air 01/03/17 08:45 98.8 114 18 109/52 91 Room Air 01/03/17 04:00 98.7 99 18 111/75 100 Room Air Intake and Output 01/03/17 01/04/17 19:00 07:00 Intake Total 1065 ml Output Total 500 ml Balance 565 ml IV Total 1065 ml Output Urine Total 500 ml # Bowel Movements 4 Laboratory Tests 01/03/17 06:05: White Blood Count 19.7H, Red Blood Count 2.16L, Hemoglobin 6.2*L, Hematocrit 19.7L, Mean Corpuscular Volume 91, Mean Corpuscular Hemoglobin 29.0, Mean Corpuscular Hemoglobin Concent 31.7L, Red Cell Distribution Width 21.1H, Platelet Count 497H, Mean Platelet Volume 7.9, Neutrophils (%) (Auto) , Lymphocytes (%) (Auto) , Monocytes (%) (Auto) , Eosinophils (%) (Auto) , Basophils (%) (Auto) , Differential Total Cells Counted 100, Neutrophils % ( Manual) 70, Lymphocytes % (Manual) 21, Monocytes % (Manual) 5, Eosinophils % ( Manual) 1, Basophils % (Manual) 3H, Band Neutrophils 0, Platelet Estimate Adequate, Platelet Morphology Normal, Hypochromasia 4+, Anisocytosis 3+, Sodium Level 139, Potassium Level 4.0, Chloride Level 106, Carbon Dioxide Level 21, Anion Gap 12, Blood Urea Nitrogen 10, Creatinine 2.7H, Estimat Glomerular Filtration Rate 33.8, Glucose Level 84, Uric Acid 5.2, Calcium Level 8.4L, Phosphorus Level 4.7, Total Bilirubin 0.3, Aspartate Amino Transf (AST/SGOT) 18 , Alanine Aminotransferase (ALT/SGPT) 12, Alkaline Phosphatase 82, C-Reactive Protein, Quantitative 5.8H, Total Protein 6.1L, Albumin 2.5L, Globulin 3.6, Albumin/Globulin Ratio 0.6L 01/03/17 08:40: Prothrombin Time 10.2, Prothromb Time International Ratio 1.0, Activated Partial Thromboplast Time 29 Height (Feet): 5 Height (Inches): 10.00 Weight (Pounds): 160 General Appearance: alert, thin Neurologic: alert, oriented x 3, responsive, depressed affect Mary Beth Ramos M.D. Jan 04, 2017 00:03
[2017-01-04 00:13] VITALS: BP 120/70
[2017-01-04 04:27] VITALS: BP 117/81
[2017-01-04] MEDS: Vancomycin oral 125mg/2.5ml ORAL SCH ×4 (08:42→21:00)
[2017-01-04] MEDS: Doxycycline Hyclate 100 MG in D5W 110 ML IV SCH ×2 (08:42→22:05)
[2017-01-04] MEDS: Docusate 100mg cap ORAL SCH ×2 (08:43→17:43)
[2017-01-04] MEDS: Lactulose 10gm/15ml UDC ORAL SCH ×3 (08:43→22:04)
[2017-01-04] MEDS: Thiamine 100mg tab ORAL SCH (08:43)
[2017-01-04] MEDS: Vitamin D 1000 IU Tab ORAL SCH (08:43)
[2017-01-04 08:47] VITALS: BP 135/82
--- NOTE | 2017-01-04 08:58 | General Progress Note ---
Assessment/Plan Problem List: (1) Pancreatitis ICD Codes: K85.90 - Acute pancreatitis without necrosis or infection, unspecified SNOMED: 98964277 Qualifiers: Qualified Codes: K85.90 - Acute pancreatitis without necrosis or infection, unspecified (2) Anemia ICD Codes: D64.9 - Anemia, unspecified SNOMED: 035938982 (3) Seizure ICD Codes: R56.9 - Unspecified convulsions SNOMED: 47747806 (4) Acute alcoholic intoxication ICD Codes: F10.929 - Alcohol use, unspecified with intoxication, unspecified SNOMED: 46444301 (5) Nausea & vomiting ICD Codes: R11.2 - Nausea with vomiting, unspecified SNOMED: 78722215 Assessment/Plan on low fat diet fu labs zofran prn bowel regimen neg stool ob Subjective ROS Limited/Unobtainable: Yes Allergies: Coded Allergies: ACETAMINOPHEN (Verified Allergy, Unknown, 06/11/15) IBUPROFEN (Verified Allergy, Unknown, 06/11/15) Subjective no event over night Objective Last 24 Hour Vital Signs Date Time Temp Pulse Resp B/P Pulse Ox O2 Delivery O2 Flow Rate FiO2 01/04/17 08:47 98.2 111 20 135/82 97 Room Air 01/04/17 04:27 98.4 99 19 117/81 99 Room Air 01/04/17 00:13 98.1 90 18 120/70 94 Room Air 01/03/17 21:00 98.8 93 19 122/78 95 Room Air 01/03/17 20:00 98.6 87 20 120/62 95 Room Air 01/03/17 17:30 98.4 97 19 118/57 92 Room Air 01/03/17 16:00 99.7 97 18 116/72 96 Room Air 01/03/17 12:07 99.1 109 19 128/74 97 Room Air Intake and Output 01/03/17 01/04/17 19:00 07:00 Intake Total 1065 ml 240 ml Output Total 500 ml Balance 565 ml 240 ml Intake Oral 240 ml IV Total 1065 ml Output Urine Total 500 ml # Voids 3 # Bowel Movements 4 Height (Feet): 5 Height (Inches): 10.00 Weight (Pounds): 160 General Appearance: no apparent distress EENT: normal ENT inspection Neck: supple Cardiovascular: normal rate Respiratory/Chest: lungs clear Abdomen: normal bowel sounds, non tender, soft Extremities: non-tender PHILIPPE WILLIAM Jan 04, 2017 08:58
[2017-01-04 09:16] LABS: MEAN CORPUSCULAR HEMOGLOBIN 28.1 PG (27.0-31.0); MEAN CORPUSCULAR HGB CONC 30.6 G/DL (32.0-36.0); MEAN CORPUSCULAR VOLUME 92 FL (80-99); PLATELET COUNT 698 K/UL (150-450); RED BLOOD COUNT 2.43 M/UL (4.70-6.10); WHITE BLOOD COUNT 18.6 K/UL (4.8-10.8)
--- NOTE | 2017-01-04 09:18 | General Progress Note ---
Assessment/Plan Status: unchanged Assessment/Plan status: Today : Cr 2.3 Acute renal failure On Admission: Renal failure , Acute vs Chronic improving h/o Sz Acute Encephalopathy Low K Low Na Low B12 and folate Elevated Lipase , acute pancreatitis sever anemia Plan; labs pending due to patients refusal monitor renal parameters Hydrate- Cefepime doxy and po Vanco down on folate dose ST PT OT eval Monitor lytes- monitor renal parameters Pulm eval appreciated Subjective ROS Limited/Unobtainable: No Constitutional: Reports: malaise Allergies: Coded Allergies: ACETAMINOPHEN (Verified Allergy, Unknown, 06/11/15) IBUPROFEN (Verified Allergy, Unknown, 06/11/15) Objective Last 24 Hour Vital Signs Date Time Temp Pulse Resp B/P Pulse Ox O2 Delivery O2 Flow Rate FiO2 01/04/17 08:47 98.2 111 20 135/82 97 Room Air 01/04/17 04:27 98.4 99 19 117/81 99 Room Air 01/04/17 00:13 98.1 90 18 120/70 94 Room Air 01/03/17 21:00 98.8 93 19 122/78 95 Room Air 01/03/17 20:00 98.6 87 20 120/62 95 Room Air 01/03/17 17:30 98.4 97 19 118/57 92 Room Air 01/03/17 16:00 99.7 97 18 116/72 96 Room Air 01/03/17 12:07 99.1 109 19 128/74 97 Room Air Intake and Output 01/03/17 01/04/17 19:00 07:00 Intake Total 1065 ml 240 ml Output Total 500 ml Balance 565 ml 240 ml Intake Oral 240 ml IV Total 1065 ml Output Urine Total 500 ml # Voids 3 # Bowel Movements 4 Height (Feet): 5 Height (Inches): 10.00 Weight (Pounds): 160 General Appearance: no apparent distress Objective other PE not changed VELASQUEZ DASILVA Jan 04, 2017 09:18
[2017-01-04 09:36] LABS: ANISOCYTOSIS 2+; BAND NEUTROPHILS % (MANUAL) 0 % (0-8); BASOPHILS % (MANUAL) 0 % (0-2); EOSINOPHILS % (MANUAL) 1 % (0-3); HYPOCHROMASIA 2+; LYMPHOCYTES % (MANUAL) 11 % (20-45); NEUTROPHILS % (MANUAL) 77 % (45-75); PLATELET ESTIMATE INCREASED; PLATELET MORPHOLOGY NORMAL; POLYCHROMASIA 1+; TOTAL CELLS COUNTED 100
[2017-01-04 09:42] LABS: ALBUMIN/GLOBULIN RATIO 0.7 (1.0-2.7); CALCIUM 9.2 mg/dL (8.6-10.2); CREATININE 2.5 mg/dL (0.7-1.2); MAGNESIUM 1.6 mg/dL (1.7-2.5); POTASSIUM 4.3 mEQ/L (3.4-4.9); URIC ACID 5.9 mg/dL (3.0-7.5)
[2017-01-04] MEDS ORDERED: Tubing IV Secondary IV ONE (10:17)
--- NOTE | 2017-01-04 11:44 | General Progress Note ---
Assessment/Plan Assessment/Plan # Anemia secondary to severe folic acid deficiency, currently less than 2, have ordered for oral folic acid getting 10 mg daily. ---> hgb goal >7, monitor ---> pt refused blood transfusion after multiple discussions ---> have recommended a bone marrow biopsy # Leukocytosis secondary to underlying inflammatory reaction versus infection # Pancreatitis has being followed by gi and id, pain has improved ---> on prn zofran and pepcid as needed # Lactic acidosis with decreased blood pressure. # Anemia secondary to hemodilution. # Thrombocytopenia, likely secondary to hemodilution versus infection. # Hypokalemia, resolved. # Anemia secondary to B12 deficiency, has been given B12 injections. # History of seizures, on Dilantin. # History of alcohol intoxication leading to pancreatitis. # Altered mental status. Seen by Neurology Subjective Date patient seen: Jan 03, 2017 Constitutional: Reports: no symptoms HEENT: Reports: no symptoms Cardiovascular: Denies: chest pain, edema, irregular heart rate, lightheadedness, no symptoms, other, palpitations, syncope Respiratory: Denies: SOB at rest, SOB with excertion, cough, no symptoms, orthopnea, other, shortness of breath, sputum, stridor, wheezing Gastrointestinal/Abdominal: Denies: abdomen distended, abdominal pain, black stools, blood in stool, constipated, diarrhea, difficulty swallowing, nausea, no symptoms, other, poor appetite, poor fluid intake, rectal bleeding, tarry stools, vomiting Genitourinary: Denies: burning, discharge, flank pain, frequency, hematuria, incontinence, no symptoms, other, pain, urgency Neurologic/Psychiatric: Denies: anxiety, depressed, emotional problems, headache, no symptoms, numbness, other, paresthesia, pre-existing deficit, seizure, tingling, tremors, weakness Endocrine: Denies: excessive sweating, flushing, increased hunger, increased thirst, increased urine, intolerance to cold, intolerance to heat, no symptoms, other, unexplained weight gain, unexplained weight loss Hematologic/Lymphatic: Denies: anemia, easy bleeding, easy bruising, no symptoms, other Allergies: Coded Allergies: ACETAMINOPHEN (Verified Allergy, Unknown, 06/11/15) IBUPROFEN (Verified Allergy, Unknown, 06/11/15) Subjective pt has refused blood transfusion again today, wants to wait until has symptoms Objective Last 24 Hour Vital Signs Date Time Temp Pulse Resp B/P Pulse Ox O2 Delivery O2 Flow Rate FiO2 01/04/17 08:47 98.2 111 20 135/82 97 Room Air 01/04/17 04:27 98.4 99 19 117/81 99 Room Air 01/04/17 00:13 98.1 90 18 120/70 94 Room Air 01/03/17 21:00 98.8 93 19 122/78 95 Room Air 01/03/17 20:00 98.6 87 20 120/62 95 Room Air 01/03/17 17:30 98.4 97 19 118/57 92 Room Air 01/03/17 16:00 99.7 97 18 116/72 96 Room Air 01/03/17 12:07 99.1 109 19 128/74 97 Room Air Intake and Output 01/03/17 01/04/17 19:00 07:00 Intake Total 1065 ml 240 ml Output Total 500 ml Balance 565 ml 240 ml Intake Oral 240 ml IV Total 1065 ml Output Urine Total 500 ml # Voids 3 # Bowel Movements 4 Laboratory Tests 01/04/17 08:10: White Blood Count 18.6H, Red Blood Count 2.43L, Hemoglobin 6.8*L, Hematocrit 22.3L, Mean Corpuscular Volume 92, Mean Corpuscular Hemoglobin 28.1, Mean Corpuscular Hemoglobin Concent 30.6L, Red Cell Distribution Width 21.0H, Platelet Count 698H, Mean Platelet Volume 8.0, Neutrophils (%) (Auto) , Lymphocytes (%) (Auto) , Monocytes (%) (Auto) , Eosinophils (%) (Auto) , Basophils (%) (Auto) , Differential Total Cells Counted 100, Neutrophils % ( Manual) 77H, Lymphocytes % (Manual) 11L, Monocytes % (Manual) 11H, Eosinophils % (Manual) 1, Basophils % (Manual) 0, Band Neutrophils 0, Platelet Estimate IncreasedH, Platelet Morphology Normal, Polychromasia 1+, Hypochromasia 2+, Anisocytosis 2+, Sodium Level 140, Potassium Level 4.3, Chloride Level 105, Carbon Dioxide Level 22, Anion Gap 13, Blood Urea Nitrogen 11, Creatinine 2.5H, Estimat Glomerular Filtration Rate 37.0, Glucose Level 103, Uric Acid 5.9, Calcium Level 9.2, Phosphorus Level 5.0H, Magnesium Level 1.6L, Total Bilirubin 0.3, Aspartate Amino Transf (AST/SGOT) 19, Alanine Aminotransferase (ALT/SGPT) 12, Alkaline Phosphatase 95, C-Reactive Protein, Quantitative 5.0H, Pro-B-Type Natriuretic Peptide 1604H, Total Protein 7.0, Albumin 2.9L, Globulin 4.1, Albumin/Globulin Ratio 0.7L Height (Feet): 5 Height (Inches): 10.00 Weight (Pounds): 160 General Appearance: no apparent distress EENT: normal ENT inspection Neck: supple Cardiovascular: normal rate Respiratory/Chest: lungs clear Abdomen: normal bowel sounds Genitourinary/Rectal: normal rectal exam Extremities: non-tender Edema: no edema noted Leg (L), no edema noted Leg (R) Edema: mild edema Neurologic: alert Skin: warm/dry Kapil Haney Jan 04, 2017 11:44
--- NOTE | 2017-01-04 11:57 | General Progress Note ---
Assessment/Plan Assessment/Plan (1) Alerted mental status (2) Alcohol abuse (3) Intractable abdominal pain (4) Pancreatitis Pt will be continued on tramadol and Robaxin. D/w Dr. waters and he concurred. Subjective Date patient seen: Jan 04, 2017 Time patient seen: 11:15 - am Allergies: Coded Allergies: ACETAMINOPHEN (Verified Allergy, Unknown, 06/11/15) IBUPROFEN (Verified Allergy, Unknown, 06/11/15) Subjective Constitutional: Reports: weakness Eye: Reports: no symptoms ENT: Reports: no symptoms Respiratory: Reports: no symptoms Cardiovascular: Reports: no symptoms Gastrointestinal: Reports: abdominal pain, nausea Genitourinary: Reports: no symptoms Musculoskeletal: Reports: no symptoms Skin: Reports: no symptoms Psychiatric: Reports: anxiety, depressed feelings Neurological: Reports: numbness Endocrine: Reports: no symptoms Hematologic/Lymphatic: Reports: anemia SUBJECTIVE: Patient is laying in bed no signs of pain reporting no pain at this time. Objective Last 24 Hour Vital Signs Date Time Temp Pulse Resp B/P Pulse Ox O2 Delivery O2 Flow Rate FiO2 01/04/17 08:47 98.2 111 20 135/82 97 Room Air 01/04/17 04:27 98.4 99 19 117/81 99 Room Air 01/04/17 00:13 98.1 90 18 120/70 94 Room Air 01/03/17 21:00 98.8 93 19 122/78 95 Room Air 01/03/17 20:00 98.6 87 20 120/62 95 Room Air 01/03/17 17:30 98.4 97 19 118/57 92 Room Air 01/03/17 16:00 99.7 97 18 116/72 96 Room Air 01/03/17 12:07 99.1 109 19 128/74 97 Room Air Intake and Output 01/03/17 01/04/17 19:00 07:00 Intake Total 1065 ml 240 ml Output Total 500 ml Balance 565 ml 240 ml Intake Oral 240 ml IV Total 1065 ml Output Urine Total 500 ml # Voids 3 # Bowel Movements 4 Laboratory Tests 01/04/17 08:10: White Blood Count 18.6H, Red Blood Count 2.43L, Hemoglobin 6.8*L, Hematocrit 22.3L, Mean Corpuscular Volume 92, Mean Corpuscular Hemoglobin 28.1, Mean Corpuscular Hemoglobin Concent 30.6L, Red Cell Distribution Width 21.0H, Platelet Count 698H, Mean Platelet Volume 8.0, Neutrophils (%) (Auto) , Lymphocytes (%) (Auto) , Monocytes (%) (Auto) , Eosinophils (%) (Auto) , Basophils (%) (Auto) , Differential Total Cells Counted 100, Neutrophils % ( Manual) 77H, Lymphocytes % (Manual) 11L, Monocytes % (Manual) 11H, Eosinophils % (Manual) 1, Basophils % (Manual) 0, Band Neutrophils 0, Platelet Estimate IncreasedH, Platelet Morphology Normal, Polychromasia 1+, Hypochromasia 2+, Anisocytosis 2+, Sodium Level 140, Potassium Level 4.3, Chloride Level 105, Carbon Dioxide Level 22, Anion Gap 13, Blood Urea Nitrogen 11, Creatinine 2.5H, Estimat Glomerular Filtration Rate 37.0, Glucose Level 103, Uric Acid 5.9, Calcium Level 9.2, Phosphorus Level 5.0H, Magnesium Level 1.6L, Total Bilirubin 0.3, Aspartate Amino Transf (AST/SGOT) 19, Alanine Aminotransferase (ALT/SGPT) 12, Alkaline Phosphatase 95, C-Reactive Protein, Quantitative 5.0H, Pro-B-Type Natriuretic Peptide 1604H, Total Protein 7.0, Albumin 2.9L, Globulin 4.1, Albumin/Globulin Ratio 0.7L Height (Feet): 5 Height (Inches): 10.00 Weight (Pounds): 160 Objective General Appearance: no apparent distress, alert HEENT: PERRL Neck: non-tender, supple Respiratory/Chest: lungs clear, normal breath sounds Cardiovascular/Chest: normal rate, regular rhythm Abdomen: tender Extremities: non-tender Skin Exam: warm/dry Neurologic: alert, oriented x 3 SADIQ HERNANDEZ NDeric PMalia Jan 04, 2017 11:57
[2017-01-04 12:00] VITALS: BP 131/68
--- NOTE | 2017-01-04 13:31 | Cardiac Electrophysiology PN ---
Assessment/Plan Status Narrative CT Brain Impression: Cerebral volume loss, out of proportion to patient's age. Correlate with clinical history Negative for acute intrarenal bleed or mass effect Assessment/Plan 1. Hypotension.Resolved. Echocardiography showed ejection fraction 55% %. 2. Sinus tachycardia. Due to severe anemia and sepsis with WBC 18k 3. Homelessness. 4. Severe hyponatremia, resolved. 5. CKD cr 2.[address] Rosario. 6.Toxic metabolic encephalopathy. CT of the brain done on 12/24/16 reveals generalized cerebral atrophy. 7. Psychiatric illness and seizure disorder 8. Severe Anemia. Hb 6.5 secondary to severe folic acid deficiency on oral folic acid getting 10 mg daily. pt refused blood transfusion after multiple discussions. Dr Marr has recommended a bone marrow biopsy DW RN Subjective Subjective Alert in NAD, still in Isolation to rule out TB. No chest pain or SOB. Objective Last 24 Hour Vital Signs Date Time Temp Pulse Resp B/P Pulse Ox O2 Delivery O2 Flow Rate FiO2 01/04/17 12:00 98.0 91 20 131/68 94 Room Air 01/04/17 08:47 98.2 111 20 135/82 97 Room Air 01/04/17 04:27 98.4 99 19 117/81 99 Room Air 01/04/17 00:13 98.1 90 18 120/70 94 Room Air 01/03/17 21:00 98.8 93 19 122/78 95 Room Air 01/03/17 20:00 98.6 87 20 120/62 95 Room Air 01/03/17 17:30 98.4 97 19 118/57 92 Room Air 01/03/17 16:00 99.7 97 18 116/72 96 Room Air Intake and Output 01/03/17 01/04/17 19:00 07:00 Intake Total 1065 ml 240 ml Output Total 500 ml Balance 565 ml 240 ml Intake Oral 240 ml IV Total 1065 ml Output Urine Total 500 ml # Voids 3 # Bowel Movements 4 Laboratory Tests Test 01/04/17 08:10 White Blood Count 18.6 K/UL (4.8-10.8) H Red Blood Count 2.43 M/UL (4.70-6.10) L Hemoglobin 6.8 G/DL (14.2-18.0) *L Hematocrit 22.3 % (42.0-52.0) L Mean Corpuscular Volume 92 FL (80-99) Mean Corpuscular Hemoglobin 28.1 PG (27.0-31.0) Mean Corpuscular Hemoglobin Concent 30.6 G/DL (32.0-36.0) L Red Cell Distribution Width 21.0 % (11.6-14.8) H Platelet Count 698 K/UL (150-450) H Mean Platelet Volume 8.0 FL (6.5-10.1) Neutrophils (%) (Auto) % (45.0-75.0) Lymphocytes (%) (Auto) % (20.0-45.0) Monocytes (%) (Auto) % (1.0-10.0) Eosinophils (%) (Auto) % (0.0-3.0) Basophils (%) (Auto) % (0.0-2.0) Differential Total Cells Counted 100 Neutrophils % (Manual) 77 % (45-75) H Lymphocytes % (Manual) 11 % (20-45) L Monocytes % (Manual) 11 % (1-10) H Eosinophils % (Manual) 1 % (0-3) Basophils % (Manual) 0 % (0-2) Band Neutrophils 0 % (0-8) Platelet Estimate Increased H Platelet Morphology Normal Polychromasia 1+ Hypochromasia 2+ Anisocytosis 2+ Sodium Level 140 mEQ/L (135-145) Potassium Level 4.3 mEQ/L (3.4-4.9) Chloride Level 105 mEQ/L (98-107) Carbon Dioxide Level 22 mEQ/L (20-30) Anion Gap 13 (5-15) Blood Urea Nitrogen 11 mg/dL (7-23) Creatinine 2.5 mg/dL (0.7-1.2) H Estimat Glomerular Filtration Rate 37.0 mL/min (>60) Glucose Level 103 mg/dL (74-106) Uric Acid 5.9 mg/dL (3.0-7.5) Calcium Level 9.2 mg/dL (8.6-10.2) Phosphorus Level 5.0 mg/dL (2.5-4.8) H Magnesium Level 1.6 mg/dL (1.7-2.5) L Total Bilirubin 0.3 mg/dL (0.0-1.2) Aspartate Amino Transf (AST/SGOT) 19 U/L (5-40) Alanine Aminotransferase (ALT/SGPT) 12 U/L (3-41) Alkaline Phosphatase 95 U/L (40-129) C-Reactive Protein, Quantitative 5.0 mg/dL (< 0.5) H Pro-B-Type Natriuretic Peptide 1604 pg/mL (0-125) H Total Protein 7.0 g/dL (6.6-8.7) Albumin 2.9 g/dL (3.5-5.2) L Globulin 4.1 g/dL Albumin/Globulin Ratio 0.7 (1.0-2.7) L Microbiology Date/Time Source Procedure Growth Status 01/02/17 20:45 Blood Blood Culture - Preliminary NO GROWTH AFTER 24 HOURS Resulted 01/02/17 20:40 Blood Blood Culture - Preliminary NO GROWTH AFTER 24 HOURS Resulted 01/02/17 10:30 Sputum Gram Stain - Final Complete 01/02/17 10:30 Sputum Sputum Culture - Final NORMAL UPPER RESPIRATORY ROBEL PRESENT Complete 01/03/17 06:50 Stool Clostridium difficile Toxin Assay - Final Complete Objective NECK: No JVD. LUNGS: Coarse rhonchi CARDIOVASCULAR: Regular S1 and S2 with no gallop or murmur. ABDOMEN: Soft. EXTREMITIES: No pitting edema. ROGERS DEAN Jan 04, 2017 13:31
[2017-01-04 16:00] VITALS: BP 121/77
[2017-01-04] MEDS: Cefepime HCl 1 GM in D5W 55 ML IVPB SCH (17:43)
[2017-01-04 20:17] VITALS: BP 107/77
--- NOTE | 2017-01-04 21:22 | General Progress Note ---
Assessment/Plan Problem List: (1) Altered mental status ICD Codes: R41.82 - Altered mental status, unspecified SNOMED: 175044389 Qualifiers: Qualified Codes: R41.82 - Altered mental status, unspecified (2) Pancreatitis ICD Codes: K85.90 - Acute pancreatitis without necrosis or infection, unspecified SNOMED: 04654974 Qualifiers: Qualified Codes: K85.90 - Acute pancreatitis without necrosis or infection, unspecified (3) Sepsis ICD Codes: A41.9 - Sepsis, unspecified organism SNOMED: 69600646 (4) Anemia ICD Codes: D64.9 - Anemia, unspecified SNOMED: 122348408 Status: unchanged Assessment/Plan ams hyponatremia resolved anemia due to hemoptysis treatment of hemoptysis per pulmonary persistent leukocytosis sepsis abx per id afebrile refusing transfusion.will ask dr khanna to talk to patient again re transfusion still confused Subjective Constitutional: Reports: no symptoms Allergies: Coded Allergies: ACETAMINOPHEN (Verified Allergy, Unknown, 06/11/15) IBUPROFEN (Verified Allergy, Unknown, 06/11/15) Objective Last 24 Hour Vital Signs Date Time Temp Pulse Resp B/P Pulse Ox O2 Delivery O2 Flow Rate FiO2 01/04/17 20:17 97.9 99 18 107/77 98 Room Air 01/04/17 16:00 97.9 120 18 121/77 98 Room Air 01/04/17 12:00 98.0 91 20 131/68 94 Room Air 01/04/17 08:47 98.2 111 20 135/82 97 Room Air 01/04/17 04:27 98.4 99 19 117/81 99 Room Air 01/04/17 00:13 98.1 90 18 120/70 94 Room Air Intake and Output 01/03/17 01/04/17 19:00 07:00 Intake Total 1065 ml 240 ml Output Total 500 ml Balance 565 ml 240 ml Intake Oral 240 ml IV Total 1065 ml Output Urine Total 500 ml # Voids 3 # Bowel Movements 4 Laboratory Tests 01/04/17 08:10: White Blood Count 18.6H, Red Blood Count 2.43L, Hemoglobin 6.8*L, Hematocrit 22.3L, Mean Corpuscular Volume 92, Mean Corpuscular Hemoglobin 28.1, Mean Corpuscular Hemoglobin Concent 30.6L, Red Cell Distribution Width 21.0H, Platelet Count 698H, Mean Platelet Volume 8.0, Neutrophils (%) (Auto) , Lymphocytes (%) (Auto) , Monocytes (%) (Auto) , Eosinophils (%) (Auto) , Basophils (%) (Auto) , Differential Total Cells Counted 100, Neutrophils % ( Manual) 77H, Lymphocytes % (Manual) 11L, Monocytes % (Manual) 11H, Eosinophils % (Manual) 1, Basophils % (Manual) 0, Band Neutrophils 0, Platelet Estimate IncreasedH, Platelet Morphology Normal, Polychromasia 1+, Hypochromasia 2+, Anisocytosis 2+, Sodium Level 140, Potassium Level 4.3, Chloride Level 105, Carbon Dioxide Level 22, Anion Gap 13, Blood Urea Nitrogen 11, Creatinine 2.5H, Estimat Glomerular Filtration Rate 37.0, Glucose Level 103, Uric Acid 5.9, Calcium Level 9.2, Phosphorus Level 5.0H, Magnesium Level 1.6L, Total Bilirubin 0.3, Aspartate Amino Transf (AST/SGOT) 19, Alanine Aminotransferase (ALT/SGPT) 12, Alkaline Phosphatase 95, C-Reactive Protein, Quantitative 5.0H, Pro-B-Type Natriuretic Peptide 1604H, Total Protein 7.0, Albumin 2.9L, Globulin 4.1, Albumin/Globulin Ratio 0.7L Height (Feet): 5 Height (Inches): 10.00 Weight (Pounds): 160 General Appearance: confused Robbi Vega MD Jan 04, 2017 21:22
[2017-01-04] MEDS: Miralax 17gm pkt ORAL SCH (22:04)
--- NOTE | 2017-01-04 22:49 | Infectious Diseases Prog Note ---
Assessment/Plan Problems: (1) Pleural effusion Assessment & Plan: rule out empyema, recommend thoracentesis and fluids to be sent for culture, gram stain, fungal and AFB, and cytology (2) Hemoptysis Assessment & Plan: rule out TB, in high risk patient, sputum for AFB smears X 2 is negative so far , PPD test is negative , keep in air born isolation for now , CT chest ruled out cavitation (3) Aspiration pneumonia Assessment & Plan: improving on cefepime and doxycycline , CT chest confirmed it (4) Sepsis Assessment & Plan: due to the above with leukocytosis, improving , stool for C diff is negative , repeated blood culture is negative ,monitor CBC (5) Pancreatitis Assessment & Plan: due to tawanda drink of alcohol , continue hydration with supportive care, monitor lipase level , GI is following (6) Altered mental status Assessment & Plan: multifactorial, with folate deficiency , improving, started on folate replacement , neurology is following (7) Nausea & vomiting Assessment & Plan: recurrent , etiology , achalasia ? may need EGD , continue supportive care , GI id following (8) DWAYNE (acute kidney injury) Assessment & Plan: multifactorials, dehydration due to recurrent vomiting, VS meds side effects, will D/C vancomycin and zosyn, and continue IVF for hydration , monitor renal function test (9) Diarrhea Assessment & Plan: self limited, no evidence of C diff , d/c oral vancomycin Subjective Constitutional: Reports: fatigue Respiratory: Reports: productive cough Gastrointestinal/Abdominal: Reports: diarrhea, nausea Allergies: Coded Allergies: ACETAMINOPHEN (Verified Allergy, Unknown, 06/11/15) IBUPROFEN (Verified Allergy, Unknown, 06/11/15) All Systems: reviewed and negative except above Objective Vital Signs Last 24 Hour Vital Signs Date Time Temp Pulse Resp B/P Pulse Ox O2 Delivery O2 Flow Rate FiO2 01/04/17 20:17 97.9 99 18 107/77 98 Room Air 01/04/17 16:00 97.9 120 18 121/77 98 Room Air 01/04/17 12:00 98.0 91 20 131/68 94 Room Air 01/04/17 08:47 98.2 111 20 135/82 97 Room Air 01/04/17 04:27 98.4 99 19 117/81 99 Room Air 01/04/17 00:13 98.1 90 18 120/70 94 Room Air Height (Feet): 5 Height (Inches): 10.00 Weight (Pounds): 160 General Appearance: WD/WN, no acute distress HEENT: normocephalic, atraumatic, anicteric, mucous membranes moist, PERRL Respiratory/Chest: chest wall non-tender, normal breath sounds, no respiratory distress, no accessory muscle use Cardiovascular: normal peripheral pulses, normal rate, regular rhythm, no gallop/murmur, no JVD Abdomen: normal bowel sounds, soft, non tender, no organomegaly, non distended , no mass, no scars Extremities: no cyanosis, no clubbing Skin: no rash, no lesions, no ulcers Neurologic/Psychiatric: alert, oriented x 3, responsive Lymphatic: no neck adenopathy Musculoskeletal: normal muscle bulk, no effusion Microbiology Date/Time Source Procedure Growth Status 01/02/17 20:45 Blood Blood Culture - Preliminary NO GROWTH AFTER 24 HOURS Resulted 01/02/17 20:40 Blood Blood Culture - Preliminary NO GROWTH AFTER 24 HOURS Resulted 01/02/17 10:30 Sputum Gram Stain - Final Complete 01/02/17 10:30 Sputum Sputum Culture - Final NORMAL UPPER RESPIRATORY ROBEL PRESENT Complete 01/03/17 06:50 Stool Clostridium difficile Toxin Assay - Final Complete Laboratory Tests Test 01/04/17 08:10 White Blood Count 18.6 K/UL (4.8-10.8) H Red Blood Count 2.43 M/UL (4.70-6.10) L Hemoglobin 6.8 G/DL (14.2-18.0) *L Hematocrit 22.3 % (42.0-52.0) L Mean Corpuscular Volume 92 FL (80-99) Mean Corpuscular Hemoglobin 28.1 PG (27.0-31.0) Mean Corpuscular Hemoglobin Concent 30.6 G/DL (32.0-36.0) L Red Cell Distribution Width 21.0 % (11.6-14.8) H Platelet Count 698 K/UL (150-450) H Mean Platelet Volume 8.0 FL (6.5-10.1) Neutrophils (%) (Auto) % (45.0-75.0) Lymphocytes (%) (Auto) % (20.0-45.0) Monocytes (%) (Auto) % (1.0-10.0) Eosinophils (%) (Auto) % (0.0-3.0) Basophils (%) (Auto) % (0.0-2.0) Differential Total Cells Counted 100 Neutrophils % (Manual) 77 % (45-75) H Lymphocytes % (Manual) 11 % (20-45) L Monocytes % (Manual) 11 % (1-10) H Eosinophils % (Manual) 1 % (0-3) Basophils % (Manual) 0 % (0-2) Band Neutrophils 0 % (0-8) Platelet Estimate Increased H Platelet Morphology Normal Polychromasia 1+ Hypochromasia 2+ Anisocytosis 2+ Sodium Level 140 mEQ/L (135-145) Potassium Level 4.3 mEQ/L (3.4-4.9) Chloride Level 105 mEQ/L (98-107) Carbon Dioxide Level 22 mEQ/L (20-30) Anion Gap 13 (5-15) Blood Urea Nitrogen 11 mg/dL (7-23) Creatinine 2.5 mg/dL (0.7-1.2) H Estimat Glomerular Filtration Rate 37.0 mL/min (>60) Glucose Level 103 mg/dL (74-106) Uric Acid 5.9 mg/dL (3.0-7.5) Calcium Level 9.2 mg/dL (8.6-10.2) Phosphorus Level 5.0 mg/dL (2.5-4.8) H Magnesium Level 1.6 mg/dL (1.7-2.5) L Total Bilirubin 0.3 mg/dL (0.0-1.2) Aspartate Amino Transf (AST/SGOT) 19 U/L (5-40) Alanine Aminotransferase (ALT/SGPT) 12 U/L (3-41) Alkaline Phosphatase 95 U/L (40-129) C-Reactive Protein, Quantitative 5.0 mg/dL (< 0.5) H Pro-B-Type Natriuretic Peptide 1604 pg/mL (0-125) H Total Protein 7.0 g/dL (6.6-8.7) Albumin 2.9 g/dL (3.5-5.2) L Globulin 4.1 g/dL Albumin/Globulin Ratio 0.7 (1.0-2.7) L Current Medications Medications (Trade) Dose Ordered Sig/Juliana Route PRN Reason Start Time Stop Time Status Last Admin Dose Admin Acetaminophen (Tylenol) 650 mg Q4H PRN ORAL Mild Pain/Temp > 100.5 12/25/16 10:30 01/24/17 10:29 01/02/17 18:51 Cefepime HCl 1 gm/ Dextrose 55 ml @ 110 mls/hr Q24H IVPB 01/01/17 19:00 01/08/17 18:59 01/04/17 17:43 Docusate Sodium (Colace) 100 mg TWICE A DAY ORAL 12/30/16 09:00 01/29/17 08:59 01/04/17 17:43 Doxycycline Hyclate/Dextrose (Vibramycin/D5W) 110 ml @ 110 mls/hr Q12HR IV 01/01/17 19:00 01/08/17 18:59 01/04/17 22:05 Epoetin Alex 73564 units 10,000 units SUBQ 12/31/16 21:00 01/30/17 20:59 01/02/17 20:48 Fluoxetine HCl (PROzac) 20 mg DAILY ORAL 12/27/16 09:00 01/26/17 08:59 01/04/17 08:43 Folic Acid (Folate) 2 mg DAILY ORAL 01/02/17 09:00 02/01/17 08:59 01/04/17 08:43 Lactulose (Cephulac) 10 gm TID@0900,1500,2100 ORAL 12/30/16 09:00 01/29/17 08:59 01/04/17 22:04 Levetiracetam (Keppra) 750 mg Q12HR ORAL 12/30/16 21:00 01/29/17 20:59 01/04/17 22:04 Methocarbamol (Robaxin) 500 mg Q8H PRN ORAL muscle spasm 01/02/17 09:00 02/01/17 08:59 Metoclopramide HCl (Reglan) 10 mg Q6H PRN IVP Nausea & Vomiting 12/30/16 12:30 01/29/17 12:29 12/31/16 08:59 Ondansetron HCl (Zofran) 4 mg Q6H PRN IVP Nausea & Vomiting 12/23/16 19:45 01/22/17 19:44 01/01/17 15:52 Pantoprazole (Protonix) 40 mg DAILY ORAL 01/02/17 09:00 02/01/17 08:59 01/04/17 08:42 Polyethylene Glycol (Miralax) 17 gm BEDTIME ORAL 12/30/16 21:00 01/29/17 20:59 01/04/17 22:04 Sodium Chloride (Sodium Chloride 1000ml bag) 1,000 ml @ 100 mls/hr Q10H IV 01/02/17 07:45 02/01/17 07:44 01/04/17 17:44 Thiamine HCl (Vitamin B1) 100 mg DAILY ORAL 12/24/16 14:30 01/23/17 14:29 01/04/17 08:43 Tramadol HCl (Ultram) 50 mg Q4H PRN ORAL severe pain 01/02/17 09:00 01/09/17 08:59 01/02/17 20:45 Vancomycin HCl 125 mg 125 mg FOUR TIMES A DAY ORAL 01/02/17 09:00 01/09/17 08:59 01/04/17 21:00 Vitamin D (Vitamin D) 2,000 intlu DAILY ORAL 12/25/16 10:30 01/24/17 10:29 01/04/17 08:43 Imelda Chen M.D. Jan 04, 2017 22:49
--- NOTE | 2017-01-04 23:45 | General Progress Note ---
Assessment/Plan Assessment/Plan # Anemia secondary to severe folic acid deficiency, currently on folic acid ---> pt refused blood transfusion after multiple discussions (most recent was on 01/04/17,does not want blood even though hgb <7) he understands risks of increased morbidity and mortality ---> hgb goal again >7, monitor ---> have recommended a bone marrow biopsy (okay with this for thursday) # Leukocytosis secondary to underlying inflammatory reaction versus infection # Pancreatitis has being followed by gi and id, pain has improved ---> on prn zofran and pepcid as needed # Lactic acidosis with decreased blood pressure. better # Anemia secondary to hemodilution. # Thrombocytopenia, likely secondary to hemodilution versus infection. # Hypokalemia, resolved. # Anemia secondary to B12 deficiency, has been given B12 injections. # History of seizures, on Dilantin. # History of alcohol intoxication leading to pancreatitis. # Altered mental status. Seen by Neurology Subjective Constitutional: Reports: no symptoms Cardiovascular: Reports: no symptoms Respiratory: Reports: no symptoms Gastrointestinal/Abdominal: Reports: poor appetite Genitourinary: Reports: no symptoms Neurologic/Psychiatric: Reports: no symptoms Endocrine: Reports: no symptoms Hematologic/Lymphatic: Reports: anemia Allergies: Coded Allergies: ACETAMINOPHEN (Verified Allergy, Unknown, 06/11/15) IBUPROFEN (Verified Allergy, Unknown, 06/11/15) Subjective pt has refused blood transfusion again today Objective Last 24 Hour Vital Signs Date Time Temp Pulse Resp B/P Pulse Ox O2 Delivery O2 Flow Rate FiO2 01/04/17 20:17 97.9 99 18 107/77 98 Room Air 01/04/17 16:00 97.9 120 18 121/77 98 Room Air 01/04/17 12:00 98.0 91 20 131/68 94 Room Air 01/04/17 08:47 98.2 111 20 135/82 97 Room Air 01/04/17 04:27 98.4 99 19 117/81 99 Room Air 01/04/17 00:13 98.1 90 18 120/70 94 Room Air Intake and Output 01/03/17 01/04/17 19:00 07:00 Intake Total 1065 ml 240 ml Output Total 500 ml Balance 565 ml 240 ml Intake Oral 240 ml IV Total 1065 ml Output Urine Total 500 ml # Voids 3 # Bowel Movements 4 Laboratory Tests 01/04/17 08:10: White Blood Count 18.6H, Red Blood Count 2.43L, Hemoglobin 6.8*L, Hematocrit 22.3L, Mean Corpuscular Volume 92, Mean Corpuscular Hemoglobin 28.1, Mean Corpuscular Hemoglobin Concent 30.6L, Red Cell Distribution Width 21.0H, Platelet Count 698H, Mean Platelet Volume 8.0, Neutrophils (%) (Auto) , Lymphocytes (%) (Auto) , Monocytes (%) (Auto) , Eosinophils (%) (Auto) , Basophils (%) (Auto) , Differential Total Cells Counted 100, Neutrophils % ( Manual) 77H, Lymphocytes % (Manual) 11L, Monocytes % (Manual) 11H, Eosinophils % (Manual) 1, Basophils % (Manual) 0, Band Neutrophils 0, Platelet Estimate IncreasedH, Platelet Morphology Normal, Polychromasia 1+, Hypochromasia 2+, Anisocytosis 2+, Sodium Level 140, Potassium Level 4.3, Chloride Level 105, Carbon Dioxide Level 22, Anion Gap 13, Blood Urea Nitrogen 11, Creatinine 2.5H, Estimat Glomerular Filtration Rate 37.0, Glucose Level 103, Uric Acid 5.9, Calcium Level 9.2, Phosphorus Level 5.0H, Magnesium Level 1.6L, Total Bilirubin 0.3, Aspartate Amino Transf (AST/SGOT) 19, Alanine Aminotransferase (ALT/SGPT) 12, Alkaline Phosphatase 95, C-Reactive Protein, Quantitative 5.0H, Pro-B-Type Natriuretic Peptide 1604H, Total Protein 7.0, Albumin 2.9L, Globulin 4.1, Albumin/Globulin Ratio 0.7L Height (Feet): 5 Height (Inches): 10.00 Weight (Pounds): 160 General Appearance: no apparent distress EENT: PERRL/EOMI Neck: non-tender Cardiovascular: normal rate Respiratory/Chest: chest wall non-tender, respiratory distress Abdomen: non tender Extremities: non-tender Edema: no edema noted Leg (L), no edema noted Leg (R) Neurologic: oriented x 3 Skin: warm/dry Kapil Hnaey Jan 04, 2017 23:45
[2017-01-05] VITALS: BP 108/72
[2017-01-05 04:30] VITALS: BP 114/76
[2017-01-05 07:20] LABS: MEAN CORPUSCULAR HGB CONC 30.3 G/DL (32.0-36.0); MEAN CORPUSCULAR VOLUME 92 FL (80-99); MEAN PLATELET VOLUME 7.6 FL (6.5-10.1); PLATELET COUNT 787 K/UL (150-450); RED BLOOD COUNT 2.45 M/UL (4.70-6.10); RED CELL DISTRIBUTION WIDTH 21.8 % (11.6-14.8)
[2017-01-05 07:55] LABS: ALBUMIN/GLOBULIN RATIO 0.7 (1.0-2.7); CALCIUM 8.9 mg/dL (8.6-10.2); CREATININE 2.5 mg/dL (0.7-1.2); CRP QUANT 2.9 mg/dL (< 0.5); MAGNESIUM 1.6 mg/dL (1.7-2.5); PHOSPHORUS 4.3 mg/dL (2.5-4.8); POTASSIUM 4.2 mEQ/L (3.4-4.9); TOTAL PROTEIN 6.8 g/dL (6.6-8.7); URIC ACID 5.9 mg/dL (3.0-7.5)
[2017-01-05 08:00] VITALS: BP 108/66
--- NOTE | 2017-01-05 08:38 | Diagnostic Imaging Report ---
Indication: Dyspnea Comparison: 12/28/16 A single view chest radiograph was obtained. Findings: There is basilar atelectasis, possibly pneumonia. Cardiac enlargement is noted but stable. Small pleural effusions may present. Impression: Basilar densities likely atelectasis. Pneumonia not excluded.
--- NOTE | 2017-01-05 08:38 | Diagnostic Imaging Report ---
Indication: Dysphasia Procedure and findings: Real-time fluoroscopic imaging performed in a lateral projection in conjunction with the speech pathologist evaluation. Variable consistencies of barium given per mouth. Findings: Significant abnormalities of both oral and pharyngeal phases of swallowing are demonstrated. Total fluoroscopic time 186 seconds. Mild penetration noted with thin barium. No penetration or aspiration demonstrated otherwise. Abnormal video swallow. Please refer to speech pathology evaluation for more information.
--- NOTE | 2017-01-05 08:39 | Diagnostic Imaging Report ---
Indications: Shortness of breath Technique: Continuous helical CT imaging of the thorax and upper abdomen was performed with automatic exposure control on a Siemens sensation [address] scanner. Axial images were reconstructed at 5 mm slice thickness and interval. Coronal images were reconstructed at 5 mm slice thickness. No IV contrast was administered secondary to elevated BUN and creatinine levels. CTDI volume(s): 15 mGy Total DLP: 475 mGy-cm Findings: Comparison: CT abdomen pelvis 12/23/16 Lack of IV contrast limits evaluation. Extensive parenchymal consolidation with air bronchograms and volume loss have developed in both lung bases. Central bronchi remain patent. Small bilateral pleural effusions have developed. Nonconsolidated portions of both lungs remain clear. Heart remains normal in size. Small pericardial effusion has developed, maximum diameter 5 mm. No obvious enlarged mediastinal or hilar lymph nodes, other abnormal mass or fluid collection. Thoracic aorta remains nonaneurysmal. Vascular patency indeterminate. Chest wall soft tissues remain nonfocal. Mild stranding again noted adjacent to the pancreas. Small low-attenuation lesion in detail excludable. No focal skeletal abnormality identified. IMPRESSION: Development of bilateral lower lobe parenchymal consolidation--pneumonia versus atelectasis. No evidence of central bronchial obstruction, however. Development of bilateral pleural effusions may be secondary to above or pancreatitis Development of small pericardial effusion, nonspecific Persistent peripancreatic stranding compatible with pancreatitis. Small pancreatic tail lesion not excludable, nonspecific if real.
[2017-01-05 08:54] LABS: ANISOCYTOSIS 2+; BAND NEUTROPHILS % (MANUAL) 0 % (0-8); BASOPHILS % (MANUAL) 0 % (0-2); EOSINOPHILS % (MANUAL) 0 % (0-3); HYPOCHROMASIA 2+; LYMPHOCYTES % (MANUAL) 27 % (20-45); NEUTROPHILS % (MANUAL) 61 % (45-75); NUCLEATED RED BLOOD CELLS 2 /100 WBC; PLATELET ESTIMATE INCREASED; PLATELET MORPHOLOGY NORMAL; TARGET CELLS 1+; TOTAL CELLS COUNTED 100
[2017-01-05 08:55] LABS: POLYCHROMASIA 1+
[2017-01-05] MEDS: Lactulose 10gm/15ml UDC ORAL SCH ×3 (09:08→20:39)
[2017-01-05] MEDS: Doxycycline Hyclate 100 MG in D5W 110 ML IV SCH (09:08)
[2017-01-05] MEDS: Docusate 100mg cap ORAL SCH ×2 (09:09→18:20)
[2017-01-05] MEDS: Vitamin D 1000 IU Tab ORAL SCH (09:10)
[2017-01-05] MEDS: Thiamine 100mg tab ORAL SCH (09:11)
--- NOTE | 2017-01-05 10:17 | Diagnostic Imaging Report ---
Indications: DYSPNEA Technique: Portable AP chest Findings: Comparison: 01/02/2017 Pulmonary bibasal linear and patchy consolidative opacities, bibasal pleural effusions, questionable cardiomegaly unchanged. None abnormalities. IMPRESSION: No change from 2 days prior.
--- NOTE | 2017-01-05 11:10 | General Progress Note ---
Assessment/Plan Status: unchanged Status Narrative Hgb low- refuses transfusion Cr 2.5 stablizing Assessment/Plan status: Acute renal failure Hemoptysis , Pneumonia , r/o TB Sepsis On Admission: Renal failure , Acute vs Chronic improving h/o Sz Acute Encephalopathy h/o Low K h/o Low Na Low B12 and folate Elevated Lipase , acute pancreatitis sever anemia Plan; per consultants monitor renal parameters Hydrate- antibiotics down on folate dose ST PT OT eval Monitor lytes- monitor renal parameters Pulm eval appreciated Subjective ROS Limited/Unobtainable: No Constitutional: Reports: malaise, weakness Allergies: Coded Allergies: ACETAMINOPHEN (Verified Allergy, Unknown, 06/11/15) IBUPROFEN (Verified Allergy, Unknown, 06/11/15) Objective Last 24 Hour Vital Signs Date Time Temp Pulse Resp B/P Pulse Ox O2 Delivery O2 Flow Rate FiO2 01/05/17 08:00 98.4 87 20 108/66 99 Room Air 01/05/17 04:30 97.9 74 18 114/76 99 Room Air 01/05/17 00:00 98.1 88 20 108/72 97 Room Air 01/04/17 20:17 97.9 99 18 107/77 98 Room Air 01/04/17 16:00 97.9 120 18 121/77 98 Room Air 01/04/17 12:00 98.0 91 20 131/68 94 Room Air Intake and Output 01/04/17 01/05/17 19:00 07:00 Intake Total 720 ml 1500 ml Output Total 2000 ml 700 ml Balance -1280 ml 800 ml Intake Oral 720 ml 500 ml IV Total 1000 ml Output Urine Total 2000 ml 700 ml Laboratory Tests 01/05/17 05:15: White Blood Count 18.0H, Red Blood Count 2.45L, Hemoglobin 6.9*L, Hematocrit 22.7L, Mean Corpuscular Volume 92, Mean Corpuscular Hemoglobin 28.0, Mean Corpuscular Hemoglobin Concent 30.3L, Red Cell Distribution Width 21.8H, Platelet Count 787H, Mean Platelet Volume 7.6, Neutrophils (%) (Auto) , Lymphocytes (%) (Auto) , Monocytes (%) (Auto) , Eosinophils (%) (Auto) , Basophils (%) (Auto) , Differential Total Cells Counted 100, Neutrophils % ( Manual) 61, Lymphocytes % (Manual) 27, Monocytes % (Manual) 12H, Eosinophils % ( Manual) 0, Basophils % (Manual) 0, Band Neutrophils 0, Nucleated Red Blood Cells 2, Platelet Estimate IncreasedH, Platelet Morphology Normal, Polychromasia 1+, Hypochromasia 2+, Anisocytosis 2+, Target Cells 1+, Sodium Level 139, Potassium Level 4.2, Chloride Level 104, Carbon Dioxide Level 22, Anion Gap 13, Blood Urea Nitrogen 12, Creatinine 2.5H, Estimat Glomerular Filtration Rate 37.0, Glucose Level 83, Uric Acid 5.9, Calcium Level 8.9, Phosphorus Level 4.3, Magnesium Level 1.6L, Total Bilirubin 0.3, Aspartate Amino Transf (AST/SGOT) 18, Alanine Aminotransferase (ALT/SGPT) 10, Alkaline Phosphatase 84, C-Reactive Protein, Quantitative 2.9H, Pro-B-Type Natriuretic Peptide 540H, Total Protein 6.8, Albumin 2.8L, Globulin 4.0, Albumin/Globulin Ratio 0.7L Height (Feet): 5 Height (Inches): 10.00 Weight (Pounds): 160 General Appearance: no apparent distress Objective other PE not changed VELASQUEZ DASILVA Jan 05, 2017 11:10
[2017-01-05 12:00] VITALS: BP 115/54
--- NOTE | 2017-01-05 13:17 | GI Progress Note ---
Assessment/Plan Problems: (1) Pancreatitis ICD Codes: K85.90 - Acute pancreatitis without necrosis or infection, unspecified SNOMED: 53483659 Qualifiers: Qualified Codes: K85.90 - Acute pancreatitis without necrosis or infection, unspecified (2) Altered mental status ICD Codes: R41.82 - Altered mental status, unspecified SNOMED: 591604268 Qualifiers: Qualified Codes: R41.82 - Altered mental status, unspecified (3) Acute alcoholic intoxication ICD Codes: F10.929 - Alcohol use, unspecified with intoxication, unspecified SNOMED: 61086206 (4) Anemia ICD Codes: D64.9 - Anemia, unspecified SNOMED: 677068438 Status: unchanged Status Narrative Discussed with Dr. Friend. Assessment/Plan APCT reviewed >> Acute pancreatitis. Right/transverse colonic ileus. Hepatic steatosis. Cholelithiasis. ammonia WNL OB stool r/o GI bleed >> negative low fat diet pain mgmt zofran prn H2B abx monitor lipase encourage ambulation fu labs Subjective Gastrointestinal/Abdominal: Reports: no symptoms Objective Last 24 Hour Vital Signs Date Time Temp Pulse Resp B/P Pulse Ox O2 Delivery O2 Flow Rate FiO2 01/05/17 12:00 98.2 93 19 115/54 99 Room Air 01/05/17 08:00 98.4 87 20 108/66 99 Room Air 01/05/17 04:30 97.9 74 18 114/76 99 Room Air 01/05/17 00:00 98.1 88 20 108/72 97 Room Air 01/04/17 20:17 97.9 99 18 107/77 98 Room Air 01/04/17 16:00 97.9 120 18 121/77 98 Room Air Intake and Output 01/04/17 01/05/17 19:00 07:00 Intake Total 720 ml 1500 ml Output Total 2000 ml 700 ml Balance -1280 ml 800 ml Intake Oral 720 ml 500 ml IV Total 1000 ml Output Urine Total 2000 ml 700 ml Laboratory Tests Test 01/05/17 05:15 White Blood Count 18.0 K/UL (4.8-10.8) H Red Blood Count 2.45 M/UL (4.70-6.10) L Hemoglobin 6.9 G/DL (14.2-18.0) *L Hematocrit 22.7 % (42.0-52.0) L Mean Corpuscular Volume 92 FL (80-99) Mean Corpuscular Hemoglobin 28.0 PG (27.0-31.0) Mean Corpuscular Hemoglobin Concent 30.3 G/DL (32.0-36.0) L Red Cell Distribution Width 21.8 % (11.6-14.8) H Platelet Count 787 K/UL (150-450) H Mean Platelet Volume 7.6 FL (6.5-10.1) Neutrophils (%) (Auto) % (45.0-75.0) Lymphocytes (%) (Auto) % (20.0-45.0) Monocytes (%) (Auto) % (1.0-10.0) Eosinophils (%) (Auto) % (0.0-3.0) Basophils (%) (Auto) % (0.0-2.0) Differential Total Cells Counted 100 Neutrophils % (Manual) 61 % (45-75) Lymphocytes % (Manual) 27 % (20-45) Monocytes % (Manual) 12 % (1-10) H Eosinophils % (Manual) 0 % (0-3) Basophils % (Manual) 0 % (0-2) Band Neutrophils 0 % (0-8) Nucleated Red Blood Cells 2 /100 WBC Platelet Estimate Increased H Platelet Morphology Normal Polychromasia 1+ Hypochromasia 2+ Anisocytosis 2+ Target Cells 1+ Sodium Level 139 mEQ/L (135-145) Potassium Level 4.2 mEQ/L (3.4-4.9) Chloride Level 104 mEQ/L (98-107) Carbon Dioxide Level 22 mEQ/L (20-30) Anion Gap 13 (5-15) Blood Urea Nitrogen 12 mg/dL (7-23) Creatinine 2.5 mg/dL (0.7-1.2) H Estimat Glomerular Filtration Rate 37.0 mL/min (>60) Glucose Level 83 mg/dL (74-106) Uric Acid 5.9 mg/dL (3.0-7.5) Calcium Level 8.9 mg/dL (8.6-10.2) Phosphorus Level 4.3 mg/dL (2.5-4.8) Magnesium Level 1.6 mg/dL (1.7-2.5) L Total Bilirubin 0.3 mg/dL (0.0-1.2) Aspartate Amino Transf (AST/SGOT) 18 U/L (5-40) Alanine Aminotransferase (ALT/SGPT) 10 U/L (3-41) Alkaline Phosphatase 84 U/L (40-129) C-Reactive Protein, Quantitative 2.9 mg/dL (< 0.5) H Pro-B-Type Natriuretic Peptide 540 pg/mL (0-125) H Total Protein 6.8 g/dL (6.6-8.7) Albumin 2.8 g/dL (3.5-5.2) L Globulin 4.0 g/dL Albumin/Globulin Ratio 0.7 (1.0-2.7) L Height (Feet): 5 Height (Inches): 10.00 Weight (Pounds): 160 General Appearance: no apparent distress, alert Cardiovascular: normal rate Respiratory/Chest: normal breath sounds, no respiratory distress Abdominal Exam: normal bowel sounds, non tender, soft Extremities: normal range of motion Rosa Mancia N.P. Jan 05, 2017 13:17
--- NOTE | 2017-01-05 15:11 | Infectious Diseases Prog Note ---
Assessment/Plan Problems: (1) Pleural effusion Assessment & Plan: rule out empyema, recommend thoracentesis and fluids to be sent for culture, gram stain, fungal and AFB, and cytology (2) Hemoptysis Assessment & Plan: rule out TB, in high risk patient, sputum for AFB smears X 2 is negative so far , PPD test is negative , keep in air born isolation for now , CT chest ruled out cavitation (3) Aspiration pneumonia Assessment & Plan: improving on cefepime and doxycycline , CT chest confirmed it (4) Sepsis Assessment & Plan: due to the above with leukocytosis, improving , stool for C diff is negative , repeated blood culture is negative ,monitor CBC (5) Pancreatitis Assessment & Plan: due to tawanda drink of alcohol , continue hydration with supportive care, monitor lipase level , GI is following (6) Altered mental status Assessment & Plan: multifactorial, with folate deficiency , improving, started on folate replacement , neurology is following (7) Nausea & vomiting Assessment & Plan: recurrent , etiology , achalasia ? may need EGD , continue supportive care , GI id following (8) DWAYNE (acute kidney injury) Assessment & Plan: multifactorials, dehydration due to recurrent vomiting, VS meds side effects, will D/C vancomycin and zosyn, and continue IVF for hydration , monitor renal function test (9) Diarrhea Assessment & Plan: self limited, no evidence of C diff , d/c oral vancomycin Subjective Constitutional: Reports: no symptoms HEENT: Reports: no symptoms Respiratory: Reports: dry cough Cardiovascular: Reports: no symptoms Gastrointestinal/Abdominal: Reports: no symptoms Genitourinary: Reports: no symptoms Neurologic: Reports: no symptoms Psychiatric: Reports: no symptoms Skin: Reports: no symptoms Endocrine: Reports: no symptoms Hematologic: Reports: no symptoms Musculoskeletal: Reports: no symptoms Allergies: Coded Allergies: ACETAMINOPHEN (Verified Allergy, Unknown, 06/11/15) IBUPROFEN (Verified Allergy, Unknown, 06/11/15) Objective Vital Signs Last 24 Hour Vital Signs Date Time Temp Pulse Resp B/P Pulse Ox O2 Delivery O2 Flow Rate FiO2 01/05/17 12:00 98.2 93 19 115/54 99 Room Air 01/05/17 08:00 98.4 87 20 108/66 99 Room Air 01/05/17 04:30 97.9 74 18 114/76 99 Room Air 01/05/17 00:00 98.1 88 20 108/72 97 Room Air 01/04/17 20:17 97.9 99 18 107/77 98 Room Air 01/04/17 16:00 97.9 120 18 121/77 98 Room Air Height (Feet): 5 Height (Inches): 10.00 Weight (Pounds): 160 General Appearance: WD/WN, no acute distress HEENT: normocephalic, atraumatic, anicteric, mucous membranes moist, PERRL Respiratory/Chest: chest wall non-tender, lungs clear, normal breath sounds, no respiratory distress, no accessory muscle use Cardiovascular: normal peripheral pulses, normal rate, regular rhythm, no gallop/murmur, no JVD Abdomen: normal bowel sounds, soft, non tender, no organomegaly, non distended , no mass, no scars Extremities: no cyanosis, no clubbing Skin: no rash, no lesions, no ulcers Neurologic/Psychiatric: alert, oriented x 3 Lymphatic: no neck adenopathy, no groin adenopathy Musculoskeletal: normal muscle bulk Microbiology Date/Time Source Procedure Growth Status 01/02/17 20:45 Blood Blood Culture - Preliminary NO GROWTH AFTER 48 HOURS Resulted 01/02/17 20:40 Blood Blood Culture - Preliminary NO GROWTH AFTER 48 HOURS Resulted 01/03/17 14:35 Sputum AFB Specimen Processing Tissue - Final Resulted 01/03/17 14:35 Sputum Acid Fast Bacilli Smear - Final Resulted 01/03/17 14:35 Sputum Acid Fast Bacilli Culture Pending Resulted 01/03/17 06:50 Stool Clostridium difficile Toxin Assay - Final Complete Laboratory Tests Test 01/05/17 05:15 White Blood Count 18.0 K/UL (4.8-10.8) H Red Blood Count 2.45 M/UL (4.70-6.10) L Hemoglobin 6.9 G/DL (14.2-18.0) *L Hematocrit 22.7 % (42.0-52.0) L Mean Corpuscular Volume 92 FL (80-99) Mean Corpuscular Hemoglobin 28.0 PG (27.0-31.0) Mean Corpuscular Hemoglobin Concent 30.3 G/DL (32.0-36.0) L Red Cell Distribution Width 21.8 % (11.6-14.8) H Platelet Count 787 K/UL (150-450) H Mean Platelet Volume 7.6 FL (6.5-10.1) Neutrophils (%) (Auto) % (45.0-75.0) Lymphocytes (%) (Auto) % (20.0-45.0) Monocytes (%) (Auto) % (1.0-10.0) Eosinophils (%) (Auto) % (0.0-3.0) Basophils (%) (Auto) % (0.0-2.0) Differential Total Cells Counted 100 Neutrophils % (Manual) 61 % (45-75) Lymphocytes % (Manual) 27 % (20-45) Monocytes % (Manual) 12 % (1-10) H Eosinophils % (Manual) 0 % (0-3) Basophils % (Manual) 0 % (0-2) Band Neutrophils 0 % (0-8) Nucleated Red Blood Cells 2 /100 WBC Platelet Estimate Increased H Platelet Morphology Normal Polychromasia 1+ Hypochromasia 2+ Anisocytosis 2+ Target Cells 1+ Sodium Level 139 mEQ/L (135-145) Potassium Level 4.2 mEQ/L (3.4-4.9) Chloride Level 104 mEQ/L (98-107) Carbon Dioxide Level 22 mEQ/L (20-30) Anion Gap 13 (5-15) Blood Urea Nitrogen 12 mg/dL (7-23) Creatinine 2.5 mg/dL (0.7-1.2) H Estimat Glomerular Filtration Rate 37.0 mL/min (>60) Glucose Level 83 mg/dL (74-106) Uric Acid 5.9 mg/dL (3.0-7.5) Calcium Level 8.9 mg/dL (8.6-10.2) Phosphorus Level 4.3 mg/dL (2.5-4.8) Magnesium Level 1.6 mg/dL (1.7-2.5) L Total Bilirubin 0.3 mg/dL (0.0-1.2) Aspartate Amino Transf (AST/SGOT) 18 U/L (5-40) Alanine Aminotransferase (ALT/SGPT) 10 U/L (3-41) Alkaline Phosphatase 84 U/L (40-129) C-Reactive Protein, Quantitative 2.9 mg/dL (< 0.5) H Pro-B-Type Natriuretic Peptide 540 pg/mL (0-125) H Total Protein 6.8 g/dL (6.6-8.7) Albumin 2.8 g/dL (3.5-5.2) L Globulin 4.0 g/dL Albumin/Globulin Ratio 0.7 (1.0-2.7) L Current Medications Medications (Trade) Dose Ordered Sig/Juliana Route PRN Reason Start Time Stop Time Status Last Admin Dose Admin Acetaminophen (Tylenol) 650 mg Q4H PRN ORAL Mild Pain/Temp > 100.5 12/25/16 10:30 01/24/17 10:29 01/02/17 18:51 Cefepime HCl 1 gm/ Dextrose 55 ml @ 110 mls/hr Q24H IVPB 01/01/17 19:00 01/08/17 18:59 01/04/17 17:43 Docusate Sodium (Colace) 100 mg TWICE A DAY ORAL 12/30/16 09:00 01/29/17 08:59 01/05/17 09:09 Doxycycline Hyclate 100 mg/ Dextrose 110 ml @ 110 mls/hr Q12HR IV 01/01/17 19:00 01/08/17 18:59 01/05/17 09:08 Epoetin Alex 55355 units 10,000 units [id number]-THU-[id number] SUBQ 12/31/16 21:00 01/30/17 20:59 01/02/17 20:48 Fluoxetine HCl (PROzac) 20 mg DAILY ORAL 12/27/16 09:00 01/26/17 08:59 01/05/17 09:11 Folic Acid (Folate) 2 mg DAILY ORAL 01/02/17 09:00 02/01/17 08:59 01/05/17 09:10 Lactulose (Cephulac) 10 gm TID@0900,1500,2100 ORAL 12/30/16 09:00 01/29/17 08:59 01/05/17 09:08 Levetiracetam (Keppra) 750 mg Q12HR ORAL 12/30/16 21:00 01/29/17 20:59 01/05/17 09:21 Methocarbamol (Robaxin) 500 mg Q8H PRN ORAL muscle spasm 01/02/17 09:00 02/01/17 08:59 Metoclopramide HCl (Reglan) 10 mg Q6H PRN IVP Nausea & Vomiting 12/30/16 12:30 01/29/17 12:29 12/31/16 08:59 Ondansetron HCl (Zofran) 4 mg Q6H PRN IVP Nausea & Vomiting 12/23/16 19:45 01/22/17 19:44 01/01/17 15:52 Pantoprazole (Protonix) 40 mg DAILY ORAL 01/02/17 09:00 02/01/17 08:59 01/05/17 09:12 Polyethylene Glycol (Miralax) 17 gm BEDTIME ORAL 12/30/16 21:00 01/29/17 20:59 01/04/17 22:04 Sodium Chloride (Sodium Chloride 1000ml bag) 1,000 ml @ 100 mls/hr Q10H IV 01/02/17 07:45 02/01/17 07:44 01/05/17 13:54 Thiamine HCl (Vitamin B1) 100 mg DAILY ORAL 12/24/16 14:30 01/23/17 14:29 01/05/17 09:11 Tramadol HCl (Ultram) 50 mg Q4H PRN ORAL severe pain 01/02/17 09:00 01/09/17 08:59 01/02/17 20:45 Vitamin D (Vitamin D) 2,000 intlu DAILY ORAL 12/25/16 10:30 01/24/17 10:29 01/05/17 09:10 Imelda Chen M.D. Jan 05, 2017 15:11
[2017-01-05 16:00] VITALS: BP 113/71
--- NOTE | 2017-01-05 16:11 | Cardiac Electrophysiology PN ---
Assessment/Plan Status Narrative CT Brain Impression: Cerebral volume loss, out of proportion to patient's age. Correlate with clinical history Negative for acute intrarenal bleed or mass effect Assessment/Plan 1. Hypotension.Resolved. Echocardiography showed ejection fraction 55% 2. Sinus tachycardia. Due to severe anemia and sepsis with WBC 18k 3. Homelessness. 4. Severe hyponatremia, resolved. 5. CKD cr 2.[address] Rosario. 6.Toxic metabolic encephalopathy. CT of the brain done on 12/24/16 reveals generalized cerebral atrophy. 7. Psychiatric illness and seizure disorder 8. Severe Anemia. Hb 6.5 secondary to severe folic acid deficiency on oral folic acid 10 mg daily. Refused blood transfusion. Dr Marr has recommended a bone marrow biopsy DW RN Subjective Subjective Alert in NAD, still in Isolation.Chest pain unchanged. No SOB. Objective Last 24 Hour Vital Signs Date Time Temp Pulse Resp B/P Pulse Ox O2 Delivery O2 Flow Rate FiO2 01/05/17 12:00 98.2 93 19 115/54 99 Room Air 01/05/17 08:00 98.4 87 20 108/66 99 Room Air 01/05/17 04:30 97.9 74 18 114/76 99 Room Air 01/05/17 00:00 98.1 88 20 108/72 97 Room Air 01/04/17 20:17 97.9 99 18 107/77 98 Room Air Intake and Output 01/04/17 01/05/17 19:00 07:00 Intake Total 720 ml 1500 ml Output Total 2000 ml 700 ml Balance -1280 ml 800 ml Intake Oral 720 ml 500 ml IV Total 1000 ml Output Urine Total 2000 ml 700 ml Laboratory Tests Test 01/05/17 05:15 White Blood Count 18.0 K/UL (4.8-10.8) H Red Blood Count 2.45 M/UL (4.70-6.10) L Hemoglobin 6.9 G/DL (14.2-18.0) *L Hematocrit 22.7 % (42.0-52.0) L Mean Corpuscular Volume 92 FL (80-99) Mean Corpuscular Hemoglobin 28.0 PG (27.0-31.0) Mean Corpuscular Hemoglobin Concent 30.3 G/DL (32.0-36.0) L Red Cell Distribution Width 21.8 % (11.6-14.8) H Platelet Count 787 K/UL (150-450) H Mean Platelet Volume 7.6 FL (6.5-10.1) Neutrophils (%) (Auto) % (45.0-75.0) Lymphocytes (%) (Auto) % (20.0-45.0) Monocytes (%) (Auto) % (1.0-10.0) Eosinophils (%) (Auto) % (0.0-3.0) Basophils (%) (Auto) % (0.0-2.0) Differential Total Cells Counted 100 Neutrophils % (Manual) 61 % (45-75) Lymphocytes % (Manual) 27 % (20-45) Monocytes % (Manual) 12 % (1-10) H Eosinophils % (Manual) 0 % (0-3) Basophils % (Manual) 0 % (0-2) Band Neutrophils 0 % (0-8) Nucleated Red Blood Cells 2 /100 WBC Platelet Estimate Increased H Platelet Morphology Normal Polychromasia 1+ Hypochromasia 2+ Anisocytosis 2+ Target Cells 1+ Sodium Level 139 mEQ/L (135-145) Potassium Level 4.2 mEQ/L (3.4-4.9) Chloride Level 104 mEQ/L (98-107) Carbon Dioxide Level 22 mEQ/L (20-30) Anion Gap 13 (5-15) Blood Urea Nitrogen 12 mg/dL (7-23) Creatinine 2.5 mg/dL (0.7-1.2) H Estimat Glomerular Filtration Rate 37.0 mL/min (>60) Glucose Level 83 mg/dL (74-106) Uric Acid 5.9 mg/dL (3.0-7.5) Calcium Level 8.9 mg/dL (8.6-10.2) Phosphorus Level 4.3 mg/dL (2.5-4.8) Magnesium Level 1.6 mg/dL (1.7-2.5) L Total Bilirubin 0.3 mg/dL (0.0-1.2) Aspartate Amino Transf (AST/SGOT) 18 U/L (5-40) Alanine Aminotransferase (ALT/SGPT) 10 U/L (3-41) Alkaline Phosphatase 84 U/L (40-129) C-Reactive Protein, Quantitative 2.9 mg/dL (< 0.5) H Pro-B-Type Natriuretic Peptide 540 pg/mL (0-125) H Total Protein 6.8 g/dL (6.6-8.7) Albumin 2.8 g/dL (3.5-5.2) L Globulin 4.0 g/dL Albumin/Globulin Ratio 0.7 (1.0-2.7) L Microbiology Date/Time Source Procedure Growth Status 01/02/17 20:45 Blood Blood Culture - Preliminary NO GROWTH AFTER 48 HOURS Resulted 01/02/17 20:40 Blood Blood Culture - Preliminary NO GROWTH AFTER 48 HOURS Resulted 01/03/17 14:35 Sputum AFB Specimen Processing Tissue - Final Resulted 01/03/17 14:35 Sputum Acid Fast Bacilli Smear - Final Resulted 01/03/17 14:35 Sputum Acid Fast Bacilli Culture Pending Resulted 01/03/17 06:50 Stool Clostridium difficile Toxin Assay - Final Complete Objective NECK: No JVD. LUNGS: Coarse rhonchi CARDIOVASCULAR: Regular S1 and S2 with no gallop or murmur. ABDOMEN: Soft. EXTREMITIES: No pitting edema. ROGERS DEAN Jan 05, 2017 16:11
--- NOTE | 2017-01-05 18:26 | General Progress Note ---
Assessment/Plan Status: doing well, stable, progressing Assessment/Plan Substance abuse, mdd anxiety cont current meds Subjective Constitutional: Reports: weakness Neurologic/Psychiatric: Reports: anxiety Allergies: Coded Allergies: ACETAMINOPHEN (Verified Allergy, Unknown, 06/11/15) IBUPROFEN (Verified Allergy, Unknown, 06/11/15) Subjective patient was alert and oriented times self, time situation and place. Mood was neutral. Affect was constricted. Congruent with mood. Thought process, tangential. Thought content, no suicidal or homicidal ideation. Cognition is impaired. He was eating during the eval. Objective Last 24 Hour Vital Signs Date Time Temp Pulse Resp B/P Pulse Ox O2 Delivery O2 Flow Rate FiO2 01/05/17 12:00 98.2 93 19 115/54 99 Room Air 01/05/17 08:00 98.4 87 20 108/66 99 Room Air 01/05/17 04:30 97.9 74 18 114/76 99 Room Air 01/05/17 00:00 98.1 88 20 108/72 97 Room Air 01/04/17 20:17 97.9 99 18 107/77 98 Room Air Intake and Output 01/04/17 01/05/17 19:00 07:00 Intake Total 720 ml 1500 ml Output Total 2000 ml 700 ml Balance -1280 ml 800 ml Intake Oral 720 ml 500 ml IV Total 1000 ml Output Urine Total 2000 ml 700 ml Laboratory Tests 01/05/17 05:15: White Blood Count 18.0H, Red Blood Count 2.45L, Hemoglobin 6.9*L, Hematocrit 22.7L, Mean Corpuscular Volume 92, Mean Corpuscular Hemoglobin 28.0, Mean Corpuscular Hemoglobin Concent 30.3L, Red Cell Distribution Width 21.8H, Platelet Count 787H, Mean Platelet Volume 7.6, Neutrophils (%) (Auto) , Lymphocytes (%) (Auto) , Monocytes (%) (Auto) , Eosinophils (%) (Auto) , Basophils (%) (Auto) , Differential Total Cells Counted 100, Neutrophils % ( Manual) 61, Lymphocytes % (Manual) 27, Monocytes % (Manual) 12H, Eosinophils % ( Manual) 0, Basophils % (Manual) 0, Band Neutrophils 0, Nucleated Red Blood Cells 2, Platelet Estimate IncreasedH, Platelet Morphology Normal, Polychromasia 1+, Hypochromasia 2+, Anisocytosis 2+, Target Cells 1+, Sodium Level 139, Potassium Level 4.2, Chloride Level 104, Carbon Dioxide Level 22, Anion Gap 13, Blood Urea Nitrogen 12, Creatinine 2.5H, Estimat Glomerular Filtration Rate 37.0, Glucose Level 83, Uric Acid 5.9, Calcium Level 8.9, Phosphorus Level 4.3, Magnesium Level 1.6L, Total Bilirubin 0.3, Aspartate Amino Transf (AST/SGOT) 18, Alanine Aminotransferase (ALT/SGPT) 10, Alkaline Phosphatase 84, C-Reactive Protein, Quantitative 2.9H, Pro-B-Type Natriuretic Peptide 540H, Total Protein 6.8, Albumin 2.8L, Globulin 4.0, Albumin/Globulin Ratio 0.7L Height (Feet): 5 Height (Inches): 10.00 Weight (Pounds): 160 General Appearance: no apparent distress, alert, thin Neurologic: alert, oriented x 3, responsive Mary Beth Ramos M.D. Jan 05, 2017 18:26
[2017-01-05] MEDS ORDERED: Morphine Sulfate 2mg/ml Inj IVP ONE (18:35)
[2017-01-05] MEDS: Cefepime HCl 1 GM in D5W 55 ML IVPB SCH (19:14)
[2017-01-05 20:00] VITALS: BP 121/73
--- NOTE | 2017-01-05 20:34 | General Progress Note ---
Assessment/Plan Problem List: (1) Altered mental status ICD Codes: R41.82 - Altered mental status, unspecified SNOMED: 992420087 Qualifiers: Qualified Codes: R41.82 - Altered mental status, unspecified (2) Pancreatitis ICD Codes: K85.90 - Acute pancreatitis without necrosis or infection, unspecified SNOMED: 79596751 Qualifiers: Qualified Codes: K85.90 - Acute pancreatitis without necrosis or infection, unspecified (3) Sepsis ICD Codes: A41.9 - Sepsis, unspecified organism SNOMED: 41196672 (4) Anemia ICD Codes: D64.9 - Anemia, unspecified SNOMED: 628473508 Status: progressing Assessment/Plan ams hyponatremia resolved anemia due to hemoptysis treatment of hemoptysis per pulmonary reviewed chart and labs no acute events severe anemia persistent leukocytosis refusing transfusion.will ask dr khanna to talk to patient again re transfusion still confused Subjective ROS Limited/Unobtainable: Yes Allergies: Coded Allergies: ACETAMINOPHEN (Verified Allergy, Unknown, 06/11/15) IBUPROFEN (Verified Allergy, Unknown, 06/11/15) Objective Last 24 Hour Vital Signs Date Time Temp Pulse Resp B/P Pulse Ox O2 Delivery O2 Flow Rate FiO2 01/05/17 16:00 98.2 90 19 113/71 98 Room Air 01/05/17 12:00 98.2 93 19 115/54 99 Room Air 01/05/17 08:00 98.4 87 20 108/66 99 Room Air 01/05/17 04:30 97.9 74 18 114/76 99 Room Air 01/05/17 00:00 98.1 88 20 108/72 97 Room Air Intake and Output 01/04/17 01/05/17 19:00 07:00 Intake Total 720 ml 1500 ml Output Total 2000 ml 700 ml Balance -1280 ml 800 ml Intake Oral 720 ml 500 ml IV Total 1000 ml Output Urine Total 2000 ml 700 ml Laboratory Tests 01/05/17 05:15: White Blood Count 18.0H, Red Blood Count 2.45L, Hemoglobin 6.9*L, Hematocrit 22.7L, Mean Corpuscular Volume 92, Mean Corpuscular Hemoglobin 28.0, Mean Corpuscular Hemoglobin Concent 30.3L, Red Cell Distribution Width 21.8H, Platelet Count 787H, Mean Platelet Volume 7.6, Neutrophils (%) (Auto) , Lymphocytes (%) (Auto) , Monocytes (%) (Auto) , Eosinophils (%) (Auto) , Basophils (%) (Auto) , Differential Total Cells Counted 100, Neutrophils % ( Manual) 61, Lymphocytes % (Manual) 27, Monocytes % (Manual) 12H, Eosinophils % ( Manual) 0, Basophils % (Manual) 0, Band Neutrophils 0, Nucleated Red Blood Cells 2, Platelet Estimate IncreasedH, Platelet Morphology Normal, Polychromasia 1+, Hypochromasia 2+, Anisocytosis 2+, Target Cells 1+, Sodium Level 139, Potassium Level 4.2, Chloride Level 104, Carbon Dioxide Level 22, Anion Gap 13, Blood Urea Nitrogen 12, Creatinine 2.5H, Estimat Glomerular Filtration Rate 37.0, Glucose Level 83, Uric Acid 5.9, Calcium Level 8.9, Phosphorus Level 4.3, Magnesium Level 1.6L, Total Bilirubin 0.3, Aspartate Amino Transf (AST/SGOT) 18, Alanine Aminotransferase (ALT/SGPT) 10, Alkaline Phosphatase 84, C-Reactive Protein, Quantitative 2.9H, Pro-B-Type Natriuretic Peptide 540H, Total Protein 6.8, Albumin 2.8L, Globulin 4.0, Albumin/Globulin Ratio 0.7L Height (Feet): 5 Height (Inches): 10.00 Weight (Pounds): 160 General Appearance: confused Respiratory/Chest: chest wall non-tender Robbi Vega MD Jan 05, 2017 20:34
[2017-01-05] MEDS: Epogen (for non ESRD use) SUBQ SCH (20:37)
[2017-01-05] MEDS: Miralax 17gm pkt ORAL SCH (20:37)
--- NOTE | 2017-01-05 22:47 | General Progress Note ---
Assessment/Plan Assessment/Plan # Anemia secondary to severe folic acid deficiency, currently on folic acid ---> pt refused blood transfusion after multiple discussions (most recent was on 01/04/17,does not want blood even though hgb <7) he understands risks of increased morbidity and mortality ---> hgb goal again >7, monitor ---> have recommended a bone marrow biopsy, pending tomorrow # Leukocytosis secondary to underlying inflammatory reaction versus infection # Pancreatitis has being followed by gi and id, pain has improved ---> on prn zofran and pepcid as needed # Lactic acidosis with decreased blood pressure. better # Anemia secondary to hemodilution. # Thrombocytopenia, likely secondary to hemodilution versus infection. # Hypokalemia, resolved. # Anemia secondary to B12 deficiency, has been given B12 injections. # History of seizures, on Dilantin. # History of alcohol intoxication leading to pancreatitis. # Altered mental status. Seen by Neurology Subjective Constitutional: Reports: no symptoms HEENT: Reports: no symptoms Cardiovascular: Reports: no symptoms Gastrointestinal/Abdominal: Reports: no symptoms Genitourinary: Reports: no symptoms Neurologic/Psychiatric: Reports: no symptoms Endocrine: Reports: no symptoms Hematologic/Lymphatic: Reports: anemia Allergies: Coded Allergies: ACETAMINOPHEN (Verified Allergy, Unknown, 06/11/15) IBUPROFEN (Verified Allergy, Unknown, 06/11/15) Subjective pt has refused blood transfusion again today, pending bx susan Objective Last 24 Hour Vital Signs Date Time Temp Pulse Resp B/P Pulse Ox O2 Delivery O2 Flow Rate FiO2 01/05/17 16:00 98.2 90 19 113/71 98 Room Air 01/05/17 12:00 98.2 93 19 115/54 99 Room Air 01/05/17 08:00 98.4 87 20 108/66 99 Room Air 01/05/17 04:30 97.9 74 18 114/76 99 Room Air 01/05/17 00:00 98.1 88 20 108/72 97 Room Air Intake and Output 01/04/17 01/05/17 19:00 07:00 Intake Total 720 ml 1500 ml Output Total 2000 ml 700 ml Balance -1280 ml 800 ml Intake Oral 720 ml 500 ml IV Total 1000 ml Output Urine Total 2000 ml 700 ml Laboratory Tests 01/05/17 05:15: White Blood Count 18.0H, Red Blood Count 2.45L, Hemoglobin 6.9*L, Hematocrit 22.7L, Mean Corpuscular Volume 92, Mean Corpuscular Hemoglobin 28.0, Mean Corpuscular Hemoglobin Concent 30.3L, Red Cell Distribution Width 21.8H, Platelet Count 787H, Mean Platelet Volume 7.6, Neutrophils (%) (Auto) , Lymphocytes (%) (Auto) , Monocytes (%) (Auto) , Eosinophils (%) (Auto) , Basophils (%) (Auto) , Differential Total Cells Counted 100, Neutrophils % ( Manual) 61, Lymphocytes % (Manual) 27, Monocytes % (Manual) 12H, Eosinophils % ( Manual) 0, Basophils % (Manual) 0, Band Neutrophils 0, Nucleated Red Blood Cells 2, Platelet Estimate IncreasedH, Platelet Morphology Normal, Polychromasia 1+, Hypochromasia 2+, Anisocytosis 2+, Target Cells 1+, Sodium Level 139, Potassium Level 4.2, Chloride Level 104, Carbon Dioxide Level 22, Anion Gap 13, Blood Urea Nitrogen 12, Creatinine 2.5H, Estimat Glomerular Filtration Rate 37.0, Glucose Level 83, Uric Acid 5.9, Calcium Level 8.9, Phosphorus Level 4.3, Magnesium Level 1.6L, Total Bilirubin 0.3, Aspartate Amino Transf (AST/SGOT) 18, Alanine Aminotransferase (ALT/SGPT) 10, Alkaline Phosphatase 84, C-Reactive Protein, Quantitative 2.9H, Pro-B-Type Natriuretic Peptide 540H, Total Protein 6.8, Albumin 2.8L, Globulin 4.0, Albumin/Globulin Ratio 0.7L Height (Feet): 5 Height (Inches): 10.00 Weight (Pounds): 160 General Appearance: alert EENT: TMs normal Neck: normal alignment Cardiovascular: normal rate Respiratory/Chest: normal breath sounds Genitourinary/Rectal: heme negative stool Extremities: non-tender Edema: no edema noted Leg (L), no edema noted Leg (R) Neurologic: alert Skin: warm/dry Kapil Haney Jan 05, 2017 22:47
[2017-01-06] VITALS: BP 109/73
[2017-01-06 04:00] VITALS: BP 117/79
[2017-01-06 08:00] VITALS: BP 116/76
[2017-01-06] MEDS: Lactulose 10gm/15ml UDC ORAL SCH ×3 (08:56→21:00)
[2017-01-06] MEDS: Docusate 100mg cap ORAL SCH ×2 (08:56→18:11)
[2017-01-06] MEDS: Vitamin D 1000 IU Tab ORAL SCH (08:56)
[2017-01-06] MEDS: Thiamine 100mg tab ORAL SCH (08:56)
[2017-01-06 09:07] LABS: MEAN CORPUSCULAR HEMOGLOBIN 27.4 PG (27.0-31.0); MEAN CORPUSCULAR HGB CONC 29.6 G/DL (32.0-36.0); MEAN CORPUSCULAR VOLUME 92 FL (80-99); MEAN PLATELET VOLUME 6.9 FL (6.5-10.1); PLATELET COUNT 823 K/UL (150-450); RED BLOOD COUNT 2.44 M/UL (4.70-6.10); RED CELL DISTRIBUTION WIDTH 21.6 % (11.6-14.8); WHITE BLOOD COUNT 13.7 K/UL (4.8-10.8)
[2017-01-06 09:32] LABS: CALCIUM 8.3 mg/dL (8.6-10.2); CREATININE 2.1 mg/dL (0.7-1.2); GLOMERULAR FILTRATION RATE 45.2 mL/min (>60)
--- NOTE | 2017-01-06 09:42 | GI Progress Note ---
Assessment/Plan Problems: (1) Pancreatitis ICD Codes: K85.90 - Acute pancreatitis without necrosis or infection, unspecified SNOMED: 11388537 Qualifiers: Qualified Codes: K85.90 - Acute pancreatitis without necrosis or infection, unspecified (2) Altered mental status ICD Codes: R41.82 - Altered mental status, unspecified SNOMED: 646236476 Qualifiers: Qualified Codes: R41.82 - Altered mental status, unspecified (3) Acute alcoholic intoxication ICD Codes: F10.929 - Alcohol use, unspecified with intoxication, unspecified SNOMED: 68207008 (4) Anemia ICD Codes: D64.9 - Anemia, unspecified SNOMED: 423537723 Status: unchanged Status Narrative Discussed with Dr. Friend. Assessment/Plan APCT reviewed >> Acute pancreatitis. Right/transverse colonic ileus. Hepatic steatosis. Cholelithiasis. ammonia WNL OB stool r/o GI bleed >> negative airborne isolation r/o TB monitor H&H, transfuse prn >> pt refusing transfusions fu bone bx low fat diet zofran prn H2B abx fu labs Subjective Gastrointestinal/Abdominal: Reports: no symptoms Objective Last 24 Hour Vital Signs Date Time Temp Pulse Resp B/P Pulse Ox O2 Delivery O2 Flow Rate FiO2 01/06/17 08:00 98.2 84 18 116/76 97 Room Air 01/06/17 04:00 98.1 79 18 117/79 99 Room Air 01/06/17 00:00 98.2 94 18 109/73 100 Room Air 01/05/17 20:00 97.9 114 19 121/73 98 Room Air 01/05/17 16:00 98.2 90 19 113/71 98 Room Air 01/05/17 12:00 98.2 93 19 115/54 99 Room Air Intake and Output 01/05/17 01/06/17 19:00 07:00 Intake Total 800 ml 1950 ml Output Total 2250 ml Balance 800 ml -300 ml Intake Oral 750 ml IV Total 800 ml 1200 ml Output Urine Total 2250 ml # Voids 3 # Bowel Movements 2 Laboratory Tests Test 01/06/17 08:10 01/06/17 08:15 White Blood Count 13.7 K/UL (4.8-10.8) H Red Blood Count 2.44 M/UL (4.70-6.10) L Hemoglobin 6.7 G/DL (14.2-18.0) *L Hematocrit 22.5 % (42.0-52.0) L Mean Corpuscular Volume 92 FL (80-99) Mean Corpuscular Hemoglobin 27.4 PG (27.0-31.0) Mean Corpuscular Hemoglobin Concent 29.6 G/DL (32.0-36.0) L Red Cell Distribution Width 21.6 % (11.6-14.8) H Platelet Count 823 K/UL (150-450) H Mean Platelet Volume 6.9 FL (6.5-10.1) Neutrophils (%) (Auto) % (45.0-75.0) Lymphocytes (%) (Auto) % (20.0-45.0) Monocytes (%) (Auto) % (1.0-10.0) Eosinophils (%) (Auto) % (0.0-3.0) Basophils (%) (Auto) % (0.0-2.0) Neutrophils % (Manual) Pending Lymphocytes % (Manual) Pending Platelet Estimate Pending Platelet Morphology Pending Sodium Level 141 mEQ/L (135-145) Potassium Level 4.0 mEQ/L (3.4-4.9) Chloride Level 107 mEQ/L (98-107) Carbon Dioxide Level 21 mEQ/L (20-30) Anion Gap 13 (5-15) Blood Urea Nitrogen 12 mg/dL (7-23) Creatinine 2.1 mg/dL (0.7-1.2) H Estimat Glomerular Filtration Rate 45.2 mL/min (>60) Glucose Level 142 mg/dL (74-106) H Calcium Level 8.3 mg/dL (8.6-10.2) L Height (Feet): 5 Height (Inches): 10.00 Weight (Pounds): 160 General Appearance: no apparent distress, alert, thin Cardiovascular: normal rate Respiratory/Chest: normal breath sounds, no respiratory distress Abdominal Exam: normal bowel sounds, non tender Extremities: normal range of motion Rosa Mancia N.P. Jan 06, 2017 09:42
--- NOTE | 2017-01-06 09:48 | General Progress Note ---
Assessment/Plan Status: stable - - renal parameters improving- Status Narrative Cr lower 2.1- Hgb low- refuse transfusion Assessment/Plan status: Acute renal failure Hemoptysis , Pneumonia , r/o TB Sepsis On Admission: Renal failure , Acute vs Chronic improving h/o Sz Acute Encephalopathy h/o Low K h/o Low Na Low B12 and folate Elevated Lipase , acute pancreatitis sever anemia Plan; per consultants monitor renal parameters Hydrate- antibiotics down on folate dose ST PT OT eval Monitor lytes- monitor renal parameters Pulm eval appreciated Subjective ROS Limited/Unobtainable: No Constitutional: Reports: malaise, weakness Allergies: Coded Allergies: ACETAMINOPHEN (Verified Allergy, Unknown, 06/11/15) IBUPROFEN (Verified Allergy, Unknown, 06/11/15) Objective Last 24 Hour Vital Signs Date Time Temp Pulse Resp B/P Pulse Ox O2 Delivery O2 Flow Rate FiO2 01/06/17 08:00 98.2 84 18 116/76 97 Room Air 01/06/17 04:00 98.1 79 18 117/79 99 Room Air 01/06/17 00:00 98.2 94 18 109/73 100 Room Air 01/05/17 20:00 97.9 114 19 121/73 98 Room Air 01/05/17 16:00 98.2 90 19 113/71 98 Room Air 01/05/17 12:00 98.2 93 19 115/54 99 Room Air Intake and Output 01/05/17 01/06/17 19:00 07:00 Intake Total 800 ml 1950 ml Output Total 2250 ml Balance 800 ml -300 ml Intake Oral 750 ml IV Total 800 ml 1200 ml Output Urine Total 2250 ml # Voids 3 # Bowel Movements 2 Laboratory Tests 01/06/17 08:10: White Blood Count 13.7H, Red Blood Count 2.44L, Hemoglobin 6.7*L, Hematocrit 22.5L, Mean Corpuscular Volume 92, Mean Corpuscular Hemoglobin 27.4, Mean Corpuscular Hemoglobin Concent 29.6L, Red Cell Distribution Width 21.6H, Platelet Count 823H, Mean Platelet Volume 6.9, Neutrophils (%) (Auto) , Lymphocytes (%) (Auto) , Monocytes (%) (Auto) , Eosinophils (%) (Auto) , Basophils (%) (Auto) , Neutrophils % (Manual) [Pending], Lymphocytes % (Manual) [Pending], Platelet Estimate [Pending], Platelet Morphology [Pending] 01/06/17 08:15: Sodium Level 141, Potassium Level 4.0, Chloride Level 107, Carbon Dioxide Level 21, Anion Gap 13, Blood Urea Nitrogen 12, Creatinine 2.1H, Estimat Glomerular Filtration Rate 45.2, Glucose Level 142H, Calcium Level 8.3L Height (Feet): 5 Height (Inches): 10.00 Weight (Pounds): 160 General Appearance: no apparent distress Objective other PE not changed VELASQUEZ DASILVA Jan 06, 2017 09:48
[2017-01-06 10:32] LABS: BAND NEUTROPHILS % (MANUAL) 1 % (0-8); BASOPHILS % (MANUAL) 1 % (0-2); EOSINOPHILS % (MANUAL) 1 % (0-3); LYMPHOCYTES % (MANUAL) 22 % (20-45); NEUTROPHILS % (MANUAL) 63 % (45-75); TOTAL CELLS COUNTED 100
[2017-01-06 10:33] LABS: ANISOCYTOSIS 3+; HYPOCHROMASIA 3+; PLATELET ESTIMATE INCREASED; PLATELET MORPHOLOGY NORMAL
[2017-01-06 10:34] LABS: POLYCHROMASIA 1+
[2017-01-06 10:35] LABS: TARGET CELLS OCCASIONAL
[2017-01-06] MEDS ORDERED: Tubing IV Secondary IV ONE (10:37)
[2017-01-06] MEDS ORDERED: Morphine Sulfate 2mg/ml Inj IVP SCH (11:00)
--- NOTE | 2017-01-06 12:16 | Pulmonology Progress Note ---
Assessment/Plan Problems: (1) Hemoptysis (2) DWAYNE (acute kidney injury) (3) Seizure (4) Anemia Assessment/Plan ct chest reviwed improving antitussives lidocian inhalation sputum pending R effusion, pt will think about thoracentesis, d/w charge nurse. continue antibiotics RF, ADITAY, AnCA, anti basal membran antibody sent. check cultures Subjective ROS Limited/Unobtainable: No Interval Events: hemoptysis resolved Allergies: Coded Allergies: ACETAMINOPHEN (Verified Allergy, Unknown, 06/11/15) IBUPROFEN (Verified Allergy, Unknown, 06/11/15) Objective Last 24 Hour Vital Signs Date Time Temp Pulse Resp B/P Pulse Ox O2 Delivery O2 Flow Rate FiO2 01/06/17 08:00 98.2 84 18 116/76 97 Room Air 01/06/17 04:00 98.1 79 18 117/79 99 Room Air 01/06/17 00:00 98.2 94 18 109/73 100 Room Air 01/05/17 20:00 97.9 114 19 121/73 98 Room Air 01/05/17 16:00 98.2 90 19 113/71 98 Room Air Intake and Output 01/05/17 01/06/17 19:00 07:00 Intake Total 800 ml 1950 ml Output Total 2250 ml Balance 800 ml -300 ml Intake Oral 750 ml IV Total 800 ml 1200 ml Output Urine Total 2250 ml # Voids 3 # Bowel Movements 2 Objective General Appearance: WD/WN HEENT: normocephalic Respiratory/Chest: chest wall non-tender, lungs clear Cardiovascular: normal peripheral pulses, normal rate Abdomen: normal bowel sounds, soft, non tender Extremities: no cyanosis, other - effusion in both knees Skin: no rash Microbiology Date/Time Source Procedure Growth Status 01/04/17 10:20 Sputum AFB Specimen Processing Tissue - Final Resulted 01/04/17 10:20 Sputum Acid Fast Bacilli Smear - Final Resulted 01/04/17 10:20 Sputum Acid Fast Bacilli Culture Pending Resulted 01/03/17 14:35 Sputum AFB Specimen Processing Tissue - Final Resulted 01/03/17 14:35 Sputum Acid Fast Bacilli Smear - Final Resulted 01/03/17 14:35 Sputum Acid Fast Bacilli Culture Pending Resulted Laboratory Tests 01/06/17 08:10: White Blood Count 13.7H, Red Blood Count 2.44L, Hemoglobin 6.7*L, Hematocrit 22.5L, Mean Corpuscular Volume 92, Mean Corpuscular Hemoglobin 27.4, Mean Corpuscular Hemoglobin Concent 29.6L, Red Cell Distribution Width 21.6H, Platelet Count 823H, Mean Platelet Volume 6.9, Neutrophils (%) (Auto) , Lymphocytes (%) (Auto) , Monocytes (%) (Auto) , Eosinophils (%) (Auto) , Basophils (%) (Auto) , Differential Total Cells Counted 100, Neutrophils % ( Manual) 63, Lymphocytes % (Manual) 22, Monocytes % (Manual) 12H, Eosinophils % ( Manual) 1, Basophils % (Manual) 1, Band Neutrophils 1, Platelet Estimate IncreasedH, Platelet Morphology Normal, Polychromasia 1+, Hypochromasia 3+, Anisocytosis 3+, Target Cells Occasional 01/06/17 08:15: Sodium Level 141, Potassium Level 4.0, Chloride Level 107, Carbon Dioxide Level 21, Anion Gap 13, Blood Urea Nitrogen 12, Creatinine 2.1H, Estimat Glomerular Filtration Rate 45.2, Glucose Level 142H, Calcium Level 8.3L 01/06/17 09:00: Prothrombin Time [Pending], Prothromb Time International Ratio [Pending], Activated Partial Thromboplast Time [Pending] Current Medications Medications (Trade) Dose Ordered Sig/Juliana Route PRN Reason Start Time Stop Time Status Last Admin Dose Admin Acetaminophen (Tylenol) 650 mg Q4H PRN ORAL Mild Pain/Temp > 100.5 12/25/16 10:30 01/24/17 10:29 01/02/17 18:51 Cefepime HCl 1 gm/ Dextrose 55 ml @ 110 mls/hr Q24H IVPB 01/01/17 19:00 01/08/17 18:59 01/05/17 19:14 Docusate Sodium (Colace) 100 mg TWICE A DAY ORAL 12/30/16 09:00 01/29/17 08:59 01/06/17 08:56 Doxycycline Monohydrate (Vibramycin) 100 mg EVERY 12 HOURS ORAL 01/05/17 21:00 01/12/17 20:59 01/06/17 08:56 Epoetin Alex 71893 units 10,000 units THU-THU-THU SUBQ 12/31/16 21:00 8/4/17 20:59 01/05/17 20:37 Fluoxetine HCl (PROzac) 20 mg DAILY ORAL 12/27/16 09:00 01/26/17 08:59 01/06/17 08:56 Folic Acid (Folate) 2 mg DAILY ORAL 01/02/17 09:00 02/01/17 08:59 01/06/17 08:56 Lactulose (Cephulac) 10 gm TID@0900,1500,2100 ORAL 12/30/16 09:00 01/29/17 08:59 01/06/17 08:56 Levetiracetam (Keppra) 750 mg Q12HR ORAL 12/30/16 21:00 01/29/17 20:59 01/06/17 08:56 Lorazepam (Ativan 2mg/ml 1ml) 1 mg ONCE ONCE IVP 01/06/17 18:35 01/06/17 18:36 Methocarbamol (Robaxin) 500 mg Q8H PRN ORAL muscle spasm 01/02/17 09:00 02/01/17 08:59 Metoclopramide HCl (Reglan) 10 mg Q6H PRN IVP Nausea & Vomiting 12/30/16 12:30 01/29/17 12:29 12/31/16 08:59 Morphine Sulfate (Morphine Sulfate) 2 mg ONCE IVP 01/06/17 11:00 01/06/17 14:00 Ondansetron HCl (Zofran) 4 mg Q6H PRN IVP Nausea & Vomiting 12/23/16 19:45 01/22/17 19:44 01/01/17 15:52 Pantoprazole (Protonix) 40 mg DAILY ORAL 01/02/17 09:00 02/01/17 08:59 01/06/17 08:56 Polyethylene Glycol (Miralax) 17 gm BEDTIME ORAL 12/30/16 21:00 01/29/17 20:59 01/05/17 20:37 Sodium Chloride (Sodium Chloride 1000ml bag) 1,000 ml @ 100 mls/hr Q10H IV 01/02/17 07:45 02/01/17 07:44 01/06/17 10:11 Thiamine HCl (Vitamin B1) 100 mg DAILY ORAL 12/24/16 14:30 01/23/17 14:29 01/06/17 08:56 Tramadol HCl (Ultram) 50 mg Q4H PRN ORAL severe pain 01/02/17 09:00 01/09/17 08:59 01/02/17 20:45 Vitamin D (Vitamin D) 2,000 intlu DAILY ORAL 12/25/16 10:30 01/24/17 10:29 01/06/17 08:56 SILVESTRE PATRICIA Jan 06, 2017 12:16
[2017-01-06 12:21] LABS: PROTHROMBIN TIME 10.6 SEC (9.30-11.50)
[2017-01-06 12:38] VITALS: BP 126/83
--- NOTE | 2017-01-06 13:30 | Diagnostic Imaging Report ---
Indication: Pain Findings: 2 views of the left forearm were obtained. No acute fractures, malalignment, erosions or periostitis are identified. Bone mineralization is within normal limits. Soft tissues are unremarkable. Impression: Negative examination of the forearm.
--- NOTE | 2017-01-06 14:36 | Infectious Diseases Prog Note ---
Assessment/Plan Problems: (1) Pleural effusion Assessment & Plan: rule out empyema, recommend thoracentesis and fluids to be sent for culture, gram stain, fungal and AFB, and cytology (2) Hemoptysis Assessment & Plan: suspect due to severe pneumonia , with negative AFB smears x3 and negative PPD test which rule out TB, ok to remove from air born isolation for now , CT chest ruled out cavitation (3) Aspiration pneumonia Assessment & Plan: improving on cefepime and doxycycline , CT chest confirmed it, with no abscess or cavitations (4) Sepsis Assessment & Plan: due to the above with leukocytosis, improving , stool for C diff is negative , repeated blood culture is negative ,monitor CBC (5) Pancreatitis Assessment & Plan: due to tawanda drink of alcohol , continue hydration with supportive care, monitor lipase level , GI is following (6) DWAYNE (acute kidney injury) Assessment & Plan: multifactorial , suspect dehydration due to recurrent vomiting, improving on IVF , monitor renal function test (7) Diarrhea Assessment & Plan: self limited, no evidence of C diff , d/c oral vancomycin (8) Anemia Assessment & Plan: recurrent , suspect hemoptysis related, monitor H/H, transfuse blood as needed Subjective Constitutional: Reports: no symptoms HEENT: Reports: no symptoms Respiratory: Reports: dry cough Breasts: Reports: no symptoms Cardiovascular: Reports: no symptoms Gastrointestinal/Abdominal: Reports: no symptoms Genitourinary: Reports: no symptoms Neurologic: Reports: no symptoms Psychiatric: Reports: depression Skin: Reports: no symptoms Endocrine: Reports: no symptoms Hematologic: Reports: no symptoms Allergies: Coded Allergies: ACETAMINOPHEN (Verified Allergy, Unknown, 06/11/15) IBUPROFEN (Verified Allergy, Unknown, 06/11/15) Objective Vital Signs Last 24 Hour Vital Signs Date Time Temp Pulse Resp B/P Pulse Ox O2 Delivery O2 Flow Rate FiO2 01/06/17 12:38 98.0 76 20 126/83 97 Room Air 01/06/17 08:00 98.2 84 18 116/76 97 Room Air 01/06/17 04:00 98.1 79 18 117/79 99 Room Air 01/06/17 00:00 98.2 94 18 109/73 100 Room Air 01/05/17 20:00 97.9 114 19 121/73 98 Room Air 01/05/17 16:00 98.2 90 19 113/71 98 Room Air Height (Feet): 5 Height (Inches): 10.00 Weight (Pounds): 160 General Appearance: WD/WN, no acute distress HEENT: normocephalic, atraumatic, anicteric, mucous membranes moist, EOMI, pharynx normal, supple, no JVD Respiratory/Chest: chest wall non-tender, lungs clear, normal breath sounds, no respiratory distress, no accessory muscle use Cardiovascular: normal peripheral pulses, normal rate, regular rhythm, no gallop/murmur, no JVD Abdomen: normal bowel sounds, soft, non tender, no organomegaly, non distended , no mass, no scars Extremities: no cyanosis, no clubbing Skin: no rash, no lesions, no ulcers Neurologic/Psychiatric: alert, oriented x 3 Musculoskeletal: normal muscle bulk, no effusion Microbiology Date/Time Source Procedure Growth Status 01/04/17 10:20 Sputum AFB Specimen Processing Tissue - Final Resulted 01/04/17 10:20 Sputum Acid Fast Bacilli Smear - Final Resulted 01/04/17 10:20 Sputum Acid Fast Bacilli Culture Pending Resulted 01/03/17 14:35 Sputum AFB Specimen Processing Tissue - Final Resulted 01/03/17 14:35 Sputum Acid Fast Bacilli Smear - Final Resulted 01/03/17 14:35 Sputum Acid Fast Bacilli Culture Pending Resulted Laboratory Tests Test 01/06/17 08:10 01/06/17 08:15 01/06/17 09:00 White Blood Count 13.7 K/UL (4.8-10.8) H Red Blood Count 2.44 M/UL (4.70-6.10) L Hemoglobin 6.7 G/DL (14.2-18.0) *L Hematocrit 22.5 % (42.0-52.0) L Mean Corpuscular Volume 92 FL (80-99) Mean Corpuscular Hemoglobin 27.4 PG (27.0-31.0) Mean Corpuscular Hemoglobin Concent 29.6 G/DL (32.0-36.0) L Red Cell Distribution Width 21.6 % (11.6-14.8) H Platelet Count 823 K/UL (150-450) H Mean Platelet Volume 6.9 FL (6.5-10.1) Neutrophils (%) (Auto) % (45.0-75.0) Lymphocytes (%) (Auto) % (20.0-45.0) Monocytes (%) (Auto) % (1.0-10.0) Eosinophils (%) (Auto) % (0.0-3.0) Basophils (%) (Auto) % (0.0-2.0) Differential Total Cells Counted 100 Neutrophils % (Manual) 63 % (45-75) Lymphocytes % (Manual) 22 % (20-45) Monocytes % (Manual) 12 % (1-10) H Eosinophils % (Manual) 1 % (0-3) Basophils % (Manual) 1 % (0-2) Band Neutrophils 1 % (0-8) Platelet Estimate Increased H Platelet Morphology Normal Polychromasia 1+ Hypochromasia 3+ Anisocytosis 3+ Target Cells Occasional Sodium Level 141 mEQ/L (135-145) Potassium Level 4.0 mEQ/L (3.4-4.9) Chloride Level 107 mEQ/L (98-107) Carbon Dioxide Level 21 mEQ/L (20-30) Anion Gap 13 (5-15) Blood Urea Nitrogen 12 mg/dL (7-23) Creatinine 2.1 mg/dL (0.7-1.2) H Estimat Glomerular Filtration Rate 45.2 mL/min (>60) Glucose Level 142 mg/dL (74-106) H Calcium Level 8.3 mg/dL (8.6-10.2) L Prothrombin Time 10.6 SEC (9.30-11.50) Prothromb Time International Ratio 1.0 (0.9-1.1) Activated Partial Thromboplast Time 28 SEC (23-33) Current Medications Medications (Trade) Dose Ordered Sig/Juliana Route PRN Reason Start Time Stop Time Status Last Admin Dose Admin Acetaminophen (Tylenol) 650 mg Q4H PRN ORAL Mild Pain/Temp > 100.5 12/25/16 10:30 01/24/17 10:29 01/02/17 18:51 Cefepime HCl 1 gm/ Dextrose 55 ml @ 110 mls/hr Q24H IVPB 01/01/17 19:00 01/08/17 18:59 01/05/17 19:14 Docusate Sodium (Colace) 100 mg TWICE A DAY ORAL 12/30/16 09:00 01/29/17 08:59 01/06/17 08:56 Doxycycline Monohydrate (Vibramycin) 100 mg EVERY 12 HOURS ORAL 01/05/17 21:00 01/12/17 20:59 01/06/17 08:56 Epoetin Alex 25677 units 10,000 units THU-THU-THU SUBQ 12/31/16 21:00 01/30/17 20:59 01/05/17 20:37 Fluoxetine HCl (PROzac) 20 mg DAILY ORAL 12/27/16 09:00 01/26/17 08:59 01/06/17 08:56 Folic Acid (Folate) 2 mg DAILY ORAL 01/02/17 09:00 02/01/17 08:59 01/06/17 08:56 Lactulose (Cephulac) 10 gm TID@0900,1500,2100 ORAL 12/30/16 09:00 01/29/17 08:59 01/06/17 08:56 Levetiracetam (Keppra) 750 mg Q12HR ORAL 12/30/16 21:00 01/29/17 20:59 01/06/17 08:56 Lorazepam (Ativan 2mg/ml 1ml) 1 mg ONCE ONCE IVP 01/06/17 18:35 01/06/17 18:36 01/06/17 14:27 Methocarbamol (Robaxin) 500 mg Q8H PRN ORAL muscle spasm 01/02/17 09:00 02/01/17 08:59 Metoclopramide HCl (Reglan) 10 mg Q6H PRN IVP Nausea & Vomiting 12/30/16 12:30 01/29/17 12:29 12/31/16 08:59 Ondansetron HCl (Zofran) 4 mg Q6H PRN IVP Nausea & Vomiting 12/23/16 19:45 01/22/17 19:44 01/01/17 15:52 Pantoprazole (Protonix) 40 mg DAILY ORAL 01/02/17 09:00 02/01/17 08:59 01/06/17 08:56 Polyethylene Glycol (Miralax) 17 gm BEDTIME ORAL 12/30/16 21:00 01/29/17 20:59 01/05/17 20:37 Sodium Chloride (Sodium Chloride 1000ml bag) 1,000 ml @ 100 mls/hr Q10H IV 01/02/17 07:45 02/01/17 07:44 01/06/17 10:11 Thiamine HCl (Vitamin B1) 100 mg DAILY ORAL 12/24/16 14:30 01/23/17 14:29 01/06/17 08:56 Tramadol HCl (Ultram) 50 mg Q4H PRN ORAL severe pain 01/02/17 09:00 01/09/17 08:59 01/02/17 20:45 Vitamin D (Vitamin D) 2,000 intlu DAILY ORAL 12/25/16 10:30 01/24/17 10:29 01/06/17 08:56 Imelda Chen M.D. Jan 06, 2017 14:36
--- NOTE | 2017-01-06 15:25 | General Progress Note ---
Progress Note Progress Note Bone marrow aspiration and biopsy procedure Pathology Date/ Time: 01/06/2017 2: 30PM Indication: Severe Anemia Referred by: Kapil Haney M.D. - Time-out was called to confirm patients name and date of , procedure, side and site of biopsy, safety procedures followed. - Performed by: Jesus Cash M.D - Attending pathologist: Jesus Cash M.D - Informed consent: signed by patient. - Aspiration and biopsy site: Left superior posterior iliac crest. - Patient position: Left lateral decubitus - Preparation and technique: sterile preparation of site with Betadyne, Chloraprep, draped to expose aspirate/biopsy area, local anesthesia with 1% lidocaine (approximately 8 ml), and frequent pressure application on incision to maintain hemostasis. - Tissue obtained: bone marrow aspirate and biopsy were successfully obtained in sterile manner. - Toleration of procedure and any complications: slight localized bleeding (<1ml ). Patient tolerated procedure well with minimal pain. JESUS CASH Jan 06, 2017 15:25
[2017-01-06 16:14] VITALS: BP 128/89
[2017-01-06] MEDS: traMADol 50mg tab ORAL PRN (16:36)
--- NOTE | 2017-01-06 17:40 | Cardiac Electrophysiology PN ---
Assessment/Plan Status Narrative CT Brain Impression: Cerebral volume loss, out of proportion to patient's age. Correlate with clinical history Negative for acute intrarenal bleed or mass effect Assessment/Plan 1. Hypotension.Resolved. Echocardiography showed ejection fraction 55% 2. Sinus tachycardia. Due to severe anemia and sepsis with WBC 18k 3. Homelessness. 4. Severe hyponatremia, resolved. 5. CKD cr 2.[address] Rosario. 6.Toxic metabolic encephalopathy. CT of the brain done on 12/24/16 reveals generalized cerebral atrophy. 7. Psychiatric illness and seizure disorder 8. Severe Anemia. Hb 6.5 secondary to severe folic acid deficiency on oral folic acid 10 mg daily. Refused blood transfusion. Bone marrow biopsy done today. CAMILLA RN and pathologist Subjective Subjective Alert in NAD, still in Isolation.Had BM biopsy today.. No SOB. Objective Last 24 Hour Vital Signs Date Time Temp Pulse Resp B/P Pulse Ox O2 Delivery O2 Flow Rate FiO2 01/06/17 16:14 97.0 100 20 128/89 99 Room Air 01/06/17 14:57 98.0 01/06/17 12:38 98.0 76 20 126/83 97 Room Air 01/06/17 08:00 98.2 84 18 116/76 97 Room Air 01/06/17 04:00 98.1 79 18 117/79 99 Room Air 01/06/17 00:00 98.2 94 18 109/73 100 Room Air 01/05/17 20:00 97.9 114 19 121/73 98 Room Air Intake and Output 01/05/17 01/06/17 19:00 07:00 Intake Total 800 ml 1950 ml Output Total 2250 ml Balance 800 ml -300 ml Intake Oral 750 ml IV Total 800 ml 1200 ml Output Urine Total 2250 ml # Voids 3 # Bowel Movements 2 Laboratory Tests Test 01/06/17 08:10 01/06/17 08:15 01/06/17 09:00 White Blood Count 13.7 K/UL (4.8-10.8) H Red Blood Count 2.44 M/UL (4.70-6.10) L Hemoglobin 6.7 G/DL (14.2-18.0) *L Hematocrit 22.5 % (42.0-52.0) L Mean Corpuscular Volume 92 FL (80-99) Mean Corpuscular Hemoglobin 27.4 PG (27.0-31.0) Mean Corpuscular Hemoglobin Concent 29.6 G/DL (32.0-36.0) L Red Cell Distribution Width 21.6 % (11.6-14.8) H Platelet Count 823 K/UL (150-450) H Mean Platelet Volume 6.9 FL (6.5-10.1) Neutrophils (%) (Auto) % (45.0-75.0) Lymphocytes (%) (Auto) % (20.0-45.0) Monocytes (%) (Auto) % (1.0-10.0) Eosinophils (%) (Auto) % (0.0-3.0) Basophils (%) (Auto) % (0.0-2.0) Differential Total Cells Counted 100 Neutrophils % (Manual) 63 % (45-75) Lymphocytes % (Manual) 22 % (20-45) Monocytes % (Manual) 12 % (1-10) H Eosinophils % (Manual) 1 % (0-3) Basophils % (Manual) 1 % (0-2) Band Neutrophils 1 % (0-8) Platelet Estimate Increased H Platelet Morphology Normal Polychromasia 1+ Hypochromasia 3+ Anisocytosis 3+ Target Cells Occasional Sodium Level 141 mEQ/L (135-145) Potassium Level 4.0 mEQ/L (3.4-4.9) Chloride Level 107 mEQ/L (98-107) Carbon Dioxide Level 21 mEQ/L (20-30) Anion Gap 13 (5-15) Blood Urea Nitrogen 12 mg/dL (7-23) Creatinine 2.1 mg/dL (0.7-1.2) H Estimat Glomerular Filtration Rate 45.2 mL/min (>60) Glucose Level 142 mg/dL (74-106) H Calcium Level 8.3 mg/dL (8.6-10.2) L Prothrombin Time 10.6 SEC (9.30-11.50) Prothromb Time International Ratio 1.0 (0.9-1.1) Activated Partial Thromboplast Time 28 SEC (23-33) Microbiology Date/Time Source Procedure Growth Status 01/04/17 10:20 Sputum AFB Specimen Processing Tissue - Final Resulted 01/04/17 10:20 Sputum Acid Fast Bacilli Smear - Final Resulted 7/9/17 10:20 Sputum Acid Fast Bacilli Culture Pending Resulted Objective NECK: No JVD. LUNGS: Coarse rhonchi CARDIOVASCULAR: Regular S1 and S2 with no gallop or murmur. ABDOMEN: Soft. EXTREMITIES: No pitting edema. ROGERS DEAN Jan 06, 2017 17:40
[2017-01-06] MEDS: Cefepime HCl 1 GM in D5W 55 ML IVPB SCH (18:11)
[2017-01-06] MEDS ORDERED: LORazepam Inj 2mg/ml 1ml IVP ONE (18:35)
--- NOTE | 2017-01-06 19:55 | General Progress Note ---
Assessment/Plan Assessment/Plan # Anemia secondary to severe folic acid deficiency, currently on folic acid ---> pt refused blood transfusion after multiple discussions (most recent was on 01/04/17, does not want blood even though hgb <7) he understands risks of increased morbidity and mortality ---> hgb goal again >7, monitor ---> is s/p bone marrow biopsy # Leukocytosis secondary to underlying inflammatory reaction versus infection # Pancreatitis has being followed by gi and id, pain has improved ---> on prn zofran and pepcid as needed # Lactic acidosis with decreased blood pressure. improved # Anemia secondary to hemodilution. # Thrombocytopenia, likely secondary to hemodilution versus infection. # Hypokalemia, resolved. # Anemia secondary to B12 deficiency, given B12 injections. # History of seizures, on Dilantin. # History of alcohol intoxication leading to pancreatitis. # Altered mental status. Seen by Neurology Subjective Constitutional: Reports: no symptoms HEENT: Reports: no symptoms Cardiovascular: Reports: no symptoms Respiratory: Reports: no symptoms Gastrointestinal/Abdominal: Reports: no symptoms Genitourinary: Reports: no symptoms Neurologic/Psychiatric: Reports: no symptoms Endocrine: Reports: no symptoms Hematologic/Lymphatic: Reports: anemia Allergies: Coded Allergies: ACETAMINOPHEN (Verified Allergy, Unknown, 06/11/15) IBUPROFEN (Verified Allergy, Unknown, 06/11/15) Subjective is s/o bone marrow biopsy Objective Last 24 Hour Vital Signs Date Time Temp Pulse Resp B/P Pulse Ox O2 Delivery O2 Flow Rate FiO2 01/06/17 17:35 97.0 01/06/17 16:14 97.0 100 20 128/89 99 Room Air 01/06/17 14:57 98.0 01/06/17 12:38 98.0 76 20 126/83 97 Room Air 01/06/17 08:00 98.2 84 18 116/76 97 Room Air 01/06/17 04:00 98.1 79 18 117/79 99 Room Air 01/06/17 00:00 98.2 94 18 109/73 100 Room Air 01/05/17 20:00 97.9 114 19 121/73 98 Room Air Intake and Output 01/05/17 01/06/17 19:00 07:00 Intake Total 800 ml 1950 ml Output Total 2250 ml Balance 800 ml -300 ml Intake Oral 750 ml IV Total 800 ml 1200 ml Output Urine Total 2250 ml # Voids 3 # Bowel Movements 2 Laboratory Tests 01/06/17 08:10: White Blood Count 13.7H, Red Blood Count 2.44L, Hemoglobin 6.7*L, Hematocrit 22.5L, Mean Corpuscular Volume 92, Mean Corpuscular Hemoglobin 27.4, Mean Corpuscular Hemoglobin Concent 29.6L, Red Cell Distribution Width 21.6H, Platelet Count 823H, Mean Platelet Volume 6.9, Neutrophils (%) (Auto) , Lymphocytes (%) (Auto) , Monocytes (%) (Auto) , Eosinophils (%) (Auto) , Basophils (%) (Auto) , Differential Total Cells Counted 100, Neutrophils % ( Manual) 63, Lymphocytes % (Manual) 22, Monocytes % (Manual) 12H, Eosinophils % ( Manual) 1, Basophils % (Manual) 1, Band Neutrophils 1, Platelet Estimate IncreasedH, Platelet Morphology Normal, Polychromasia 1+, Hypochromasia 3+, Anisocytosis 3+, Target Cells Occasional 01/06/17 08:15: Sodium Level 141, Potassium Level 4.0, Chloride Level 107, Carbon Dioxide Level 21, Anion Gap 13, Blood Urea Nitrogen 12, Creatinine 2.1H, Estimat Glomerular Filtration Rate 45.2, Glucose Level 142H, Calcium Level 8.3L 01/06/17 09:00: Prothrombin Time 10.6, Prothromb Time International Ratio 1.0, Activated Partial Thromboplast Time 28 Height (Feet): 5 Height (Inches): 10.00 Weight (Pounds): 160 General Appearance: alert EENT: TMs normal Neck: normal inspection Cardiovascular: regular rhythm Respiratory/Chest: normal breath sounds Abdomen: non tender Extremities: non-tender Edema: no edema noted Leg (L), no edema noted Leg (R) Edema: trace edema Neurologic: no motor/sensory deficits Skin: warm/dry Kapil Haney Jan 06, 2017 19:55
[2017-01-06 20:00] VITALS: BP 112/81
[2017-01-06] MEDS: Miralax 17gm pkt ORAL SCH (21:00)
--- NOTE | 2017-01-06 21:20 | General Progress Note ---
Assessment/Plan Problem List: (1) Altered mental status ICD Codes: R41.82 - Altered mental status, unspecified SNOMED: 475176039 Qualifiers: Qualified Codes: R41.82 - Altered mental status, unspecified (2) Pancreatitis ICD Codes: K85.90 - Acute pancreatitis without necrosis or infection, unspecified SNOMED: 53972562 Qualifiers: Qualified Codes: K85.90 - Acute pancreatitis without necrosis or infection, unspecified (3) Sepsis ICD Codes: A41.9 - Sepsis, unspecified organism SNOMED: 10231057 (4) Anemia ICD Codes: D64.9 - Anemia, unspecified SNOMED: 111808509 Status: progressing Assessment/Plan ams hyponatremia resolved anemia due to hemoptysis treatment of hemoptysis per pulmonary anemia improved still confused arm pain due to plebitis? afebrile Subjective ROS Limited/Unobtainable: Yes Allergies: Coded Allergies: ACETAMINOPHEN (Verified Allergy, Unknown, 06/11/15) IBUPROFEN (Verified Allergy, Unknown, 06/11/15) Objective Last 24 Hour Vital Signs Date Time Temp Pulse Resp B/P Pulse Ox O2 Delivery O2 Flow Rate FiO2 01/06/17 17:35 97.0 01/06/17 16:14 97.0 100 20 128/89 99 Room Air 01/06/17 14:57 98.0 01/06/17 12:38 98.0 76 20 126/83 97 Room Air 01/06/17 08:00 98.2 84 18 116/76 97 Room Air 01/06/17 04:00 98.1 79 18 117/79 99 Room Air 01/06/17 00:00 98.2 94 18 109/73 100 Room Air Intake and Output 01/05/17 01/06/17 19:00 07:00 Intake Total 800 ml 1950 ml Output Total 2250 ml Balance 800 ml -300 ml Intake Oral 750 ml IV Total 800 ml 1200 ml Output Urine Total 2250 ml # Voids 3 # Bowel Movements 2 Laboratory Tests 01/06/17 08:10: White Blood Count 13.7H, Red Blood Count 2.44L, Hemoglobin 6.7*L, Hematocrit 22.5L, Mean Corpuscular Volume 92, Mean Corpuscular Hemoglobin 27.4, Mean Corpuscular Hemoglobin Concent 29.6L, Red Cell Distribution Width 21.6H, Platelet Count 823H, Mean Platelet Volume 6.9, Neutrophils (%) (Auto) , Lymphocytes (%) (Auto) , Monocytes (%) (Auto) , Eosinophils (%) (Auto) , Basophils (%) (Auto) , Differential Total Cells Counted 100, Neutrophils % ( Manual) 63, Lymphocytes % (Manual) 22, Monocytes % (Manual) 12H, Eosinophils % ( Manual) 1, Basophils % (Manual) 1, Band Neutrophils 1, Platelet Estimate IncreasedH, Platelet Morphology Normal, Polychromasia 1+, Hypochromasia 3+, Anisocytosis 3+, Target Cells Occasional 01/06/17 08:15: Sodium Level 141, Potassium Level 4.0, Chloride Level 107, Carbon Dioxide Level 21, Anion Gap 13, Blood Urea Nitrogen 12, Creatinine 2.1H, Estimat Glomerular Filtration Rate 45.2, Glucose Level 142H, Calcium Level 8.3L 01/06/17 09:00: Prothrombin Time 10.6, Prothromb Time International Ratio 1.0, Activated Partial Thromboplast Time 28 Height (Feet): 5 Height (Inches): 10.00 Weight (Pounds): 160 General Appearance: confused Respiratory/Chest: lungs clear Robbi Vega MD Jan 06, 2017 21:19
--- NOTE | 2017-01-06 22:17 | General Progress Note ---
Assessment/Plan Status: doing well, stable Assessment/Plan Substance abuse, mdd anxiety cont current meds Subjective Constitutional: Reports: malaise, weakness Neurologic/Psychiatric: Reports: anxiety, depressed, emotional problems Allergies: Coded Allergies: ACETAMINOPHEN (Verified Allergy, Unknown, 06/11/15) IBUPROFEN (Verified Allergy, Unknown, 06/11/15) Subjective patient was alert and oriented times self, time situation and place. Mood was neutral. Affect was constricted. Congruent with mood. Thought process, tangential. Thought content, no suicidal or homicidal ideation. Cognition is impaired. He was eating during the eval. Objective Last 24 Hour Vital Signs Date Time Temp Pulse Resp B/P Pulse Ox O2 Delivery O2 Flow Rate FiO2 01/06/17 20:00 97.5 110 19 112/81 96 Room Air 01/06/17 17:35 97.0 01/06/17 16:14 97.0 100 20 128/89 99 Room Air 01/06/17 14:57 98.0 01/06/17 12:38 98.0 76 20 126/83 97 Room Air 01/06/17 08:00 98.2 84 18 116/76 97 Room Air 01/06/17 04:00 98.1 79 18 117/79 99 Room Air 01/06/17 00:00 98.2 94 18 109/73 100 Room Air Intake and Output 01/05/17 01/06/17 19:00 07:00 Intake Total 800 ml 1950 ml Output Total 2250 ml Balance 800 ml -300 ml Intake Oral 750 ml IV Total 800 ml 1200 ml Output Urine Total 2250 ml # Voids 3 # Bowel Movements 2 Laboratory Tests 01/06/17 08:10: White Blood Count 13.7H, Red Blood Count 2.44L, Hemoglobin 6.7*L, Hematocrit 22.5L, Mean Corpuscular Volume 92, Mean Corpuscular Hemoglobin 27.4, Mean Corpuscular Hemoglobin Concent 29.6L, Red Cell Distribution Width 21.6H, Platelet Count 823H, Mean Platelet Volume 6.9, Neutrophils (%) (Auto) , Lymphocytes (%) (Auto) , Monocytes (%) (Auto) , Eosinophils (%) (Auto) , Basophils (%) (Auto) , Differential Total Cells Counted 100, Neutrophils % ( Manual) 63, Lymphocytes % (Manual) 22, Monocytes % (Manual) 12H, Eosinophils % ( Manual) 1, Basophils % (Manual) 1, Band Neutrophils 1, Platelet Estimate IncreasedH, Platelet Morphology Normal, Polychromasia 1+, Hypochromasia 3+, Anisocytosis 3+, Target Cells Occasional 01/06/17 08:15: Sodium Level 141, Potassium Level 4.0, Chloride Level 107, Carbon Dioxide Level 21, Anion Gap 13, Blood Urea Nitrogen 12, Creatinine 2.1H, Estimat Glomerular Filtration Rate 45.2, Glucose Level 142H, Calcium Level 8.3L 01/06/17 09:00: Prothrombin Time 10.6, Prothromb Time International Ratio 1.0, Activated Partial Thromboplast Time 28 Height (Feet): 5 Height (Inches): 10.00 Weight (Pounds): 160 General Appearance: no apparent distress, alert, thin Neurologic: alert, oriented x 3, responsive, normal mood/affect Mary Beth Ramos M.D. Jan 06, 2017 22:17
[2017-01-07] VITALS: BP 108/79
[2017-01-07] MEDS: traMADol 50mg tab ORAL PRN (01:02)
[2017-01-07 04:00] VITALS: BP 103/71
[2017-01-07 07:16] LABS: MEAN CORPUSCULAR HEMOGLOBIN 28.2 PG (27.0-31.0); MEAN CORPUSCULAR HGB CONC 30.2 G/DL (32.0-36.0); MEAN CORPUSCULAR VOLUME 93 FL (80-99); MEAN PLATELET VOLUME 6.9 FL (6.5-10.1); PLATELET COUNT 779 K/UL (150-450); RED BLOOD COUNT 2.32 M/UL (4.70-6.10); RED CELL DISTRIBUTION WIDTH 22.4 % (11.6-14.8); WHITE BLOOD COUNT 11.7 K/UL (4.8-10.8)
[2017-01-07 07:28] LABS: CALCIUM 8.8 mg/dL (8.6-10.2); CREATININE 2.1 mg/dL (0.7-1.2); GLOMERULAR FILTRATION RATE 45.2 mL/min (>60); MAGNESIUM 1.7 mg/dL (1.7-2.5); POTASSIUM 4.1 mEQ/L (3.4-4.9)
[2017-01-07 07:52] LABS: OTHERS PATHOLOGIST COMMENT
[2017-01-07 08:19] VITALS: BP 130/91
[2017-01-07] MEDS: Lactulose 10gm/15ml UDC ORAL SCH ×3 (08:34→22:02)
[2017-01-07] MEDS: Vitamin D 1000 IU Tab ORAL SCH (08:35)
[2017-01-07] MEDS: Thiamine 100mg tab ORAL SCH (08:35)
[2017-01-07] MEDS: Docusate 100mg cap ORAL SCH ×2 (08:36→17:37)
[2017-01-07 08:37] LABS: EOSINOPHILS % (MANUAL) 1 % (0-3); LYMPHOCYTES % (MANUAL) 24 % (20-45); NEUTROPHILS % (MANUAL) 68 % (45-75); NUCLEATED RED BLOOD CELLS 1 /100 WBC; TOTAL CELLS COUNTED 100
[2017-01-07 08:38] LABS: ANISOCYTOSIS 3+; BAND NEUTROPHILS % (MANUAL) 0 % (0-8); BASOPHILS % (MANUAL) 0 % (0-2); HYPOCHROMASIA 4+; PLATELET ESTIMATE INCREASED; PLATELET MORPHOLOGY NORMAL; POLYCHROMASIA 2+
--- NOTE | 2017-01-07 11:03 | General Progress Note ---
Assessment/Plan Status: unchanged Status Narrative Cr same- gradual decline- Assessment/Plan status: Acute renal failure Hemoptysis , Pneumonia , r/o TB Sepsis On Admission: Renal failure , Acute vs Chronic improving h/o Sz Acute Encephalopathy h/o Low K h/o Low Na Low B12 and folate Elevated Lipase , acute pancreatitis sever anemia Plan; per consultants monitor renal parameters Hydrate- antibiotics down on folate dose ST PT OT eval Monitor lytes- monitor renal parameters Pulm eval appreciated Subjective ROS Limited/Unobtainable: No Constitutional: Reports: malaise Allergies: Coded Allergies: ACETAMINOPHEN (Verified Allergy, Unknown, 06/11/15) IBUPROFEN (Verified Allergy, Unknown, 06/11/15) Objective Last 24 Hour Vital Signs Date Time Temp Pulse Resp B/P Pulse Ox O2 Delivery O2 Flow Rate FiO2 01/07/17 08:19 99.1 75 21 130/91 98 Room Air 01/07/17 04:00 97.6 89 19 103/71 96 Room Air 01/07/17 02:01 97.5 01/07/17 00:00 97.5 105 20 108/79 95 Room Air 01/06/17 20:00 97.5 110 19 112/81 96 Room Air 01/06/17 16:14 97.0 100 20 128/89 99 Room Air 01/06/17 14:57 98.0 01/06/17 12:38 98.0 76 20 126/83 97 Room Air Intake and Output 01/06/17 01/07/17 19:00 07:00 Intake Total 2300 ml 1360 ml Output Total 800 ml Balance 1500 ml 1360 ml Intake Oral 600 ml 360 ml IV Total 1700 ml 1000 ml Output Urine Total 800 ml # Voids 3 # Bowel Movements 1 1 Laboratory Tests 01/07/17 06:30: White Blood Count 11.7H, Red Blood Count 2.32L, Hemoglobin 6.5*L, Hematocrit 21.6L, Mean Corpuscular Volume 93, Mean Corpuscular Hemoglobin 28.2, Mean Corpuscular Hemoglobin Concent 30.2L, Red Cell Distribution Width 22.4H, Platelet Count 779H, Mean Platelet Volume 6.9, Neutrophils (%) (Auto) , Lymphocytes (%) (Auto) , Monocytes (%) (Auto) , Eosinophils (%) (Auto) , Basophils (%) (Auto) , Differential Total Cells Counted 100, Neutrophils % ( Manual) 68, Lymphocytes % (Manual) 24, Monocytes % (Manual) 7, Eosinophils % ( Manual) 1, Basophils % (Manual) 0, Band Neutrophils 0, Nucleated Red Blood Cells 1, Platelet Estimate IncreasedH, Platelet Morphology Normal, Polychromasia 2+, Hypochromasia 4+, Anisocytosis 3+, Sodium Level 142, Potassium Level 4.1, Chloride Level 110H, Carbon Dioxide Level 22, Anion Gap 10 , Blood Urea Nitrogen 14, Creatinine 2.1H, Estimat Glomerular Filtration Rate 45.2, Glucose Level 92, Calcium Level 8.8, Magnesium Level 1.7, Rheumatoid Factor Screen [Pending], Anti-Nuclear Antibody Screen [Pending], c-ANCA Titer [ Pending], p-ANCA Titer [Pending], Anti-Glomerular Basement Memb Ab [Pending] Height (Feet): 5 Height (Inches): 10.00 Weight (Pounds): 160 General Appearance: no apparent distress Objective other PE not changed VELASQUEZ DASILVA Jan 07, 2017 11:03
[2017-01-07 11:44] VITALS: BP 134/92
--- NOTE | 2017-01-07 12:27 | GI Progress Note ---
Assessment/Plan Problems: (1) Pancreatitis ICD Codes: K85.90 - Acute pancreatitis without necrosis or infection, unspecified SNOMED: 28082310 Qualifiers: Qualified Codes: K85.90 - Acute pancreatitis without necrosis or infection, unspecified (2) Altered mental status ICD Codes: R41.82 - Altered mental status, unspecified SNOMED: 306349243 Qualifiers: Qualified Codes: R41.82 - Altered mental status, unspecified (3) Acute alcoholic intoxication ICD Codes: F10.929 - Alcohol use, unspecified with intoxication, unspecified SNOMED: 49639023 (4) Anemia ICD Codes: D64.9 - Anemia, unspecified SNOMED: 524784326 Status: unchanged Status Narrative Discussed with Dr. Friend. Assessment/Plan APCT reviewed >> Acute pancreatitis. Right/transverse colonic ileus. Hepatic steatosis. Cholelithiasis. ammonia WNL OB stool r/o GI bleed >> negative monitor H&H, transfuse prn >> pt refusing transfusions fu bone bx low fat diet zofran prn H2B abx fu labs Subjective Gastrointestinal/Abdominal: Reports: no symptoms Objective Last 24 Hour Vital Signs Date Time Temp Pulse Resp B/P Pulse Ox O2 Delivery O2 Flow Rate FiO2 01/07/17 11:44 99.0 72 21 134/92 100 Room Air 01/07/17 08:19 99.1 75 21 130/91 98 Room Air 01/07/17 04:00 97.6 89 19 103/71 96 Room Air 01/07/17 02:01 97.5 01/07/17 00:00 97.5 105 20 108/79 95 Room Air 01/06/17 20:00 97.5 110 19 112/81 96 Room Air 01/06/17 16:14 97.0 100 20 128/89 99 Room Air 01/06/17 14:57 98.0 01/06/17 12:38 98.0 76 20 126/83 97 Room Air Intake and Output 01/06/17 01/07/17 19:00 07:00 Intake Total 2300 ml 1360 ml Output Total 800 ml Balance 1500 ml 1360 ml Intake Oral 600 ml 360 ml IV Total 1700 ml 1000 ml Output Urine Total 800 ml # Voids 3 # Bowel Movements 1 1 Laboratory Tests Test 01/07/17 06:30 White Blood Count 11.7 K/UL (4.8-10.8) H Red Blood Count 2.32 M/UL (4.70-6.10) L Hemoglobin 6.5 G/DL (14.2-18.0) *L Hematocrit 21.6 % (42.0-52.0) L Mean Corpuscular Volume 93 FL (80-99) Mean Corpuscular Hemoglobin 28.2 PG (27.0-31.0) Mean Corpuscular Hemoglobin Concent 30.2 G/DL (32.0-36.0) L Red Cell Distribution Width 22.4 % (11.6-14.8) H Platelet Count 779 K/UL (150-450) H Mean Platelet Volume 6.9 FL (6.5-10.1) Neutrophils (%) (Auto) % (45.0-75.0) Lymphocytes (%) (Auto) % (20.0-45.0) Monocytes (%) (Auto) % (1.0-10.0) Eosinophils (%) (Auto) % (0.0-3.0) Basophils (%) (Auto) % (0.0-2.0) Differential Total Cells Counted 100 Neutrophils % (Manual) 68 % (45-75) Lymphocytes % (Manual) 24 % (20-45) Monocytes % (Manual) 7 % (1-10) Eosinophils % (Manual) 1 % (0-3) Basophils % (Manual) 0 % (0-2) Band Neutrophils 0 % (0-8) Nucleated Red Blood Cells 1 /100 WBC Platelet Estimate Increased H Platelet Morphology Normal Polychromasia 2+ Hypochromasia 4+ Anisocytosis 3+ Sodium Level 142 mEQ/L (135-145) Potassium Level 4.1 mEQ/L (3.4-4.9) Chloride Level 110 mEQ/L (98-107) H Carbon Dioxide Level 22 mEQ/L (20-30) Anion Gap 10 (5-15) Blood Urea Nitrogen 14 mg/dL (7-23) Creatinine 2.1 mg/dL (0.7-1.2) H Estimat Glomerular Filtration Rate 45.2 mL/min (>60) Glucose Level 92 mg/dL (74-106) Calcium Level 8.8 mg/dL (8.6-10.2) Magnesium Level 1.7 mg/dL (1.7-2.5) Rheumatoid Factor Screen Pending Anti-Nuclear Antibody Screen Pending c-ANCA Titer Pending p-ANCA Titer Pending Anti-Glomerular Basement Memb Ab Pending Height (Feet): 5 Height (Inches): 10.00 Weight (Pounds): 160 General Appearance: no apparent distress, alert Cardiovascular: normal rate Respiratory/Chest: no respiratory distress Abdominal Exam: normal bowel sounds, non tender, soft Extremities: normal range of motion Rosa Mancia N.P. Jan 07, 2017 12:27
--- NOTE | 2017-01-07 13:29 | Infectious Diseases Prog Note ---
Assessment/Plan Problems: (1) Pleural effusion Assessment & Plan: rule out empyema, recommend thoracentesis and fluids to be sent for culture, gram stain, fungal and AFB, and cytology (2) Hemoptysis Assessment & Plan: suspect due to severe pneumonia , with negative AFB smears x3 and negative PPD test which rule out TB, ok to remove from air born isolation for now , CT chest ruled out cavitation (3) Aspiration pneumonia Assessment & Plan: improving on cefepime and doxycycline , CT chest confirmed it, with no abscess or cavitations (4) Sepsis Assessment & Plan: due to the above with leukocytosis, improving , stool for C diff is negative , repeated blood culture is negative ,monitor CBC (5) Pancreatitis Assessment & Plan: due to tawanda drink of alcohol , continue hydration with supportive care, monitor lipase level , GI is following (6) DWAYNE (acute kidney injury) Assessment & Plan: multifactorial , suspect dehydration due to recurrent vomiting, improving on IVF , monitor renal function test (7) Diarrhea Assessment & Plan: self limited, no evidence of C diff , d/c oral vancomycin (8) Anemia Assessment & Plan: recurrent , suspect hemoptysis related, monitor H/H, transfuse blood as needed Subjective Constitutional: Reports: no symptoms HEENT: Reports: no symptoms Respiratory: Reports: no symptoms Breasts: Reports: no symptoms Cardiovascular: Reports: no symptoms Gastrointestinal/Abdominal: Reports: no symptoms Genitourinary: Reports: no symptoms Neurologic: Reports: no symptoms Psychiatric: Reports: no symptoms Skin: Reports: no symptoms Endocrine: Reports: no symptoms Hematologic: Reports: no symptoms Musculoskeletal: Reports: no symptoms Allergies: Coded Allergies: ACETAMINOPHEN (Verified Allergy, Unknown, 06/11/15) IBUPROFEN (Verified Allergy, Unknown, 06/11/15) Objective Vital Signs Last 24 Hour Vital Signs Date Time Temp Pulse Resp B/P Pulse Ox O2 Delivery O2 Flow Rate FiO2 01/07/17 11:44 99.0 72 21 134/92 100 Room Air 01/07/17 08:19 99.1 75 21 130/91 98 Room Air 01/07/17 04:00 97.6 89 19 103/71 96 Room Air 01/07/17 02:01 97.5 01/07/17 00:00 97.5 105 20 108/79 95 Room Air 01/06/17 20:00 97.5 110 19 112/81 96 Room Air 01/06/17 16:14 97.0 100 20 128/89 99 Room Air 01/06/17 14:57 98.0 Height (Feet): 5 Height (Inches): 10.00 Weight (Pounds): 160 General Appearance: WD/WN, no acute distress HEENT: normocephalic, atraumatic, anicteric, mucous membranes moist, PERRL Respiratory/Chest: chest wall non-tender, lungs clear, normal breath sounds, no respiratory distress, no accessory muscle use Cardiovascular: normal peripheral pulses, normal rate, regular rhythm, no gallop/murmur, no JVD Abdomen: normal bowel sounds, soft, non tender, no organomegaly, non distended , no mass Extremities: no cyanosis, no clubbing Skin: no rash, no lesions Neurologic/Psychiatric: alert, oriented x 3 Lymphatic: no neck adenopathy, no groin adenopathy Laboratory Tests Test 01/07/17 06:30 White Blood Count 11.7 K/UL (4.8-10.8) H Red Blood Count 2.32 M/UL (4.70-6.10) L Hemoglobin 6.5 G/DL (14.2-18.0) *L Hematocrit 21.6 % (42.0-52.0) L Mean Corpuscular Volume 93 FL (80-99) Mean Corpuscular Hemoglobin 28.2 PG (27.0-31.0) Mean Corpuscular Hemoglobin Concent 30.2 G/DL (32.0-36.0) L Red Cell Distribution Width 22.4 % (11.6-14.8) H Platelet Count 779 K/UL (150-450) H Mean Platelet Volume 6.9 FL (6.5-10.1) Neutrophils (%) (Auto) % (45.0-75.0) Lymphocytes (%) (Auto) % (20.0-45.0) Monocytes (%) (Auto) % (1.0-10.0) Eosinophils (%) (Auto) % (0.0-3.0) Basophils (%) (Auto) % (0.0-2.0) Differential Total Cells Counted 100 Neutrophils % (Manual) 68 % (45-75) Lymphocytes % (Manual) 24 % (20-45) Monocytes % (Manual) 7 % (1-10) Eosinophils % (Manual) 1 % (0-3) Basophils % (Manual) 0 % (0-2) Band Neutrophils 0 % (0-8) Nucleated Red Blood Cells 1 /100 WBC Platelet Estimate Increased H Platelet Morphology Normal Polychromasia 2+ Hypochromasia 4+ Anisocytosis 3+ Sodium Level 142 mEQ/L (135-145) Potassium Level 4.1 mEQ/L (3.4-4.9) Chloride Level 110 mEQ/L (98-107) H Carbon Dioxide Level 22 mEQ/L (20-30) Anion Gap 10 (5-15) Blood Urea Nitrogen 14 mg/dL (7-23) Creatinine 2.1 mg/dL (0.7-1.2) H Estimat Glomerular Filtration Rate 45.2 mL/min (>60) Glucose Level 92 mg/dL (74-106) Calcium Level 8.8 mg/dL (8.6-10.2) Magnesium Level 1.7 mg/dL (1.7-2.5) Rheumatoid Factor Screen Pending Anti-Nuclear Antibody Screen Pending c-ANCA Titer Pending p-ANCA Titer Pending Anti-Glomerular Basement Memb Ab Pending Current Medications Medications (Trade) Dose Ordered Sig/Juliana Route PRN Reason Start Time Stop Time Status Last Admin Dose Admin Acetaminophen (Tylenol) 650 mg Q4H PRN ORAL Mild Pain/Temp > 100.5 12/25/16 10:30 01/24/17 10:29 01/02/17 18:51 Cefepime HCl 1 gm/ Dextrose 55 ml @ 110 mls/hr Q24H IVPB 01/01/17 19:00 01/08/17 18:59 01/06/17 18:11 Docusate Sodium (Colace) 100 mg TWICE A DAY ORAL 12/30/16 09:00 01/29/17 08:59 01/07/17 08:36 Doxycycline Monohydrate (Vibramycin) 100 mg EVERY 12 HOURS ORAL 01/05/17 21:00 01/12/17 20:59 01/07/17 08:36 Epoetin Alex 03656 units 10,000 units [id number] SUBQ 12/31/16 21:00 01/30/17 20:59 01/05/17 20:37 Fluoxetine HCl (PROzac) 20 mg DAILY ORAL 12/27/16 09:00 01/26/17 08:59 01/07/17 08:35 Folic Acid (Folate) 2 mg DAILY ORAL 01/02/17 09:00 02/01/17 08:59 01/07/17 08:35 Lactulose (Cephulac) 10 gm TID@0900,1500,2100 ORAL 12/30/16 09:00 01/29/17 08:59 01/07/17 08:34 Levetiracetam (Keppra) 750 mg Q12HR ORAL 12/30/16 21:00 01/29/17 20:59 01/07/17 08:35 Methocarbamol (Robaxin) 500 mg Q8H PRN ORAL muscle spasm 01/02/17 09:00 02/01/17 08:59 Metoclopramide HCl (Reglan) 10 mg Q6H PRN IVP Nausea & Vomiting 12/30/16 12:30 01/29/17 12:29 12/31/16 08:59 Ondansetron HCl (Zofran) 4 mg Q6H PRN IVP Nausea & Vomiting 12/23/16 19:45 01/22/17 19:44 01/01/17 15:52 Pantoprazole (Protonix) 40 mg DAILY ORAL 01/02/17 09:00 02/01/17 08:59 01/07/17 08:34 Polyethylene Glycol (Miralax) 17 gm BEDTIME ORAL 12/30/16 21:00 01/29/17 20:59 01/05/17 20:37 Sodium Chloride (Sodium Chloride 1000ml bag) 1,000 ml @ 100 mls/hr Q10H IV 01/02/17 07:45 02/01/17 07:44 01/07/17 06:23 Thiamine HCl (Vitamin B1) 100 mg DAILY ORAL 12/24/16 14:30 01/23/17 14:29 01/07/17 08:35 Tramadol HCl (Ultram) 50 mg Q4H PRN ORAL severe pain 01/02/17 09:00 01/09/17 08:59 01/07/17 01:02 Vitamin D (Vitamin D) 2,000 intlu DAILY ORAL 12/25/16 10:30 01/24/17 10:29 01/07/17 08:35 Imelda Chen M.D. Jan 07, 2017 13:29
--- NOTE | 2017-01-07 14:59 | Pulmonology Progress Note ---
Assessment/Plan Problems: (1) Hemoptysis (2) DWAYNE (acute kidney injury) (3) Seizure (4) Anemia Assessment/Plan US of chest today with potentisal thoracentesis improving antitussives lidocian inhalation for cough working sputum pending R effusion, pt will think about thoracentesis, d/w charge nurse. continue antibiotics RF, ADITYA, AnCA, anti basal membran antibody sent. check cultures Subjective ROS Limited/Unobtainable: No Interval Events: going for thoracentesis Allergies: Coded Allergies: ACETAMINOPHEN (Verified Allergy, Unknown, 06/11/15) IBUPROFEN (Verified Allergy, Unknown, 06/11/15) Objective Last 24 Hour Vital Signs Date Time Temp Pulse Resp B/P Pulse Ox O2 Delivery O2 Flow Rate FiO2 01/07/17 11:44 99.0 72 21 134/92 100 Room Air 01/07/17 08:19 99.1 75 21 130/91 98 Room Air 01/07/17 04:00 97.6 89 19 103/71 96 Room Air 01/07/17 02:01 97.5 01/07/17 00:00 97.5 105 20 108/79 95 Room Air 01/06/17 20:00 97.5 110 19 112/81 96 Room Air 01/06/17 16:14 97.0 100 20 128/89 99 Room Air 01/06/17 14:57 98.0 Intake and Output 01/06/17 01/07/17 19:00 07:00 Intake Total 2300 ml 1360 ml Output Total 800 ml Balance 1500 ml 1360 ml Intake Oral 600 ml 360 ml IV Total 1700 ml 1000 ml Output Urine Total 800 ml # Voids 3 # Bowel Movements 1 1 Objective General Appearance: WD/WN HEENT: normocephalic Respiratory/Chest: chest wall non-tender, lungs clear Cardiovascular: normal peripheral pulses, normal rate Abdomen: normal bowel sounds, soft, non tender Extremities: no cyanosis, other - effusion in both knees Skin: no rash Laboratory Tests 01/07/17 06:30: White Blood Count 11.7H, Red Blood Count 2.32L, Hemoglobin 6.5*L, Hematocrit 21.6L, Mean Corpuscular Volume 93, Mean Corpuscular Hemoglobin 28.2, Mean Corpuscular Hemoglobin Concent 30.2L, Red Cell Distribution Width 22.4H, Platelet Count 779H, Mean Platelet Volume 6.9, Neutrophils (%) (Auto) , Lymphocytes (%) (Auto) , Monocytes (%) (Auto) , Eosinophils (%) (Auto) , Basophils (%) (Auto) , Differential Total Cells Counted 100, Neutrophils % ( Manual) 68, Lymphocytes % (Manual) 24, Monocytes % (Manual) 7, Eosinophils % ( Manual) 1, Basophils % (Manual) 0, Band Neutrophils 0, Nucleated Red Blood Cells 1, Platelet Estimate IncreasedH, Platelet Morphology Normal, Polychromasia 2+, Hypochromasia 4+, Anisocytosis 3+, Sodium Level 142, Potassium Level 4.1, Chloride Level 110H, Carbon Dioxide Level 22, Anion Gap 10 , Blood Urea Nitrogen 14, Creatinine 2.1H, Estimat Glomerular Filtration Rate 45.2, Glucose Level 92, Calcium Level 8.8, Magnesium Level 1.7, Rheumatoid Factor Screen [Pending], Anti-Nuclear Antibody Screen [Pending], c-ANCA Titer [ Pending], p-ANCA Titer [Pending], Anti-Glomerular Basement Memb Ab [Pending] Current Medications Medications (Trade) Dose Ordered Sig/Juliana Route PRN Reason Start Time Stop Time Status Last Admin Dose Admin Acetaminophen (Tylenol) 650 mg Q4H PRN ORAL Mild Pain/Temp > 100.5 12/25/16 10:30 01/24/17 10:29 01/02/17 18:51 Cefepime HCl 1 gm/ Dextrose 55 ml @ 110 mls/hr Q24H IVPB 01/01/17 19:00 01/08/17 18:59 01/06/17 18:11 Docusate Sodium (Colace) 100 mg TWICE A DAY ORAL 12/30/16 09:00 01/29/17 08:59 01/07/17 08:36 Doxycycline Monohydrate (Vibramycin) 100 mg EVERY 12 HOURS ORAL 01/05/17 21:00 01/12/17 20:59 01/07/17 08:36 Epoetin Alex 49222 units 10,000 units THU-THU-THU SUBQ 12/31/16 21:00 01/30/17 20:59 01/05/17 20:37 Fluoxetine HCl (PROzac) 20 mg DAILY ORAL 12/27/16 09:00 01/26/17 08:59 01/07/17 08:35 Folic Acid (Folate) 2 mg DAILY ORAL 01/02/17 09:00 02/01/17 08:59 01/07/17 08:35 Lactulose (Cephulac) 10 gm TID@0900,1500,2100 ORAL 12/30/16 09:00 01/29/17 08:59 01/07/17 08:34 Levetiracetam (Keppra) 750 mg Q12HR ORAL 12/30/16 21:00 01/29/17 20:59 01/07/17 08:35 Methocarbamol (Robaxin) 500 mg Q8H PRN ORAL muscle spasm 01/02/17 09:00 02/01/17 08:59 Metoclopramide HCl (Reglan) 10 mg Q6H PRN IVP Nausea & Vomiting 12/30/16 12:30 01/29/17 12:29 12/31/16 08:59 Ondansetron HCl (Zofran) 4 mg Q6H PRN IVP Nausea & Vomiting 12/23/16 19:45 01/22/17 19:44 01/01/17 15:52 Pantoprazole (Protonix) 40 mg DAILY ORAL 01/02/17 09:00 02/01/17 08:59 01/07/17 08:34 Polyethylene Glycol (Miralax) 17 gm BEDTIME ORAL 12/30/16 21:00 01/29/17 20:59 01/05/17 20:37 Sodium Chloride (Sodium Chloride 1000ml bag) 1,000 ml @ 100 mls/hr Q10H IV 01/02/17 07:45 02/01/17 07:44 01/07/17 06:23 Thiamine HCl (Vitamin B1) 100 mg DAILY ORAL 12/24/16 14:30 01/23/17 14:29 01/07/17 08:35 Tramadol HCl (Ultram) 50 mg Q4H PRN ORAL severe pain 01/02/17 09:00 01/09/17 08:59 01/07/17 01:02 Vitamin D (Vitamin D) 2,000 intlu DAILY ORAL 12/25/16 10:30 01/24/17 10:29 01/07/17 08:35 SILVESTRE PATRICIA Jan 07, 2017 14:58
[2017-01-07 16:03] VITALS: BP 122/76
--- NOTE | 2017-01-07 16:31 | General Progress Note ---
Assessment/Plan Assessment/Plan # Anemia secondary to severe folic acid deficiency, currently on folic acid ---> peripheral smear shows normocytic normochromic anemia, mild thrombocytopenia, neutrophilic granulocytosis, no blasts seen ---> continues to refuse blood transfusion after multiple discussions (most recent was on 01/04/17, does not want blood even though hgb <7) he understands risks of increased morbidity and mortality ---> hgb goal again >7, monitor ---> is s/p bone marrow biopsy # Leukocytosis secondary to underlying inflammatory reaction versus infection # Pancreatitis has being followed by gi and id, pain has improved ---> on prn zofran and pepcid as needed # Lactic acidosis with decreased blood pressure. improved # Anemia secondary to hemodilution. # Thrombocytopenia, likely secondary to hemodilution versus infection. # Hypokalemia, resolved. # Anemia secondary to B12 deficiency, given B12 injections. # History of seizures, on Dilantin. # History of alcohol intoxication leading to pancreatitis. # Altered mental status. Seen by Neurology Subjective Constitutional: Reports: no symptoms HEENT: Reports: no symptoms Cardiovascular: Reports: no symptoms Respiratory: Reports: no symptoms Gastrointestinal/Abdominal: Reports: no symptoms Genitourinary: Reports: no symptoms Neurologic/Psychiatric: Reports: no symptoms Endocrine: Reports: no symptoms Hematologic/Lymphatic: Reports: no symptoms Allergies: Coded Allergies: ACETAMINOPHEN (Verified Allergy, Unknown, 06/11/15) IBUPROFEN (Verified Allergy, Unknown, 06/11/15) Subjective continues to refuse blood, hgb dropping Objective Last 24 Hour Vital Signs Date Time Temp Pulse Resp B/P Pulse Ox O2 Delivery O2 Flow Rate FiO2 01/07/17 16:03 98.4 81 20 122/76 99 Room Air 01/07/17 11:44 99.0 72 21 134/92 100 Room Air 01/07/17 08:19 99.1 75 21 130/91 98 Room Air 01/07/17 04:00 97.6 89 19 103/71 96 Room Air 01/07/17 02:01 97.5 01/07/17 00:00 97.5 105 20 108/79 95 Room Air 01/06/17 20:00 97.5 110 19 112/81 96 Room Air Intake and Output 01/06/17 01/07/17 19:00 07:00 Intake Total 2300 ml 1360 ml Output Total 800 ml Balance 1500 ml 1360 ml Intake Oral 600 ml 360 ml IV Total 1700 ml 1000 ml Output Urine Total 800 ml # Voids 3 # Bowel Movements 1 1 Laboratory Tests 01/07/17 06:30: White Blood Count 11.7H, Red Blood Count 2.32L, Hemoglobin 6.5*L, Hematocrit 21.6L, Mean Corpuscular Volume 93, Mean Corpuscular Hemoglobin 28.2, Mean Corpuscular Hemoglobin Concent 30.2L, Red Cell Distribution Width 22.4H, Platelet Count 779H, Mean Platelet Volume 6.9, Neutrophils (%) (Auto) , Lymphocytes (%) (Auto) , Monocytes (%) (Auto) , Eosinophils (%) (Auto) , Basophils (%) (Auto) , Differential Total Cells Counted 100, Neutrophils % ( Manual) 68, Lymphocytes % (Manual) 24, Monocytes % (Manual) 7, Eosinophils % ( Manual) 1, Basophils % (Manual) 0, Band Neutrophils 0, Nucleated Red Blood Cells 1, Platelet Estimate IncreasedH, Platelet Morphology Normal, Polychromasia 2+, Hypochromasia 4+, Anisocytosis 3+, Sodium Level 142, Potassium Level 4.1, Chloride Level 110H, Carbon Dioxide Level 22, Anion Gap 10 , Blood Urea Nitrogen 14, Creatinine 2.1H, Estimat Glomerular Filtration Rate 45.2, Glucose Level 92, Calcium Level 8.8, Magnesium Level 1.7, Rheumatoid Factor Screen [Pending], Anti-Nuclear Antibody Screen [Pending], c-ANCA Titer [ Pending], p-ANCA Titer [Pending], Anti-Glomerular Basement Memb Ab [Pending] Height (Feet): 5 Height (Inches): 10.00 Weight (Pounds): 160 General Appearance: WD/WN EENT: PERRL/EOMI Neck: non-tender Cardiovascular: normal peripheral pulses Respiratory/Chest: chest wall non-tender Abdomen: normal bowel sounds Edema: no edema noted Pedal (L), no edema noted Pedal (R) Kapil Haney Jan 07, 2017 16:31
--- NOTE | 2017-01-07 18:00 | General Progress Note ---
Assessment/Plan Assessment/Plan Substance abuse, mdd anxiety cont current meds Subjective Constitutional: Reports: malaise, weakness Allergies: Coded Allergies: ACETAMINOPHEN (Verified Allergy, Unknown, 06/11/15) IBUPROFEN (Verified Allergy, Unknown, 06/11/15) Subjective patient was alert and oriented times self, time situation and place. Mood was neutral. Affect was constricted. Congruent with mood. Thought process, tangential. Thought content, no suicidal or homicidal ideation. Cognition is impaired. He was eating during the eval. Objective Last 24 Hour Vital Signs Date Time Temp Pulse Resp B/P Pulse Ox O2 Delivery O2 Flow Rate FiO2 01/07/17 16:03 98.4 81 20 122/76 99 Room Air 01/07/17 11:44 99.0 72 21 134/92 100 Room Air 01/07/17 08:19 99.1 75 21 130/91 98 Room Air 01/07/17 04:00 97.6 89 19 103/71 96 Room Air 01/07/17 02:01 97.5 01/07/17 00:00 97.5 105 20 108/79 95 Room Air 01/06/17 20:00 97.5 110 19 112/81 96 Room Air Intake and Output 01/06/17 01/07/17 19:00 07:00 Intake Total 2300 ml 1360 ml Output Total 800 ml Balance 1500 ml 1360 ml Intake Oral 600 ml 360 ml IV Total 1700 ml 1000 ml Output Urine Total 800 ml # Voids 3 # Bowel Movements 1 1 Laboratory Tests 01/07/17 06:30: White Blood Count 11.7H, Red Blood Count 2.32L, Hemoglobin 6.5*L, Hematocrit 21.6L, Mean Corpuscular Volume 93, Mean Corpuscular Hemoglobin 28.2, Mean Corpuscular Hemoglobin Concent 30.2L, Red Cell Distribution Width 22.4H, Platelet Count 779H, Mean Platelet Volume 6.9, Neutrophils (%) (Auto) , Lymphocytes (%) (Auto) , Monocytes (%) (Auto) , Eosinophils (%) (Auto) , Basophils (%) (Auto) , Differential Total Cells Counted 100, Neutrophils % ( Manual) 68, Lymphocytes % (Manual) 24, Monocytes % (Manual) 7, Eosinophils % ( Manual) 1, Basophils % (Manual) 0, Band Neutrophils 0, Nucleated Red Blood Cells 1, Platelet Estimate IncreasedH, Platelet Morphology Normal, Polychromasia 2+, Hypochromasia 4+, Anisocytosis 3+, Sodium Level 142, Potassium Level 4.1, Chloride Level 110H, Carbon Dioxide Level 22, Anion Gap 10 , Blood Urea Nitrogen 14, Creatinine 2.1H, Estimat Glomerular Filtration Rate 45.2, Glucose Level 92, Calcium Level 8.8, Magnesium Level 1.7, Rheumatoid Factor Screen [Pending], Anti-Nuclear Antibody Screen [Pending], c-ANCA Titer [ Pending], p-ANCA Titer [Pending], Anti-Glomerular Basement Memb Ab [Pending] Height (Feet): 5 Height (Inches): 10.00 Weight (Pounds): 160 General Appearance: no apparent distress, alert Neurologic: alert, oriented x 3, responsive, depressed affect Mary Beth Ramos M.D. Jan 07, 2017 18:00
--- NOTE | 2017-01-07 18:10 | Diagnostic Imaging Report ---
Indication: Abnormal chest radiograph, suspected pleural effusion Technique: Grayscale images of the right and left hemithoraces Comparison: Reference made to chest radiograph 01/04/2017 Findings: No pleural fluid is demonstrated on either side Impression: No pleural fluid demonstrated. No thoracentesis performed
--- NOTE | 2017-01-07 18:12 | Cardiac Electrophysiology PN ---
Assessment/Plan Status Narrative CT Brain Impression: Cerebral volume loss, out of proportion to patient's age. Correlate with clinical history Negative for acute intrarenal bleed or mass effect Assessment/Plan 1. Hypotension.Resolved. EF 55% and no pericardial effusion. 2. Sinus tachycardia. Due to severe anemia and sepsis with WBC 18k 3. Homelessness. 4. Severe hyponatremia, resolved. 5. CKD cr 2.[address] Rosario. 6.Toxic metabolic encephalopathy. CT of the brain done on 12/24/16 reveals generalized cerebral atrophy. 7. Psychiatric illness and seizure disorder 8. Severe Anemia. Hb 6.5 secondary to severe folic acid deficiency on oral folic acid 10 mg daily. Refused blood transfusion. Bone marrow biopsy done Subjective Subjective Alert in NAD, Had BM biopsy yesterday. No SOB. Objective Last 24 Hour Vital Signs Date Time Temp Pulse Resp B/P Pulse Ox O2 Delivery O2 Flow Rate FiO2 01/07/17 16:03 98.4 81 20 122/76 99 Room Air 01/07/17 11:44 99.0 72 21 134/92 100 Room Air 01/07/17 08:19 99.1 75 21 130/91 98 Room Air 01/07/17 04:00 97.6 89 19 103/71 96 Room Air 01/07/17 02:01 97.5 01/07/17 00:00 97.5 105 20 108/79 95 Room Air 01/06/17 20:00 97.5 110 19 112/81 96 Room Air Intake and Output 01/06/17 01/07/17 19:00 07:00 Intake Total 2300 ml 1360 ml Output Total 800 ml Balance 1500 ml 1360 ml Intake Oral 600 ml 360 ml IV Total 1700 ml 1000 ml Output Urine Total 800 ml # Voids 3 # Bowel Movements 1 1 Laboratory Tests Test 01/07/17 06:30 White Blood Count 11.7 K/UL (4.8-10.8) H Red Blood Count 2.32 M/UL (4.70-6.10) L Hemoglobin 6.5 G/DL (14.2-18.0) *L Hematocrit 21.6 % (42.0-52.0) L Mean Corpuscular Volume 93 FL (80-99) Mean Corpuscular Hemoglobin 28.2 PG (27.0-31.0) Mean Corpuscular Hemoglobin Concent 30.2 G/DL (32.0-36.0) L Red Cell Distribution Width 22.4 % (11.6-14.8) H Platelet Count 779 K/UL (150-450) H Mean Platelet Volume 6.9 FL (6.5-10.1) Neutrophils (%) (Auto) % (45.0-75.0) Lymphocytes (%) (Auto) % (20.0-45.0) Monocytes (%) (Auto) % (1.0-10.0) Eosinophils (%) (Auto) % (0.0-3.0) Basophils (%) (Auto) % (0.0-2.0) Differential Total Cells Counted 100 Neutrophils % (Manual) 68 % (45-75) Lymphocytes % (Manual) 24 % (20-45) Monocytes % (Manual) 7 % (1-10) Eosinophils % (Manual) 1 % (0-3) Basophils % (Manual) 0 % (0-2) Band Neutrophils 0 % (0-8) Nucleated Red Blood Cells 1 /100 WBC Platelet Estimate Increased H Platelet Morphology Normal Polychromasia 2+ Hypochromasia 4+ Anisocytosis 3+ Sodium Level 142 mEQ/L (135-145) Potassium Level 4.1 mEQ/L (3.4-4.9) Chloride Level 110 mEQ/L (98-107) H Carbon Dioxide Level 22 mEQ/L (20-30) Anion Gap 10 (5-15) Blood Urea Nitrogen 14 mg/dL (7-23) Creatinine 2.1 mg/dL (0.7-1.2) H Estimat Glomerular Filtration Rate 45.2 mL/min (>60) Glucose Level 92 mg/dL (74-106) Calcium Level 8.8 mg/dL (8.6-10.2) Magnesium Level 1.7 mg/dL (1.7-2.5) Rheumatoid Factor Screen Pending Anti-Nuclear Antibody Screen Pending c-ANCA Titer Pending p-ANCA Titer Pending Anti-Glomerular Basement Memb Ab Pending Objective NECK: No JVD. LUNGS: Coarse rhonchi CARDIOVASCULAR: Regular S1 and S2 with no gallop or murmur. ABDOMEN: Soft. EXTREMITIES: No pitting edema. ROGERS DEAN Jan 07, 2017 18:12
[2017-01-07] MEDS: Cefepime HCl 1 GM in D5W 55 ML IVPB SCH (18:30)
[2017-01-07 20:00] VITALS: BP 126/77
[2017-01-07] MEDS: Epogen (for non ESRD use) SUBQ SCH (22:03)
[2017-01-07] MEDS: Miralax 17gm pkt ORAL SCH (22:03)
--- NOTE | 2017-01-07 22:06 | General Progress Note ---
Assessment/Plan Problem List: (1) Altered mental status ICD Codes: R41.82 - Altered mental status, unspecified SNOMED: 397820995 Qualifiers: Qualified Codes: R41.82 - Altered mental status, unspecified (2) Pancreatitis ICD Codes: K85.90 - Acute pancreatitis without necrosis or infection, unspecified SNOMED: 99117330 Qualifiers: Qualified Codes: K85.90 - Acute pancreatitis without necrosis or infection, unspecified (3) Sepsis ICD Codes: A41.9 - Sepsis, unspecified organism SNOMED: 87681205 (4) Anemia ICD Codes: D64.9 - Anemia, unspecified SNOMED: 218535174 Status: progressing Assessment/Plan sepsis afebrile pancreatitis resolve hemopytsis improved anemia improved moniter for bleeding substance abuse Subjective ROS Limited/Unobtainable: Yes Allergies: Coded Allergies: ACETAMINOPHEN (Verified Allergy, Unknown, 06/11/15) IBUPROFEN (Verified Allergy, Unknown, 06/11/15) Objective Last 24 Hour Vital Signs Date Time Temp Pulse Resp B/P Pulse Ox O2 Delivery O2 Flow Rate FiO2 01/07/17 16:03 98.4 81 20 122/76 99 Room Air 01/07/17 11:44 99.0 72 21 134/92 100 Room Air 01/07/17 08:19 99.1 75 21 130/91 98 Room Air 01/07/17 04:00 97.6 89 19 103/71 96 Room Air 01/07/17 02:01 97.5 01/07/17 00:00 97.5 105 20 108/79 95 Room Air Intake and Output 01/06/17 01/07/17 19:00 07:00 Intake Total 2300 ml 1360 ml Output Total 800 ml Balance 1500 ml 1360 ml Intake Oral 600 ml 360 ml IV Total 1700 ml 1000 ml Output Urine Total 800 ml # Voids 3 # Bowel Movements 1 1 Laboratory Tests 01/07/17 06:30: White Blood Count 11.7H, Red Blood Count 2.32L, Hemoglobin 6.5*L, Hematocrit 21.6L, Mean Corpuscular Volume 93, Mean Corpuscular Hemoglobin 28.2, Mean Corpuscular Hemoglobin Concent 30.2L, Red Cell Distribution Width 22.4H, Platelet Count 779H, Mean Platelet Volume 6.9, Neutrophils (%) (Auto) , Lymphocytes (%) (Auto) , Monocytes (%) (Auto) , Eosinophils (%) (Auto) , Basophils (%) (Auto) , Differential Total Cells Counted 100, Neutrophils % ( Manual) 68, Lymphocytes % (Manual) 24, Monocytes % (Manual) 7, Eosinophils % ( Manual) 1, Basophils % (Manual) 0, Band Neutrophils 0, Nucleated Red Blood Cells 1, Platelet Estimate IncreasedH, Platelet Morphology Normal, Polychromasia 2+, Hypochromasia 4+, Anisocytosis 3+, Sodium Level 142, Potassium Level 4.1, Chloride Level 110H, Carbon Dioxide Level 22, Anion Gap 10 , Blood Urea Nitrogen 14, Creatinine 2.1H, Estimat Glomerular Filtration Rate 45.2, Glucose Level 92, Calcium Level 8.8, Magnesium Level 1.7, Rheumatoid Factor Screen [Pending], Anti-Nuclear Antibody Screen [Pending], c-ANCA Titer [ Pending], p-ANCA Titer [Pending], Anti-Glomerular Basement Memb Ab [Pending] Height (Feet): 5 Height (Inches): 10.00 Weight (Pounds): 160 General Appearance: confused Cardiovascular: normal rate Respiratory/Chest: lungs clear Robbi Vega MD Jan 07, 2017 22:06
[2017-01-08 04:00] VITALS: BP 110/68
[2017-01-08 06:10] LABS: RHEUMATOID FACTOR SCREEN <10.0 IU/mL (0.0-13.9)
[2017-01-08 08:00] VITALS: BP 130/87
[2017-01-08] MEDS: Docusate 100mg cap ORAL SCH ×2 (09:18→17:20)
--- NOTE | 2017-01-08 09:23 | General Progress Note ---
Assessment/Plan Status: unchanged Status Narrative refusing blood draw Assessment/Plan status: Acute renal failure Hemoptysis , Pneumonia , r/o TB Sepsis On Admission: Renal failure , Acute vs Chronic improving h/o Sz Acute Encephalopathy h/o Low K h/o Low Na Low B12 and folate Elevated Lipase , acute pancreatitis sever anemia Plan; no labs today per consultants monitor renal parameters Hydrate- antibiotics down on folate dose ST PT OT eval Monitor lytes- monitor renal parameters Pulm eval appreciated Subjective ROS Limited/Unobtainable: No Constitutional: Reports: malaise Allergies: Coded Allergies: ACETAMINOPHEN (Verified Allergy, Unknown, 06/11/15) IBUPROFEN (Verified Allergy, Unknown, 06/11/15) Objective Last 24 Hour Vital Signs Date Time Temp Pulse Resp B/P Pulse Ox O2 Delivery O2 Flow Rate FiO2 01/08/17 08:00 97.2 73 19 130/87 97 Room Air 01/08/17 04:00 98.1 73 18 110/68 99 Room Air 01/07/17 20:00 98.4 70 18 126/77 99 Room Air 01/07/17 16:03 98.4 81 20 122/76 99 Room Air 01/07/17 11:44 99.0 72 21 134/92 100 Room Air Intake and Output 01/07/17 01/08/17 19:00 07:00 Intake Total 2584 ml 855 ml Output Total 1200 ml 1000 ml Balance 1384 ml -145 ml Intake Oral 1684 ml 800 ml IV Total 900 ml 55 ml Output Urine Total 1200 ml 1000 ml # Voids 5 Height (Feet): 5 Height (Inches): 10.00 Weight (Pounds): 160 General Appearance: no apparent distress Objective other PE not changed VELASQUEZ DASILVA Jan 08, 2017 09:23
[2017-01-08] MEDS: Lactulose 10gm/15ml UDC ORAL SCH ×3 (10:06→22:17)
[2017-01-08] MEDS: Thiamine 100mg tab ORAL SCH (10:07)
[2017-01-08] MEDS: Vitamin D 1000 IU Tab ORAL SCH (10:07)
--- NOTE | 2017-01-08 11:16 | GI Progress Note ---
Assessment/Plan Problems: (1) Pancreatitis ICD Codes: K85.90 - Acute pancreatitis without necrosis or infection, unspecified SNOMED: 08629637 Qualifiers: Qualified Codes: K85.90 - Acute pancreatitis without necrosis or infection, unspecified (2) Altered mental status ICD Codes: R41.82 - Altered mental status, unspecified SNOMED: 923452454 Qualifiers: Qualified Codes: R41.82 - Altered mental status, unspecified (3) Acute alcoholic intoxication ICD Codes: F10.929 - Alcohol use, unspecified with intoxication, unspecified SNOMED: 71911058 (4) Anemia ICD Codes: D64.9 - Anemia, unspecified SNOMED: 359210170 Status: unchanged Status Narrative Discussed with Dr. Friend. Assessment/Plan APCT reviewed >> Acute pancreatitis. Right/transverse colonic ileus. Hepatic steatosis. Cholelithiasis. ammonia WNL OB stool r/o GI bleed >> negative low B12/folate monitor H&H, transfuse prn >> low Hgb under 7.0 >> pt refusing transfusions fu bone bx low fat diet zofran prn H2B abx fu labs Subjective Gastrointestinal/Abdominal: Reports: no symptoms Objective Last 24 Hour Vital Signs Date Time Temp Pulse Resp B/P Pulse Ox O2 Delivery O2 Flow Rate FiO2 01/08/17 08:00 97.2 73 19 130/87 97 Room Air 01/08/17 04:00 98.1 73 18 110/68 99 Room Air 01/07/17 20:00 98.4 70 18 126/77 99 Room Air 01/07/17 16:03 98.4 81 20 122/76 99 Room Air 01/07/17 11:44 99.0 72 21 134/92 100 Room Air Intake and Output 01/07/17 01/08/17 19:00 07:00 Intake Total 2584 ml 855 ml Output Total 1200 ml 1000 ml Balance 1384 ml -145 ml Intake Oral 1684 ml 800 ml IV Total 900 ml 55 ml Output Urine Total 1200 ml 1000 ml # Voids 5 Height (Feet): 5 Height (Inches): 10.00 Weight (Pounds): 160 General Appearance: no apparent distress, alert Cardiovascular: normal rate Respiratory/Chest: normal breath sounds Abdominal Exam: normal bowel sounds, non tender, soft Extremities: normal range of motion ManciaRosa ren N.P. Jan 08, 2017 11:16
[2017-01-08 12:00] VITALS: BP 125/87
[2017-01-08 13:17] LABS: MEAN CORPUSCULAR HEMOGLOBIN 27.8 PG (27.0-31.0); MEAN CORPUSCULAR HGB CONC 29.6 G/DL (32.0-36.0); MEAN CORPUSCULAR VOLUME 94 FL (80-99); MEAN PLATELET VOLUME 6.6 FL (6.5-10.1); PLATELET COUNT 850 K/UL (150-450); RED BLOOD COUNT 2.57 M/UL (4.70-6.10); WHITE BLOOD COUNT 11.4 K/UL (4.8-10.8)
[2017-01-08 13:27] LABS: CALCIUM 8.9 mg/dL (8.6-10.2); CREATININE 1.9 mg/dL (0.7-1.2); GLOMERULAR FILTRATION RATE 50.7 mL/min (>60); POTASSIUM 4.4 mEQ/L (3.4-4.9)
[2017-01-08 13:40] LABS: EOSINOPHILS % (MANUAL) 1 % (0-3); LYMPHOCYTES % (MANUAL) 21 % (20-45); NEUTROPHILS % (MANUAL) 70 % (45-75); NUCLEATED RED BLOOD CELLS 1 /100 WBC; TOTAL CELLS COUNTED 100
[2017-01-08 13:41] LABS: ANISOCYTOSIS 2+; BAND NEUTROPHILS % (MANUAL) 0 % (0-8); BASOPHILS % (MANUAL) 0 % (0-2); HYPOCHROMASIA 2+; PLATELET ESTIMATE INCREASED; POLYCHROMASIA 1+
[2017-01-08 13:45] LABS: PLATELET MORPHOLOGY NORMAL
--- NOTE | 2017-01-08 14:18 | Infectious Diseases Prog Note ---
Assessment/Plan Problems: (1) Pleural effusion Assessment & Plan: suspect reactive due to pneumonia, with no significant amount of fluids on US , so no thoracentesis was done .monitor CXR (2) Hemoptysis Assessment & Plan: suspect due to severe pneumonia , with negative AFB smears x3 and negative PPD test which rule out TB, ok to remove from air born isolation for now , CT chest ruled out cavitation (3) Aspiration pneumonia Assessment & Plan: improving on cefepime and doxycycline , CT chest confirmed it, with no abscess or cavitations (4) Sepsis Assessment & Plan: due to the above with leukocytosis, improving , repeated blood culture is negative ,monitor CBC (5) Pancreatitis Assessment & Plan: due to tawanda drink of alcohol , continue hydration with supportive care, monitor lipase level , GI is following (6) DWAYNE (acute kidney injury) Assessment & Plan: multifactorial , suspect dehydration due to recurrent vomiting, improving on IVF , monitor renal function test, nephrology is following (7) Diarrhea Assessment & Plan: self limited, no evidence of C diff , d/c oral vancomycin (8) Anemia Assessment & Plan: recurrent , suspect hemoptysis related, monitor H/H, transfuse blood as needed Subjective Constitutional: Reports: fatigue HEENT: Reports: no symptoms Respiratory: Reports: dry cough Breasts: Reports: no symptoms Cardiovascular: Reports: no symptoms Gastrointestinal/Abdominal: Reports: no symptoms Genitourinary: Reports: no symptoms Neurologic: Reports: weakness Psychiatric: Reports: depression Skin: Reports: no symptoms Endocrine: Reports: no symptoms Hematologic: Reports: no symptoms Allergies: Coded Allergies: ACETAMINOPHEN (Verified Allergy, Unknown, 06/11/15) IBUPROFEN (Verified Allergy, Unknown, 06/11/15) Objective Vital Signs Last 24 Hour Vital Signs Date Time Temp Pulse Resp B/P Pulse Ox O2 Delivery O2 Flow Rate FiO2 01/08/17 12:00 97.9 80 19 125/87 98 Room Air 01/08/17 08:00 97.2 73 19 130/87 97 Room Air 01/08/17 04:00 98.1 73 18 110/68 99 Room Air 01/07/17 20:00 98.4 70 18 126/77 99 Room Air 01/07/17 16:03 98.4 81 20 122/76 99 Room Air Height (Feet): 5 Height (Inches): 10.00 Weight (Pounds): 160 General Appearance: WD/WN, no acute distress HEENT: normocephalic, atraumatic, anicteric, mucous membranes moist, PERRL Respiratory/Chest: chest wall non-tender, normal breath sounds, no respiratory distress, no accessory muscle use, decreased breath sounds, crackles/rales Cardiovascular: normal peripheral pulses, normal rate, regular rhythm, no gallop/murmur, no JVD Abdomen: normal bowel sounds, soft, non tender, no organomegaly, non distended , no mass, no scars Extremities: no cyanosis, no clubbing Skin: no rash, no lesions, no ulcers Lymphatic: no neck adenopathy, no groin adenopathy Musculoskeletal: normal muscle bulk Laboratory Tests Test 01/08/17 12:20 01/08/17 13:05 White Blood Count 11.4 K/UL (4.8-10.8) H Red Blood Count 2.57 M/UL (4.70-6.10) L Hemoglobin 7.1 G/DL (14.2-18.0) L Hematocrit 24.1 % (42.0-52.0) L Mean Corpuscular Volume 94 FL (80-99) Mean Corpuscular Hemoglobin 27.8 PG (27.0-31.0) Mean Corpuscular Hemoglobin Concent 29.6 G/DL (32.0-36.0) L Red Cell Distribution Width 22.0 % (11.6-14.8) H Platelet Count 850 K/UL (150-450) H Mean Platelet Volume 6.6 FL (6.5-10.1) Neutrophils (%) (Auto) % (45.0-75.0) Lymphocytes (%) (Auto) % (20.0-45.0) Monocytes (%) (Auto) % (1.0-10.0) Eosinophils (%) (Auto) % (0.0-3.0) Basophils (%) (Auto) % (0.0-2.0) Differential Total Cells Counted 100 Neutrophils % (Manual) 70 % (45-75) Lymphocytes % (Manual) 21 % (20-45) Monocytes % (Manual) 8 % (1-10) Eosinophils % (Manual) 1 % (0-3) Basophils % (Manual) 0 % (0-2) Band Neutrophils 0 % (0-8) Nucleated Red Blood Cells 1 /100 WBC Platelet Estimate Increased H Platelet Morphology Normal Polychromasia 1+ Hypochromasia 2+ Anisocytosis 2+ Sodium Level 140 mEQ/L (135-145) Potassium Level 4.4 mEQ/L (3.4-4.9) Chloride Level 107 mEQ/L (98-107) Carbon Dioxide Level 22 mEQ/L (20-30) Anion Gap 11 (5-15) Blood Urea Nitrogen 18 mg/dL (7-23) Creatinine 1.9 mg/dL (0.7-1.2) H Estimat Glomerular Filtration Rate 50.7 mL/min (>60) Glucose Level 140 mg/dL (74-106) H Calcium Level 8.9 mg/dL (8.6-10.2) M. tuberculosis Complex DNA (PCR) Pending Current Medications Medications (Trade) Dose Ordered Sig/Juliana Route PRN Reason Start Time Stop Time Status Last Admin Dose Admin Acetaminophen (Tylenol) 650 mg Q4H PRN ORAL Mild Pain/Temp > 100.5 12/25/16 10:30 01/24/17 10:29 01/02/17 18:51 Cefepime HCl 1 gm/ Dextrose 55 ml @ 110 mls/hr Q24H IVPB 01/01/17 19:00 01/08/17 18:59 01/07/17 18:30 Docusate Sodium (Colace) 100 mg TWICE A DAY ORAL 12/30/16 09:00 01/29/17 08:59 01/08/17 09:18 Doxycycline Monohydrate (Vibramycin) 100 mg EVERY 12 HOURS ORAL 01/05/17 21:00 01/12/17 20:59 01/08/17 09:19 Epoetin Alex 19063 units 10,000 units -THU SUBQ 12/31/16 21:00 01/30/17 20:59 01/07/17 22:03 Fluoxetine HCl (PROzac) 20 mg DAILY ORAL 12/27/16 09:00 01/26/17 08:59 01/08/17 09:19 Folic Acid (Folate) 2 mg DAILY ORAL 01/02/17 09:00 02/01/17 08:59 01/08/17 10:07 Lactulose (Cephulac) 10 gm TID@0900,1500,2100 ORAL 12/30/16 09:00 01/29/17 08:59 01/08/17 10:06 Levetiracetam (Keppra) 750 mg Q12HR ORAL 12/30/16 21:00 01/29/17 20:59 01/08/17 09:19 Methocarbamol (Robaxin) 500 mg Q8H PRN ORAL muscle spasm 01/02/17 09:00 02/01/17 08:59 Metoclopramide HCl (Reglan) 10 mg Q6H PRN IVP Nausea & Vomiting 12/30/16 12:30 01/29/17 12:29 12/31/16 08:59 Ondansetron HCl (Zofran) 4 mg Q6H PRN IVP Nausea & Vomiting 12/23/16 19:45 01/22/17 19:44 01/01/17 15:52 Pantoprazole (Protonix) 40 mg DAILY ORAL 01/02/17 09:00 02/01/17 08:59 01/08/17 09:19 Polyethylene Glycol (Miralax) 17 gm BEDTIME ORAL 12/30/16 21:00 01/29/17 20:59 01/07/17 22:03 Sodium Chloride (Sodium Chloride 1000ml bag) 1,000 ml @ 100 mls/hr Q10H IV 01/02/17 07:45 02/01/17 07:44 01/08/17 12:28 Thiamine HCl (Vitamin B1) 100 mg DAILY ORAL 12/24/16 14:30 01/23/17 14:29 01/08/17 10:07 Tramadol HCl (Ultram) 50 mg Q4H PRN ORAL severe pain 01/02/17 09:00 01/09/17 08:59 01/07/17 01:02 Vitamin D (Vitamin D) 2,000 intlu DAILY ORAL 12/25/16 10:30 01/24/17 10:29 01/08/17 10:07 Imelda Chen M.D. Jan 08, 2017 14:18
[2017-01-08 16:00] VITALS: BP 123/83
[2017-01-08] MEDS ORDERED: Tubing IV Secondary IV ONE (17:44)
--- NOTE | 2017-01-08 19:10 | General Progress Note ---
Assessment/Plan Assessment/Plan # Anemia secondary to severe folic acid deficiency, currently on folic acid ---> peripheral smear shows normocytic normochromic anemia, mild thrombocytopenia, neutrophilic granulocytosis, no blasts seen ---> continues to refuse blood transfusion after multiple discussions (most recent was on 01/04/17, does not want blood even though hgb <7) he understands risks of increased morbidity and mortality ---> hgb goal again >7, monitor ---> is s/p bone marrow biopsy, results pending # Leukocytosis secondary to underlying inflammatory reaction versus infection # Pancreatitis has being followed by gi and id, pain has improved ---> on prn zofran and pepcid as needed # Lactic acidosis with decreased blood pressure. improved # Anemia secondary to hemodilution. # Thrombocytopenia, likely secondary to hemodilution versus infection. # Hypokalemia, resolved. # Anemia secondary to B12 deficiency, given B12 injections. # History of seizures, on Dilantin. # History of alcohol intoxication leading to pancreatitis. # Altered mental status. Seen by Neurology Subjective Constitutional: Denies: chills, diaphoresis, fever, malaise, no symptoms, other , weakness HEENT: Denies: blurred vision, double vision, ear discharge, ear pain, eye pain , mouth pain, mouth swelling, no symptoms, nose congestion, nose pain, other, tearing, throat pain, throat swelling Cardiovascular: Denies: chest pain, edema, irregular heart rate, lightheadedness, no symptoms, other, palpitations, syncope Respiratory: Denies: SOB at rest, SOB with excertion, cough, no symptoms, orthopnea, other, shortness of breath, sputum, stridor, wheezing Gastrointestinal/Abdominal: Denies: abdomen distended, abdominal pain, black stools, blood in stool, constipated, diarrhea, difficulty swallowing, nausea, no symptoms, other, poor appetite, poor fluid intake, rectal bleeding, tarry stools, vomiting Genitourinary: Denies: burning, discharge, flank pain, frequency, hematuria, incontinence, no symptoms, other, pain, urgency Neurologic/Psychiatric: Denies: anxiety, depressed, emotional problems, headache, no symptoms, numbness, other, paresthesia, pre-existing deficit, seizure, tingling, tremors, weakness Allergies: Coded Allergies: ACETAMINOPHEN (Verified Allergy, Unknown, 06/11/15) IBUPROFEN (Verified Allergy, Unknown, 06/11/15) Subjective continues to refuse blood again, the biopsy of bone results pending Objective Last 24 Hour Vital Signs Date Time Temp Pulse Resp B/P Pulse Ox O2 Delivery O2 Flow Rate FiO2 01/08/17 16:00 97.9 85 20 123/83 Room Air 01/08/17 12:00 97.9 80 19 125/87 98 Room Air 01/08/17 08:00 97.2 73 19 130/87 97 Room Air 01/08/17 04:00 98.1 73 18 110/68 99 Room Air 01/07/17 20:00 98.4 70 18 126/77 99 Room Air Intake and Output 01/07/17 01/08/17 18:59 06:59 Intake Total 2584 ml 855 ml Output Total 1200 ml 1000 ml Balance 1384 ml -145 ml Intake Oral 1684 ml 800 ml IV Total 900 ml 55 ml Output Urine Total 1200 ml 1000 ml # Voids 5 Laboratory Tests 01/08/17 12:20: White Blood Count 11.4H, Red Blood Count 2.57L, Hemoglobin 7.1L, Hematocrit 24.1L, Mean Corpuscular Volume 94, Mean Corpuscular Hemoglobin 27.8, Mean Corpuscular Hemoglobin Concent 29.6L, Red Cell Distribution Width 22.0H, Platelet Count 850H, Mean Platelet Volume 6.6, Neutrophils (%) (Auto) , Lymphocytes (%) (Auto) , Monocytes (%) (Auto) , Eosinophils (%) (Auto) , Basophils (%) (Auto) , Differential Total Cells Counted 100, Neutrophils % ( Manual) 70, Lymphocytes % (Manual) 21, Monocytes % (Manual) 8, Eosinophils % ( Manual) 1, Basophils % (Manual) 0, Band Neutrophils 0, Nucleated Red Blood Cells 1, Platelet Estimate IncreasedH, Platelet Morphology Normal, Polychromasia 1+, Hypochromasia 2+, Anisocytosis 2+, Sodium Level 140, Potassium Level 4.4, Chloride Level 107, Carbon Dioxide Level 22, Anion Gap 11, Blood Urea Nitrogen 18, Creatinine 1.9H, Estimat Glomerular Filtration Rate 50.7 , Glucose Level 140H, Calcium Level 8.9 01/08/17 13:05: M. tuberculosis Complex DNA (PCR) [Pending] Height (Feet): 5 Height (Inches): 10.00 Weight (Pounds): 160 General Appearance: no apparent distress EENT: normal ENT inspection Neck: normal alignment Cardiovascular: normal rate Respiratory/Chest: chest wall non-tender Abdomen: no mass Genitourinary/Rectal: heme negative stool Extremities: non-tender Edema: no edema noted Leg (L), no edema noted Leg (R) Edema: mild edema Neurologic: alert Skin: warm/dry Kapil Haney Jan 08, 2017 19:10
[2017-01-08 20:15] VITALS: BP 130/70
--- NOTE | 2017-01-08 21:31 | General Progress Note ---
Assessment/Plan Problem List: (1) Altered mental status ICD Codes: R41.82 - Altered mental status, unspecified SNOMED: 831087188 Qualifiers: Qualified Codes: R41.82 - Altered mental status, unspecified (2) Pancreatitis ICD Codes: K85.90 - Acute pancreatitis without necrosis or infection, unspecified SNOMED: 45983635 Qualifiers: Qualified Codes: K85.90 - Acute pancreatitis without necrosis or infection, unspecified (3) Sepsis ICD Codes: A41.9 - Sepsis, unspecified organism SNOMED: 18406520 (4) Anemia ICD Codes: D64.9 - Anemia, unspecified SNOMED: 048634902 Status: progressing Assessment/Plan ARF IS IMPROVING pancreatitis resolve hemopytsis improved anemia mildy improved SEPSIS IMPROVING moniter for bleeding substance abuse Subjective ROS Limited/Unobtainable: Yes Allergies: Coded Allergies: ACETAMINOPHEN (Verified Allergy, Unknown, 06/11/15) IBUPROFEN (Verified Allergy, Unknown, 06/11/15) Objective Last 24 Hour Vital Signs Date Time Temp Pulse Resp B/P Pulse Ox O2 Delivery O2 Flow Rate FiO2 01/08/17 20:15 97.9 70 19 130/70 97 Room Air 01/08/17 16:00 97.9 85 20 123/83 Room Air 01/08/17 12:00 97.9 80 19 125/87 98 Room Air 01/08/17 08:00 97.2 73 19 130/87 97 Room Air 01/08/17 04:00 98.1 73 18 110/68 99 Room Air Intake and Output 01/07/17 01/08/17 19:00 07:00 Intake Total 2584 ml 905 ml Output Total 1200 ml 1000 ml Balance 1384 ml -95 ml Intake Oral 1684 ml 800 ml IV Total 900 ml 105 ml Output Urine Total 1200 ml 1000 ml # Voids 5 Laboratory Tests 01/08/17 12:20: White Blood Count 11.4H, Red Blood Count 2.57L, Hemoglobin 7.1L, Hematocrit 24.1L, Mean Corpuscular Volume 94, Mean Corpuscular Hemoglobin 27.8, Mean Corpuscular Hemoglobin Concent 29.6L, Red Cell Distribution Width 22.0H, Platelet Count 850H, Mean Platelet Volume 6.6, Neutrophils (%) (Auto) , Lymphocytes (%) (Auto) , Monocytes (%) (Auto) , Eosinophils (%) (Auto) , Basophils (%) (Auto) , Differential Total Cells Counted 100, Neutrophils % ( Manual) 70, Lymphocytes % (Manual) 21, Monocytes % (Manual) 8, Eosinophils % ( Manual) 1, Basophils % (Manual) 0, Band Neutrophils 0, Nucleated Red Blood Cells 1, Platelet Estimate IncreasedH, Platelet Morphology Normal, Polychromasia 1+, Hypochromasia 2+, Anisocytosis 2+, Sodium Level 140, Potassium Level 4.4, Chloride Level 107, Carbon Dioxide Level 22, Anion Gap 11, Blood Urea Nitrogen 18, Creatinine 1.9H, Estimat Glomerular Filtration Rate 50.7 , Glucose Level 140H, Calcium Level 8.9 01/08/17 13:05: M. tuberculosis Complex DNA (PCR) [Pending] Height (Feet): 5 Height (Inches): 10.00 Weight (Pounds): 160 General Appearance: lethargic Respiratory/Chest: lungs clear Abdomen: soft Robbi Vega MD Jan 08, 2017 21:31
[2017-01-08] MEDS: Miralax 17gm pkt ORAL SCH (22:17)
--- NOTE | 2017-01-08 23:15 | General Progress Note ---
Assessment/Plan Status: stable, progressing Assessment/Plan Substance abuse, mdd anxiety cont current meds Subjective Constitutional: Reports: malaise, weakness Neurologic/Psychiatric: Reports: anxiety, depressed, emotional problems Allergies: Coded Allergies: ACETAMINOPHEN (Verified Allergy, Unknown, 06/11/15) IBUPROFEN (Verified Allergy, Unknown, 06/11/15) Subjective patient was alert and oriented times self, time situation and place. Mood was neutral. Affect was constricted. Congruent with mood. Thought process, tangential. Thought content, no suicidal or homicidal ideation. Cognition is impaired. He was eating during the eval. Objective Last 24 Hour Vital Signs Date Time Temp Pulse Resp B/P Pulse Ox O2 Delivery O2 Flow Rate FiO2 01/08/17 20:15 97.9 70 19 130/70 97 Room Air 01/08/17 16:00 97.9 85 20 123/83 Room Air 01/08/17 12:00 97.9 80 19 125/87 98 Room Air 01/08/17 08:00 97.2 73 19 130/87 97 Room Air 01/08/17 04:00 98.1 73 18 110/68 99 Room Air Intake and Output 01/07/17 01/08/17 19:00 07:00 Intake Total 2584 ml 905 ml Output Total 1200 ml 1000 ml Balance 1384 ml -95 ml Intake Oral 1684 ml 800 ml IV Total 900 ml 105 ml Output Urine Total 1200 ml 1000 ml # Voids 5 Laboratory Tests 01/08/17 12:20: White Blood Count 11.4H, Red Blood Count 2.57L, Hemoglobin 7.1L, Hematocrit 24.1L, Mean Corpuscular Volume 94, Mean Corpuscular Hemoglobin 27.8, Mean Corpuscular Hemoglobin Concent 29.6L, Red Cell Distribution Width 22.0H, Platelet Count 850H, Mean Platelet Volume 6.6, Neutrophils (%) (Auto) , Lymphocytes (%) (Auto) , Monocytes (%) (Auto) , Eosinophils (%) (Auto) , Basophils (%) (Auto) , Differential Total Cells Counted 100, Neutrophils % ( Manual) 70, Lymphocytes % (Manual) 21, Monocytes % (Manual) 8, Eosinophils % ( Manual) 1, Basophils % (Manual) 0, Band Neutrophils 0, Nucleated Red Blood Cells 1, Platelet Estimate IncreasedH, Platelet Morphology Normal, Polychromasia 1+, Hypochromasia 2+, Anisocytosis 2+, Sodium Level 140, Potassium Level 4.4, Chloride Level 107, Carbon Dioxide Level 22, Anion Gap 11, Blood Urea Nitrogen 18, Creatinine 1.9H, Estimat Glomerular Filtration Rate 50.7 , Glucose Level 140H, Calcium Level 8.9 01/08/17 13:05: M. tuberculosis Complex DNA (PCR) [Pending] Height (Feet): 5 Height (Inches): 10.00 Weight (Pounds): 160 General Appearance: no apparent distress, alert Neurologic: alert, oriented x 3, responsive, depressed affect Mary Beth Ramos M.D. Jan 08, 2017 23:15
[2017-01-09 00:24] VITALS: BP 122/75
[2017-01-09 04:00] VITALS: BP 120/88
[2017-01-09 08:00] VITALS: BP 121/77
[2017-01-09] MEDS: Lactulose 10gm/15ml UDC ORAL SCH ×3 (08:21→20:38)
[2017-01-09] MEDS: Thiamine 100mg tab ORAL SCH (08:21)
[2017-01-09] MEDS: Docusate 100mg cap ORAL SCH ×2 (08:23→17:55)
[2017-01-09] MEDS: Vitamin D 1000 IU Tab ORAL SCH (08:23)
--- NOTE | 2017-01-09 08:25 | Pulmonology Progress Note ---
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 pending CT chest c/w PNA, but no abscess, no cavitation blood cx negative stool C dif negative sputum cx negative abx ID follows HIV negative O2 HHN prn fup with CXR antitussive prn US chest - not enough fluid for tap declined blood transfusion anemia w/up noted on folate replacement s/p B 12 injection, level stable heme follows results of flow cytometry and bone marrow noted RF, ADITYA negative, other immunological studies pending monitor HH, transfuse to keep Hgb above 7 ( if patient agrees) continue EPO neuro follows EEG noted, c/w encephalopathy CT head no acute changes, but demonstrated generalized cerebral atrophy acute toxic metabolic encephalopathy resolving ECHO with pEF 55% Venous Duplex BLE negative BP stabilized ST resolved, 2 to severe anemia and sepsis GI follows continue Thiamine low fat diet lipase down to normal a/emetic prn CT A/P with acute pancreatitis , hepatic steatosis, cholelithiasis ammonia WNL stool OB negative nephro follows IVF creat trending down monitor renal parameters, lytes. correct as needed avoid nephrotoxic renal US negative seizure precautions, continue Keppra pain management PT/OT bowel regimen GI prophylaxis case discussed and evaluated by supervising physician Subjective Allergies: Coded Allergies: ACETAMINOPHEN (Verified Allergy, Unknown, 06/11/15) IBUPROFEN (Verified Allergy, Unknown, 06/11/15) Subjective leukocytosis trending down,afebrile denies SOB on RA sat stable creat trending down anemic, declined blood transfusion Objective Last 24 Hour Vital Signs Date Time Temp Pulse Resp B/P Pulse Ox O2 Delivery O2 Flow Rate FiO2 01/09/17 04:00 98.2 92 18 120/88 97 Room Air 01/09/17 00:24 97.5 90 19 122/75 98 Room Air 01/08/17 20:15 97.9 70 19 130/70 97 Room Air 01/08/17 16:00 97.9 85 20 123/83 Room Air 01/08/17 12:00 97.9 80 19 125/87 98 Room Air Intake and Output 01/08/17 01/09/17 19:00 07:00 Intake Total 1110 ml 1240 ml Balance 1110 ml 1240 ml Intake Oral 560 ml 240 ml IV Total 550 ml 1000 ml # Voids 1 General Appearance: no acute distress, other - awake, alert, oriented x 3 male HEENT: normocephalic, atraumatic, anicteric, mucous membranes moist, PERRL Respiratory/Chest: chest wall non-tender, lungs clear, no respiratory distress , no accessory muscle use Cardiovascular: normal rate, regular rhythm, no JVD Abdomen: normal bowel sounds, soft, non tender, non distended Extremities: no edema, pedal pulses normal 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, no motor/sensory deficits, alert, oriented x 3, responsive Musculoskeletal: normal muscle bulk Laboratory Tests 01/08/17 12:20: White Blood Count 11.4H, Red Blood Count 2.57L, Hemoglobin 7.1L, Hematocrit 24.1L, Mean Corpuscular Volume 94, Mean Corpuscular Hemoglobin 27.8, Mean Corpuscular Hemoglobin Concent 29.6L, Red Cell Distribution Width 22.0H, Platelet Count 850H, Mean Platelet Volume 6.6, Neutrophils (%) (Auto) , Lymphocytes (%) (Auto) , Monocytes (%) (Auto) , Eosinophils (%) (Auto) , Basophils (%) (Auto) , Differential Total Cells Counted 100, Neutrophils % ( Manual) 70, Lymphocytes % (Manual) 21, Monocytes % (Manual) 8, Eosinophils % ( Manual) 1, Basophils % (Manual) 0, Band Neutrophils 0, Nucleated Red Blood Cells 1, Platelet Estimate IncreasedH, Platelet Morphology Normal, Polychromasia 1+, Hypochromasia 2+, Anisocytosis 2+, Sodium Level 140, Potassium Level 4.4, Chloride Level 107, Carbon Dioxide Level 22, Anion Gap 11, Blood Urea Nitrogen 18, Creatinine 1.9H, Estimat Glomerular Filtration Rate 50.7 , Glucose Level 140H, Calcium Level 8.9 01/08/17 13:05: M. tuberculosis Complex DNA (PCR) [Pending] 01/09/17 05:50: Lipase 45 Current Medications Medications (Trade) Dose Ordered Sig/Juliana Route PRN Reason Start Time Stop Time Status Last Admin Dose Admin Acetaminophen (Tylenol) 650 mg Q4H PRN ORAL Mild Pain/Temp > 100.5 12/25/16 10:30 01/24/17 10:29 01/02/17 18:51 Docusate Sodium (Colace) 100 mg TWICE A DAY ORAL 12/30/16 09:00 01/29/17 08:59 01/08/17 17:20 Doxycycline Monohydrate (Vibramycin) 100 mg EVERY 12 HOURS ORAL 01/05/17 21:00 01/12/17 20:59 01/08/17 22:18 Epoetin Alex 96010 units 10,000 units SUBQ 12/31/16 21:00 01/30/17 20:59 01/07/17 22:03 Fluoxetine HCl (PROzac) 20 mg DAILY ORAL 12/27/16 09:00 01/26/17 08:59 01/09/17 08:22 Folic Acid (Folate) 2 mg DAILY ORAL 01/02/17 09:00 02/01/17 08:59 01/08/17 10:07 Lactulose (Cephulac) 10 gm TID@0900,1500,2100 ORAL 12/30/16 09:00 01/29/17 08:59 01/09/17 08:21 Levetiracetam (Keppra) 750 mg Q12HR ORAL 12/30/16 21:00 01/29/17 20:59 01/09/17 08:22 Methocarbamol (Robaxin) 500 mg Q8H PRN ORAL muscle spasm 01/02/17 09:00 02/01/17 08:59 Metoclopramide HCl (Reglan) 10 mg Q6H PRN IVP Nausea & Vomiting 12/30/16 12:30 01/29/17 12:29 12/31/16 08:59 Ondansetron HCl (Zofran) 4 mg Q6H PRN IVP Nausea & Vomiting 12/23/16 19:45 01/22/17 19:44 01/01/17 15:52 Pantoprazole (Protonix) 40 mg DAILY ORAL 01/02/17 09:00 02/01/17 08:59 01/09/17 08:22 Polyethylene Glycol (Miralax) 17 gm BEDTIME ORAL 12/30/16 21:00 8/3/17 20:59 01/08/17 22:17 Sodium Chloride (Sodium Chloride 1000ml bag) 1,000 ml @ 100 mls/hr Q10H IV 01/02/17 07:45 02/01/17 07:44 01/09/17 08:20 Thiamine HCl (Vitamin B1) 100 mg DAILY ORAL 12/24/16 14:30 01/23/17 14:29 01/09/17 08:21 Tramadol HCl (Ultram) 50 mg Q4H PRN ORAL severe pain 01/02/17 09:00 01/09/17 08:59 01/07/17 01:02 Vitamin D (Vitamin D) 2,000 intlu DAILY ORAL 12/25/16 10:30 01/24/17 10:29 01/08/17 10:07 Baljit [facility]Bernice NP Jan 09, 2017 08:25
--- NOTE | 2017-01-09 08:29 | General Progress Note ---
Assessment/Plan Status: stable - from renal stand Status Narrative Cr 1.9- Hgb over 7 Assessment/Plan status: Acute renal failure Hemoptysis , Pneumonia , r/o TB Sepsis On Admission: Renal failure , Acute vs Chronic improving h/o Sz Acute Encephalopathy h/o Low K h/o Low Na Low B12 and folate Elevated Lipase , acute pancreatitis sever anemia Plan; no labs today per consultants monitor renal parameters Hydrate- antibiotics down on folate dose ST PT OT eval Monitor lytes- monitor renal parameters Subjective ROS Limited/Unobtainable: No Constitutional: Reports: malaise Allergies: Coded Allergies: ACETAMINOPHEN (Verified Allergy, Unknown, 06/11/15) IBUPROFEN (Verified Allergy, Unknown, 06/11/15) Objective Last 24 Hour Vital Signs Date Time Temp Pulse Resp B/P Pulse Ox O2 Delivery O2 Flow Rate FiO2 01/09/17 04:00 98.2 92 18 120/88 97 Room Air 01/09/17 00:24 97.5 90 19 122/75 98 Room Air 01/08/17 20:15 97.9 70 19 130/70 97 Room Air 01/08/17 16:00 97.9 85 20 123/83 Room Air 01/08/17 12:00 97.9 80 19 125/87 98 Room Air Intake and Output 01/08/17 01/09/17 19:00 07:00 Intake Total 1110 ml 1240 ml Balance 1110 ml 1240 ml Intake Oral 560 ml 240 ml IV Total 550 ml 1000 ml # Voids 1 Laboratory Tests 01/08/17 12:20: White Blood Count 11.4H, Red Blood Count 2.57L, Hemoglobin 7.1L, Hematocrit 24.1L, Mean Corpuscular Volume 94, Mean Corpuscular Hemoglobin 27.8, Mean Corpuscular Hemoglobin Concent 29.6L, Red Cell Distribution Width 22.0H, Platelet Count 850H, Mean Platelet Volume 6.6, Neutrophils (%) (Auto) , Lymphocytes (%) (Auto) , Monocytes (%) (Auto) , Eosinophils (%) (Auto) , Basophils (%) (Auto) , Differential Total Cells Counted 100, Neutrophils % ( Manual) 70, Lymphocytes % (Manual) 21, Monocytes % (Manual) 8, Eosinophils % ( Manual) 1, Basophils % (Manual) 0, Band Neutrophils 0, Nucleated Red Blood Cells 1, Platelet Estimate IncreasedH, Platelet Morphology Normal, Polychromasia 1+, Hypochromasia 2+, Anisocytosis 2+, Sodium Level 140, Potassium Level 4.4, Chloride Level 107, Carbon Dioxide Level 22, Anion Gap 11, Blood Urea Nitrogen 18, Creatinine 1.9H, Estimat Glomerular Filtration Rate 50.7 , Glucose Level 140H, Calcium Level 8.9 01/08/17 13:05: M. tuberculosis Complex DNA (PCR) [Pending] 01/09/17 05:50: Lipase 45 Height (Feet): 5 Height (Inches): 10.00 Weight (Pounds): 160 General Appearance: no apparent distress Objective other PE not changed VELASQUEZ DASILVA Jan 09, 2017 08:29
[2017-01-09 09:27] LABS: OTHERS PATHOLOGIST COMMENT
[2017-01-09 10:15] LABS: ANTI-NUCLEAR ANTIBODY SCREEN Negative (Negative)
--- NOTE | 2017-01-09 11:16 | GI Progress Note ---
Assessment/Plan Problems: (1) Pancreatitis ICD Codes: K85.90 - Acute pancreatitis without necrosis or infection, unspecified SNOMED: 60574563 Qualifiers: Qualified Codes: K85.90 - Acute pancreatitis without necrosis or infection, unspecified (2) Altered mental status ICD Codes: R41.82 - Altered mental status, unspecified SNOMED: 213914288 Qualifiers: Qualified Codes: R41.82 - Altered mental status, unspecified (3) Acute alcoholic intoxication ICD Codes: F10.929 - Alcohol use, unspecified with intoxication, unspecified SNOMED: 54753563 (4) Anemia ICD Codes: D64.9 - Anemia, unspecified SNOMED: 312729672 Status: unchanged Status Narrative Discussed with Dr. Friend. Assessment/Plan APCT reviewed >> Acute pancreatitis. Right/transverse colonic ileus. Hepatic steatosis. Cholelithiasis. ammonia WNL OB stool r/o GI bleed >> negative low B12/folate monitor H&H, transfuse prn >> low Hgb under 7.0 >> pt refusing transfusions fu bone bx low fat diet zofran prn H2B abx fu labs Subjective Subjective limited Objective Last 24 Hour Vital Signs Date Time Temp Pulse Resp B/P Pulse Ox O2 Delivery O2 Flow Rate FiO2 01/09/17 08:00 98.2 78 20 121/77 99 Room Air 01/09/17 04:00 98.2 92 18 120/88 97 Room Air 01/09/17 00:24 97.5 90 19 122/75 98 Room Air 01/08/17 20:15 97.9 70 19 130/70 97 Room Air 01/08/17 16:00 97.9 85 20 123/83 Room Air 01/08/17 12:00 97.9 80 19 125/87 98 Room Air Intake and Output 01/08/17 01/09/17 19:00 07:00 Intake Total 1110 ml 1340 ml Balance 1110 ml 1340 ml Intake Oral 560 ml 240 ml IV Total 550 ml 1100 ml # Voids 1 Laboratory Tests Test 01/08/17 12:20 01/08/17 13:05 01/09/17 05:50 White Blood Count 11.4 K/UL (4.8-10.8) H Red Blood Count 2.57 M/UL (4.70-6.10) L Hemoglobin 7.1 G/DL (14.2-18.0) L Hematocrit 24.1 % (42.0-52.0) L Mean Corpuscular Volume 94 FL (80-99) Mean Corpuscular Hemoglobin 27.8 PG (27.0-31.0) Mean Corpuscular Hemoglobin Concent 29.6 G/DL (32.0-36.0) L Red Cell Distribution Width 22.0 % (11.6-14.8) H Platelet Count 850 K/UL (150-450) H Mean Platelet Volume 6.6 FL (6.5-10.1) Neutrophils (%) (Auto) % (45.0-75.0) Lymphocytes (%) (Auto) % (20.0-45.0) Monocytes (%) (Auto) % (1.0-10.0) Eosinophils (%) (Auto) % (0.0-3.0) Basophils (%) (Auto) % (0.0-2.0) Differential Total Cells Counted 100 Neutrophils % (Manual) 70 % (45-75) Lymphocytes % (Manual) 21 % (20-45) Monocytes % (Manual) 8 % (1-10) Eosinophils % (Manual) 1 % (0-3) Basophils % (Manual) 0 % (0-2) Band Neutrophils 0 % (0-8) Nucleated Red Blood Cells 1 /100 WBC Other Cell Type Pathologist comment Platelet Estimate Increased H Platelet Morphology Normal Polychromasia 1+ Hypochromasia 2+ Anisocytosis 2+ Sodium Level 140 mEQ/L (135-145) Potassium Level 4.4 mEQ/L (3.4-4.9) Chloride Level 107 mEQ/L (98-107) Carbon Dioxide Level 22 mEQ/L (20-30) Anion Gap 11 (5-15) Blood Urea Nitrogen 18 mg/dL (7-23) Creatinine 1.9 mg/dL (0.7-1.2) H Estimat Glomerular Filtration Rate 50.7 mL/min (>60) Glucose Level 140 mg/dL (74-106) H Calcium Level 8.9 mg/dL (8.6-10.2) M. tuberculosis Complex DNA (PCR) Pending Lipase 45 U/L (< 60) Height (Feet): 5 Height (Inches): 10.00 Weight (Pounds): 160 General Appearance: no apparent distress, alert Cardiovascular: normal rate Respiratory/Chest: normal breath sounds, no respiratory distress Abdominal Exam: normal bowel sounds, non tender, soft Rosa Mancia N.P. Jan 09, 2017 11:16
[2017-01-09 12:00] VITALS: BP 130/83
[2017-01-09 16:00] VITALS: BP 119/69
--- NOTE | 2017-01-09 16:14 | Infectious Diseases Prog Note ---
Assessment/Plan Problems: (1) Pleural effusion Assessment & Plan: suspect reactive due to pneumonia, with no significant amount of fluids on US , so no thoracentesis was done .monitor CXR (2) Hemoptysis Assessment & Plan: suspect due to severe pneumonia , with negative AFB smears x3 and negative PPD test which rule out TB, ok to remove from air born isolation for now , CT chest ruled out cavitation (3) Aspiration pneumonia Assessment & Plan: improving on cefepime and doxycycline , CT chest confirmed it, with no abscess or cavitations (4) Sepsis Assessment & Plan: due to the above with leukocytosis, improving , repeated blood culture is negative ,monitor CBC (5) Pancreatitis Assessment & Plan: due to tawanda drink of alcohol , continue hydration with supportive care, monitor lipase level , GI is following (6) DWAYNE (acute kidney injury) Assessment & Plan: multifactorial , suspect dehydration due to recurrent vomiting, improving on IVF , monitor renal function test, nephrology is following (7) Diarrhea Assessment & Plan: self limited, no evidence of C diff , d/c oral vancomycin (8) Anemia Assessment & Plan: recurrent , suspect hemoptysis related, monitor H/H, transfuse blood as needed , had bone biopsy , results pending Subjective Constitutional: Reports: no symptoms HEENT: Reports: no symptoms Respiratory: Reports: no symptoms Breasts: Reports: no symptoms Cardiovascular: Reports: no symptoms Genitourinary: Reports: no symptoms Neurologic: Reports: no symptoms Psychiatric: Reports: no symptoms Skin: Reports: no symptoms Endocrine: Reports: no symptoms Hematologic: Reports: no symptoms Allergies: Coded Allergies: ACETAMINOPHEN (Verified Allergy, Unknown, 06/11/15) IBUPROFEN (Verified Allergy, Unknown, 06/11/15) Objective Vital Signs Last 24 Hour Vital Signs Date Time Temp Pulse Resp B/P Pulse Ox O2 Delivery O2 Flow Rate FiO2 01/09/17 16:00 98.1 75 19 119/69 97 Room Air 01/09/17 12:00 97.9 76 20 130/83 98 Room Air 01/09/17 08:00 98.2 78 20 121/77 99 Room Air 01/09/17 04:00 98.2 92 18 120/88 97 Room Air 01/09/17 00:24 97.5 90 19 122/75 98 Room Air 01/08/17 20:15 97.9 70 19 130/70 97 Room Air Height (Feet): 5 Height (Inches): 10.00 Weight (Pounds): 160 General Appearance: WD/WN, no acute distress HEENT: normocephalic, atraumatic, anicteric, mucous membranes moist Respiratory/Chest: chest wall non-tender, normal breath sounds, no respiratory distress, no accessory muscle use Cardiovascular: normal peripheral pulses, normal rate, regular rhythm, no gallop/murmur Abdomen: normal bowel sounds, soft, non tender, no organomegaly, non distended , no mass, no scars Extremities: no cyanosis, no clubbing Skin: no rash, no lesions, no ulcers Lymphatic: no neck adenopathy, no groin adenopathy Musculoskeletal: normal muscle bulk, no effusion Laboratory Tests Test 01/09/17 05:50 Lipase 45 U/L (< 60) Current Medications Medications (Trade) Dose Ordered Sig/Juliana Route PRN Reason Start Time Stop Time Status Last Admin Dose Admin Acetaminophen (Tylenol) 650 mg Q4H PRN ORAL Mild Pain/Temp > 100.5 12/25/16 10:30 01/24/17 10:29 01/02/17 18:51 Docusate Sodium (Colace) 100 mg TWICE A DAY ORAL 12/30/16 09:00 01/29/17 08:59 01/09/17 08:23 Doxycycline Monohydrate (Vibramycin) 100 mg EVERY 12 HOURS ORAL 01/05/17 21:00 01/12/17 20:59 01/09/17 08:22 Epoetin Alex 33479 units 10,000 units THU-THU-THU SUBQ 12/31/16 21:00 01/30/17 20:59 01/07/17 22:03 Fluoxetine HCl (PROzac) 20 mg DAILY ORAL 12/27/16 09:00 01/26/17 08:59 01/09/17 08:22 Folic Acid (Folate) 2 mg DAILY ORAL 01/02/17 09:00 02/01/17 08:59 01/09/17 08:23 Lactulose (Cephulac) 10 gm TID@0900,1500,2100 ORAL 12/30/16 09:00 01/29/17 08:59 01/09/17 14:02 Levetiracetam (Keppra) 750 mg Q12HR ORAL 12/30/16 21:00 01/29/17 20:59 01/09/17 08:22 Methocarbamol (Robaxin) 500 mg Q8H PRN ORAL muscle spasm 01/02/17 09:00 02/01/17 08:59 Metoclopramide HCl (Reglan) 10 mg Q6H PRN IVP Nausea & Vomiting 12/30/16 12:30 01/29/17 12:29 12/31/16 08:59 Ondansetron HCl (Zofran) 4 mg Q6H PRN IVP Nausea & Vomiting 12/23/16 19:45 01/22/17 19:44 01/01/17 15:52 Pantoprazole (Protonix) 40 mg DAILY ORAL 01/02/17 09:00 02/01/17 08:59 01/09/17 08:22 Polyethylene Glycol (Miralax) 17 gm BEDTIME ORAL 12/30/16 21:00 01/29/17 20:59 01/08/17 22:17 Sodium Chloride (Sodium Chloride 1000ml bag) 1,000 ml @ 100 mls/hr Q10H IV 01/02/17 07:45 02/01/17 07:44 01/09/17 08:20 Thiamine HCl (Vitamin B1) 100 mg DAILY ORAL 12/24/16 14:30 01/23/17 14:29 01/09/17 08:21 Vitamin D (Vitamin D) 2,000 intlu DAILY ORAL 12/25/16 10:30 01/24/17 10:29 01/09/17 08:23 Imelda Chen M.D. Jan 09, 2017 16:13
[2017-01-09] MEDS: Cefepime 2gm in D5W 110ml IVPB SCH (17:56)
--- NOTE | 2017-01-09 18:15 | General Progress Note ---
Assessment/Plan Assessment/Plan # Anemia secondary to severe folic acid deficiency, currently on folic acid --- > peripheral smear shows normocytic normochromic anemia, mild thrombocytopenia, neutrophilic granulocytosis, no blasts seen. Bone marrow biopsy reviewed and shows normal findings, 45% cellularity, normal trilineage hematopoiesis, no blasts, no monotypic B-or T-cell abnormalities. ---> continues to refuse blood transfusion after multiple discussions (most recent was on 01/04/17, does not want blood even though hgb <7) he understands risks of increased morbidity and mortality ---> hgb goal again >7, monitor # Leukocytosis secondary to underlying inflammatory reaction versus infection --> better # Pancreatitis has being followed by gi and id, pain has improved ---> on prn zofran and pepcid as needed # Lactic acidosis with decreased blood pressure. improved # Anemia secondary to hemodilution. # Thrombocytopenia, likely secondary to hemodilution versus infection. # Hypokalemia, resolved. # Anemia secondary to B12 deficiency, given B12 injections. # History of seizures, on Dilantin. # History of alcohol intoxication leading to pancreatitis. # Altered mental status. Seen by Neurology Subjective Constitutional: Reports: no symptoms HEENT: Reports: no symptoms Cardiovascular: Reports: no symptoms Respiratory: Reports: no symptoms Gastrointestinal/Abdominal: Reports: poor appetite Genitourinary: Reports: no symptoms Neurologic/Psychiatric: Reports: no symptoms Endocrine: Reports: no symptoms Hematologic/Lymphatic: Reports: anemia Allergies: Coded Allergies: ACETAMINOPHEN (Verified Allergy, Unknown, 06/11/15) IBUPROFEN (Verified Allergy, Unknown, 06/11/15) Subjective results preliminary of bone marrow are negative Objective Last 24 Hour Vital Signs Date Time Temp Pulse Resp B/P Pulse Ox O2 Delivery O2 Flow Rate FiO2 01/09/17 16:00 98.1 75 19 119/69 97 Room Air 01/09/17 12:00 97.9 76 20 130/83 98 Room Air 01/09/17 08:00 98.2 78 20 121/77 99 Room Air 01/09/17 04:00 98.2 92 18 120/88 97 Room Air 01/09/17 00:24 97.5 90 19 122/75 98 Room Air 01/08/17 20:15 97.9 70 19 130/70 97 Room Air Intake and Output 01/08/17 01/09/17 19:00 07:00 Intake Total 1110 ml 1340 ml Balance 1110 ml 1340 ml Intake Oral 560 ml 240 ml IV Total 550 ml 1100 ml # Voids 1 Laboratory Tests 01/09/17 05:50: Lipase 45 Height (Feet): 5 Height (Inches): 10.00 Weight (Pounds): 160 General Appearance: no apparent distress EENT: TMs normal Neck: normal alignment Cardiovascular: normal rate Respiratory/Chest: chest wall non-tender Genitourinary/Rectal: heme negative stool Extremities: non-tender Edema: no edema noted Leg (L), no edema noted Leg (R) Edema: mild edema Neurologic: alert Skin: normal pigmentation Kapil Haney Jan 09, 2017 18:15
--- NOTE | 2017-01-09 18:19 | Cardiac Electrophysiology PN ---
Assessment/Plan Status Narrative CT Brain Impression: Cerebral volume loss, out of proportion to patient's age. Correlate with clinical history Negative for acute intrarenal bleed or mass effect Assessment/Plan 1. Hypotension.Resolved. EF 55% and no pericardial effusion. 2. Sinus tachycardia. Due to severe anemia and sepsis with WBC 18k. Better to 11.4 8. Severe Anemia. Hb 6.5 secondary to severe folic acid deficiency on oral folic acid 10 mg daily. Refused blood transfusion. Bone marrow biopsy done 4. Severe hyponatremia, resolved. 5. CKD cr 2.[address] Rosario. 6. Toxic metabolic encephalopathy. CT of the brain done on 12/24/16 reveals generalized cerebral atrophy. 7. Psychiatric illness and seizure disorder Subjective Subjective Alert in NAD.. No CP or SOB. Objective Last 24 Hour Vital Signs Date Time Temp Pulse Resp B/P Pulse Ox O2 Delivery O2 Flow Rate FiO2 01/09/17 16:00 98.1 75 19 119/69 97 Room Air 01/09/17 12:00 97.9 76 20 130/83 98 Room Air 01/09/17 08:00 98.2 78 20 121/77 99 Room Air 01/09/17 04:00 98.2 92 18 120/88 97 Room Air 01/09/17 00:24 97.5 90 19 122/75 98 Room Air 01/08/17 20:15 97.9 70 19 130/70 97 Room Air Intake and Output 01/08/17 01/09/17 19:00 07:00 Intake Total 1110 ml 1340 ml Balance 1110 ml 1340 ml Intake Oral 560 ml 240 ml IV Total 550 ml 1100 ml # Voids 1 Laboratory Tests Test 01/09/17 05:50 Lipase 45 U/L (< 60) Current Medications Medications (Trade) Dose Ordered Sig/Juliana Route PRN Reason Start Time Stop Time Status Last Admin Dose Admin Acetaminophen (Tylenol) 650 mg Q4H PRN ORAL Mild Pain/Temp > 100.5 12/25/16 10:30 01/24/17 10:29 01/02/17 18:51 Cefepime HCl/ Dextrose (Maxipime/D5W) 110 ml @ 220 mls/hr Q12HR@0600,1800 IVPB 01/09/17 18:00 01/16/17 17:59 01/09/17 17:56 Docusate Sodium (Colace) 100 mg TWICE A DAY ORAL 12/30/16 09:00 01/29/17 08:59 01/09/17 17:55 Doxycycline Monohydrate 100 mg 100 mg EVERY 12 HOURS ORAL 01/05/17 21:00 01/14/17 20:59 01/09/17 08:22 Epoetin Alex 73303 units 10,000 units THU- SUBQ 12/31/16 21:00 01/30/17 20:59 01/07/17 22:03 Fluoxetine HCl (PROzac) 20 mg DAILY ORAL 12/27/16 09:00 01/26/17 08:59 01/09/17 08:22 Folic Acid (Folate) 2 mg DAILY ORAL 01/02/17 09:00 02/01/17 08:59 01/09/17 08:23 Lactulose (Cephulac) 10 gm TID@0900,1500,2100 ORAL 12/30/16 09:00 01/29/17 08:59 01/09/17 14:02 Levetiracetam (Keppra) 750 mg Q12HR ORAL 12/30/16 21:00 01/29/17 20:59 01/09/17 08:22 Methocarbamol (Robaxin) 500 mg Q8H PRN ORAL muscle spasm 01/02/17 09:00 02/01/17 08:59 Metoclopramide HCl (Reglan) 10 mg Q6H PRN IVP Nausea & Vomiting 12/30/16 12:30 01/29/17 12:29 12/31/16 08:59 Ondansetron HCl (Zofran) 4 mg Q6H PRN IVP Nausea & Vomiting 12/23/16 19:45 01/22/17 19:44 01/01/17 15:52 Pantoprazole (Protonix) 40 mg DAILY ORAL 01/02/17 09:00 02/01/17 08:59 01/09/17 08:22 Polyethylene Glycol (Miralax) 17 gm BEDTIME ORAL 12/30/16 21:00 01/29/17 20:59 01/08/17 22:17 Sodium Chloride (Sodium Chloride 1000ml bag) 1,000 ml @ 100 mls/hr Q10H IV 01/02/17 07:45 02/01/17 07:44 01/09/17 08:20 Thiamine HCl (Vitamin B1) 100 mg DAILY ORAL 12/24/16 14:30 01/23/17 14:29 01/09/17 08:21 Vitamin D (Vitamin D) 2,000 intlu DAILY ORAL 12/25/16 10:30 01/24/17 10:29 01/09/17 08:23 Objective NECK: No JVD. LUNGS: Coarse rhonchi CARDIOVASCULAR: Regular S1 and S2 with no gallop or murmur. ABDOMEN: Soft. EXTREMITIES: No pitting edema. ROGERS DEAN Jan 09, 2017 18:19
--- NOTE | 2017-01-09 20:26 | General Progress Note ---
Assessment/Plan Problem List: (1) Altered mental status ICD Codes: R41.82 - Altered mental status, unspecified SNOMED: 651094919 Qualifiers: Qualified Codes: R41.82 - Altered mental status, unspecified (2) Pancreatitis ICD Codes: K85.90 - Acute pancreatitis without necrosis or infection, unspecified SNOMED: 33047444 Qualifiers: Qualified Codes: K85.90 - Acute pancreatitis without necrosis or infection, unspecified (3) Sepsis ICD Codes: A41.9 - Sepsis, unspecified organism SNOMED: 20079347 (4) Anemia ICD Codes: D64.9 - Anemia, unspecified SNOMED: 609957570 Status: progressing Assessment/Plan ARF IS IMPROVING anemia is severe hemoptysis afebrile confused azotemia is improved transfusion per heme/onc ;uti and sepsis abx per id mildly improving Subjective ROS Limited/Unobtainable: Yes Constitutional: Reports: no symptoms Allergies: Coded Allergies: ACETAMINOPHEN (Verified Allergy, Unknown, 06/11/15) IBUPROFEN (Verified Allergy, Unknown, 06/11/15) Objective Last 24 Hour Vital Signs Date Time Temp Pulse Resp B/P Pulse Ox O2 Delivery O2 Flow Rate FiO2 01/09/17 16:00 98.1 75 19 119/69 97 Room Air 01/09/17 12:00 97.9 76 20 130/83 98 Room Air 01/09/17 08:00 98.2 78 20 121/77 99 Room Air 01/09/17 04:00 98.2 92 18 120/88 97 Room Air 01/09/17 00:24 97.5 90 19 122/75 98 Room Air Intake and Output 01/08/17 01/09/17 19:00 07:00 Intake Total 1110 ml 1340 ml Balance 1110 ml 1340 ml Intake Oral 560 ml 240 ml IV Total 550 ml 1100 ml # Voids 1 Laboratory Tests 01/09/17 05:50: Lipase 45 Height (Feet): 5 Height (Inches): 10.00 Weight (Pounds): 160 General Appearance: confused Abdomen: soft Robbi Vega MD Jan 09, 2017 20:26
[2017-01-09] MEDS: Miralax 17gm pkt ORAL SCH (20:38)
[2017-01-09] MEDS: Epogen (for non ESRD use) SUBQ SCH (20:39)
[2017-01-09 20:47] VITALS: BP 122/79
[2017-01-09] MEDS ORDERED: DuoNeb 0.5-3(2.5)mg/3ml neb HHN PRN (21:00)
[2017-01-09] MEDS ORDERED: Promethazine/Codeine 5ml UD ORAL PRN (21:00)
--- NOTE | 2017-01-09 23:29 | General Progress Note ---
Assessment/Plan Status: doing well, stable, progressing Assessment/Plan Substance abuse, mdd anxiety cont current meds Subjective Constitutional: Reports: weakness Neurologic/Psychiatric: Reports: anxiety, depressed, emotional problems Allergies: Coded Allergies: ACETAMINOPHEN (Verified Allergy, Unknown, 06/11/15) IBUPROFEN (Verified Allergy, Unknown, 06/11/15) Subjective patient was alert and oriented times self, time situation and place. Mood was neutral. Affect was constricted. Congruent with mood. Thought process, tangential. Thought content, no suicidal or homicidal ideation. Cognition is impaired. He was eating during the eval. Objective Last 24 Hour Vital Signs Date Time Temp Pulse Resp B/P Pulse Ox O2 Delivery O2 Flow Rate FiO2 01/09/17 20:47 99.3 79 18 122/79 97 Room Air 01/09/17 16:00 98.1 75 19 119/69 97 Room Air 01/09/17 12:00 97.9 76 20 130/83 98 Room Air 01/09/17 08:00 98.2 78 20 121/77 99 Room Air 01/09/17 04:00 98.2 92 18 120/88 97 Room Air 01/09/17 00:24 97.5 90 19 122/75 98 Room Air Intake and Output 01/08/17 01/09/17 19:00 07:00 Intake Total 1110 ml 1340 ml Balance 1110 ml 1340 ml Intake Oral 560 ml 240 ml IV Total 550 ml 1100 ml # Voids 1 Laboratory Tests 01/09/17 05:50: Lipase 45 Height (Feet): 5 Height (Inches): 10.00 Weight (Pounds): 160 General Appearance: no apparent distress, alert, thin Neurologic: alert, responsive, depressed affect Mary Beth Ramos M.D. Jan 09, 2017 23:29
[2017-01-10 00:16] VITALS: BP 120/62
[2017-01-10 04:40] VITALS: BP 125/70
[2017-01-10] MEDS: Cefepime 2gm in D5W 110ml IVPB SCH ×2 (05:32→17:53)
[2017-01-10 07:14] LABS: MEAN CORPUSCULAR HEMOGLOBIN 27.7 PG (27.0-31.0); MEAN CORPUSCULAR VOLUME 92 FL (80-99); MEAN PLATELET VOLUME 6.8 FL (6.5-10.1); PLATELET COUNT 770 K/UL (150-450); RED BLOOD COUNT 2.68 M/UL (4.70-6.10); RED CELL DISTRIBUTION WIDTH 21.3 % (11.6-14.8); WHITE BLOOD COUNT 10.7 K/UL (4.8-10.8)
[2017-01-10 07:32] LABS: ALANINE AMINOTRANSFERASE 7 U/L (3-41); ALBUMIN/GLOBULIN RATIO 0.6 (1.0-2.7); ANION GAP 16 (5-15); ASPARTATE AMINO TRANSFERASE 14 U/L (5-40); CALCIUM 9.5 mg/dL (8.6-10.2); CARBON DIOXIDE 20 mEQ/L (20-30); CHLORIDE 107 mEQ/L (98-107); CREATININE 1.6 mg/dL (0.7-1.2); GLOMERULAR FILTRATION RATE > 60 mL/min (>60); HEMOLYSIS 0; SODIUM 143 mEQ/L (135-145); TOTAL PROTEIN 7.2 g/dL (6.6-8.7)
[2017-01-10] MEDS: Vitamin D 1000 IU Tab ORAL SCH (08:45)
[2017-01-10] MEDS: Lactulose 10gm/15ml UDC ORAL SCH ×3 (08:45→20:49)
[2017-01-10 08:46] VITALS: BP 120/65
[2017-01-10] MEDS: Thiamine 100mg tab ORAL SCH (08:46)
[2017-01-10] MEDS: Docusate 100mg cap ORAL SCH ×2 (08:46→17:53)
--- NOTE | 2017-01-10 10:57 | Pulmonology Progress Note ---
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 pending to dc isolation CT chest c/w PNA, but no abscess, no cavitation blood cx negative stool C dif negative sputum cx negative abx ID follows HIV negative O2 HHN prn fup with CXR antitussive prn US chest - not enough fluid for tap declined blood transfusion anemia w/up noted on folate replacement s/p B 12 injection, level stable heme follows results of flow cytometry and bone marrow noted RF, ADITYA negative, ANCA pending monitor HH, transfuse to keep Hgb above 7 ( if patient agrees) continue EPO neuro follows EEG noted, c/w encephalopathy CT head no acute changes, but demonstrated generalized cerebral atrophy acute toxic metabolic encephalopathy resolving ECHO with pEF 55% Venous Duplex BLE negative BP stabilized ST resolved, 2 to severe anemia and sepsis GI follows continue Thiamine low fat diet lipase down to normal a/emetic prn CT A/P with acute pancreatitis , hepatic steatosis, cholelithiasis ammonia WNL stool OB negative nephro follows IVF creat trending down monitor renal parameters, lytes. correct as needed avoid nephrotoxic renal US negative seizure precautions, continue Keppra pain management PT/OT bowel regimen GI prophylaxis psych follows for mild anxiety case discussed and evaluated by supervising physician Subjective Allergies: Coded Allergies: ACETAMINOPHEN (Verified Allergy, Unknown, 06/11/15) IBUPROFEN (Verified Allergy, Unknown, 06/11/15) Subjective leukocytosis resolved,afebrile denies SOB on RA sat stable creat trending down HH with small trend up earlier declined blood transfusion Objective Last 24 Hour Vital Signs Date Time Temp Pulse Resp B/P Pulse Ox O2 Delivery O2 Flow Rate FiO2 01/10/17 08:46 98.2 64 18 120/65 98 Room Air 01/10/17 04:40 98.2 82 17 125/70 95 Room Air 01/10/17 00:16 98.1 80 18 120/62 97 Room Air 01/09/17 20:47 99.3 79 18 122/79 97 Room Air 01/09/17 16:00 98.1 75 19 119/69 97 Room Air 01/09/17 12:00 97.9 76 20 130/83 98 Room Air Intake and Output 01/09/17 01/10/17 19:00 07:00 Intake Total 1700 ml 460 ml Balance 1700 ml 460 ml Intake Oral 480 ml 240 ml IV Total 1220 ml 220 ml # Voids 1 2 # Bowel Movements 2 Objective General Appearance: no acute distress, other - awake, alert, oriented x 3 male HEENT: normocephalic, atraumatic, anicteric, mucous membranes moist, PERRL Respiratory/Chest: chest wall non-tender, lungs clear, no respiratory distress , no accessory muscle use Cardiovascular: normal rate, regular rhythm, no JVD Abdomen: normal bowel sounds, soft, non tender, non distended Extremities: no edema, pedal pulses normal Neurologic/Psychiatric: orthotic/prosthetic practitioner II-XII grossly normal, no motor/sensory deficits, alert, oriented x 3, responsive Musculoskeletal: normal muscle bulk Laboratory Tests 01/10/17 05:05: White Blood Count 10.7, Red Blood Count 2.68L, Hemoglobin 7.4L, Hematocrit 24.8L , Mean Corpuscular Volume 92, Mean Corpuscular Hemoglobin 27.7, Mean Corpuscular Hemoglobin Concent 30.0L, Red Cell Distribution Width 21.3H, Platelet Count 770H, Mean Platelet Volume 6.8, Neutrophils (%) (Auto) , Lymphocytes (%) (Auto) , Monocytes (%) (Auto) , Eosinophils (%) (Auto) , Basophils (%) (Auto) , Sodium Level 143, Potassium Level 4.0, Chloride Level 107 , Carbon Dioxide Level 20, Anion Gap 16H, Blood Urea Nitrogen 21, Creatinine 1.6H, Estimat Glomerular Filtration Rate > 60, Glucose Level 109H, Calcium Level 9.5, Total Bilirubin 0.2, Aspartate Amino Transf (AST/SGOT) 14, Alanine Aminotransferase (ALT/SGPT) 7, Alkaline Phosphatase 78, Total Protein 7.2, Albumin 2.9L, Globulin 4.3, Albumin/Globulin Ratio 0.6L Current Medications Medications (Trade) Dose Ordered Sig/Juliana Route PRN Reason Start Time Stop Time Status Last Admin Dose Admin Acetaminophen (Tylenol) 650 mg Q4H PRN ORAL Mild Pain/Temp > 100.5 12/25/16 10:30 01/24/17 10:29 01/02/17 18:51 Albuterol/ Ipratropium (DuoNeb 0.5-3(2.5)mg/3ml) 3 ml Q4H PRN HHN Shortness of Breath 01/09/17 21:00 01/14/17 20:59 Cefepime HCl/ Dextrose (Maxipime/D5W) 110 ml @ 220 mls/hr Q12HR@0600,1800 IVPB 01/09/17 18:00 01/16/17 17:59 01/10/17 05:32 Docusate Sodium (Colace) 100 mg TWICE A DAY ORAL 12/30/16 09:00 01/29/17 08:59 01/10/17 08:46 Doxycycline Monohydrate 100 mg 100 mg EVERY 12 HOURS ORAL 01/05/17 21:00 01/14/17 20:59 01/10/17 08:45 Epoetin Alex 84306 units 10,000 units SUBQ 12/31/16 21:00 01/30/17 20:59 01/09/17 20:39 Fluoxetine HCl (PROzac) 20 mg DAILY ORAL 12/27/16 09:00 01/26/17 08:59 01/10/17 08:46 Folic Acid (Folate) 2 mg DAILY ORAL 01/02/17 09:00 02/01/17 08:59 01/10/17 08:46 Lactulose (Cephulac) 10 gm TID@0900,1500,2100 ORAL 12/30/16 09:00 01/29/17 08:59 01/10/17 08:45 Levetiracetam (Keppra) 750 mg Q12HR ORAL 12/30/16 21:00 01/29/17 20:59 01/10/17 08:45 Methocarbamol (Robaxin) 500 mg Q8H PRN ORAL muscle spasm 01/02/17 09:00 02/01/17 08:59 Metoclopramide HCl (Reglan) 10 mg Q6H PRN IVP Nausea & Vomiting 12/30/16 12:30 01/29/17 12:29 12/31/16 08:59 Ondansetron HCl (Zofran) 4 mg Q6H PRN IVP Nausea & Vomiting 12/23/16 19:45 01/22/17 19:44 01/01/17 15:52 Pantoprazole (Protonix) 40 mg DAILY ORAL 01/02/17 09:00 02/01/17 08:59 01/10/17 08:44 Polyethylene Glycol (Miralax) 17 gm BEDTIME ORAL 12/30/16 21:00 01/29/17 20:59 01/09/17 20:38 Promethazine HCl/ Codeine (Phenergan with Codeine) 5 ml Q6H PRN ORAL For Cough 01/09/17 21:00 02/08/17 20:59 Sodium Chloride (Sodium Chloride 1000ml bag) 1,000 ml @ 100 mls/hr Q10H IV 01/02/17 07:45 02/01/17 07:44 01/10/17 05:32 Thiamine HCl (Vitamin B1) 100 mg DAILY ORAL 12/24/16 14:30 01/23/17 14:29 01/10/17 08:46 Vitamin D (Vitamin D) 2,000 intlu DAILY ORAL 12/25/16 10:30 01/24/17 10:29 01/10/17 08:45 Baljit (Calvin)Bernice NP Jan 10, 2017 10:57
[2017-01-10 12:00] VITALS: BP 117/64
--- NOTE | 2017-01-10 12:01 | General Progress Note ---
Assessment/Plan Status: stable Status Narrative Hgb Higher- Cr lower Assessment/Plan status: Acute renal failure Hemoptysis , Pneumonia , r/o TB Sepsis On Admission: Renal failure , Acute vs Chronic improving h/o Sz Acute Encephalopathy h/o Low K h/o Low Na Low B12 and folate Elevated Lipase , acute pancreatitis waiting TB clearance sever anemia Plan; no labs today per consultants monitor renal parameters Hydrate- antibiotics down on folate dose ST PT OT eval Monitor lytes- monitor renal parameters Subjective ROS Limited/Unobtainable: No Constitutional: Reports: malaise Allergies: Coded Allergies: ACETAMINOPHEN (Verified Allergy, Unknown, 06/11/15) IBUPROFEN (Verified Allergy, Unknown, 06/11/15) Objective Last 24 Hour Vital Signs Date Time Temp Pulse Resp B/P Pulse Ox O2 Delivery O2 Flow Rate FiO2 01/10/17 08:46 98.2 64 18 120/65 98 Room Air 01/10/17 04:40 98.2 82 17 125/70 95 Room Air 01/10/17 00:16 98.1 80 18 120/62 97 Room Air 01/09/17 20:47 99.3 79 18 122/79 97 Room Air 01/09/17 16:00 98.1 75 19 119/69 97 Room Air Intake and Output 01/09/17 01/10/17 19:00 07:00 Intake Total 1700 ml 460 ml Balance 1700 ml 460 ml Intake Oral 480 ml 240 ml IV Total 1220 ml 220 ml # Voids 1 2 # Bowel Movements 2 Laboratory Tests 01/10/17 05:05: White Blood Count 10.7, Red Blood Count 2.68L, Hemoglobin 7.4L, Hematocrit 24.8L , Mean Corpuscular Volume 92, Mean Corpuscular Hemoglobin 27.7, Mean Corpuscular Hemoglobin Concent 30.0L, Red Cell Distribution Width 21.3H, Platelet Count 770H, Mean Platelet Volume 6.8, Neutrophils (%) (Auto) , Lymphocytes (%) (Auto) , Monocytes (%) (Auto) , Eosinophils (%) (Auto) , Basophils (%) (Auto) , Sodium Level 143, Potassium Level 4.0, Chloride Level 107 , Carbon Dioxide Level 20, Anion Gap 16H, Blood Urea Nitrogen 21, Creatinine 1.6H, Estimat Glomerular Filtration Rate > 60, Glucose Level 109H, Calcium Level 9.5, Total Bilirubin 0.2, Aspartate Amino Transf (AST/SGOT) 14, Alanine Aminotransferase (ALT/SGPT) 7, Alkaline Phosphatase 78, Total Protein 7.2, Albumin 2.9L, Globulin 4.3, Albumin/Globulin Ratio 0.6L Height (Feet): 5 Height (Inches): 10.00 Weight (Pounds): 160 General Appearance: no apparent distress Objective other PE not changed VELASQUEZ DASILVA Jan 10, 2017 12:01
--- NOTE | 2017-01-10 14:44 | Cardiac Electrophysiology PN ---
Assessment/Plan Status Narrative CT Brain Impression: Cerebral volume loss, out of proportion to patient's age. Correlate with clinical history Negative for acute intrarenal bleed or mass effect Assessment/Plan 1. Hypotension. Resolved. EF 55% and no pericardial effusion. 2. Sinus tachycardia. Due to severe anemia and sepsis with WBC 18k. Better to 11.4 8. Severe Anemia. Hb 6.5 secondary to severe folic acid deficiency. Refused blood transfusion. Bone marrow biopsy done 01/06/17. Hb slightly better. 4. Severe hyponatremia, resolved. 5. CKD cr 2.[address] Rosario. 6. Toxic metabolic encephalopathy. CT of the brain done on 12/24/16 reveals generalized cerebral atrophy. 7. Psychiatric illness and seizure disorder DW RN Subjective Subjective Alert in NAD.. No CP or SOB.Still in isolation. RN at bedside. Objective Last 24 Hour Vital Signs Date Time Temp Pulse Resp B/P Pulse Ox O2 Delivery O2 Flow Rate FiO2 01/10/17 12:00 98.1 76 18 117/64 99 Room Air 01/10/17 08:46 98.2 64 18 120/65 98 Room Air 01/10/17 04:40 98.2 82 17 125/70 95 Room Air 01/10/17 00:16 98.1 80 18 120/62 97 Room Air 01/09/17 20:47 99.3 79 18 122/79 97 Room Air 01/09/17 16:00 98.1 75 19 119/69 97 Room Air Intake and Output 01/09/17 01/10/17 19:00 07:00 Intake Total 1700 ml 460 ml Balance 1700 ml 460 ml Intake Oral 480 ml 240 ml IV Total 1220 ml 220 ml # Voids 1 2 # Bowel Movements 2 Laboratory Tests Test 01/10/17 05:05 White Blood Count 10.7 K/UL (4.8-10.8) Red Blood Count 2.68 M/UL (4.70-6.10) L Hemoglobin 7.4 G/DL (14.2-18.0) L Hematocrit 24.8 % (42.0-52.0) L Mean Corpuscular Volume 92 FL (80-99) Mean Corpuscular Hemoglobin 27.7 PG (27.0-31.0) Mean Corpuscular Hemoglobin Concent 30.0 G/DL (32.0-36.0) L Red Cell Distribution Width 21.3 % (11.6-14.8) H Platelet Count 770 K/UL (150-450) H Mean Platelet Volume 6.8 FL (6.5-10.1) Neutrophils (%) (Auto) % (45.0-75.0) Lymphocytes (%) (Auto) % (20.0-45.0) Monocytes (%) (Auto) % (1.0-10.0) Eosinophils (%) (Auto) % (0.0-3.0) Basophils (%) (Auto) % (0.0-2.0) Sodium Level 143 mEQ/L (135-145) Potassium Level 4.0 mEQ/L (3.4-4.9) Chloride Level 107 mEQ/L (98-107) Carbon Dioxide Level 20 mEQ/L (20-30) Anion Gap 16 (5-15) H Blood Urea Nitrogen 21 mg/dL (7-23) Creatinine 1.6 mg/dL (0.7-1.2) H Estimat Glomerular Filtration Rate > 60 mL/min (>60) Glucose Level 109 mg/dL (74-106) H Calcium Level 9.5 mg/dL (8.6-10.2) Total Bilirubin 0.2 mg/dL (0.0-1.2) Aspartate Amino Transf (AST/SGOT) 14 U/L (5-40) Alanine Aminotransferase (ALT/SGPT) 7 U/L (3-41) Alkaline Phosphatase 78 U/L (40-129) Total Protein 7.2 g/dL (6.6-8.7) Albumin 2.9 g/dL (3.5-5.2) L Globulin 4.3 g/dL Albumin/Globulin Ratio 0.6 (1.0-2.7) L Objective NECK: No JVD. LUNGS: Coarse rhonchi CARDIOVASCULAR: S1 and S2 with no gallop or murmur. ABDOMEN: Soft. EXTREMITIES: No pitting edema. ROGERS DEAN Jan 10, 2017 14:44
[2017-01-10 15:39] VITALS: BP 122/77
--- NOTE | 2017-01-10 16:00 | Infectious Diseases Prog Note ---
Assessment/Plan Problems: (1) Pleural effusion Assessment & Plan: suspect reactive due to pneumonia, with no significant amount of fluids on US , so no thoracentesis was done. monitor CXR (2) Hemoptysis Assessment & Plan: resolved, suspect due to severe pneumonia , with negative AFB smears x3 and negative PPD test which rule out TB, ok to remove from air born isolation for now , CT chest ruled out cavitation (3) Aspiration pneumonia Assessment & Plan: improving on cefepime and doxycycline , CT chest confirmed it, with no abscess or cavitations (4) Sepsis Assessment & Plan: due to the above with leukocytosis, improving , repeated blood culture is negative ,monitor CBC (5) Pancreatitis Assessment & Plan: due to tawanda drink of alcohol , continue hydration with supportive care, monitor lipase level , GI is following (6) DWAYNE (acute kidney injury) Assessment & Plan: multifactorial , suspect dehydration due to recurrent vomiting, improving on IVF , monitor renal function test, nephrology is following (7) Diarrhea Assessment & Plan: self limited, no evidence of C diff , d/c oral vancomycin (8) Anemia Assessment & Plan: recurrent , suspect hemoptysis related, monitor H/H, transfuse blood as needed , had bone biopsy , results pending Subjective Constitutional: Denies: anorexia, chills, drenching sweats, fatigue, fever, no symptoms, other HEENT: Denies: congestion, coryza, dysphagia, hearing change, no symptoms, other, visual change Respiratory: Denies: dry cough, no symptoms, other, productive cough, shortness of breath Breasts: Denies: discharge, no symptoms, other, swelling, tenderness Cardiovascular: Denies: chest pain, dyspnea on exertion, no symptoms, other, palpitations Gastrointestinal/Abdominal: Denies: bloating, blood in stool, constipation, diarrhea, nausea, no symptoms, other, vomiting Genitourinary: Denies: dysuria, frequency, hematuria, no symptoms, nocturia, other Neurologic: Denies: confusion, headache, no symptoms, numbness, other, weakness Psychiatric: Denies: anxiety, depression, no symptoms, other Skin: Denies: no symptoms, other, rash, ulcer Endocrine: Denies: feels cold, feels warm, no symptoms, other Hematologic: Denies: bleeding, no symptoms, other, swollen lymph nodes Allergies: Coded Allergies: ACETAMINOPHEN (Verified Allergy, Unknown, 06/11/15) IBUPROFEN (Verified Allergy, Unknown, 06/11/15) Objective Vital Signs Last 24 Hour Vital Signs Date Time Temp Pulse Resp B/P Pulse Ox O2 Delivery O2 Flow Rate FiO2 01/10/17 15:39 98.9 67 20 122/77 98 Room Air 01/10/17 12:00 98.1 76 18 117/64 99 Room Air 01/10/17 08:46 98.2 64 18 120/65 98 Room Air 01/10/17 04:40 98.2 82 17 125/70 95 Room Air 01/10/17 00:16 98.1 80 18 120/62 97 Room Air 01/09/17 20:47 99.3 79 18 122/79 97 Room Air 01/09/17 16:00 98.1 75 19 119/69 97 Room Air Height (Feet): 5 Height (Inches): 10.00 Weight (Pounds): 160 General Appearance: WD/WN, no acute distress HEENT: normocephalic, atraumatic, anicteric, mucous membranes moist, EOMI, pharynx normal, supple, no JVD Respiratory/Chest: chest wall non-tender, lungs clear, normal breath sounds, no respiratory distress, no accessory muscle use Cardiovascular: normal peripheral pulses, normal rate, regular rhythm, no gallop/murmur, no JVD Abdomen: normal bowel sounds, soft, non tender, no organomegaly, non distended , no mass, no scars Extremities: no cyanosis, no clubbing Skin: no rash, no lesions, no ulcers Neurologic/Psychiatric: alert, oriented x 3 Lymphatic: no neck adenopathy, no groin adenopathy Laboratory Tests Test 01/10/17 05:05 White Blood Count 10.7 K/UL (4.8-10.8) Red Blood Count 2.68 M/UL (4.70-6.10) L Hemoglobin 7.4 G/DL (14.2-18.0) L Hematocrit 24.8 % (42.0-52.0) L Mean Corpuscular Volume 92 FL (80-99) Mean Corpuscular Hemoglobin 27.7 PG (27.0-31.0) Mean Corpuscular Hemoglobin Concent 30.0 G/DL (32.0-36.0) L Red Cell Distribution Width 21.3 % (11.6-14.8) H Platelet Count 770 K/UL (150-450) H Mean Platelet Volume 6.8 FL (6.5-10.1) Neutrophils (%) (Auto) % (45.0-75.0) Lymphocytes (%) (Auto) % (20.0-45.0) Monocytes (%) (Auto) % (1.0-10.0) Eosinophils (%) (Auto) % (0.0-3.0) Basophils (%) (Auto) % (0.0-2.0) Sodium Level 143 mEQ/L (135-145) Potassium Level 4.0 mEQ/L (3.4-4.9) Chloride Level 107 mEQ/L (98-107) Carbon Dioxide Level 20 mEQ/L (20-30) Anion Gap 16 (5-15) H Blood Urea Nitrogen 21 mg/dL (7-23) Creatinine 1.6 mg/dL (0.7-1.2) H Estimat Glomerular Filtration Rate > 60 mL/min (>60) Glucose Level 109 mg/dL (74-106) H Calcium Level 9.5 mg/dL (8.6-10.2) Total Bilirubin 0.2 mg/dL (0.0-1.2) Aspartate Amino Transf (AST/SGOT) 14 U/L (5-40) Alanine Aminotransferase (ALT/SGPT) 7 U/L (3-41) Alkaline Phosphatase 78 U/L (40-129) Total Protein 7.2 g/dL (6.6-8.7) Albumin 2.9 g/dL (3.5-5.2) L Globulin 4.3 g/dL Albumin/Globulin Ratio 0.6 (1.0-2.7) L Current Medications Medications (Trade) Dose Ordered Sig/Juliana Route PRN Reason Start Time Stop Time Status Last Admin Dose Admin Acetaminophen (Tylenol) 650 mg Q4H PRN ORAL Mild Pain/Temp > 100.5 12/25/16 10:30 01/24/17 10:29 01/02/17 18:51 Albuterol/ Ipratropium (DuoNeb 0.5-3(2.5)mg/3ml) 3 ml Q4H PRN HHN Shortness of Breath 01/09/17 21:00 01/14/17 20:59 Cefepime HCl/ Dextrose (Maxipime/D5W) 110 ml @ 220 mls/hr Q12HR@0600,1800 IVPB 01/09/17 18:00 01/16/17 17:59 01/10/17 05:32 Docusate Sodium (Colace) 100 mg TWICE A DAY ORAL 12/30/16 09:00 01/29/17 08:59 01/10/17 08:46 Doxycycline Monohydrate 100 mg 100 mg EVERY 12 HOURS ORAL 01/05/17 21:00 01/14/17 20:59 01/10/17 08:45 Epoetin Alex 42281 units 10,000 units SUBQ 12/31/16 21:00 01/30/17 20:59 01/09/17 20:39 Fluoxetine HCl (PROzac) 20 mg DAILY ORAL 12/27/16 09:00 01/26/17 08:59 01/10/17 08:46 Folic Acid (Folate) 2 mg DAILY ORAL 01/02/17 09:00 02/01/17 08:59 01/10/17 08:46 Lactulose (Cephulac) 10 gm TID@0900,1500,2100 ORAL 12/30/16 09:00 01/29/17 08:59 01/10/17 15:14 Levetiracetam (Keppra) 750 mg Q12HR ORAL 12/30/16 21:00 01/29/17 20:59 01/10/17 08:45 Methocarbamol (Robaxin) 500 mg Q8H PRN ORAL muscle spasm 01/02/17 09:00 02/01/17 08:59 Metoclopramide HCl (Reglan) 10 mg Q6H PRN IVP Nausea & Vomiting 12/30/16 12:30 01/29/17 12:29 12/31/16 08:59 Ondansetron HCl (Zofran) 4 mg Q6H PRN IVP Nausea & Vomiting 12/23/16 19:45 01/22/17 19:44 01/01/17 15:52 Pantoprazole (Protonix) 40 mg DAILY ORAL 01/02/17 09:00 02/01/17 08:59 01/10/17 08:44 Polyethylene Glycol (Miralax) 17 gm BEDTIME ORAL 12/30/16 21:00 01/29/17 20:59 01/09/17 20:38 Promethazine HCl/ Codeine (Phenergan with Codeine) 5 ml Q6H PRN ORAL For Cough 01/09/17 21:00 02/08/17 20:59 Sodium Chloride (Sodium Chloride 1000ml bag) 1,000 ml @ 100 mls/hr Q10H IV 01/02/17 07:45 02/01/17 07:44 01/10/17 05:32 Thiamine HCl (Vitamin B1) 100 mg DAILY ORAL 12/24/16 14:30 01/23/17 14:29 01/10/17 08:46 Vitamin D (Vitamin D) 2,000 intlu DAILY ORAL 12/25/16 10:30 01/24/17 10:29 01/10/17 08:45 Imelda Chen M.D. Jan 10, 2017 15:59
[2017-01-10 20:00] VITALS: BP 138/97
[2017-01-10] MEDS: Miralax 17gm pkt ORAL SCH (20:49)
--- NOTE | 2017-01-10 21:12 | General Progress Note ---
Assessment/Plan Problem List: (1) Altered mental status ICD Codes: R41.82 - Altered mental status, unspecified SNOMED: 681977902 Qualifiers: Qualified Codes: R41.82 - Altered mental status, unspecified (2) Pancreatitis ICD Codes: K85.90 - Acute pancreatitis without necrosis or infection, unspecified SNOMED: 95279479 Qualifiers: Qualified Codes: K85.90 - Acute pancreatitis without necrosis or infection, unspecified (3) Sepsis ICD Codes: A41.9 - Sepsis, unspecified organism SNOMED: 12494717 (4) Anemia ICD Codes: D64.9 - Anemia, unspecified SNOMED: 443043247 Status: progressing Assessment/Plan arf severe anemia moniter for bleeding still confused reviewed chart and labs Subjective ROS Limited/Unobtainable: Yes Constitutional: Reports: no symptoms Allergies: Coded Allergies: ACETAMINOPHEN (Verified Allergy, Unknown, 06/11/15) IBUPROFEN (Verified Allergy, Unknown, 06/11/15) Objective Last 24 Hour Vital Signs Date Time Temp Pulse Resp B/P Pulse Ox O2 Delivery O2 Flow Rate FiO2 01/10/17 20:00 98.0 71 18 138/97 97 Room Air 01/10/17 19:23 69 18 Room Air 01/10/17 15:39 98.9 67 20 122/77 98 Room Air 01/10/17 12:00 98.1 76 18 117/64 99 Room Air 01/10/17 08:46 98.2 64 18 120/65 98 Room Air 01/10/17 04:40 98.2 82 17 125/70 95 Room Air 01/10/17 00:16 98.1 80 18 120/62 97 Room Air Intake and Output 01/09/17 01/10/17 19:00 07:00 Intake Total 1700 ml 460 ml Balance 1700 ml 460 ml Intake Oral 480 ml 240 ml IV Total 1220 ml 220 ml # Voids 1 2 # Bowel Movements 2 Laboratory Tests 01/10/17 05:05: White Blood Count 10.7, Red Blood Count 2.68L, Hemoglobin 7.4L, Hematocrit 24.8L , Mean Corpuscular Volume 92, Mean Corpuscular Hemoglobin 27.7, Mean Corpuscular Hemoglobin Concent 30.0L, Red Cell Distribution Width 21.3H, Platelet Count 770H, Mean Platelet Volume 6.8, Neutrophils (%) (Auto) , Lymphocytes (%) (Auto) , Monocytes (%) (Auto) , Eosinophils (%) (Auto) , Basophils (%) (Auto) , Sodium Level 143, Potassium Level 4.0, Chloride Level 107 , Carbon Dioxide Level 20, Anion Gap 16H, Blood Urea Nitrogen 21, Creatinine 1.6H, Estimat Glomerular Filtration Rate > 60, Glucose Level 109H, Calcium Level 9.5, Total Bilirubin 0.2, Aspartate Amino Transf (AST/SGOT) 14, Alanine Aminotransferase (ALT/SGPT) 7, Alkaline Phosphatase 78, Total Protein 7.2, Albumin 2.9L, Globulin 4.3, Albumin/Globulin Ratio 0.6L Height (Feet): 5 Height (Inches): 10.00 Weight (Pounds): 160 General Appearance: mild distress Neck: supple Abdomen: soft Robbi Vega MD Jan 10, 2017 21:12
--- NOTE | 2017-01-10 23:27 | General Progress Note ---
Assessment/Plan Assessment/Plan # Anemia secondary to severe folic acid deficiency, currently on folic acid --- > peripheral smear shows normocytic normochromic anemia, mild thrombocytopenia, neutrophilic granulocytosis, no blasts seen. Bone marrow biopsy reviewed and shows normal findings, 45% cellularity, normal trilineage hematopoiesis, no blasts, no monotypic B-or T-cell abnormalities. ---> continues to refuse blood transfusion after multiple discussions (most recent was on 01/04/17, does not want blood even though hgb <7) he understands risks of increased morbidity and mortality ---> hgb goal again >7, monitor ---> currently h/h uptrending # Leukocytosis secondary to underlying inflammatory reaction versus infection --> better # Pancreatitis has being followed by gi and id, pain has improved ---> on prn zofran and pepcid as needed # Lactic acidosis with decreased blood pressure. improved # Anemia secondary to hemodilution. # Thrombocytopenia, likely secondary to hemodilution versus infection. # Hypokalemia, resolved. # Anemia secondary to B12 deficiency, given B12 injections. # History of seizures, on Dilantin. # History of alcohol intoxication leading to pancreatitis. # Altered mental status. Seen by Neurology Subjective Allergies: Coded Allergies: ACETAMINOPHEN (Verified Allergy, Unknown, 06/11/15) IBUPROFEN (Verified Allergy, Unknown, 06/11/15) Subjective NAD, able to answer some questions Objective Last 24 Hour Vital Signs Date Time Temp Pulse Resp B/P Pulse Ox O2 Delivery O2 Flow Rate FiO2 01/10/17 20:00 98.0 71 18 138/97 97 Room Air 01/10/17 19:23 69 18 Room Air 01/10/17 15:39 98.9 67 20 122/77 98 Room Air 01/10/17 12:00 98.1 76 18 117/64 99 Room Air 01/10/17 08:46 98.2 64 18 120/65 98 Room Air 01/10/17 04:40 98.2 82 17 125/70 95 Room Air 01/10/17 00:16 98.1 80 18 120/62 97 Room Air Intake and Output 01/09/17 01/10/17 19:00 07:00 Intake Total 1700 ml 460 ml Balance 1700 ml 460 ml Intake Oral 480 ml 240 ml IV Total 1220 ml 220 ml # Voids 1 2 # Bowel Movements 2 Laboratory Tests 01/10/17 05:05: White Blood Count 10.7, Red Blood Count 2.68L, Hemoglobin 7.4L, Hematocrit 24.8L , Mean Corpuscular Volume 92, Mean Corpuscular Hemoglobin 27.7, Mean Corpuscular Hemoglobin Concent 30.0L, Red Cell Distribution Width 21.3H, Platelet Count 770H, Mean Platelet Volume 6.8, Neutrophils (%) (Auto) , Lymphocytes (%) (Auto) , Monocytes (%) (Auto) , Eosinophils (%) (Auto) , Basophils (%) (Auto) , Sodium Level 143, Potassium Level 4.0, Chloride Level 107 , Carbon Dioxide Level 20, Anion Gap 16H, Blood Urea Nitrogen 21, Creatinine 1.6H, Estimat Glomerular Filtration Rate > 60, Glucose Level 109H, Calcium Level 9.5, Total Bilirubin 0.2, Aspartate Amino Transf (AST/SGOT) 14, Alanine Aminotransferase (ALT/SGPT) 7, Alkaline Phosphatase 78, Total Protein 7.2, Albumin 2.9L, Globulin 4.3, Albumin/Globulin Ratio 0.6L Height (Feet): 5 Height (Inches): 10.00 Weight (Pounds): 160 General Appearance: no apparent distress EENT: normal ENT inspection Neck: non-tender Cardiovascular: normal peripheral pulses Respiratory/Chest: lungs clear Abdomen: normal bowel sounds Edema: no edema noted Pedal (L), no edema noted Pedal (R) 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
[2017-01-11] VITALS: BP 131/78
[2017-01-11 04:00] VITALS: BP 128/86
[2017-01-11] MEDS: Cefepime 2gm in D5W 110ml IVPB SCH ×2 (05:11→17:40)
[2017-01-11 07:19] LABS: MEAN CORPUSCULAR HEMOGLOBIN 27.3 PG (27.0-31.0); MEAN CORPUSCULAR HGB CONC 29.7 G/DL (32.0-36.0); MEAN CORPUSCULAR VOLUME 92 FL (80-99); MEAN PLATELET VOLUME 6.1 FL (6.5-10.1); PLATELET COUNT 682 K/UL (150-450); RED BLOOD COUNT 2.88 M/UL (4.70-6.10); RED CELL DISTRIBUTION WIDTH 20.1 % (11.6-14.8); WHITE BLOOD COUNT 11.5 K/UL (4.8-10.8)
[2017-01-11 07:43] LABS: CREATININE 1.7 mg/dL (0.7-1.2); GLOMERULAR FILTRATION RATE 57.7 mL/min (>60); POTASSIUM 3.9 mEQ/L (3.4-4.9)
[2017-01-11 07:47] VITALS: BP 122/87
[2017-01-11] MEDS: Lactulose 10gm/15ml UDC ORAL SCH ×3 (09:00→21:00)
[2017-01-11 09:06] LABS: ANISOCYTOSIS 2+; BAND NEUTROPHILS % (MANUAL) 0 % (0-8); BASOPHILS % (MANUAL) 0 % (0-2); EOSINOPHILS % (MANUAL) 3 % (0-3); HYPOCHROMASIA 1+; LYMPHOCYTES % (MANUAL) 23 % (20-45); NEUTROPHILS % (MANUAL) 67 % (45-75); PLATELET ESTIMATE INCREASED; PLATELET MORPHOLOGY NORMAL; TOTAL CELLS COUNTED 100
[2017-01-11 09:07] LABS: POLYCHROMASIA 1+
[2017-01-11] MEDS: Thiamine 100mg tab ORAL SCH (09:11)
[2017-01-11] MEDS: Docusate 100mg cap ORAL SCH ×2 (09:11→17:40)
[2017-01-11] MEDS: Vitamin D 1000 IU Tab ORAL SCH (09:11)
--- NOTE | 2017-01-11 10:53 | Infectious Diseases Prog Note ---
Assessment/Plan Problems: (1) Pleural effusion Assessment & Plan: suspect reactive due to pneumonia, with no significant amount of fluids on US , so no thoracentesis was done. monitor CXR (2) Hemoptysis Assessment & Plan: resolved, suspect due to severe pneumonia , with negative AFB smears x3 and negative PPD test which rule out TB, ok to remove from air born isolation for now , CT chest ruled out cavitation (3) Aspiration pneumonia Assessment & Plan: improving on cefepime and doxycycline , CT chest confirmed it, with no abscess or cavitations (4) Sepsis Assessment & Plan: due to the above with leukocytosis, improving , repeated blood culture is negative ,monitor CBC (5) Pancreatitis Assessment & Plan: due to tawanda drink of alcohol , continue hydration with supportive care, monitor lipase level , GI is following (6) DWAYNE (acute kidney injury) Assessment & Plan: multifactorial , suspect dehydration due to recurrent vomiting, improving on IVF , monitor renal function test, nephrology is following (7) Diarrhea Assessment & Plan: self limited, no evidence of C diff , d/c oral vancomycin (8) Anemia Assessment & Plan: recurrent , suspect hemoptysis related, monitor H/H, transfuse blood as needed , had bone biopsy , results pending Subjective Allergies: Coded Allergies: ACETAMINOPHEN (Verified Allergy, Unknown, 06/11/15) IBUPROFEN (Verified Allergy, Unknown, 06/11/15) Objective Vital Signs Last 24 Hour Vital Signs Date Time Temp Pulse Resp B/P Pulse Ox O2 Delivery O2 Flow Rate FiO2 01/11/17 07:47 99.0 76 19 122/87 98 Room Air 01/11/17 07:35 66 18 Room Air 01/11/17 04:00 98.1 66 18 128/86 94 Room Air 01/11/17 00:00 98.6 64 18 131/78 99 Room Air 01/10/17 20:00 98.0 71 18 138/97 97 Room Air 01/10/17 19:23 69 18 Room Air 01/10/17 15:39 98.9 67 20 122/77 98 Room Air 01/10/17 12:00 98.1 76 18 117/64 99 Room Air Height (Feet): 5 Height (Inches): 10.00 Weight (Pounds): 160 Laboratory Tests Test 01/11/17 04:35 White Blood Count 11.5 K/UL (4.8-10.8) H Red Blood Count 2.88 M/UL (4.70-6.10) L Hemoglobin 7.8 G/DL (14.2-18.0) L Hematocrit 26.4 % (42.0-52.0) L Mean Corpuscular Volume 92 FL (80-99) Mean Corpuscular Hemoglobin 27.3 PG (27.0-31.0) Mean Corpuscular Hemoglobin Concent 29.7 G/DL (32.0-36.0) L Red Cell Distribution Width 20.1 % (11.6-14.8) H Platelet Count 682 K/UL (150-450) H Mean Platelet Volume 6.1 FL (6.5-10.1) L Neutrophils (%) (Auto) % (45.0-75.0) Lymphocytes (%) (Auto) % (20.0-45.0) Monocytes (%) (Auto) % (1.0-10.0) Eosinophils (%) (Auto) % (0.0-3.0) Basophils (%) (Auto) % (0.0-2.0) Differential Total Cells Counted 100 Neutrophils % (Manual) 67 % (45-75) Lymphocytes % (Manual) 23 % (20-45) Monocytes % (Manual) 7 % (1-10) Eosinophils % (Manual) 3 % (0-3) Basophils % (Manual) 0 % (0-2) Band Neutrophils 0 % (0-8) Platelet Estimate Increased H Platelet Morphology Normal Polychromasia 1+ Hypochromasia 1+ Anisocytosis 2+ Sodium Level 142 mEQ/L (135-145) Potassium Level 3.9 mEQ/L (3.4-4.9) Chloride Level 107 mEQ/L (98-107) Carbon Dioxide Level 21 mEQ/L (20-30) Anion Gap 14 (5-15) Blood Urea Nitrogen 23 mg/dL (7-23) Creatinine 1.7 mg/dL (0.7-1.2) H Estimat Glomerular Filtration Rate 57.7 mL/min (>60) Glucose Level 87 mg/dL (74-106) Calcium Level 9.0 mg/dL (8.6-10.2) Current Medications Medications (Trade) Dose Ordered Sig/Juliana Route PRN Reason Start Time Stop Time Status Last Admin Dose Admin Acetaminophen (Tylenol) 650 mg Q4H PRN ORAL Mild Pain/Temp > 100.5 12/25/16 10:30 01/24/17 10:29 01/02/17 18:51 Albuterol/ Ipratropium (DuoNeb 0.5-3(2.5)mg/3ml) 3 ml Q4H PRN HHN Shortness of Breath 01/09/17 21:00 01/14/17 20:59 Cefepime HCl/ Dextrose (Maxipime/D5W) 110 ml @ 220 mls/hr Q12HR@0600,1800 IVPB 01/09/17 18:00 01/16/17 17:59 01/11/17 05:11 Docusate Sodium (Colace) 100 mg TWICE A DAY ORAL 12/30/16 09:00 01/29/17 08:59 01/11/17 09:11 Doxycycline Monohydrate 100 mg 100 mg EVERY 12 HOURS ORAL 01/05/17 21:00 01/14/17 20:59 01/11/17 09:12 Epoetin Alex 64040 units 10,000 units SUBQ 12/31/16 21:00 01/30/17 20:59 01/09/17 20:39 Fluoxetine HCl (PROzac) 20 mg DAILY ORAL 12/27/16 09:00 01/26/17 08:59 01/11/17 09:12 Folic Acid (Folate) 2 mg DAILY ORAL 01/02/17 09:00 02/01/17 08:59 01/11/17 09:11 Lactulose (Cephulac) 10 gm TID@0900,1500,2100 ORAL 12/30/16 09:00 01/29/17 08:59 01/10/17 20:49 Levetiracetam (Keppra) 750 mg Q12HR ORAL 12/30/16 21:00 01/29/17 20:59 01/11/17 09:11 Methocarbamol (Robaxin) 500 mg Q8H PRN ORAL muscle spasm 01/02/17 09:00 02/01/17 08:59 Metoclopramide HCl (Reglan) 10 mg Q6H PRN IVP Nausea & Vomiting 12/30/16 12:30 01/29/17 12:29 12/31/16 08:59 Ondansetron HCl (Zofran) 4 mg Q6H PRN IVP Nausea & Vomiting 12/23/16 19:45 01/22/17 19:44 01/01/17 15:52 Pantoprazole (Protonix) 40 mg DAILY ORAL 01/02/17 09:00 02/01/17 08:59 01/11/17 09:11 Polyethylene Glycol (Miralax) 17 gm BEDTIME ORAL 12/30/16 21:00 01/29/17 20:59 01/10/17 20:49 Promethazine HCl/ Codeine (Phenergan with Codeine) 5 ml Q6H PRN ORAL For Cough 01/09/17 21:00 02/08/17 20:59 Sodium Chloride (Sodium Chloride 1000ml bag) 1,000 ml @ 100 mls/hr Q10H IV 01/02/17 07:45 02/01/17 07:44 01/11/17 01:55 Thiamine HCl (Vitamin B1) 100 mg DAILY ORAL 12/24/16 14:30 01/23/17 14:29 01/11/17 09:11 Vitamin D (Vitamin D) 2,000 intlu DAILY ORAL 12/25/16 10:30 01/24/17 10:29 01/11/17 09:11 Imelda Chen M.D. Jan 11, 2017 10:53
--- NOTE | 2017-01-11 11:07 | Pulmonology Progress Note ---
Assessment/Plan Assessment/Plan ASSESSMENT sepsis aspiration PNA pleural effusion hemoptysis toxic metabolic encephalopathy -resolved seizure disorder severe hypo Na -resolved hypotension -resolved ST - 2 to sepsis and severe anemia severe anemia folate deficiency anemia of B 12 deficiency ARF on CKD e/lyte imbalance : hypo Mg, hypo K, hypo Na alcoholic pancreatitis ETOH abuse seizure disorder PLAN OF CARE off airborne isolation [place] floor sputum AFB x 3 negative PPD negative Mycob TB DNA by PCP pending CT chest c/w PNA, but no abscess, no cavitation blood cx negative stool C dif negative sputum cx negative abx ID follows HIV negative O2 HHN prn fup with CXR in am antitussive prn US chest - not enough fluid for tap declined blood transfusion anemia w/up noted on folate replacement s/p B 12 injection, level stable heme follows results of flow cytometry and bone marrow noted RF, ADITYA negative, ANCA pending monitor HH, transfuse to keep Hgb above 7 HH is building up continue EPO neuro follows EEG noted, c/w encephalopathy CT head no acute changes, but demonstrated generalized cerebral atrophy acute toxic metabolic encephalopathy resolving ECHO with pEF 55% Venous Duplex BLE negative BP stabilized ST resolved, 2 to severe anemia and sepsis GI follows continue Thiamine low fat diet lipase down to normal a/emetic prn CT A/P with acute pancreatitis , hepatic steatosis, cholelithiasis ammonia WNL stool OB negative nephro follows IVF creat trending down monitor renal parameters, lytes. correct as needed avoid nephrotoxic renal US negative seizure precautions, continue Keppra pain management PT/OT bowel regimen GI prophylaxis psych follows for mild anxiety case discussed and evaluated by supervising physician Subjective Allergies: Coded Allergies: ACETAMINOPHEN (Verified Allergy, Unknown, 06/11/15) IBUPROFEN (Verified Allergy, Unknown, 06/11/15) Subjective mild leukocytosis this am ,afebrile denies SOB on RA sat stable creat trending down HH with trend up earlier declined blood transfusion, but currently HH is building up off airborne isolation as per ID Objective Last 24 Hour Vital Signs Date Time Temp Pulse Resp B/P Pulse Ox O2 Delivery O2 Flow Rate FiO2 01/11/17 07:47 99.0 76 19 122/87 98 Room Air 01/11/17 07:35 66 18 Room Air 01/11/17 04:00 98.1 66 18 128/86 94 Room Air 01/11/17 00:00 98.6 64 18 131/78 99 Room Air 01/10/17 20:00 98.0 71 18 138/97 97 Room Air 01/10/17 19:23 69 18 Room Air 01/10/17 15:39 98.9 67 20 122/77 98 Room Air 01/10/17 12:00 98.1 76 18 117/64 99 Room Air Intake and Output 01/10/17 01/11/17 19:00 07:00 Intake Total 940 ml 1560 ml Balance 940 ml 1560 ml Intake Oral 720 ml 240 ml IV Total 220 ml 1320 ml # Voids 1 1 Objective General Appearance: no acute distress, other - awake, alert, oriented x 3 male HEENT: normocephalic, atraumatic, anicteric, mucous membranes moist, PERRL Respiratory/Chest: chest wall non-tender, lungs clear, no respiratory distress , no accessory muscle use Cardiovascular: normal rate, regular rhythm, no JVD Abdomen: normal bowel sounds, soft, non tender, non distended Extremities: no edema, pedal pulses normal 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, no motor/sensory deficits, alert, oriented x 3, responsive Musculoskeletal: normal muscle bulk Laboratory Tests 01/11/17 04:35: White Blood Count 11.5H, Red Blood Count 2.88L, Hemoglobin 7.8L, Hematocrit 26.4L, Mean Corpuscular Volume 92, Mean Corpuscular Hemoglobin 27.3, Mean Corpuscular Hemoglobin Concent 29.7L, Red Cell Distribution Width 20.1H, Platelet Count 682H, Mean Platelet Volume 6.1L, Neutrophils (%) (Auto) , Lymphocytes (%) (Auto) , Monocytes (%) (Auto) , Eosinophils (%) (Auto) , Basophils (%) (Auto) , Differential Total Cells Counted 100, Neutrophils % ( Manual) 67, Lymphocytes % (Manual) 23, Monocytes % (Manual) 7, Eosinophils % ( Manual) 3, Basophils % (Manual) 0, Band Neutrophils 0, Platelet Estimate IncreasedH, Platelet Morphology Normal, Polychromasia 1+, Hypochromasia 1+, Anisocytosis 2+, Sodium Level 142, Potassium Level 3.9, Chloride Level 107, Carbon Dioxide Level 21, Anion Gap 14, Blood Urea Nitrogen 23, Creatinine 1.7H, Estimat Glomerular Filtration Rate 57.7, Glucose Level 87, Calcium Level 9.0 Current Medications Medications (Trade) Dose Ordered Sig/Juliana Route PRN Reason Start Time Stop Time Status Last Admin Dose Admin Acetaminophen (Tylenol) 650 mg Q4H PRN ORAL Mild Pain/Temp > 100.5 12/25/16 10:30 01/24/17 10:29 01/02/17 18:51 Albuterol/ Ipratropium (DuoNeb 0.5-3(2.5)mg/3ml) 3 ml Q4H PRN HHN Shortness of Breath 01/09/17 21:00 01/14/17 20:59 Cefepime HCl/ Dextrose (Maxipime/D5W) 110 ml @ 220 mls/hr Q12HR@0600,1800 IVPB 01/09/17 18:00 01/16/17 17:59 01/11/17 05:11 Docusate Sodium (Colace) 100 mg TWICE A DAY ORAL 12/30/16 09:00 01/29/17 08:59 01/11/17 09:11 Doxycycline Monohydrate 100 mg 100 mg EVERY 12 HOURS ORAL 01/05/17 21:00 01/14/17 20:59 01/11/17 09:12 Epoetin Alex 62881 units 10,000 units [id number]-[id number] SUBQ 12/31/16 21:00 01/30/17 20:59 01/09/17 20:39 Fluoxetine HCl (PROzac) 20 mg DAILY ORAL 12/27/16 09:00 01/26/17 08:59 01/11/17 09:12 Folic Acid (Folate) 2 mg DAILY ORAL 01/02/17 09:00 02/01/17 08:59 01/11/17 09:11 Lactulose (Cephulac) 10 gm TID@0900,1500,2100 ORAL 12/30/16 09:00 01/29/17 08:59 01/10/17 20:49 Levetiracetam (Keppra) 750 mg Q12HR ORAL 12/30/16 21:00 01/29/17 20:59 01/11/17 09:11 Methocarbamol (Robaxin) 500 mg Q8H PRN ORAL muscle spasm 01/02/17 09:00 02/01/17 08:59 Metoclopramide HCl (Reglan) 10 mg Q6H PRN IVP Nausea & Vomiting 12/30/16 12:30 01/29/17 12:29 12/31/16 08:59 Ondansetron HCl (Zofran) 4 mg Q6H PRN IVP Nausea & Vomiting 12/23/16 19:45 01/22/17 19:44 01/01/17 15:52 Pantoprazole (Protonix) 40 mg DAILY ORAL 01/02/17 09:00 02/01/17 08:59 01/11/17 09:11 Polyethylene Glycol (Miralax) 17 gm BEDTIME ORAL 12/30/16 21:00 01/29/17 20:59 01/10/17 20:49 Promethazine HCl/ Codeine (Phenergan with Codeine) 5 ml Q6H PRN ORAL For Cough 01/09/17 21:00 02/08/17 20:59 Sodium Chloride (Sodium Chloride 1000ml bag) 1,000 ml @ 100 mls/hr Q10H IV 01/02/17 07:45 02/01/17 07:44 01/11/17 01:55 Thiamine HCl (Vitamin B1) 100 mg DAILY ORAL 12/24/16 14:30 01/23/17 14:29 01/11/17 09:11 Vitamin D (Vitamin D) 2,000 intlu DAILY ORAL 12/25/16 10:30 01/24/17 10:29 01/11/17 09:11 Baljit FranciscoC[facility] HospitalBernice Murphy NP Jan 11, 2017 11:07
[2017-01-11 11:28] VITALS: BP 132/80
--- NOTE | 2017-01-11 11:39 | General Progress Note ---
Assessment/Plan Status: stable Status Narrative Cr 1.7 Hgb stable mid 7s Assessment/Plan status: Acute renal failure Hemoptysis , Pneumonia , r/o TB Sepsis On Admission: Renal failure , Acute vs Chronic improving h/o Sz Acute Encephalopathy h/o Low K h/o Low Na Low B12 and folate Elevated Lipase , acute pancreatitis waiting TB clearance sever anemia Plan; per consultants monitor renal parameters Hydrate- antibiotics down on folate dose ST PT OT eval Monitor lytes- monitor renal parameters Subjective ROS Limited/Unobtainable: No Constitutional: Reports: malaise Allergies: Coded Allergies: ACETAMINOPHEN (Verified Allergy, Unknown, 06/11/15) IBUPROFEN (Verified Allergy, Unknown, 06/11/15) Objective Last 24 Hour Vital Signs Date Time Temp Pulse Resp B/P Pulse Ox O2 Delivery O2 Flow Rate FiO2 01/11/17 11:28 98.2 71 19 132/80 97 Room Air 01/11/17 07:47 99.0 76 19 122/87 98 Room Air 01/11/17 07:35 66 18 Room Air 01/11/17 04:00 98.1 66 18 128/86 94 Room Air 01/11/17 00:00 98.6 64 18 131/78 99 Room Air 01/10/17 20:00 98.0 71 18 138/97 97 Room Air 01/10/17 19:23 69 18 Room Air 01/10/17 15:39 98.9 67 20 122/77 98 Room Air 01/10/17 12:00 98.1 76 18 117/64 99 Room Air Intake and Output 01/10/17 01/11/17 19:00 07:00 Intake Total 940 ml 1560 ml Balance 940 ml 1560 ml Intake Oral 720 ml 240 ml IV Total 220 ml 1320 ml # Voids 1 1 Laboratory Tests 01/11/17 04:35: White Blood Count 11.5H, Red Blood Count 2.88L, Hemoglobin 7.8L, Hematocrit 26.4L, Mean Corpuscular Volume 92, Mean Corpuscular Hemoglobin 27.3, Mean Corpuscular Hemoglobin Concent 29.7L, Red Cell Distribution Width 20.1H, Platelet Count 682H, Mean Platelet Volume 6.1L, Neutrophils (%) (Auto) , Lymphocytes (%) (Auto) , Monocytes (%) (Auto) , Eosinophils (%) (Auto) , Basophils (%) (Auto) , Differential Total Cells Counted 100, Neutrophils % ( Manual) 67, Lymphocytes % (Manual) 23, Monocytes % (Manual) 7, Eosinophils % ( Manual) 3, Basophils % (Manual) 0, Band Neutrophils 0, Platelet Estimate IncreasedH, Platelet Morphology Normal, Polychromasia 1+, Hypochromasia 1+, Anisocytosis 2+, Sodium Level 142, Potassium Level 3.9, Chloride Level 107, Carbon Dioxide Level 21, Anion Gap 14, Blood Urea Nitrogen 23, Creatinine 1.7H, Estimat Glomerular Filtration Rate 57.7, Glucose Level 87, Calcium Level 9.0 Height (Feet): 5 Height (Inches): 10.00 Weight (Pounds): 160 General Appearance: no apparent distress Objective other PE not changed VELASQUEZ DASILVA Jan 11, 2017 11:39
--- NOTE | 2017-01-11 13:34 | General Progress Note ---
Assessment/Plan Assessment/Plan (1) Alerted mental status (2) Alcohol abuse (3) Intractable abdominal pain (4) Pancreatitis Pt will be continued on Robaxin. D/w Dr. waters and he concurred. Subjective Date patient seen: Jan 11, 2017 Time patient seen: 12:30 - pm Allergies: Coded Allergies: ACETAMINOPHEN (Verified Allergy, Unknown, 06/11/15) IBUPROFEN (Verified Allergy, Unknown, 06/11/15) Subjective Constitutional: Reports: weakness Eye: Reports: no symptoms ENT: Reports: no symptoms Respiratory: Reports: no symptoms Cardiovascular: Reports: no symptoms Gastrointestinal: Reports: abdominal pain, nausea Genitourinary: Reports: no symptoms Musculoskeletal: Reports: no symptoms Skin: Reports: no symptoms Psychiatric: Reports: anxiety, depressed feelings Neurological: Reports: numbness Endocrine: Reports: no symptoms Hematologic/Lymphatic: Reports: anemia SUBJECTIVE: He is not c/o pain at this time. Tramadol has been stopped last given on January 07 Objective Last 24 Hour Vital Signs Date Time Temp Pulse Resp B/P Pulse Ox O2 Delivery O2 Flow Rate FiO2 01/11/17 11:28 98.2 71 19 132/80 97 Room Air 01/11/17 07:47 99.0 76 19 122/87 98 Room Air 01/11/17 07:35 66 18 Room Air 01/11/17 04:00 98.1 66 18 128/86 94 Room Air 01/11/17 00:00 98.6 64 18 131/78 99 Room Air 01/10/17 20:00 98.0 71 18 138/97 97 Room Air 01/10/17 19:23 69 18 Room Air 01/10/17 15:39 98.9 67 20 122/77 98 Room Air Intake and Output 01/10/17 01/11/17 19:00 07:00 Intake Total 940 ml 1560 ml Balance 940 ml 1560 ml Intake Oral 720 ml 240 ml IV Total 220 ml 1320 ml # Voids 1 1 Laboratory Tests 01/11/17 04:35: White Blood Count 11.5H, Red Blood Count 2.88L, Hemoglobin 7.8L, Hematocrit 26.4L, Mean Corpuscular Volume 92, Mean Corpuscular Hemoglobin 27.3, Mean Corpuscular Hemoglobin Concent 29.7L, Red Cell Distribution Width 20.1H, Platelet Count 682H, Mean Platelet Volume 6.1L, Neutrophils (%) (Auto) , Lymphocytes (%) (Auto) , Monocytes (%) (Auto) , Eosinophils (%) (Auto) , Basophils (%) (Auto) , Differential Total Cells Counted 100, Neutrophils % ( Manual) 67, Lymphocytes % (Manual) 23, Monocytes % (Manual) 7, Eosinophils % ( Manual) 3, Basophils % (Manual) 0, Band Neutrophils 0, Platelet Estimate IncreasedH, Platelet Morphology Normal, Polychromasia 1+, Hypochromasia 1+, Anisocytosis 2+, Sodium Level 142, Potassium Level 3.9, Chloride Level 107, Carbon Dioxide Level 21, Anion Gap 14, Blood Urea Nitrogen 23, Creatinine 1.7H, Estimat Glomerular Filtration Rate 57.7, Glucose Level 87, Calcium Level 9.0 Height (Feet): 5 Height (Inches): 10.00 Weight (Pounds): 160 Objective General Appearance: no apparent distress, alert HEENT: PERRL Neck: non-tender, supple Respiratory/Chest: lungs clear, normal breath sounds Cardiovascular/Chest: normal rate, regular rhythm Abdomen: tender Extremities: non-tender Skin Exam: warm/dry Neurologic: alert, oriented x 3 SADIQ HERNANDEZ Jan 11, 2017 13:34
[2017-01-11 15:38] VITALS: BP 126/87
--- NOTE | 2017-01-11 16:16 | Cardiac Electrophysiology PN ---
Assessment/Plan Status Narrative CT Brain Impression: Cerebral volume loss, out of proportion to patient's age. Correlate with clinical history Negative for acute intrarenal bleed or mass effect Assessment/Plan 1. Hypotension. Resolved. EF 55% and no pericardial effusion. 2. Sinus tachycardia. Due to severe anemia and sepsis with WBC 18k. Better now 3. Severe Anemia. Hb 6.5 secondary to severe folic acid deficiency. Refused blood transfusion. Bone marrow biopsy done 01/06/17. Hb slightly better. 4. Severe hyponatremia, resolved. 5. CKD cr 2.[address] Rosario. 6. Toxic metabolic encephalopathy. CT of the brain done on 12/24/16 reveals generalized cerebral atrophy. 7. Psychiatric illness and seizure disorder 8. Sepsis with WBC 18k. Better to 11.4 DW RN at bedside Subjective Subjective Alert in NAD.No CP or SOB. Off isolation. Objective Last 24 Hour Vital Signs Date Time Temp Pulse Resp B/P Pulse Ox O2 Delivery O2 Flow Rate FiO2 01/11/17 15:38 98.2 75 20 126/87 96 Room Air 01/11/17 11:28 98.2 71 19 132/80 97 Room Air 01/11/17 07:47 99.0 76 19 122/87 98 Room Air 01/11/17 07:35 66 18 Room Air 01/11/17 04:00 98.1 66 18 128/86 94 Room Air 01/11/17 00:00 98.6 64 18 131/78 99 Room Air 01/10/17 20:00 98.0 71 18 138/97 97 Room Air 01/10/17 19:23 69 18 Room Air Intake and Output 01/10/17 01/11/17 19:00 07:00 Intake Total 940 ml 1560 ml Balance 940 ml 1560 ml Intake Oral 720 ml 240 ml IV Total 220 ml 1320 ml # Voids 1 1 Laboratory Tests Test 01/11/17 04:35 White Blood Count 11.5 K/UL (4.8-10.8) H Red Blood Count 2.88 M/UL (4.70-6.10) L Hemoglobin 7.8 G/DL (14.2-18.0) L Hematocrit 26.4 % (42.0-52.0) L Mean Corpuscular Volume 92 FL (80-99) Mean Corpuscular Hemoglobin 27.3 PG (27.0-31.0) Mean Corpuscular Hemoglobin Concent 29.7 G/DL (32.0-36.0) L Red Cell Distribution Width 20.1 % (11.6-14.8) H Platelet Count 682 K/UL (150-450) H Mean Platelet Volume 6.1 FL (6.5-10.1) L Neutrophils (%) (Auto) % (45.0-75.0) Lymphocytes (%) (Auto) % (20.0-45.0) Monocytes (%) (Auto) % (1.0-10.0) Eosinophils (%) (Auto) % (0.0-3.0) Basophils (%) (Auto) % (0.0-2.0) Differential Total Cells Counted 100 Neutrophils % (Manual) 67 % (45-75) Lymphocytes % (Manual) 23 % (20-45) Monocytes % (Manual) 7 % (1-10) Eosinophils % (Manual) 3 % (0-3) Basophils % (Manual) 0 % (0-2) Band Neutrophils 0 % (0-8) Platelet Estimate Increased H Platelet Morphology Normal Polychromasia 1+ Hypochromasia 1+ Anisocytosis 2+ Sodium Level 142 mEQ/L (135-145) Potassium Level 3.9 mEQ/L (3.4-4.9) Chloride Level 107 mEQ/L (98-107) Carbon Dioxide Level 21 mEQ/L (20-30) Anion Gap 14 (5-15) Blood Urea Nitrogen 23 mg/dL (7-23) Creatinine 1.7 mg/dL (0.7-1.2) H Estimat Glomerular Filtration Rate 57.7 mL/min (>60) Glucose Level 87 mg/dL (74-106) Calcium Level 9.0 mg/dL (8.6-10.2) Objective NECK: No JVD. LUNGS: Coarse rhonchi CARDIOVASCULAR: S1 and S2 with no gallop or murmur. ABDOMEN: Soft. EXTREMITIES: No pitting edema. ROGERS DEAN Jan 11, 2017 16:16
[2017-01-11 20:00] VITALS: BP 134/73
--- NOTE | 2017-01-11 20:11 | General Progress Note ---
Assessment/Plan Problem List: (1) Altered mental status ICD Codes: R41.82 - Altered mental status, unspecified SNOMED: 842849081 Qualifiers: Qualified Codes: R41.82 - Altered mental status, unspecified (2) Pancreatitis ICD Codes: K85.90 - Acute pancreatitis without necrosis or infection, unspecified SNOMED: 41321846 Qualifiers: Qualified Codes: K85.90 - Acute pancreatitis without necrosis or infection, unspecified (3) Sepsis ICD Codes: A41.9 - Sepsis, unspecified organism SNOMED: 10390799 (4) Anemia ICD Codes: D64.9 - Anemia, unspecified SNOMED: 338121389 Status: progressing Assessment/Plan sepsis azotemia afebrile vitals stable confused uti substance abuse not improving Subjective ROS Limited/Unobtainable: Yes Allergies: Coded Allergies: ACETAMINOPHEN (Verified Allergy, Unknown, 06/11/15) IBUPROFEN (Verified Allergy, Unknown, 06/11/15) Objective Last 24 Hour Vital Signs Date Time Temp Pulse Resp B/P Pulse Ox O2 Delivery O2 Flow Rate FiO2 01/11/17 19:30 70 20 Room Air 21 01/11/17 15:38 98.2 75 20 126/87 96 Room Air 01/11/17 11:28 98.2 71 19 132/80 97 Room Air 01/11/17 07:47 99.0 76 19 122/87 98 Room Air 01/11/17 07:35 66 18 Room Air 01/11/17 04:00 98.1 66 18 128/86 94 Room Air 01/11/17 00:00 98.6 64 18 131/78 99 Room Air Intake and Output 01/10/17 01/11/17 19:00 07:00 Intake Total 940 ml 1560 ml Balance 940 ml 1560 ml Intake Oral 720 ml 240 ml IV Total 220 ml 1320 ml # Voids 1 1 Laboratory Tests 01/11/17 04:35: White Blood Count 11.5H, Red Blood Count 2.88L, Hemoglobin 7.8L, Hematocrit 26.4L, Mean Corpuscular Volume 92, Mean Corpuscular Hemoglobin 27.3, Mean Corpuscular Hemoglobin Concent 29.7L, Red Cell Distribution Width 20.1H, Platelet Count 682H, Mean Platelet Volume 6.1L, Neutrophils (%) (Auto) , Lymphocytes (%) (Auto) , Monocytes (%) (Auto) , Eosinophils (%) (Auto) , Basophils (%) (Auto) , Differential Total Cells Counted 100, Neutrophils % ( Manual) 67, Lymphocytes % (Manual) 23, Monocytes % (Manual) 7, Eosinophils % ( Manual) 3, Basophils % (Manual) 0, Band Neutrophils 0, Platelet Estimate IncreasedH, Platelet Morphology Normal, Polychromasia 1+, Hypochromasia 1+, Anisocytosis 2+, Sodium Level 142, Potassium Level 3.9, Chloride Level 107, Carbon Dioxide Level 21, Anion Gap 14, Blood Urea Nitrogen 23, Creatinine 1.7H, Estimat Glomerular Filtration Rate 57.7, Glucose Level 87, Calcium Level 9.0 Height (Feet): 5 Height (Inches): 10.00 Weight (Pounds): 160 General Appearance: confused Neck: supple Cardiovascular: normal rate Respiratory/Chest: lungs clear Robbi Vega MD Jan 11, 2017 20:11
[2017-01-11] MEDS: Miralax 17gm pkt ORAL SCH (21:00)
[2017-01-12] VITALS: BP 147/94
[2017-01-12 04:00] VITALS: BP 143/92
[2017-01-12] MEDS: Cefepime 2gm in D5W 110ml IVPB SCH ×2 (05:09→18:05)
[2017-01-12 06:57] LABS: MEAN CORPUSCULAR HEMOGLOBIN 27.5 PG (27.0-31.0); MEAN CORPUSCULAR VOLUME 91 FL (80-99); MEAN PLATELET VOLUME 6.4 FL (6.5-10.1); PLATELET COUNT 619 K/UL (150-450); RED BLOOD COUNT 2.89 M/UL (4.70-6.10); RED CELL DISTRIBUTION WIDTH 19.8 % (11.6-14.8); WHITE BLOOD COUNT 10.8 K/UL (4.8-10.8)
[2017-01-12 07:06] LABS: ANION GAP 14 (5-15); CARBON DIOXIDE 22 mEQ/L (20-30); CHLORIDE 105 mEQ/L (98-107); CREATININE 1.5 mg/dL (0.7-1.2); GLOMERULAR FILTRATION RATE > 60 mL/min (>60); HEMOLYSIS 0; POTASSIUM 3.9 mEQ/L (3.4-4.9); SODIUM 141 mEQ/L (135-145)
[2017-01-12 07:45] LABS: ANISOCYTOSIS 1+; BAND NEUTROPHILS % (MANUAL) 0 % (0-8); BASOPHILS % (MANUAL) 0 % (0-2); EOSINOPHILS % (MANUAL) 0 % (0-3); HYPOCHROMASIA 1+; LYMPHOCYTES % (MANUAL) 30 % (20-45); NEUTROPHILS % (MANUAL) 65 % (45-75); PLATELET ESTIMATE INCREASED; PLATELET MORPHOLOGY NORMAL; TOTAL CELLS COUNTED 100
[2017-01-12 08:00] VITALS: BP 123/84
--- NOTE | 2017-01-12 08:40 | Diagnostic Imaging Report ---
Indication: Shortness of breath Technique: XRAY CHEST 1 V Comparison: 01/04/17 Findings: Cardiomediastinal silhouette is stable. Bibasilar pleural effusions are again seen, right greater than left. Atelectasis versus infiltrates in the lung bases are again present, right greater than left. Osseous structures are stable. Impression: Stable bibasilar pleural effusions and atelectasis/infiltrates, right greater than left.
[2017-01-12] MEDS: Docusate 100mg cap ORAL SCH ×2 (08:54→18:05)
[2017-01-12] MEDS: Thiamine 100mg tab ORAL SCH (08:55)
[2017-01-12] MEDS: Vitamin D 1000 IU Tab ORAL SCH (08:56)
[2017-01-12] MEDS: Lactulose 10gm/15ml UDC ORAL SCH ×3 (09:00→20:48)
--- NOTE | 2017-01-12 10:17 | General Progress Note ---
Assessment/Plan Status: stable Status Narrative Cr lower Assessment/Plan status: Acute renal failure Hemoptysis , Pneumonia , r/o TB Sepsis On Admission: Renal failure , Acute vs Chronic improving h/o Sz Acute Encephalopathy h/o Low K h/o Low Na Low B12 and folate Elevated Lipase , acute pancreatitis waiting TB clearance sever anemia Plan; per consultants monitor renal parameters Hydrate- antibiotics down on folate dose ST PT OT eval Monitor lytes- monitor renal parameters Subjective ROS Limited/Unobtainable: No Constitutional: Reports: malaise Allergies: Coded Allergies: ACETAMINOPHEN (Verified Allergy, Unknown, 06/11/15) IBUPROFEN (Verified Allergy, Unknown, 06/11/15) Objective Last 24 Hour Vital Signs Date Time Temp Pulse Resp B/P Pulse Ox O2 Delivery O2 Flow Rate FiO2 01/12/17 08:00 96.6 71 18 123/84 99 Room Air 01/12/17 07:50 75 18 Room Air 21 01/12/17 04:00 98.1 75 20 143/92 99 Room Air 01/12/17 00:00 98.6 79 20 147/94 99 Room Air 01/11/17 20:00 98.1 73 20 134/73 98 Room Air 01/11/17 19:30 70 20 Room Air 21 01/11/17 15:38 98.2 75 20 126/87 96 Room Air 01/11/17 11:28 98.2 71 19 132/80 97 Room Air Intake and Output 01/11/17 01/12/17 19:00 07:00 Intake Total 1170 ml 1560 ml Balance 1170 ml 1560 ml Intake Oral 560 ml 400 ml IV Total 610 ml 1160 ml # Voids 3 2 # Bowel Movements 1 4 Laboratory Tests 01/12/17 04:35: White Blood Count 10.8, Red Blood Count 2.89L, Hemoglobin 7.9L, Hematocrit 26.4L , Mean Corpuscular Volume 91, Mean Corpuscular Hemoglobin 27.5, Mean Corpuscular Hemoglobin Concent 30.0L, Red Cell Distribution Width 19.8H, Platelet Count 619H, Mean Platelet Volume 6.4L, Neutrophils (%) (Auto) , Lymphocytes (%) (Auto) , Monocytes (%) (Auto) , Eosinophils (%) (Auto) , Basophils (%) (Auto) , Differential Total Cells Counted 100, Neutrophils % ( Manual) 65, Lymphocytes % (Manual) 30, Monocytes % (Manual) 5, Eosinophils % ( Manual) 0, Basophils % (Manual) 0, Band Neutrophils 0, Platelet Estimate IncreasedH, Platelet Morphology Normal, Hypochromasia 1+, Anisocytosis 1+, Sodium Level 141, Potassium Level 3.9, Chloride Level 105, Carbon Dioxide Level 22, Anion Gap 14, Blood Urea Nitrogen 22, Creatinine 1.5H, Estimat Glomerular Filtration Rate > 60, Glucose Level 89, Calcium Level 9.0 Height (Feet): 5 Height (Inches): 10.00 Weight (Pounds): 160 General Appearance: no apparent distress Objective other PE not changed VELASQUEZ DASILVA Jan 12, 2017 10:17
[2017-01-12 12:00] VITALS: BP 127/80
--- NOTE | 2017-01-12 12:52 | Diagnostic Imaging Report ---
Indication: Dyspnea Comparison: 01/10/17 A single view chest radiograph was obtained. Findings: Mild bilateral subsegmental atelectasis demonstrated at the lung bases. This appears improved compared to the previous study. Heart size remains normal. Impression: Mild platelike atelectasis at the lung bases improved from the previous study
--- NOTE | 2017-01-12 14:00 | GI Progress Note ---
Assessment/Plan Problems: (1) Pancreatitis ICD Codes: K85.90 - Acute pancreatitis without necrosis or infection, unspecified SNOMED: 49799920 Qualifiers: Qualified Codes: K85.90 - Acute pancreatitis without necrosis or infection, unspecified (2) Altered mental status ICD Codes: R41.82 - Altered mental status, unspecified SNOMED: 552830797 Qualifiers: Qualified Codes: R41.82 - Altered mental status, unspecified (3) Acute alcoholic intoxication ICD Codes: F10.929 - Alcohol use, unspecified with intoxication, unspecified SNOMED: 62764088 (4) Anemia ICD Codes: D64.9 - Anemia, unspecified SNOMED: 470732033 Status: unchanged Status Narrative Discussed with Dr. Friend. Assessment/Plan APCT reviewed >> Acute pancreatitis. Right/transverse colonic ileus. Hepatic steatosis. Cholelithiasis. ammonia WNL OB stool r/o GI bleed >> negative low B12/folate monitor H&H, transfuse prn >> low Hgb under 7.0 >> pt refusing transfusions fu bone bx low fat diet zofran prn H2B abx fu labs Subjective Subjective sleepy Objective Last 24 Hour Vital Signs Date Time Temp Pulse Resp B/P Pulse Ox O2 Delivery O2 Flow Rate FiO2 01/12/17 12:00 97.0 70 20 127/80 99 Room Air 01/12/17 08:00 96.6 71 18 123/84 99 Room Air 01/12/17 07:50 75 18 Room Air 21 01/12/17 04:00 98.1 75 20 143/92 99 Room Air 01/12/17 00:00 98.6 79 20 147/94 99 Room Air 01/11/17 20:00 98.1 73 20 134/73 98 Room Air 01/11/17 19:30 70 20 Room Air 21 01/11/17 15:38 98.2 75 20 126/87 96 Room Air Intake and Output 01/11/17 01/12/17 19:00 07:00 Intake Total 1170 ml 1560 ml Balance 1170 ml 1560 ml Intake Oral 560 ml 400 ml IV Total 610 ml 1160 ml # Voids 3 2 # Bowel Movements 1 4 Laboratory Tests Test 01/12/17 04:35 White Blood Count 10.8 K/UL (4.8-10.8) Red Blood Count 2.89 M/UL (4.70-6.10) L Hemoglobin 7.9 G/DL (14.2-18.0) L Hematocrit 26.4 % (42.0-52.0) L Mean Corpuscular Volume 91 FL (80-99) Mean Corpuscular Hemoglobin 27.5 PG (27.0-31.0) Mean Corpuscular Hemoglobin Concent 30.0 G/DL (32.0-36.0) L Red Cell Distribution Width 19.8 % (11.6-14.8) H Platelet Count 619 K/UL (150-450) H Mean Platelet Volume 6.4 FL (6.5-10.1) L Neutrophils (%) (Auto) % (45.0-75.0) Lymphocytes (%) (Auto) % (20.0-45.0) Monocytes (%) (Auto) % (1.0-10.0) Eosinophils (%) (Auto) % (0.0-3.0) Basophils (%) (Auto) % (0.0-2.0) Differential Total Cells Counted 100 Neutrophils % (Manual) 65 % (45-75) Lymphocytes % (Manual) 30 % (20-45) Monocytes % (Manual) 5 % (1-10) Eosinophils % (Manual) 0 % (0-3) Basophils % (Manual) 0 % (0-2) Band Neutrophils 0 % (0-8) Platelet Estimate Increased H Platelet Morphology Normal Hypochromasia 1+ Anisocytosis 1+ Sodium Level 141 mEQ/L (135-145) Potassium Level 3.9 mEQ/L (3.4-4.9) Chloride Level 105 mEQ/L (98-107) Carbon Dioxide Level 22 mEQ/L (20-30) Anion Gap 14 (5-15) Blood Urea Nitrogen 22 mg/dL (7-23) Creatinine 1.5 mg/dL (0.7-1.2) H Estimat Glomerular Filtration Rate > 60 mL/min (>60) Glucose Level 89 mg/dL (74-106) Calcium Level 9.0 mg/dL (8.6-10.2) Height (Feet): 5 Height (Inches): 10.00 Weight (Pounds): 160 General Appearance: no apparent distress, alert, thin Cardiovascular: normal rate Respiratory/Chest: normal breath sounds, no respiratory distress Abdominal Exam: normal bowel sounds, non tender, soft Extremities: normal range of motion Rosa Mancia N.P. Jan 12, 2017 14:00
--- NOTE | 2017-01-12 14:03 | General Progress Note ---
Assessment/Plan Status: doing well, stable, progressing Assessment/Plan Substance abuse, mdd anxiety cont current meds Subjective Constitutional: Reports: malaise, weakness Allergies: Coded Allergies: ACETAMINOPHEN (Verified Allergy, Unknown, 06/11/15) IBUPROFEN (Verified Allergy, Unknown, 06/11/15) Subjective patient was alert and oriented times self, time situation and place. Mood was depressed and withdrawn. Affect was constricted. Congruent with mood. Thought process, tangential. Thought content, no suicidal or homicidal ideation. Cognition is impaired. He was eating during the eval. Objective Last 24 Hour Vital Signs Date Time Temp Pulse Resp B/P Pulse Ox O2 Delivery O2 Flow Rate FiO2 01/12/17 12:00 97.0 70 20 127/80 99 Room Air 01/12/17 08:00 96.6 71 18 123/84 99 Room Air 01/12/17 07:50 75 18 Room Air 21 01/12/17 04:00 98.1 75 20 143/92 99 Room Air 01/12/17 00:00 98.6 79 20 147/94 99 Room Air 01/11/17 20:00 98.1 73 20 134/73 98 Room Air 01/11/17 19:30 70 20 Room Air 21 01/11/17 15:38 98.2 75 20 126/87 96 Room Air Intake and Output 01/11/17 01/12/17 19:00 07:00 Intake Total 1170 ml 1560 ml Balance 1170 ml 1560 ml Intake Oral 560 ml 400 ml IV Total 610 ml 1160 ml # Voids 3 2 # Bowel Movements 1 4 Laboratory Tests 01/12/17 04:35: White Blood Count 10.8, Red Blood Count 2.89L, Hemoglobin 7.9L, Hematocrit 26.4L , Mean Corpuscular Volume 91, Mean Corpuscular Hemoglobin 27.5, Mean Corpuscular Hemoglobin Concent 30.0L, Red Cell Distribution Width 19.8H, Platelet Count 619H, Mean Platelet Volume 6.4L, Neutrophils (%) (Auto) , Lymphocytes (%) (Auto) , Monocytes (%) (Auto) , Eosinophils (%) (Auto) , Basophils (%) (Auto) , Differential Total Cells Counted 100, Neutrophils % ( Manual) 65, Lymphocytes % (Manual) 30, Monocytes % (Manual) 5, Eosinophils % ( Manual) 0, Basophils % (Manual) 0, Band Neutrophils 0, Platelet Estimate IncreasedH, Platelet Morphology Normal, Hypochromasia 1+, Anisocytosis 1+, Sodium Level 141, Potassium Level 3.9, Chloride Level 105, Carbon Dioxide Level 22, Anion Gap 14, Blood Urea Nitrogen 22, Creatinine 1.5H, Estimat Glomerular Filtration Rate > 60, Glucose Level 89, Calcium Level 9.0 Height (Feet): 5 Height (Inches): 10.00 Weight (Pounds): 160 General Appearance: no apparent distress, thin Neurologic: alert, oriented x 3, responsive, depressed affect Mary Beth Ramos M.D. Jan 12, 2017 14:03
--- NOTE | 2017-01-12 15:03 | General Progress Note ---
Assessment/Plan Assessment/Plan # Anemia secondary to severe folic acid deficiency, currently on folic acid --- > peripheral smear shows normocytic normochromic anemia, mild thrombocytopenia, neutrophilic granulocytosis, no blasts seen. Bone marrow biopsy reviewed and shows normal findings, 45% cellularity, normal trilineage hematopoiesis, no blasts, no monotypic B-or T-cell abnormalities. ---> continues to refuse blood transfusion after multiple discussions (most recent was on 01/04/17, does not want blood even though hgb <7) he understands risks of increased morbidity and mortality ---> hgb goal again >7, monitor ---> currently h/h uptrending # Shortness of breath ---> Had cxr, showed stable bibasilar pleural effusions and atelectasis/ infiltrates, right greater than left ---> see pulm recs # Leukocytosis secondary to underlying inflammatory reaction versus infection --> better # Pancreatitis has being followed by gi and id, pain has improved ---> on prn zofran and pepcid as needed # Lactic acidosis with decreased blood pressure. improved # Anemia secondary to hemodilution. # Thrombocytopenia, likely secondary to hemodilution versus infection. # Hypokalemia, resolved. # Anemia secondary to B12 deficiency, given B12 injections. # History of seizures, on Dilantin. # History of alcohol intoxication leading to pancreatitis. # Altered mental status. Seen by Neurology Subjective Date patient seen: Jan 11, 2017 Constitutional: Reports: no symptoms HEENT: Reports: no symptoms Cardiovascular: Reports: no symptoms Respiratory: Reports: no symptoms Gastrointestinal/Abdominal: Reports: no symptoms Genitourinary: Reports: no symptoms Neurologic/Psychiatric: Reports: no symptoms Endocrine: Reports: no symptoms Hematologic/Lymphatic: Reports: anemia Allergies: Coded Allergies: ACETAMINOPHEN (Verified Allergy, Unknown, 06/11/15) IBUPROFEN (Verified Allergy, Unknown, 06/11/15) Subjective continues to be severely anemic Objective Last 24 Hour Vital Signs Date Time Temp Pulse Resp B/P Pulse Ox O2 Delivery O2 Flow Rate FiO2 01/12/17 12:00 97.0 70 20 127/80 99 Room Air 01/12/17 08:00 96.6 71 18 123/84 99 Room Air 01/12/17 07:50 75 18 Room Air 21 01/12/17 04:00 98.1 75 20 143/92 99 Room Air 01/12/17 00:00 98.6 79 20 147/94 99 Room Air 01/11/17 20:00 98.1 73 20 134/73 98 Room Air 01/11/17 19:30 70 20 Room Air 21 01/11/17 15:38 98.2 75 20 126/87 96 Room Air Intake and Output 01/11/17 01/12/17 19:00 07:00 Intake Total 1170 ml 1560 ml Balance 1170 ml 1560 ml Intake Oral 560 ml 400 ml IV Total 610 ml 1160 ml # Voids 3 2 # Bowel Movements 1 4 Laboratory Tests 01/12/17 04:35: White Blood Count 10.8, Red Blood Count 2.89L, Hemoglobin 7.9L, Hematocrit 26.4L , Mean Corpuscular Volume 91, Mean Corpuscular Hemoglobin 27.5, Mean Corpuscular Hemoglobin Concent 30.0L, Red Cell Distribution Width 19.8H, Platelet Count 619H, Mean Platelet Volume 6.4L, Neutrophils (%) (Auto) , Lymphocytes (%) (Auto) , Monocytes (%) (Auto) , Eosinophils (%) (Auto) , Basophils (%) (Auto) , Differential Total Cells Counted 100, Neutrophils % ( Manual) 65, Lymphocytes % (Manual) 30, Monocytes % (Manual) 5, Eosinophils % ( Manual) 0, Basophils % (Manual) 0, Band Neutrophils 0, Platelet Estimate IncreasedH, Platelet Morphology Normal, Hypochromasia 1+, Anisocytosis 1+, Sodium Level 141, Potassium Level 3.9, Chloride Level 105, Carbon Dioxide Level 22, Anion Gap 14, Blood Urea Nitrogen 22, Creatinine 1.5H, Estimat Glomerular Filtration Rate > 60, Glucose Level 89, Calcium Level 9.0 Height (Feet): 5 Height (Inches): 10.00 Weight (Pounds): 160 General Appearance: no apparent distress EENT: normal ENT inspection Neck: normal alignment Cardiovascular: regular rhythm Respiratory/Chest: normal breath sounds Extremities: normal inspection Neurologic: cushion filler II-XII grossly normal Skin: warm/dry Kapil Haney Jan 12, 2017 15:03
--- NOTE | 2017-01-12 15:08 | General Progress Note ---
Assessment/Plan Assessment/Plan # Anemia secondary to severe folic acid deficiency, currently on folic acid --- > peripheral smear shows normocytic normochromic anemia, mild thrombocytopenia, neutrophilic granulocytosis, no blasts seen. Bone marrow biopsy reviewed and shows normal findings, 45% cellularity, normal trilineage hematopoiesis, no blasts, no monotypic B-or T-cell abnormalities. ---> continues to refuse blood transfusion after multiple discussions (most recent was on 01/04/17, does not want blood even though hgb <7) he understands risks of increased morbidity and mortality ---> hgb goal again >7, monitor ---> currently h/h slowly uptrending ---> followup as a outpatiwnt with cbc # Shortness of breath ---> Had cxr, showed stable bibasilar pleural effusions and atelectasis/ infiltrates, right greater than left ---> see pulm recs # Leukocytosis secondary to underlying inflammatory reaction versus infection --> better # Pancreatitis has being followed by gi and id, pain has improved ---> on prn zofran and pepcid as needed # Lactic acidosis with decreased blood pressure. improved # Anemia secondary to hemodilution. # Thrombocytopenia, likely secondary to hemodilution versus infection. --> continue to monitor # Hypokalemia, resolved. # Anemia secondary to B12 deficiency, given B12 injections. # History of seizures, on Dilantin. # History of alcohol intoxication leading to pancreatitis. # Altered mental status. Seen by Neurology Subjective Constitutional: Reports: no symptoms HEENT: Reports: no symptoms Cardiovascular: Reports: no symptoms Respiratory: Reports: no symptoms Gastrointestinal/Abdominal: Reports: no symptoms Genitourinary: Reports: no symptoms Neurologic/Psychiatric: Reports: no symptoms Endocrine: Reports: no symptoms Hematologic/Lymphatic: Reports: anemia Allergies: Coded Allergies: ACETAMINOPHEN (Verified Allergy, Unknown, 06/11/15) IBUPROFEN (Verified Allergy, Unknown, 06/11/15) Subjective continues to be severely anemic, refusing blood Objective Last 24 Hour Vital Signs Date Time Temp Pulse Resp B/P Pulse Ox O2 Delivery O2 Flow Rate FiO2 01/12/17 12:00 97.0 70 20 127/80 99 Room Air 01/12/17 08:00 96.6 71 18 123/84 99 Room Air 01/12/17 07:50 75 18 Room Air 21 7/17/17 04:00 98.1 75 20 143/92 99 Room Air 01/12/17 00:00 98.6 79 20 147/94 99 Room Air 01/11/17 20:00 98.1 73 20 134/73 98 Room Air 01/11/17 19:30 70 20 Room Air 21 01/11/17 15:38 98.2 75 20 126/87 96 Room Air Intake and Output 01/11/17 01/12/17 19:00 07:00 Intake Total 1170 ml 1560 ml Balance 1170 ml 1560 ml Intake Oral 560 ml 400 ml IV Total 610 ml 1160 ml # Voids 3 2 # Bowel Movements 1 4 Laboratory Tests 01/12/17 04:35: White Blood Count 10.8, Red Blood Count 2.89L, Hemoglobin 7.9L, Hematocrit 26.4L , Mean Corpuscular Volume 91, Mean Corpuscular Hemoglobin 27.5, Mean Corpuscular Hemoglobin Concent 30.0L, Red Cell Distribution Width 19.8H, Platelet Count 619H, Mean Platelet Volume 6.4L, Neutrophils (%) (Auto) , Lymphocytes (%) (Auto) , Monocytes (%) (Auto) , Eosinophils (%) (Auto) , Basophils (%) (Auto) , Differential Total Cells Counted 100, Neutrophils % ( Manual) 65, Lymphocytes % (Manual) 30, Monocytes % (Manual) 5, Eosinophils % ( Manual) 0, Basophils % (Manual) 0, Band Neutrophils 0, Platelet Estimate IncreasedH, Platelet Morphology Normal, Hypochromasia 1+, Anisocytosis 1+, Sodium Level 141, Potassium Level 3.9, Chloride Level 105, Carbon Dioxide Level 22, Anion Gap 14, Blood Urea Nitrogen 22, Creatinine 1.5H, Estimat Glomerular Filtration Rate > 60, Glucose Level 89, Calcium Level 9.0 Height (Feet): 5 Height (Inches): 10.00 Weight (Pounds): 160 General Appearance: no apparent distress EENT: normal ENT inspection Neck: normal alignment Cardiovascular: normal peripheral pulses Respiratory/Chest: chest wall non-tender Abdomen: normal bowel sounds Neurologic: safety trainer II-XII grossly normal Skin: warm/dry Kapil Haney Jan 12, 2017 15:07
--- NOTE | 2017-01-12 15:58 | Infectious Diseases Prog Note ---
Assessment/Plan Problems: (1) Pleural effusion Assessment & Plan: suspect reactive due to pneumonia, with no significant amount of fluids on US , so no thoracentesis was done. monitor CXR (2) Hemoptysis Assessment & Plan: resolved, suspect due to severe pneumonia , with negative AFB smears x3 and negative PPD test which rule out TB, ok to remove from air born isolation for now , CT chest ruled out cavitation (3) Aspiration pneumonia Assessment & Plan: improving on cefepime and doxycycline , CT chest confirmed it, with no abscess or cavitations, will treat for 14 days .EOT 01/19/17 (4) Sepsis Assessment & Plan: due to the above with leukocytosis, improving , repeated blood culture is negative ,monitor CBC (5) Pancreatitis Assessment & Plan: due to tawanda drink of alcohol , continue hydration with supportive care, monitor lipase level , GI is following (6) DWAYNE (acute kidney injury) Assessment & Plan: multifactorial , suspect dehydration due to recurrent vomiting, improving on IVF , monitor renal function test, nephrology is following (7) Diarrhea Assessment & Plan: self limited, no evidence of C diff , d/c oral vancomycin (8) Anemia Assessment & Plan: recurrent , suspect hemoptysis related, monitor H/H, transfuse blood as needed , had bone biopsy , results pending Subjective Constitutional: Reports: no symptoms HEENT: Reports: no symptoms Respiratory: Reports: no symptoms Breasts: Reports: no symptoms Cardiovascular: Reports: no symptoms Gastrointestinal/Abdominal: Reports: no symptoms Genitourinary: Reports: no symptoms Neurologic: Reports: no symptoms Psychiatric: Reports: no symptoms Skin: Reports: no symptoms Endocrine: Reports: no symptoms Hematologic: Reports: no symptoms Allergies: Coded Allergies: ACETAMINOPHEN (Verified Allergy, Unknown, 06/11/15) IBUPROFEN (Verified Allergy, Unknown, 06/11/15) Objective Vital Signs Last 24 Hour Vital Signs Date Time Temp Pulse Resp B/P Pulse Ox O2 Delivery O2 Flow Rate FiO2 01/12/17 12:00 97.0 70 20 127/80 99 Room Air 01/12/17 08:00 96.6 71 18 123/84 99 Room Air 01/12/17 07:50 75 18 Room Air 21 01/12/17 04:00 98.1 75 20 143/92 99 Room Air 01/12/17 00:00 98.6 79 20 147/94 99 Room Air 01/11/17 20:00 98.1 73 20 134/73 98 Room Air 01/11/17 19:30 70 20 Room Air 21 Height (Feet): 5 Height (Inches): 10.00 Weight (Pounds): 160 General Appearance: WD/WN, no acute distress HEENT: normocephalic, atraumatic, anicteric, mucous membranes moist Respiratory/Chest: chest wall non-tender, lungs clear, normal breath sounds, no respiratory distress, no accessory muscle use Cardiovascular: normal peripheral pulses, normal rate, regular rhythm, no gallop/murmur, no JVD Abdomen: normal bowel sounds, soft, non tender, no organomegaly, non distended , no mass, no scars Extremities: no cyanosis, no clubbing Skin: no rash, no lesions, no ulcers Neurologic/Psychiatric: alert, oriented x 3 Laboratory Tests Test 01/12/17 04:35 White Blood Count 10.8 K/UL (4.8-10.8) Red Blood Count 2.89 M/UL (4.70-6.10) L Hemoglobin 7.9 G/DL (14.2-18.0) L Hematocrit 26.4 % (42.0-52.0) L Mean Corpuscular Volume 91 FL (80-99) Mean Corpuscular Hemoglobin 27.5 PG (27.0-31.0) Mean Corpuscular Hemoglobin Concent 30.0 G/DL (32.0-36.0) L Red Cell Distribution Width 19.8 % (11.6-14.8) H Platelet Count 619 K/UL (150-450) H Mean Platelet Volume 6.4 FL (6.5-10.1) L Neutrophils (%) (Auto) % (45.0-75.0) Lymphocytes (%) (Auto) % (20.0-45.0) Monocytes (%) (Auto) % (1.0-10.0) Eosinophils (%) (Auto) % (0.0-3.0) Basophils (%) (Auto) % (0.0-2.0) Differential Total Cells Counted 100 Neutrophils % (Manual) 65 % (45-75) Lymphocytes % (Manual) 30 % (20-45) Monocytes % (Manual) 5 % (1-10) Eosinophils % (Manual) 0 % (0-3) Basophils % (Manual) 0 % (0-2) Band Neutrophils 0 % (0-8) Platelet Estimate Increased H Platelet Morphology Normal Hypochromasia 1+ Anisocytosis 1+ Sodium Level 141 mEQ/L (135-145) Potassium Level 3.9 mEQ/L (3.4-4.9) Chloride Level 105 mEQ/L (98-107) Carbon Dioxide Level 22 mEQ/L (20-30) Anion Gap 14 (5-15) Blood Urea Nitrogen 22 mg/dL (7-23) Creatinine 1.5 mg/dL (0.7-1.2) H Estimat Glomerular Filtration Rate > 60 mL/min (>60) Glucose Level 89 mg/dL (74-106) Calcium Level 9.0 mg/dL (8.6-10.2) Current Medications Medications (Trade) Dose Ordered Sig/Juliana Route PRN Reason Start Time Stop Time Status Last Admin Dose Admin Acetaminophen (Tylenol) 650 mg Q4H PRN ORAL Mild Pain/Temp > 100.5 12/25/16 10:30 01/24/17 10:29 01/02/17 18:51 Albuterol/ Ipratropium (DuoNeb 0.5-3(2.5)mg/3ml) 3 ml Q4H PRN HHN Shortness of Breath 01/09/17 21:00 01/14/17 20:59 Cefepime HCl/ Dextrose (Maxipime/D5W) 110 ml @ 220 mls/hr Q12HR@0600,1800 IVPB 01/09/17 18:00 01/16/17 17:59 01/12/17 05:09 Docusate Sodium (Colace) 100 mg TWICE A DAY ORAL 12/30/16 09:00 01/29/17 08:59 01/12/17 08:54 Doxycycline Monohydrate 100 mg 100 mg EVERY 12 HOURS ORAL 01/05/17 21:00 01/14/17 20:59 01/12/17 08:54 Epoetin Alex 54309 units 10,000 units -THU SUBQ 12/31/16 21:00 01/30/17 20:59 01/09/17 20:39 Fluoxetine HCl (PROzac) 20 mg DAILY ORAL 12/27/16 09:00 01/26/17 08:59 01/12/17 08:54 Folic Acid (Folate) 2 mg DAILY ORAL 01/02/17 09:00 02/01/17 08:59 01/12/17 08:54 Lactulose (Cephulac) 10 gm TID@0900,1500,2100 ORAL 12/30/16 09:00 01/29/17 08:59 01/12/17 15:02 Levetiracetam (Keppra) 750 mg Q12HR ORAL 12/30/16 21:00 01/29/17 20:59 01/12/17 08:59 Methocarbamol (Robaxin) 500 mg Q8H PRN ORAL muscle spasm 01/02/17 09:00 02/01/17 08:59 Metoclopramide HCl (Reglan) 10 mg Q6H PRN IVP Nausea & Vomiting 12/30/16 12:30 01/29/17 12:29 12/31/16 08:59 Ondansetron HCl (Zofran) 4 mg Q6H PRN IVP Nausea & Vomiting 12/23/16 19:45 01/22/17 19:44 01/01/17 15:52 Pantoprazole (Protonix) 40 mg DAILY ORAL 01/02/17 09:00 02/01/17 08:59 01/12/17 09:00 Polyethylene Glycol (Miralax) 17 gm BEDTIME ORAL 12/30/16 21:00 01/29/17 20:59 01/10/17 20:49 Promethazine HCl/ Codeine (Phenergan with Codeine) 5 ml Q6H PRN ORAL For Cough 01/09/17 21:00 02/08/17 20:59 Sodium Chloride (Sodium Chloride 1000ml bag) 1,000 ml @ 100 mls/hr Q10H IV 01/02/17 07:45 02/01/17 07:44 01/12/17 08:54 Thiamine HCl (Vitamin B1) 100 mg DAILY ORAL 12/24/16 14:30 01/23/17 14:29 01/12/17 08:55 Vitamin D (Vitamin D) 2,000 intlu DAILY ORAL 12/25/16 10:30 01/24/17 10:29 01/12/17 08:56 Imelda Chen M.D. Jan 12, 2017 15:58
[2017-01-12 16:00] VITALS: BP 134/93
[2017-01-12 16:12] LABS: MTB PROCESSING Concentration (.)
--- NOTE | 2017-01-12 18:39 | Cardiac Electrophysiology PN ---
Assessment/Plan Status Narrative CT Brain Impression: Cerebral volume loss, out of proportion to patient's age. Correlate with clinical history Negative for acute intrarenal bleed or mass effect Assessment/Plan 1. Hypotension. Resolved. EF 55% and no pericardial effusion. 2. Sinus tachycardia.Resolved. Was due to severe anemia and sepsis with WBC 18k. Better now 10.8 3. Severe Anemia. Hb 6.5 secondary to severe folic acid deficiency. Refused blood transfusion. Bone marrow biopsy done 01/06/17. Hb 7.9 today. 4. Severe hyponatremia, resolved. 5. CKD cr 2.[address] Rosario. 6. Toxic metabolic encephalopathy. CT of the brain done on 12/24/16 reveals generalized cerebral atrophy. 7. Psychiatric illness and seizure disorder 8. Sepsis with WBC 18k. Better to 10.8 DW RN at bedside DC planning in progress Subjective Subjective Alert in NAD.No CP or SOB. Poor appetite. Depressed Objective Last 24 Hour Vital Signs Date Time Temp Pulse Resp B/P Pulse Ox O2 Delivery O2 Flow Rate FiO2 01/12/17 16:00 98.0 67 18 134/93 98 Room Air 01/12/17 12:00 97.0 70 20 127/80 99 Room Air 01/12/17 08:00 96.6 71 18 123/84 99 Room Air 01/12/17 07:50 75 18 Room Air 21 01/12/17 04:00 98.1 75 20 143/92 99 Room Air 01/12/17 00:00 98.6 79 20 147/94 99 Room Air 01/11/17 20:00 98.1 73 20 134/73 98 Room Air 01/11/17 19:30 70 20 Room Air 21 Intake and Output 01/11/17 01/12/17 19:00 07:00 Intake Total 1170 ml 1560 ml Balance 1170 ml 1560 ml Intake Oral 560 ml 400 ml IV Total 610 ml 1160 ml # Voids 3 2 # Bowel Movements 1 4 Laboratory Tests Test 01/12/17 04:35 White Blood Count 10.8 K/UL (4.8-10.8) Red Blood Count 2.89 M/UL (4.70-6.10) L Hemoglobin 7.9 G/DL (14.2-18.0) L Hematocrit 26.4 % (42.0-52.0) L Mean Corpuscular Volume 91 FL (80-99) Mean Corpuscular Hemoglobin 27.5 PG (27.0-31.0) Mean Corpuscular Hemoglobin Concent 30.0 G/DL (32.0-36.0) L Red Cell Distribution Width 19.8 % (11.6-14.8) H Platelet Count 619 K/UL (150-450) H Mean Platelet Volume 6.4 FL (6.5-10.1) L Neutrophils (%) (Auto) % (45.0-75.0) Lymphocytes (%) (Auto) % (20.0-45.0) Monocytes (%) (Auto) % (1.0-10.0) Eosinophils (%) (Auto) % (0.0-3.0) Basophils (%) (Auto) % (0.0-2.0) Differential Total Cells Counted 100 Neutrophils % (Manual) 65 % (45-75) Lymphocytes % (Manual) 30 % (20-45) Monocytes % (Manual) 5 % (1-10) Eosinophils % (Manual) 0 % (0-3) Basophils % (Manual) 0 % (0-2) Band Neutrophils 0 % (0-8) Platelet Estimate Increased H Platelet Morphology Normal Hypochromasia 1+ Anisocytosis 1+ Sodium Level 141 mEQ/L (135-145) Potassium Level 3.9 mEQ/L (3.4-4.9) Chloride Level 105 mEQ/L (98-107) Carbon Dioxide Level 22 mEQ/L (20-30) Anion Gap 14 (5-15) Blood Urea Nitrogen 22 mg/dL (7-23) Creatinine 1.5 mg/dL (0.7-1.2) H Estimat Glomerular Filtration Rate > 60 mL/min (>60) Glucose Level 89 mg/dL (74-106) Calcium Level 9.0 mg/dL (8.6-10.2) Objective NECK: No JVD. LUNGS: Coarse rhonchi CARDIOVASCULAR: S1 and S2 with no gallop or murmur. ABDOMEN: Soft. EXTREMITIES: No pitting edema. ROGERS DEAN Jan 12, 2017 18:39
[2017-01-12 20:00] VITALS: BP 143/90
--- NOTE | 2017-01-12 20:03 | General Progress Note ---
Assessment/Plan Problem List: (1) Altered mental status ICD Codes: R41.82 - Altered mental status, unspecified SNOMED: 571579150 Qualifiers: Qualified Codes: R41.82 - Altered mental status, unspecified (2) Pancreatitis ICD Codes: K85.90 - Acute pancreatitis without necrosis or infection, unspecified SNOMED: 13617829 Qualifiers: Qualified Codes: K85.90 - Acute pancreatitis without necrosis or infection, unspecified (3) Sepsis ICD Codes: A41.9 - Sepsis, unspecified organism SNOMED: 47036872 (4) Anemia ICD Codes: D64.9 - Anemia, unspecified SNOMED: 275700018 Status: progressing Assessment/Plan afebrile sepsis uti substance abuse reviewed chart and labs ams confused severe anemia hemoptysis Subjective ROS Limited/Unobtainable: Yes Allergies: Coded Allergies: ACETAMINOPHEN (Verified Allergy, Unknown, 06/11/15) IBUPROFEN (Verified Allergy, Unknown, 06/11/15) Objective Last 24 Hour Vital Signs Date Time Temp Pulse Resp B/P Pulse Ox O2 Delivery O2 Flow Rate FiO2 01/12/17 16:00 98.0 67 18 134/93 98 Room Air 01/12/17 12:00 97.0 70 20 127/80 99 Room Air 01/12/17 08:00 96.6 71 18 123/84 99 Room Air 01/12/17 07:50 75 18 Room Air 21 01/12/17 04:00 98.1 75 20 143/92 99 Room Air 01/12/17 00:00 98.6 79 20 147/94 99 Room Air Intake and Output 01/11/17 01/12/17 19:00 07:00 Intake Total 1170 ml 1560 ml Balance 1170 ml 1560 ml Intake Oral 560 ml 400 ml IV Total 610 ml 1160 ml # Voids 3 2 # Bowel Movements 1 4 Laboratory Tests 01/12/17 04:35: White Blood Count 10.8, Red Blood Count 2.89L, Hemoglobin 7.9L, Hematocrit 26.4L , Mean Corpuscular Volume 91, Mean Corpuscular Hemoglobin 27.5, Mean Corpuscular Hemoglobin Concent 30.0L, Red Cell Distribution Width 19.8H, Platelet Count 619H, Mean Platelet Volume 6.4L, Neutrophils (%) (Auto) , Lymphocytes (%) (Auto) , Monocytes (%) (Auto) , Eosinophils (%) (Auto) , Basophils (%) (Auto) , Differential Total Cells Counted 100, Neutrophils % ( Manual) 65, Lymphocytes % (Manual) 30, Monocytes % (Manual) 5, Eosinophils % ( Manual) 0, Basophils % (Manual) 0, Band Neutrophils 0, Platelet Estimate IncreasedH, Platelet Morphology Normal, Hypochromasia 1+, Anisocytosis 1+, Sodium Level 141, Potassium Level 3.9, Chloride Level 105, Carbon Dioxide Level 22, Anion Gap 14, Blood Urea Nitrogen 22, Creatinine 1.5H, Estimat Glomerular Filtration Rate > 60, Glucose Level 89, Calcium Level 9.0 Height (Feet): 5 Height (Inches): 10.00 Weight (Pounds): 160 General Appearance: confused Robbi Vega MD Jan 12, 2017 20:03
[2017-01-12] MEDS: Epogen (for non ESRD use) SUBQ SCH (20:48)
[2017-01-12] MEDS: Miralax 17gm pkt ORAL SCH (20:56)
[2017-01-13] VITALS: BP 152/64
[2017-01-13 04:00] VITALS: BP 146/94
[2017-01-13] MEDS: Cefepime 2gm in D5W 110ml IVPB SCH ×2 (05:04→18:00)
[2017-01-13 07:35] LABS: MEAN CORPUSCULAR HEMOGLOBIN 27.5 PG (27.0-31.0); MEAN CORPUSCULAR HGB CONC 30.2 G/DL (32.0-36.0); MEAN CORPUSCULAR VOLUME 91 FL (80-99); MEAN PLATELET VOLUME 6.9 FL (6.5-10.1); PLATELET COUNT 526 K/UL (150-450); RED BLOOD COUNT 2.88 M/UL (4.70-6.10); RED CELL DISTRIBUTION WIDTH 19.6 % (11.6-14.8); WHITE BLOOD COUNT 11.2 K/UL (4.8-10.8)
[2017-01-13 07:53] LABS: ANION GAP 12 (5-15); CARBON DIOXIDE 24 mEQ/L (20-30); CHLORIDE 107 mEQ/L (98-107); CREATININE 1.2 mg/dL (0.7-1.2); GLOMERULAR FILTRATION RATE > 60 mL/min (>60); HEMOLYSIS 0; POTASSIUM 3.7 mEQ/L (3.4-4.9); SODIUM 143 mEQ/L (135-145)
[2017-01-13 08:00] VITALS: BP 125/74
[2017-01-13 08:10] LABS: ANISOCYTOSIS 2+; BAND NEUTROPHILS % (MANUAL) 1 % (0-8); BASOPHILS % (MANUAL) 3 % (0-2); EOSINOPHILS % (MANUAL) 4 % (0-3); HYPOCHROMASIA 3+; LYMPHOCYTES % (MANUAL) 22 % (20-45); NEUTROPHILS % (MANUAL) 63 % (45-75); NUCLEATED RED BLOOD CELLS 1 /100 WBC; PLATELET ESTIMATE ADEQUATE; PLATELET MORPHOLOGY NORMAL; TOTAL CELLS COUNTED 100
[2017-01-13 08:10] LABS: MTB DETECTION NAA Negative (Negative)
[2017-01-13] MEDS: Thiamine 100mg tab ORAL SCH (08:48)
[2017-01-13] MEDS: Docusate 100mg cap ORAL SCH ×2 (08:48→18:00)
[2017-01-13] MEDS: Lactulose 10gm/15ml UDC ORAL SCH ×2 (08:48→15:22)
[2017-01-13] MEDS: Vitamin D 1000 IU Tab ORAL SCH (08:49)
--- NOTE | 2017-01-13 10:26 | Cardiac Electrophysiology PN ---
Assessment/Plan Status Narrative CT Brain Impression: Cerebral volume loss, out of proportion to patient's age. Correlate with clinical history Negative for acute intrarenal bleed or mass effect Assessment/Plan 1. Hypotension. Resolved. EF 55% and no pericardial effusion. 2. Sinus tachycardia.Resolved. Was due to severe anemia and sepsis with WBC 18k. Today 11.2 3. Severe Anemia. Hb 6.5 secondary to severe folic acid deficiency. Refused blood transfusion. Bone marrow biopsy done 01/06/17. Hb 7.9 4. Severe hyponatremia, resolved. 5. CKD cr 2.[address] Rosario. 6. Toxic metabolic encephalopathy. CT of the brain done on 12/24/16 reveals generalized cerebral atrophy. 7. Psychiatric illness and seizure disorder 8. Sepsis with WBC 18k. Better to 11.2 DC planning in progress Subjective Subjective Alert in NAD.No CP or SOB. Poor appetite. Depressed on nonmonitored bed. Objective Last 24 Hour Vital Signs Date Time Temp Pulse Resp B/P Pulse Ox O2 Delivery O2 Flow Rate FiO2 01/13/17 08:00 97.0 73 18 125/74 98 Room Air 01/13/17 07:50 74 18 Room Air 21 01/13/17 04:00 98.1 74 20 146/94 98 Room Air 01/13/17 00:00 97.7 57 20 152/64 95 01/12/17 20:00 98.6 69 20 143/90 100 Room Air 01/12/17 19:00 72 18 Room Air 21 01/12/17 16:00 98.0 67 18 134/93 98 Room Air 01/12/17 12:00 97.0 70 20 127/80 99 Room Air Intake and Output 01/12/17 01/13/17 19:00 07:00 Intake Total 1360 ml 1215 ml Balance 1360 ml 1215 ml Intake Oral 360 ml IV Total 1000 ml 1215 ml # Voids 2 2 # Bowel Movements 1 Laboratory Tests Test 01/13/17 05:50 White Blood Count 11.2 K/UL (4.8-10.8) H Red Blood Count 2.88 M/UL (4.70-6.10) L Hemoglobin 7.9 G/DL (14.2-18.0) L Hematocrit 26.2 % (42.0-52.0) L Mean Corpuscular Volume 91 FL (80-99) Mean Corpuscular Hemoglobin 27.5 PG (27.0-31.0) Mean Corpuscular Hemoglobin Concent 30.2 G/DL (32.0-36.0) L Red Cell Distribution Width 19.6 % (11.6-14.8) H Platelet Count 526 K/UL (150-450) H Mean Platelet Volume 6.9 FL (6.5-10.1) Neutrophils (%) (Auto) % (45.0-75.0) Lymphocytes (%) (Auto) % (20.0-45.0) Monocytes (%) (Auto) % (1.0-10.0) Eosinophils (%) (Auto) % (0.0-3.0) Basophils (%) (Auto) % (0.0-2.0) Differential Total Cells Counted 100 Neutrophils % (Manual) 63 % (45-75) Lymphocytes % (Manual) 22 % (20-45) Monocytes % (Manual) 7 % (1-10) Eosinophils % (Manual) 4 % (0-3) H Basophils % (Manual) 3 % (0-2) H Band Neutrophils 1 % (0-8) Nucleated Red Blood Cells 1 /100 WBC Platelet Estimate Adequate Platelet Morphology Normal Hypochromasia 3+ Anisocytosis 2+ Sodium Level 143 mEQ/L (135-145) Potassium Level 3.7 mEQ/L (3.4-4.9) Chloride Level 107 mEQ/L (98-107) Carbon Dioxide Level 24 mEQ/L (20-30) Anion Gap 12 (5-15) Blood Urea Nitrogen 19 mg/dL (7-23) Creatinine 1.2 mg/dL (0.7-1.2) Estimat Glomerular Filtration Rate > 60 mL/min (>60) Glucose Level 86 mg/dL (74-106) Calcium Level 9.0 mg/dL (8.6-10.2) Objective NECK: No JVD. LUNGS: Coarse rhonchi CARDIOVASCULAR: S1 and S2 with no gallop or murmur. ABDOMEN: Soft. EXTREMITIES: No pitting edema. ROGERS DEAN Jan 13, 2017 10:26
--- NOTE | 2017-01-13 11:23 | General Progress Note ---
Progress Note Progress Note Patients final diagnosis is aspiration pneumonia responded very well to antimicrobial treatment. All CXR consolidation resolved with antibacterial treatment. SILVESTRE PATRICIA Jan 13, 2017 11:23
--- NOTE | 2017-01-13 11:48 | General Progress Note ---
Assessment/Plan Status: stable Status Narrative Cr now WNL Assessment/Plan status: Acute renal failure- RESOLVED Hemoptysis , Pneumonia , r/o TB Sepsis On Admission: Renal failure , Acute vs Chronic improving h/o Sz Acute Encephalopathy h/o Low K h/o Low Na Low B12 and folate Elevated Lipase , acute pancreatitis waiting TB clearance sever anemia Plan; per consultants monitor renal parameters antibiotics down on folate dose ST PT OT eval Monitor lytes- monitor renal parameters DC planning. Subjective ROS Limited/Unobtainable: No Constitutional: Reports: malaise Allergies: Coded Allergies: ACETAMINOPHEN (Verified Allergy, Unknown, 06/11/15) IBUPROFEN (Verified Allergy, Unknown, 06/11/15) Objective Last 24 Hour Vital Signs Date Time Temp Pulse Resp B/P Pulse Ox O2 Delivery O2 Flow Rate FiO2 01/13/17 08:00 97.0 73 18 125/74 98 Room Air 01/13/17 07:50 74 18 Room Air 21 01/13/17 04:00 98.1 74 20 146/94 98 Room Air 01/13/17 00:00 97.7 57 20 152/64 95 01/12/17 20:00 98.6 69 20 143/90 100 Room Air 01/12/17 19:00 72 18 Room Air 21 01/12/17 16:00 98.0 67 18 134/93 98 Room Air 01/12/17 12:00 97.0 70 20 127/80 99 Room Air Intake and Output 01/12/17 01/13/17 19:00 07:00 Intake Total 1360 ml 1215 ml Balance 1360 ml 1215 ml Intake Oral 360 ml IV Total 1000 ml 1215 ml # Voids 2 2 # Bowel Movements 1 Laboratory Tests 01/13/17 05:50: White Blood Count 11.2H, Red Blood Count 2.88L, Hemoglobin 7.9L, Hematocrit 26.2L, Mean Corpuscular Volume 91, Mean Corpuscular Hemoglobin 27.5, Mean Corpuscular Hemoglobin Concent 30.2L, Red Cell Distribution Width 19.6H, Platelet Count 526H, Mean Platelet Volume 6.9, Neutrophils (%) (Auto) , Lymphocytes (%) (Auto) , Monocytes (%) (Auto) , Eosinophils (%) (Auto) , Basophils (%) (Auto) , Differential Total Cells Counted 100, Neutrophils % ( Manual) 63, Lymphocytes % (Manual) 22, Monocytes % (Manual) 7, Eosinophils % ( Manual) 4H, Basophils % (Manual) 3H, Band Neutrophils 1, Nucleated Red Blood Cells 1, Platelet Estimate Adequate, Platelet Morphology Normal, Hypochromasia 3 +, Anisocytosis 2+, Sodium Level 143, Potassium Level 3.7, Chloride Level 107, Carbon Dioxide Level 24, Anion Gap 12, Blood Urea Nitrogen 19, Creatinine 1.2, Estimat Glomerular Filtration Rate > 60, Glucose Level 86, Calcium Level 9.0 Height (Feet): 5 Height (Inches): 10.00 Weight (Pounds): 160 General Appearance: no apparent distress Objective other PE not changed VELASQUEZ DASILVA Jan 13, 2017 11:48
[2017-01-13 12:00] VITALS: BP 122/78
--- NOTE | 2017-01-13 13:17 | GI Progress Note ---
Assessment/Plan Problems: (1) Pancreatitis ICD Codes: K85.90 - Acute pancreatitis without necrosis or infection, unspecified SNOMED: 36342906 Qualifiers: Qualified Codes: K85.90 - Acute pancreatitis without necrosis or infection, unspecified (2) Altered mental status ICD Codes: R41.82 - Altered mental status, unspecified SNOMED: 193929076 Qualifiers: Qualified Codes: R41.82 - Altered mental status, unspecified (3) Acute alcoholic intoxication ICD Codes: F10.929 - Alcohol use, unspecified with intoxication, unspecified SNOMED: 10546592 (4) Anemia ICD Codes: D64.9 - Anemia, unspecified SNOMED: 951000508 Status: stable Status Narrative Discussed with Dr. Friend. Assessment/Plan APCT reviewed >> Acute pancreatitis. Right/transverse colonic ileus. Hepatic steatosis. Cholelithiasis. ammonia WNL OB stool r/o GI bleed >> negative low B12/folate monitor H&H, transfuse prn >> low Hgb under 7.0 >> refuses transfusions low fat diet zofran prn H2B abx fu labs Subjective Gastrointestinal/Abdominal: Reports: no symptoms Subjective sleepy Objective Last 24 Hour Vital Signs Date Time Temp Pulse Resp B/P Pulse Ox O2 Delivery O2 Flow Rate FiO2 01/13/17 12:00 98.0 76 18 122/78 94 Nasal Cannula 01/13/17 08:00 97.0 73 18 125/74 98 Room Air 01/13/17 07:50 74 18 Room Air 21 01/13/17 04:00 98.1 74 20 146/94 98 Room Air 01/13/17 00:00 97.7 57 20 152/64 95 01/12/17 20:00 98.6 69 20 143/90 100 Room Air 01/12/17 19:00 72 18 Room Air 21 01/12/17 16:00 98.0 67 18 134/93 98 Room Air Intake and Output 01/12/17 01/13/17 19:00 07:00 Intake Total 1360 ml 1215 ml Balance 1360 ml 1215 ml Intake Oral 360 ml IV Total 1000 ml 1215 ml # Voids 2 2 # Bowel Movements 1 Laboratory Tests Test 01/13/17 05:50 White Blood Count 11.2 K/UL (4.8-10.8) H Red Blood Count 2.88 M/UL (4.70-6.10) L Hemoglobin 7.9 G/DL (14.2-18.0) L Hematocrit 26.2 % (42.0-52.0) L Mean Corpuscular Volume 91 FL (80-99) Mean Corpuscular Hemoglobin 27.5 PG (27.0-31.0) Mean Corpuscular Hemoglobin Concent 30.2 G/DL (32.0-36.0) L Red Cell Distribution Width 19.6 % (11.6-14.8) H Platelet Count 526 K/UL (150-450) H Mean Platelet Volume 6.9 FL (6.5-10.1) Neutrophils (%) (Auto) % (45.0-75.0) Lymphocytes (%) (Auto) % (20.0-45.0) Monocytes (%) (Auto) % (1.0-10.0) Eosinophils (%) (Auto) % (0.0-3.0) Basophils (%) (Auto) % (0.0-2.0) Differential Total Cells Counted 100 Neutrophils % (Manual) 63 % (45-75) Lymphocytes % (Manual) 22 % (20-45) Monocytes % (Manual) 7 % (1-10) Eosinophils % (Manual) 4 % (0-3) H Basophils % (Manual) 3 % (0-2) H Band Neutrophils 1 % (0-8) Nucleated Red Blood Cells 1 /100 WBC Platelet Estimate Adequate Platelet Morphology Normal Hypochromasia 3+ Anisocytosis 2+ Sodium Level 143 mEQ/L (135-145) Potassium Level 3.7 mEQ/L (3.4-4.9) Chloride Level 107 mEQ/L (98-107) Carbon Dioxide Level 24 mEQ/L (20-30) Anion Gap 12 (5-15) Blood Urea Nitrogen 19 mg/dL (7-23) Creatinine 1.2 mg/dL (0.7-1.2) Estimat Glomerular Filtration Rate > 60 mL/min (>60) Glucose Level 86 mg/dL (74-106) Calcium Level 9.0 mg/dL (8.6-10.2) Height (Feet): 5 Height (Inches): 10.00 Weight (Pounds): 160 General Appearance: no apparent distress, alert Cardiovascular: normal rate Respiratory/Chest: normal breath sounds, no respiratory distress Abdominal Exam: normal bowel sounds, non tender, soft Genitourinary/Rectal: normal rectal exam Extremities: normal range of motion Rosa Mancia N.P. Jan 13, 2017 13:17
--- NOTE | 2017-01-13 15:05 | Infectious Diseases Prog Note ---
Assessment/Plan Problems: (1) Pleural effusion Assessment & Plan: suspect reactive due to pneumonia, with no significant amount of fluids on US , so no thoracentesis was done. monitor CXR (2) Hemoptysis Assessment & Plan: resolved, suspect due to severe pneumonia , with negative AFB smears x3 and negative PPD test which rule out TB, off air born isolation for now , CT chest ruled out cavitation (3) Aspiration pneumonia Assessment & Plan: improving on cefepime and doxycycline , CT chest confirmed it, with no abscess or cavitations, will treat for 14 days .EOT 01/15/17 (4) Sepsis Assessment & Plan: due to the above with leukocytosis, improving , repeated blood culture is negative ,monitor CBC (5) Pancreatitis Assessment & Plan: due to tawanda drink of alcohol , continue hydration with supportive care, monitor lipase level , GI is following (6) DWAYNE (acute kidney injury) Assessment & Plan: multifactorial , suspect dehydration due to recurrent vomiting, improving on IVF , monitor renal function test, nephrology is following (7) Diarrhea Assessment & Plan: self limited, no evidence of C diff , d/c oral vancomycin (8) Anemia Assessment & Plan: recurrent , suspect hemoptysis related, monitor H/H, transfuse blood as needed , had bone biopsy , results pending Subjective Constitutional: Reports: no symptoms HEENT: Reports: no symptoms Respiratory: Reports: no symptoms Breasts: Reports: no symptoms Cardiovascular: Reports: no symptoms Gastrointestinal/Abdominal: Reports: no symptoms Genitourinary: Reports: no symptoms Neurologic: Reports: no symptoms Psychiatric: Reports: no symptoms Allergies: Coded Allergies: ACETAMINOPHEN (Verified Allergy, Unknown, 06/11/15) IBUPROFEN (Verified Allergy, Unknown, 06/11/15) Objective Vital Signs Last 24 Hour Vital Signs Date Time Temp Pulse Resp B/P Pulse Ox O2 Delivery O2 Flow Rate FiO2 01/13/17 12:00 98.0 76 18 122/78 94 Nasal Cannula 01/13/17 08:00 97.0 73 18 125/74 98 Room Air 01/13/17 07:50 74 18 Room Air 21 01/13/17 04:00 98.1 74 20 146/94 98 Room Air 01/13/17 00:00 97.7 57 20 152/64 95 01/12/17 20:00 98.6 69 20 143/90 100 Room Air 01/12/17 19:00 72 18 Room Air 21 01/12/17 16:00 98.0 67 18 134/93 98 Room Air Height (Feet): 5 Height (Inches): 10.00 Weight (Pounds): 160 General Appearance: WD/WN, no acute distress HEENT: normocephalic, atraumatic, anicteric, mucous membranes moist Respiratory/Chest: chest wall non-tender, lungs clear, normal breath sounds, no respiratory distress, no accessory muscle use Cardiovascular: normal peripheral pulses, normal rate, regular rhythm, no gallop/murmur, no JVD Abdomen: normal bowel sounds, soft, non tender, no organomegaly, non distended , no mass, no scars Extremities: no cyanosis, no clubbing Skin: no rash, no lesions Neurologic/Psychiatric: alert, oriented x 3 Laboratory Tests Test 01/13/17 05:50 White Blood Count 11.2 K/UL (4.8-10.8) H Red Blood Count 2.88 M/UL (4.70-6.10) L Hemoglobin 7.9 G/DL (14.2-18.0) L Hematocrit 26.2 % (42.0-52.0) L Mean Corpuscular Volume 91 FL (80-99) Mean Corpuscular Hemoglobin 27.5 PG (27.0-31.0) Mean Corpuscular Hemoglobin Concent 30.2 G/DL (32.0-36.0) L Red Cell Distribution Width 19.6 % (11.6-14.8) H Platelet Count 526 K/UL (150-450) H Mean Platelet Volume 6.9 FL (6.5-10.1) Neutrophils (%) (Auto) % (45.0-75.0) Lymphocytes (%) (Auto) % (20.0-45.0) Monocytes (%) (Auto) % (1.0-10.0) Eosinophils (%) (Auto) % (0.0-3.0) Basophils (%) (Auto) % (0.0-2.0) Differential Total Cells Counted 100 Neutrophils % (Manual) 63 % (45-75) Lymphocytes % (Manual) 22 % (20-45) Monocytes % (Manual) 7 % (1-10) Eosinophils % (Manual) 4 % (0-3) H Basophils % (Manual) 3 % (0-2) H Band Neutrophils 1 % (0-8) Nucleated Red Blood Cells 1 /100 WBC Platelet Estimate Adequate Platelet Morphology Normal Hypochromasia 3+ Anisocytosis 2+ Sodium Level 143 mEQ/L (135-145) Potassium Level 3.7 mEQ/L (3.4-4.9) Chloride Level 107 mEQ/L (98-107) Carbon Dioxide Level 24 mEQ/L (20-30) Anion Gap 12 (5-15) Blood Urea Nitrogen 19 mg/dL (7-23) Creatinine 1.2 mg/dL (0.7-1.2) Estimat Glomerular Filtration Rate > 60 mL/min (>60) Glucose Level 86 mg/dL (74-106) Calcium Level 9.0 mg/dL (8.6-10.2) Current Medications Medications (Trade) Dose Ordered Sig/Juliana Route PRN Reason Start Time Stop Time Status Last Admin Dose Admin Acetaminophen (Tylenol) 650 mg Q4H PRN ORAL Mild Pain/Temp > 100.5 12/25/16 10:30 01/24/17 10:29 01/02/17 18:51 Albuterol/ Ipratropium (DuoNeb 0.5-3(2.5)mg/3ml) 3 ml Q4H PRN HHN Shortness of Breath 01/09/17 21:00 01/14/17 20:59 Cefepime HCl/ Dextrose (Maxipime/D5W) 110 ml @ 220 mls/hr Q12HR@0600,1800 IVPB 01/09/17 18:00 01/16/17 17:59 01/13/17 05:04 Docusate Sodium (Colace) 100 mg TWICE A DAY ORAL 12/30/16 09:00 01/29/17 08:59 01/13/17 08:48 Doxycycline Monohydrate 100 mg 100 mg EVERY 12 HOURS ORAL 01/05/17 21:00 01/14/17 20:59 01/13/17 08:48 Epoetin Alex (Procrit (for non ESRD use)) 10,000 units THU-THU-THU SUBQ 12/31/16 21:00 01/30/17 20:59 01/12/17 20:48 Fluoxetine HCl (PROzac) 20 mg DAILY ORAL 12/27/16 09:00 01/26/17 08:59 01/13/17 08:49 Folic Acid (Folate) 2 mg DAILY ORAL 01/02/17 09:00 02/01/17 08:59 01/13/17 08:49 Lactulose (Cephulac) 10 gm TID@0900,1500,2100 ORAL 12/30/16 09:00 01/29/17 08:59 01/13/17 08:48 Levetiracetam (Keppra) 750 mg Q12HR ORAL 12/30/16 21:00 01/29/17 20:59 01/13/17 08:49 Methocarbamol (Robaxin) 500 mg Q8H PRN ORAL muscle spasm 01/02/17 09:00 02/01/17 08:59 Metoclopramide HCl (Reglan) 10 mg Q6H PRN IVP Nausea & Vomiting 12/30/16 12:30 01/29/17 12:29 12/31/16 08:59 Ondansetron HCl (Zofran) 4 mg Q6H PRN IVP Nausea & Vomiting 12/23/16 19:45 01/22/17 19:44 01/01/17 15:52 Pantoprazole (Protonix) 40 mg DAILY ORAL 01/02/17 09:00 02/01/17 08:59 01/13/17 08:49 Polyethylene Glycol (Miralax) 17 gm BEDTIME ORAL 12/30/16 21:00 01/29/17 20:59 01/10/17 20:49 Promethazine HCl/ Codeine (Phenergan with Codeine) 5 ml Q6H PRN ORAL For Cough 01/09/17 21:00 02/08/17 20:59 Thiamine HCl (Vitamin B1) 100 mg DAILY ORAL 12/24/16 14:30 01/23/17 14:29 01/13/17 08:48 Vitamin D (Vitamin D) 2,000 intlu DAILY ORAL 12/25/16 10:30 01/24/17 10:29 01/13/17 08:49 Imelda Chen M.D. Jan 13, 2017 15:05
[2017-01-13 16:00] VITALS: BP 126/71
[2017-01-13] MEDS ORDERED: LEVAQUIN500 MG ORAL (17:12)
[2017-01-13] MEDS ORDERED: Tubing IV Secondary IV ONE (19:09)
--- NOTE | 2017-01-13 22:17 | General Progress Note ---
Assessment/Plan Assessment/Plan # Anemia secondary to severe folic acid deficiency, currently on folic acid --- > peripheral smear shows normocytic normochromic anemia, mild thrombocytopenia, neutrophilic granulocytosis, no blasts seen. Bone marrow biopsy reviewed and shows normal findings, 45% cellularity, normal trilineage hematopoiesis, no blasts, no monotypic B-or T-cell abnormalities. ---> continues to refuse blood transfusion after multiple discussions (most recent was on 01/04/17, does not want blood even though hgb <7) he understands risks of increased morbidity and mortality ---> hgb goal again >7, monitor ---> currently h/h slowly uptrending ---> followup as at outpatient at higher level of care such as [facility] or [place] ---> bone marrow cytogenetics and FISH studies are pending # Shortness of breath ---> Had cxr, showed stable bibasilar pleural effusions and atelectasis/ infiltrates, right greater than left ---> see pulm recs # Leukocytosis secondary to underlying inflammatory reaction versus infection --> better # Pancreatitis has being followed by gi and id, pain has improved ---> on prn zofran and pepcid as needed # Lactic acidosis with decreased blood pressure. improved # Anemia secondary to hemodilution. # Thrombocytopenia, likely secondary to hemodilution versus infection. --> continue to monitor # Hypokalemia, resolved. # Anemia secondary to B12 deficiency, given B12 injections. # History of seizures, on Dilantin. # History of alcohol intoxication leading to pancreatitis. # Altered mental status. Seen by Neurology Subjective Constitutional: Reports: no symptoms HEENT: Reports: no symptoms Cardiovascular: Reports: no symptoms Respiratory: Reports: no symptoms Gastrointestinal/Abdominal: Reports: no symptoms Genitourinary: Reports: no symptoms Neurologic/Psychiatric: Reports: no symptoms Endocrine: Reports: no symptoms Hematologic/Lymphatic: Reports: no symptoms Allergies: Coded Allergies: ACETAMINOPHEN (Verified Allergy, Unknown, 06/11/15) IBUPROFEN (Verified Allergy, Unknown, 06/11/15) Subjective clear for DC Objective Last 24 Hour Vital Signs Date Time Temp Pulse Resp B/P Pulse Ox O2 Delivery O2 Flow Rate FiO2 01/13/17 16:00 98.0 73 18 126/71 97 Room Air 01/13/17 12:00 98.0 76 18 122/78 94 Nasal Cannula 01/13/17 08:00 97.0 73 18 125/74 98 Room Air 01/13/17 07:50 74 18 Room Air 21 01/13/17 04:00 98.1 74 20 146/94 98 Room Air 01/13/17 00:00 97.7 57 20 152/64 95 Intake and Output 01/12/17 01/13/17 19:00 07:00 Intake Total 1360 ml 1215 ml Balance 1360 ml 1215 ml Intake Oral 360 ml IV Total 1000 ml 1215 ml # Voids 2 2 # Bowel Movements 1 Laboratory Tests 01/13/17 05:50: White Blood Count 11.2H, Red Blood Count 2.88L, Hemoglobin 7.9L, Hematocrit 26.2L, Mean Corpuscular Volume 91, Mean Corpuscular Hemoglobin 27.5, Mean Corpuscular Hemoglobin Concent 30.2L, Red Cell Distribution Width 19.6H, Platelet Count 526H, Mean Platelet Volume 6.9, Neutrophils (%) (Auto) , Lymphocytes (%) (Auto) , Monocytes (%) (Auto) , Eosinophils (%) (Auto) , Basophils (%) (Auto) , Differential Total Cells Counted 100, Neutrophils % ( Manual) 63, Lymphocytes % (Manual) 22, Monocytes % (Manual) 7, Eosinophils % ( Manual) 4H, Basophils % (Manual) 3H, Band Neutrophils 1, Nucleated Red Blood Cells 1, Platelet Estimate Adequate, Platelet Morphology Normal, Hypochromasia 3 +, Anisocytosis 2+, Sodium Level 143, Potassium Level 3.7, Chloride Level 107, Carbon Dioxide Level 24, Anion Gap 12, Blood Urea Nitrogen 19, Creatinine 1.2, Estimat Glomerular Filtration Rate > 60, Glucose Level 86, Calcium Level 9.0 Height (Feet): 5 Height (Inches): 10.00 Weight (Pounds): 160 General Appearance: WD/WN, confused EENT: normal ENT inspection Neck: normal alignment Cardiovascular: normal rate Respiratory/Chest: chest wall non-tender Abdomen: non tender 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
--- NOTE | 2017-01-14 17:30 | Progress Note ---
DATE: 01/13/2017 SUBJECTIVE: The patient is doing well. No behavior issues, stable at baseline. Calm and cooperative. MENTAL STATUS EXAMINATION: Alert and oriented x3. Mood is neutral. Affect is full range. Congruent with mood. Thought process is concrete. Thought content, no suicidal or homicidal ideation. ASSESSMENT: Stable. PLAN: The patient will be continued on current medication. Provide the patient with supportive therapy and reality orientation. Mary Beth Ramos M.D. DR: YANELI JOB#: [id number] CC:
== END 2017-01-13 19:10 | disposition home or self-care (01) | DRG 720 ==
LOC: EDBD 13:58 → EMR 14:22 → 4E 16:07 → EDBEDREQ 16:31 → 4E 18:59 → 4W 01-02 12:05 → 3E 01-03 20:30 → 4E 01-10 18:34
PROC: 07DR3ZX Extraction of Iliac Bone Marrow, Percutaneous Approach, Diagnostic (ICD-10-PCS; principal; 2017-01-06)
DX: A41.9 Sepsis, unspecified organism (principal); J69.0 Pneumonitis due to inhalation of food and vomit; K85.20 Alcohol induced acute pancreatitis without necrosis or infection; J90 Pleural effusion, not elsewhere classified; G92 Toxic encephalopathy; N17.9 Acute kidney failure, unspecified; K85.90 Acute pancreatitis without necrosis or infection, unspecified; E87.1 Hypo-osmolality and hyponatremia; D69.6 Thrombocytopenia, unspecified; I95.9 Hypotension, unspecified; R73.9 Hyperglycemia, unspecified; F10.229 Alcohol dependence with intoxication, unspecified; F10.239 Alcohol dependence with withdrawal, unspecified; F15.20 Other stimulant dependence, uncomplicated; G40.909 Epilepsy, unspecified, not intractable, without status epilepticus; E87.6 Hypokalemia; E86.0 Dehydration; Z59.0 Homelessness; D51.9 Vitamin B12 deficiency anemia, unspecified; D52.9 Folate deficiency anemia, unspecified; N18.9 Chronic kidney disease, unspecified; K56.7 Ileus, unspecified; K76.0 Fatty (change of) liver, not elsewhere classified; K80.20 Calculus of gallbladder without cholecystitis without obstruction; R19.7 Diarrhea, unspecified; F41.9 Anxiety disorder, unspecified; R04.2 Hemoptysis
CPT/HCPCS: 36415; 70450; 71010; 71250; 74176; 74230; 76604; 76775; 80048; 80053; 80061; 80185; 80202; 80299; 80300; 80329; 81003; 82140; 82150; 82248; 82270; 82550; 82607; 82728; 82746; 82977; 83036; 83540; 83550; 83690; 83735; 83880; 83930; 84100; 84300; 84443; 84550; 85007; 85025; 85060; 85610; 85730; 86021; 86039; 86140; 86256; 86431; 86580; 86703; 86850; 86900; 86901; 86920; 87040; 87070; 87116; 87205; 87324; 87556; 89050; 93306; 93970; 94664; 95819; J2405; J2765; J3490; J8499

== ENCOUNTER 2017-05-02 10:59 | Emergency (ER) | payer SELFPAY ==
[~2017-05-02] VITALS: Ht 162.6 cm; Wt 68.0 kg
[~2017-05-02 10:59] MED LIST: LEVAQUIN500 MG ORAL; NKM
[2017-05-02 11:09] VITALS: BP 121/69
[2017-05-02 12:55] LABS: BASOPHILS % (AUTO) 0.8 % (0.0-2.0); EOSINOPHILS % (AUTO) 2.5 % (0.0-3.0); HEMATOCRIT 31.4 % (42.0-52.0); HEMOGLOBIN 9.9 G/DL (14.2-18.0); MEAN CORPUSCULAR VOLUME 83 FL (80-99); MONOCYTES % (AUTO) 8.3 % (1.0-10.0); NEUTROPHILS % (AUTO) 61.5 % (45.0-75.0); PLATELET COUNT 278 K/UL (150-450); RED BLOOD COUNT 3.77 M/UL (4.70-6.10); RED CELL DISTRIBUTION WIDTH 17.9 % (11.6-14.8); WHITE BLOOD COUNT 8.4 K/UL (4.8-10.8)
[2017-05-02 13:16] LABS: ALANINE AMINOTRANSFERASE 26 U/L (12-78); ALBUMIN 3.3 G/DL (3.4-5.0); ALBUMIN/GLOBULIN RATIO 0.8 (1.0-2.7); ALKALINE PHOSPHATASE 112 U/L (46-116); ANION GAP 7 mmol/L (5-15); ASPARTATE AMINO TRANSFERASE 53 U/L (15-37); BILIRUBIN,TOTAL 0.4 MG/DL (0.2-1.0); BLOOD UREA NITROGEN 3 mg/dL (7-18); CALCIUM 8.6 MG/DL (8.5-10.1); CARBON DIOXIDE 30 MMOL/L (21-32); CHLORIDE 103 MMOL/L (98-107); CREATININE 0.7 MG/DL (0.55-1.30); POTASSIUM 3.4 MMOL/L (3.5-5.1); SODIUM 140 MMOL/L (136-145)
[2017-05-02] MEDS ORDERED: ZOFRAN4 M3 ORAL (13:38)
[2017-05-02] MEDS ORDERED: PRILOSEC10 M1 ORAL (13:38)
[2017-05-02 13:58] VITALS: BP 118/70
[2017-05-02 14:00] VITALS: BP 118/70
--- NOTE | 2017-05-02 16:04 | Emergency Room Report ---
History of Present Illness General Chief Complaint: General Complaint Source: Patient Present Illness HPI Patient 31-year-old male presented after increased abdominal pain. Patient says he been having increased difficulty keeping down food. He reportedly drinks alcohol heavily. He denies recent alcohol use. He states the previous he's had seizures. He had previously been hyponatremic. He reports having increased difficulty with with pain to the epigastric area. Times describes a burning sensation. Allergies: Coded Allergies: ACETAMINOPHEN (Verified Allergy, Unknown, 06/11/15) IBUPROFEN (Verified Allergy, Unknown, 06/11/15) Patient History Past Medical History: see triage record Reviewed Nursing Documentation: PMH: Agreed, PSxH: Agreed Nursing Documentation-PMH Past Medical History: No History, Except For Hx Cardiac Problems: No Hx Cancer: No Hx Gastrointestinal Problems: Yes - ETOH ABUSE Hx Neurological Problems: Yes Hx Seizures: Yes Review of Systems All Other Systems: negative except mentioned in HPI Physical Exam Vital Signs Date Time Temp Pulse Resp B/P (MAP) Pulse Ox O2 Delivery O2 Flow Rate FiO2 05/02/17 11:09 98.2 98 16 121/69 100 Room Air General Appearance: well appearing, no apparent distress, alert, GCS 15, non- toxic Head: normocephalic, atraumatic ENT: hearing grossly normal, normal voice Neck: full range of motion, supple Respiratory: no respiratory distress, speaking full sentences Cardiovascular #1: normal inspection, normal peripheral pulses, no edema Musculoskeletal: normal inspection, back normal, digits/nails normal, no calf tenderness Neurologic: normal inspection, alert, oriented x3, responsive, test skein winder III-XII nml as tested, normal gait Psychiatric: judgement/insight normal, memory normal, mood/affect normal Skin: normal inspection, no rash Medical Decision Making Diagnostic Impression: Primary Impression: Gastritis ER Course Patient presented for abdominal pain. Differential diagnoses included ischemic bowel, appendicitis, perforated viscus, abdominal aortic aneurysm, inferior myocardial infarction, viral gastroenteritis Because of complexity of patient's case laboratory testing and imaging studies were ordered. Laboratory studies were ordered due to patient's previous episodes of hyponatremia. Laboratory studies are unremarkable. Patient was discharged home. Patient was advised followup with outpatient mental health. The patient is advised to follow up with primary care doctor in 1-2 days. Patient is advised to return if any worsening condition or if any changes in status that are concerning.The patient given prescription for nausea medication and acid zach. He does not appear to have any evidence of acute withdrawal this time Last Vital Signs Date Time Temp Pulse Resp B/P (MAP) Pulse Ox O2 Delivery O2 Flow Rate FiO2 05/02/17 14:00 90 16 118/70 100 Room Air 05/02/17 13:58 98.0 Status: improved Disposition: HOME, SELF-CARE Condition: Stable Scripts Ondansetron* (ZOFRAN*) 4 Mg Tablet 4 MG ORAL Q6H Y for Nausea & Vomiting, #10 TAB Prov: Edward Alvarez 05/02/17 Omeprazole Magnesium (PRILOSEC) 10 Mg Suspdr.pkt 10 MG ORAL DAILY, #30 PACKET Prov: Edward Alvarez 05/02/17 Patient Instructions: Gastritis, Adult Edward Alvarez May 02, 2017 16:04
== END 2017-05-02 13:50 | disposition home or self-care (01) ==
LOC: EMR 11:36
DX: K29.70 Gastritis, unspecified, without bleeding (principal); Z88.6 Allergy status to analgesic agent
CPT/HCPCS: 36415; 80053; 83690; 85025; 99284; G0480; 80329